=== PATIENT | male | born 1945 | race Caucasian/White ===

== ENCOUNTER 2016-11-05 20:55 | Inpatient (IN) | payer OTHER, MEDICAID ==
[~2016-11-05] VITALS: Ht 175.3 cm; Wt 58.6 kg
[~2016-11-05 20:55] MED LIST: NALT50TA10 PO; QUET200T PO
[2016-11-05] MEDS ORDERED: ZOLPIDEM TARTRATE 10 MG TABLET PO PRN (23:15)
[2016-11-05] MEDS ORDERED: OLANZapine 5 MG RAPDIS TABLET PO PRN (23:15)
[2016-11-05 23:31] LABS: BASOPHILS % (AUTO) 0.1 % (0.0-2.0); EOSINOPHILS % (AUTO) 2.2 % (1.0-6.0); HEMATOCRIT 27.2 % (41-53); HEMOGLOBIN 8.7 g/dL (13.5-17.5); LYMPHOCYTES # (AUTO) 2.1 K/uL (1.0-4.8); LYMPHOCYTES % (AUTO) 35.3 % (22.0-44.0); MEAN CORPUSCULAR VOLUME 78 fL (80-100); MONOCYTES # (AUTO) 0.8 K/uL (0.1-1.0); MONOCYTES % (AUTO) 13.6 % (2.0-9.0); NEUTROPHILS # (AUTO) 2.9 K/uL (1.8-7.7); NEUTROPHILS % (AUTO) 48.8 % (40.0-70.0); PLATELET COUNT (AUTO) 383 K/uL (150-450); RED BLOOD CELL COUNT(AUTO) 3.48 MIL/uL (4.50-5.90); WHITE BLOOD COUNT (AUTO) 5.9 K/uL (4.5-11.0)
[2016-11-05 23:35] LABS: ANION GAP 7 mmol/L (8-16); CALCIUM, TOTAL 8.5 mg/dL (8.8-10.5); CARBON DIOXIDE 26 mmol/L (22-29); CHLORIDE 101 mmol/L (98-107); CREATININE 1.16 mg/dL (0.60-1.30); GLOMERULAR FILTR. RATE CALC > 60 mL/min (>60); SODIUM SERUM 134 mmol/L (136-145); UREA NITROGEN, BLOOD 19 mg/dL (7-18)
[2016-11-05 23:42] LABS: ALANINE AMINOTRANSFERASE 26 U/L (12-78); ALBUMIN 3.3 g/dL (3.4-5.0); ASPARTATE AMINOTRANSFERASE 19 U/L (15-37); BILIRUBIN,TOTAL 0.1 mg/dL (0.1-1.0); TOTAL PROTEIN, SERUM 7.2 g/dL (6.4-8.2)
[2016-11-06 01:28] VITALS: BP 135/72
[2016-11-06] MEDS ORDERED: INFLUENZA VIRUS VACCINE QVS 2016-17 (3YR+)/PF 60 MCG/0.5 ML SYRINGE IM ONE (01:30)
[2016-11-06] MEDS ORDERED: -PHARMACY VACCINE NOTE- MISC ONE ×2 (01:45)
[2016-11-06 08:05] VITALS: BP 100/61
[2016-11-06] MEDS ORDERED: PROMETHAZINE HCL 25 MG TABLET PO PRN (11:15)
[2016-11-06] MEDS ORDERED: LOPERAMIDE HCL 2 MG CAPSULE PO PRN (11:15)
[2016-11-06] MEDS ORDERED: MAG HYDROX/AL HYDROX/SIMETH ES 30 ML SUSPENSION UDCUP PO PRN (11:15)
[2016-11-06] MEDS ORDERED: GuaiFENesin/D-METHORPHAN [SUGAR-FREE] 200-20MG/10 ML SYRUP UDCUP PO PRN (11:15)
[2016-11-06] MEDS ORDERED: ACETAMINOPHEN 325 MG TABLET PO PRN (11:15)
[2016-11-06] MEDS ORDERED: MAGNESIUM HYDROXIDE SUSPENSION 30 ML UDCUP PO PRN (11:15)
[2016-11-06] MEDS ORDERED: HydrOXYzine PAMOATE 50 MG CAPSULE PO PRN (11:15)
[2016-11-06] MEDS: THIAMINE HCL 100 MG TABLET PO SCH (17:00)
[2016-11-06 20:28] VITALS: BP 98/60
[2016-11-06] MEDS: QUEtiapine FUMARATE 200 MG TABLET PO SCH (21:00)
[2016-11-06] MEDS ORDERED: QUEtiapine FUMARATE 100 MG TABLET PO SCH (21:00)
[2016-11-07] MEDS: MULTIVITAMINS WITH MINERALS, THERAPEUTIC TABLET PO SCH (09:37)
[2016-11-07] MEDS: THIAMINE HCL 100 MG TABLET PO SCH ×2 (09:37→16:18)
[2016-11-07] MEDS: FOLIC ACID 1 MG TABLET PO SCH (09:37)
[2016-11-07 10:04] VITALS: BP 128/82
[2016-11-07] MEDS: QUEtiapine FUMARATE 200 MG TABLET PO SCH (20:55)
[2016-11-08 06:52] VITALS: BP 120/73
[2016-11-08 08:00] VITALS: BP 112/79
[2016-11-08] MEDS: MULTIVITAMINS WITH MINERALS, THERAPEUTIC TABLET PO SCH (09:00)
[2016-11-08] MEDS: FOLIC ACID 1 MG TABLET PO SCH (09:00)
[2016-11-08] MEDS: THIAMINE HCL 100 MG TABLET PO SCH ×2 (09:00→16:25)
[2016-11-08] MEDS: LORazepam 2 MG TABLET PO PRN ×2 (12:51→19:59)
[2016-11-08] MEDS: NICOTINE 21 MG/24 HOUR PATCH TD SCH (16:20)
[2016-11-08 16:42] VITALS: BP 106/58
[2016-11-08] MEDS: QUEtiapine FUMARATE 200 MG TABLET PO SCH (20:27)
[2016-11-09] MEDS: LORazepam 2 MG TABLET PO PRN ×4 (05:42→21:24)
[2016-11-09 05:46] VITALS: BP 128/87
[2016-11-09 07:36] LABS: APPEARANCE,URINE CLEAR (CLEAR); GLUCOSE, URINE (UA) NEGATIVE (NEGATIVE); KETONES,URINE NEGATIVE (NEGATIVE); LEUKOCYTE ESTERASE ,URINE NEGATIVE (NEGATIVE); OCCULT BLOOD,URINE NEGATIVE (NEGATIVE); PROTEIN,URINE NEGATIVE (NEGATIVE)
[2016-11-09 07:40] LABS: ADD UA MICROSCOPIC NO
[2016-11-09 08:00] VITALS: BP 113/75
[2016-11-09] MEDS: FOLIC ACID 1 MG TABLET PO SCH (08:34)
[2016-11-09] MEDS: MULTIVITAMINS WITH MINERALS, THERAPEUTIC TABLET PO SCH (08:34)
[2016-11-09] MEDS: THIAMINE HCL 100 MG TABLET PO SCH ×2 (08:34→16:06)
[2016-11-09] MEDS: NICOTINE 21 MG/24 HOUR PATCH TD SCH (08:35)
[2016-11-09 19:16] VITALS: BP 117/82
[2016-11-09] MEDS: QUEtiapine FUMARATE 200 MG TABLET PO SCH (21:00)
[2016-11-10 01:30] VITALS: BP 115/72
[2016-11-10] MEDS: LORazepam 2 MG TABLET PO PRN ×3 (06:49→18:29)
[2016-11-10] MEDS: THIAMINE HCL 100 MG TABLET PO SCH ×2 (08:17→16:59)
[2016-11-10] MEDS: FOLIC ACID 1 MG TABLET PO SCH (08:17)
[2016-11-10] MEDS: MULTIVITAMINS WITH MINERALS, THERAPEUTIC TABLET PO SCH (08:17)
[2016-11-10] MEDS: NICOTINE 21 MG/24 HOUR PATCH TD SCH (08:20)
[2016-11-10 16:17] VITALS: BP 113/76
[2016-11-10 16:18] VITALS: BP 113/76
[2016-11-10] MEDS: QUEtiapine FUMARATE 200 MG TABLET PO SCH (20:18)
[2016-11-11 08:54] VITALS: BP 126/64
[2016-11-11] MEDS: NICOTINE 21 MG/24 HOUR PATCH TD SCH (09:19)
[2016-11-11] MEDS: LORazepam 0.5 MG TABLET PO PRN ×3 (09:20→20:42)
[2016-11-11] MEDS: THIAMINE HCL 100 MG TABLET PO SCH ×2 (09:21→16:04)
[2016-11-11] MEDS: MULTIVITAMINS WITH MINERALS, THERAPEUTIC TABLET PO SCH (09:21)
[2016-11-11] MEDS: FOLIC ACID 1 MG TABLET PO SCH (09:21)
[2016-11-11] MEDS: ESCITALOPRAM OXALATE 10 MG TABLET PO SCH (09:22)
[2016-11-11 17:00] VITALS: BP 101/62
[2016-11-11] MEDS: QUEtiapine FUMARATE 200 MG TABLET PO SCH (21:26)
[2016-11-12 06:05] VITALS: BP 105/75
[2016-11-12] MEDS: LORazepam 0.5 MG TABLET PO PRN ×4 (06:50→21:59)
[2016-11-12 08:00] VITALS: BP 123/80
[2016-11-12] MEDS: ESCITALOPRAM OXALATE 10 MG TABLET PO SCH (08:12)
[2016-11-12] MEDS: FOLIC ACID 1 MG TABLET PO SCH (08:12)
[2016-11-12] MEDS: THIAMINE HCL 100 MG TABLET PO SCH ×2 (08:12→16:24)
[2016-11-12] MEDS: MULTIVITAMINS WITH MINERALS, THERAPEUTIC TABLET PO SCH (08:12)
[2016-11-12] MEDS: NICOTINE 21 MG/24 HOUR PATCH TD SCH (08:16)
[2016-11-12] MEDS ORDERED: QUET200T29 PO (17:19)
[2016-11-12 18:52] VITALS: BP 113/65
[2016-11-12] MEDS: QUEtiapine FUMARATE 200 MG TABLET PO SCH (21:59)
[2016-11-13] MEDS ORDERED: ESCI10TA PO (02:06)
[2016-11-13 05:58] VITALS: BP 105/68
[2016-11-13] MEDS: FOLIC ACID 1 MG TABLET PO SCH (08:02)
[2016-11-13] MEDS: MULTIVITAMINS WITH MINERALS, THERAPEUTIC TABLET PO SCH (08:02)
[2016-11-13] MEDS: THIAMINE HCL 100 MG TABLET PO SCH (08:02)
[2016-11-13] MEDS: ESCITALOPRAM OXALATE 10 MG TABLET PO SCH (08:03)
[2016-11-13] MEDS: LORazepam 0.5 MG TABLET PO PRN (08:03)
[2016-11-13] MEDS: NICOTINE 21 MG/24 HOUR PATCH TD SCH (08:03)
[2016-11-13 08:07] VITALS: BP 106/69
[2017-01-27] MEDS ORDERED: FERR-89 PO (11:02)
== END 2016-11-13 11:35 | disposition home or self-care (01) | DRG 885 ==
LOC: EMS 20:59 → 3EI 23:58 → 3EX 11-07 17:53
PROVIDERS: ADMIT Psychiatry & Neurology Psychiatry; ATTEND Psychiatry & Neurology Psychiatry
DX: F25.9 Schizoaffective disorder, unspecified (principal); R45.851 Suicidal ideations; B19.20 Unspecified viral hepatitis C without hepatic coma; D64.9 Anemia, unspecified; F17.210 Nicotine dependence, cigarettes, uncomplicated; F32.9 Major depressive disorder, single episode, unspecified; I10 Essential (primary) hypertension; J44.9 Chronic obstructive pulmonary disease, unspecified; J45.909 Unspecified asthma, uncomplicated; F12.90 Cannabis use, unspecified, uncomplicated; K21.9 Gastro-esophageal reflux disease without esophagitis; N40.0 Benign prostatic hyperplasia without lower urinary tract symptoms; Z59.0 Homelessness; Z79.899 Other long term (current) drug therapy; Z87.81 Personal history of (healed) traumatic fracture; Z91.19 Patient's noncompliance with other medical treatment and regimen; Z88.6 Allergy status to analgesic agent; Z88.8 Allergy status to other drugs, medicaments and biological substances; Z87.01 Personal history of pneumonia (recurrent); Z98.890 Other specified postprocedural states; Z28.20 Immunization not carried out because of patient decision for unspecified reason
CPT/HCPCS: 80307; 87081; 99285; G0480

== ENCOUNTER 2016-11-15 21:47 | Emergency (ER) | payer OTHER ==
[~2016-11-15] VITALS: Ht 167.6 cm; Wt 65.9 kg
[~2016-11-15 21:47] MED LIST changes: -NALT50TA10 PO; +QUET200T29 PO
[2016-11-16] MEDS ORDERED: SODIUM CHLORIDE 0.9% 1,000 ML IV ONE (00:45)
[2016-11-16] MEDS ORDERED: MAGNESIUM SULFATE 2 GM, MVI, ADULT NO.1 WITH VIT K 10 ML, THIAMINE HCL 100 MG, FOLIC AC... IV ONE ×5 (00:45)
[2016-11-16 02:56] VITALS: BP 127/67
[2017-01-27] MEDS ORDERED: FERR-89 PO (11:02)
== END 2016-11-16 03:35 | disposition home or self-care (01) ==
LOC: EMS 21:49
DX: F25.9 Schizoaffective disorder, unspecified (principal); J45.909 Unspecified asthma, uncomplicated; F10.129 Alcohol abuse with intoxication, unspecified; J44.9 Chronic obstructive pulmonary disease, unspecified; F32.9 Major depressive disorder, single episode, unspecified; F17.210 Nicotine dependence, cigarettes, uncomplicated; F12.90 Cannabis use, unspecified, uncomplicated; F19.90 Other psychoactive substance use, unspecified, uncomplicated; Z88.8 Allergy status to other drugs, medicaments and biological substances; Y90.0 Blood alcohol level of less than 20 mg/100 ml
CPT/HCPCS: 36415; 80307; 99284; G0480; J3411; J3475; J3490 ×2; J7030

== ENCOUNTER 2016-11-23 23:47 | Emergency (ER) | payer OTHER ==
[~2016-11-23] VITALS: Ht 172.7 cm; Wt 63.6 kg
[2016-11-24 00:40] VITALS: BP 135/76
[2016-11-24] MEDS ORDERED: LORazepam 2 MG TABLET PO ONE (01:00)
[2017-01-27] MEDS ORDERED: FERR-89 PO (11:02)
== END 2016-11-24 01:03 | disposition home or self-care (01) ==
LOC: EMS 23:49
DX: F41.9 Anxiety disorder, unspecified (principal); F25.9 Schizoaffective disorder, unspecified; J45.909 Unspecified asthma, uncomplicated; F31.9 Bipolar disorder, unspecified; J44.9 Chronic obstructive pulmonary disease, unspecified; F17.210 Nicotine dependence, cigarettes, uncomplicated
CPT/HCPCS: 99284

== ENCOUNTER 2016-11-24 13:39 | Emergency (ER) | payer OTHER ==
[~2016-11-24] VITALS: Ht 175.3 cm; Wt 63.6 kg
[2016-11-24 14:20] VITALS: BP 126/79
[2017-01-27] MEDS ORDERED: FERR-89 PO (11:02)
== END 2016-11-24 17:35 | disposition left against medical advice (07) ==
LOC: EMS 13:43
DX: Z00.8 Encounter for other general examination (principal); Z53.21 Procedure and treatment not carried out due to patient leaving prior to being seen by health care provider

== ENCOUNTER 2016-11-26 21:52 | Emergency (ER) | payer OTHER ==
[~2016-11-26] VITALS: Ht 172.7 cm; Wt 72.7 kg
[2016-11-27] MEDS ORDERED: LORazepam 2 MG TABLET PO ONE (00:45)
[2016-11-27 01:02] VITALS: BP 132/81
[2017-01-27] MEDS ORDERED: FERR-89 PO (11:02)
== END 2016-11-27 01:04 | disposition home or self-care (01) ==
LOC: EMS 21:54
DX: F41.9 Anxiety disorder, unspecified (principal); F31.9 Bipolar disorder, unspecified; J44.9 Chronic obstructive pulmonary disease, unspecified; J45.909 Unspecified asthma, uncomplicated; F20.9 Schizophrenia, unspecified; F12.90 Cannabis use, unspecified, uncomplicated; F15.90 Other stimulant use, unspecified, uncomplicated; F17.210 Nicotine dependence, cigarettes, uncomplicated; Z88.5 Allergy status to narcotic agent
CPT/HCPCS: 99284

== ENCOUNTER 2016-11-27 05:29 | Emergency (ER) | payer OTHER ==
[~2016-11-27] VITALS: Ht 170.2 cm; Wt 72.7 kg
[2016-11-27 06:16] VITALS: BP 126/80
[2016-11-27 06:55] LABS: BASOPHILS % (AUTO) 0.1 % (0.0-2.0); EOSINOPHILS % (AUTO) 2.2 % (1.0-6.0); HEMATOCRIT 27.5 % (41-53); HEMOGLOBIN 8.6 g/dL (13.5-17.5); LYMPHOCYTES # (AUTO) 1.4 K/uL (1.0-4.8); LYMPHOCYTES % (AUTO) 21.8 % (22.0-44.0); MEAN CORPUSCULAR HEMOGLOBIN 24.5 pg (26.0-34.0); MEAN CORPUSCULAR HGB CONC 31.4 G/dL (31.0-37.0); MEAN CORPUSCULAR VOLUME 78 fL (80-100); MONOCYTES # (AUTO) 0.7 K/uL (0.1-1.0); NEUTROPHILS # (AUTO) 4.3 K/uL (1.8-7.7); NEUTROPHILS % (AUTO) 64.9 % (40.0-70.0); PLATELET COUNT (AUTO) 337 K/uL (150-450); RED BLOOD CELL COUNT(AUTO) 3.54 MIL/uL (4.50-5.90); RED CELL DISTRIBUTION WIDTH 17.3 % (11.5-14.5); WHITE BLOOD COUNT (AUTO) 6.6 K/uL (4.5-11.0)
[2016-11-27 06:56] LABS: ANION GAP 4 mmol/L (8-16); CALCIUM, TOTAL 7.9 mg/dL (8.8-10.5); CARBON DIOXIDE 32 mmol/L (22-29); CHLORIDE 96 mmol/L (98-107); CREATININE 1.08 mg/dL (0.60-1.30); GLOMERULAR FILTR. RATE CALC > 60 mL/min (>60); POTASSIUM 4.2 mmol/L (3.5-5.1); SODIUM SERUM 132 mmol/L (136-145); UREA NITROGEN, BLOOD 19 mg/dL (7-18)
[2016-11-27 07:02] LABS: ALANINE AMINOTRANSFERASE 26 U/L (12-78); ALBUMIN 3.6 g/dL (3.4-5.0); ASPARTATE AMINOTRANSFERASE 23 U/L (15-37); BILIRUBIN,TOTAL 0.1 mg/dL (0.1-1.0); TOTAL PROTEIN, SERUM 7.6 g/dL (6.4-8.2)
[2016-11-27 09:32] LABS: RBC MORPHOLOGY COMMENT ABNORMAL RBC MORPH
[2017-01-27] MEDS ORDERED: FERR-89 PO (11:02)
== END 2016-11-27 07:50 | disposition left against medical advice (07) ==
LOC: EMS 05:31
DX: F31.9 Bipolar disorder, unspecified (principal); D64.9 Anemia, unspecified; E11.649 Type 2 diabetes mellitus with hypoglycemia without coma; J45.909 Unspecified asthma, uncomplicated; F20.9 Schizophrenia, unspecified; J44.9 Chronic obstructive pulmonary disease, unspecified; F12.90 Cannabis use, unspecified, uncomplicated; F19.90 Other psychoactive substance use, unspecified, uncomplicated; F17.210 Nicotine dependence, cigarettes, uncomplicated; Z88.8 Allergy status to other drugs, medicaments and biological substances
CPT/HCPCS: 36415; 80053; 80307; 85025; 99284; G0480

== ENCOUNTER 2016-12-04 17:54 | Emergency (ER) | payer OTHER ==
[~2016-12-04] VITALS: Ht 175.3 cm; Wt 63.6 kg
[2016-12-04 23:30] VITALS: BP 141/88
[2016-12-04] MEDS ORDERED: LORazepam 1 MG TABLET PO ONE (23:45)
[2017-01-27] MEDS ORDERED: FERR-89 PO (11:02)
== END 2016-12-04 23:40 | disposition home or self-care (01) ==
LOC: EMS 18:02
DX: F41.9 Anxiety disorder, unspecified (principal); F31.9 Bipolar disorder, unspecified; F20.9 Schizophrenia, unspecified; J45.909 Unspecified asthma, uncomplicated; J44.9 Chronic obstructive pulmonary disease, unspecified; F17.210 Nicotine dependence, cigarettes, uncomplicated; F12.90 Cannabis use, unspecified, uncomplicated; F19.90 Other psychoactive substance use, unspecified, uncomplicated; Z88.8 Allergy status to other drugs, medicaments and biological substances
CPT/HCPCS: 99284

== ENCOUNTER 2016-12-06 22:04 | Emergency (ER) | payer OTHER ==
[~2016-12-06] VITALS: Ht 182.9 cm; Wt 68.2 kg
[2016-12-06] MEDS ORDERED: BACITRACIN 0.9 GM PACKET OINTMENT TP ONE (23:00)
[2016-12-06 23:13] LABS: HEMATOCRIT 24.5 % (41-53); HEMOGLOBIN 7.8 g/dL (13.5-17.5); MEAN CORPUSCULAR HEMOGLOBIN 24.2 pg (26.0-34.0); MEAN CORPUSCULAR VOLUME 76 fL (80-100); PLATELET COUNT (AUTO) 428 K/uL (150-450); RED BLOOD CELL COUNT(AUTO) 3.23 MIL/uL (4.50-5.90); RED CELL DISTRIBUTION WIDTH 17.8 % (11.5-14.5); WHITE BLOOD COUNT (AUTO) 5.2 K/uL (4.5-11.0)
[2016-12-06 23:21] LABS: ANION GAP 8 mmol/L (8-16); CALCIUM, TOTAL 8.2 mg/dL (8.8-10.5); CARBON DIOXIDE 28 mmol/L (22-29); CHLORIDE 101 mmol/L (98-107); CREATININE 1.12 mg/dL (0.60-1.30); GLOMERULAR FILTR. RATE CALC > 60 mL/min (>60); POTASSIUM 4.4 mmol/L (3.5-5.1); SODIUM SERUM 137 mmol/L (136-145); UREA NITROGEN, BLOOD 20 mg/dL (7-18)
[2016-12-06 23:27] LABS: ALANINE AMINOTRANSFERASE 31 U/L (12-78); ALBUMIN 3.4 g/dL (3.4-5.0); ASPARTATE AMINOTRANSFERASE 31 U/L (15-37); BILIRUBIN,TOTAL 0.2 mg/dL (0.1-1.0); TOTAL PROTEIN, SERUM 7.1 g/dL (6.4-8.2)
[2016-12-06 23:28] LABS: EOSINOPHILS % (MANUAL) 1 % (1-6); LYMPHOCYTES % (MANUAL) 33 % (22-44); TOTAL CELLS COUNTED 100
[2016-12-06 23:29] LABS: RBC MORPHOLOGY COMMENT ABNORMAL R
[2016-12-07] MEDS ORDERED: LORazepam 2 MG TABLET PO ONE
[2016-12-07 00:26] VITALS: BP 133/80
[2017-01-27] MEDS ORDERED: FERR-89 PO (11:02)
== END 2016-12-07 01:12 | disposition home or self-care (01) ==
LOC: EMS 22:06
DX: F30.9 Manic episode, unspecified (principal); D64.9 Anemia, unspecified; F10.10 Alcohol abuse, uncomplicated; F17.210 Nicotine dependence, cigarettes, uncomplicated; F12.90 Cannabis use, unspecified, uncomplicated; F19.90 Other psychoactive substance use, unspecified, uncomplicated; J45.909 Unspecified asthma, uncomplicated; J44.9 Chronic obstructive pulmonary disease, unspecified; Z88.8 Allergy status to other drugs, medicaments and biological substances; Y90.0 Blood alcohol level of less than 20 mg/100 ml
CPT/HCPCS: 36415; 80053; 85025; 99284; G0480

== ENCOUNTER 2016-12-10 22:04 | Emergency (ER) | payer OTHER ==
[~2016-12-10] VITALS: Ht 172.7 cm; Wt 72.7 kg
[2016-12-11] MEDS ORDERED: LORazepam 2 MG TABLET PO ONE (00:45)
[2016-12-11 01:20] VITALS: BP 132/72
[2017-01-27] MEDS ORDERED: FERR-89 PO (11:02)
== END 2016-12-11 01:22 | disposition home or self-care (01) ==
LOC: EMS 22:07
DX: F41.9 Anxiety disorder, unspecified (principal); J45.909 Unspecified asthma, uncomplicated; J44.9 Chronic obstructive pulmonary disease, unspecified; F12.90 Cannabis use, unspecified, uncomplicated; F15.90 Other stimulant use, unspecified, uncomplicated; F17.210 Nicotine dependence, cigarettes, uncomplicated; Z88.5 Allergy status to narcotic agent
CPT/HCPCS: 99283

== ENCOUNTER 2016-12-24 04:08 | Emergency (ER) | payer OTHER ==
[~2016-12-24] VITALS: Ht 172.7 cm; Wt 72.7 kg
[2016-12-24 05:44] LABS: BASOPHILS # (AUTO) 0.01 K/uL (0.00-0.20); BASOPHILS % (AUTO) 0.1 % (0.0-2.0); EOSINOPHILS # (AUTO) 0.06 K/uL (0.00-0.70); EOSINOPHILS % (AUTO) 1.37 % (1.0-6.0); HEMOGLOBIN 7.4 g/dL (13.5-17.5); LYMPHOCYTES # (AUTO) 1.8 K/uL (1.0-4.8); LYMPHOCYTES % (AUTO) 39.5 % (22.0-44.0); MEAN CORPUSCULAR HEMOGLOBIN 23.4 pg (26.0-34.0); MEAN CORPUSCULAR HGB CONC 32.4 G/dL (31.0-37.0); MEAN CORPUSCULAR VOLUME 72 fL (80-100); MONOCYTES # (AUTO) 0.6 K/uL (0.1-1.0); MONOCYTES % (AUTO) 13.1 % (2.0-9.0); NEUTROPHILS # (AUTO) 2.1 K/uL (1.8-7.7); NEUTROPHILS % (AUTO) 45.8 % (40.0-70.0); PLATELET COUNT (AUTO) 338 K/uL (150-450); RED BLOOD CELL COUNT(AUTO) 3.18 MIL/uL (4.50-5.90); RED CELL DISTRIBUTION WIDTH 16.9 % (11.5-14.5); WHITE BLOOD COUNT (AUTO) 4.6 K/uL (4.5-11.0)
[2016-12-24 05:52] LABS: ANION GAP 7 mmol/L (8-16); CALCIUM, TOTAL 8.1 mg/dL (8.8-10.5); CARBON DIOXIDE 29 mmol/L (22-29); CHLORIDE 100 mmol/L (98-107); CREATININE 1.31 mg/dL (0.60-1.30); GLOMERULAR FILTR. RATE CALC 54 mL/min (>60); POTASSIUM 4.5 mmol/L (3.5-5.1); SODIUM SERUM 136 mmol/L (136-145); UREA NITROGEN, BLOOD 18 mg/dL (7-18)
[2016-12-24 05:58] LABS: ALANINE AMINOTRANSFERASE 33 U/L (12-78); ALBUMIN 3.3 g/dL (3.4-5.0); ASPARTATE AMINOTRANSFERASE 39 U/L (15-37); BILIRUBIN,TOTAL 0.3 mg/dL (0.1-1.0); TOTAL PROTEIN, SERUM 7.2 g/dL (6.4-8.2)
[2016-12-24 06:45] LABS: RBC MORPHOLOGY COMMENT ABNORMAL RBC MORPH
[2016-12-24 09:04] VITALS: BP 109/71
[2017-01-27] MEDS ORDERED: FERR-89 PO (11:02)
== END 2016-12-24 09:09 | disposition home or self-care (01) ==
LOC: EMS 04:11
DX: F41.9 Anxiety disorder, unspecified (principal); F25.9 Schizoaffective disorder, unspecified; F31.9 Bipolar disorder, unspecified; J44.9 Chronic obstructive pulmonary disease, unspecified; J45.909 Unspecified asthma, uncomplicated; F12.90 Cannabis use, unspecified, uncomplicated; F15.90 Other stimulant use, unspecified, uncomplicated; F17.210 Nicotine dependence, cigarettes, uncomplicated; Z88.5 Allergy status to narcotic agent
CPT/HCPCS: 36415; 80053; 80307; 85025; 99284; 99406; G0480

== ENCOUNTER 2016-12-26 20:51 | Inpatient (IN) | payer OTHER, MEDICAID ==
[~2016-12-26] VITALS: Ht 175.3 cm; Wt 62.8 kg
[2016-12-26] MEDS ORDERED: HALOPERIDOL 5 MG TABLET PO PRN (23:00)
[2016-12-26] MEDS ORDERED: ZOLPIDEM TARTRATE 10 MG TABLET PO PRN (23:00)
[2016-12-26 23:13] VITALS: BP 101/72
[2016-12-27 00:11] VITALS: BP 119/78
[2016-12-27] MEDS ORDERED: INFLUENZA VIRUS VACCINE QVS 2016-17 (3YR+)/PF 60 MCG/0.5 ML SYRINGE IM ONE (00:15)
[2016-12-27] MEDS ORDERED: PNEUMOCOCCAL VACCINE POLYVALENT 0.5 ML VIAL [PPSV23] IM ONE (00:30)
[2016-12-27 09:33] LABS: BASOPHILS % (AUTO) 0.6 % (0.0-2.0); EOSINOPHILS % (AUTO) 6.2 % (1.0-6.0); HEMATOCRIT 25.8 % (41-53); LYMPHOCYTES # (AUTO) 1.2 K/uL (1.0-4.8); LYMPHOCYTES % (AUTO) 30.8 % (22.0-44.0); MEAN CORPUSCULAR HEMOGLOBIN 22.7 pg (26.0-34.0); MEAN CORPUSCULAR HGB CONC 30.9 G/dL (31.0-37.0); MEAN CORPUSCULAR VOLUME 74 fL (80-100); MONOCYTES # (AUTO) 0.5 K/uL (0.1-1.0); NEUTROPHILS # (AUTO) 1.9 K/uL (1.8-7.7); NEUTROPHILS % (AUTO) 49.4 % (40.0-70.0); PLATELET COUNT (AUTO) 350 K/uL (150-450); RED CELL DISTRIBUTION WIDTH 16.6 % (11.5-14.5); WHITE BLOOD COUNT (AUTO) 3.9 K/uL (4.5-11.0)
[2016-12-27 09:51] LABS: ALANINE AMINOTRANSFERASE 32 U/L (12-78); ALBUMIN 3.4 g/dL (3.4-5.0); ANION GAP 8 mmol/L (8-16); ASPARTATE AMINOTRANSFERASE 32 U/L (15-37); BILIRUBIN,TOTAL 0.3 mg/dL (0.1-1.0); CALCIUM, TOTAL 7.5 mg/dL (8.8-10.5); CARBON DIOXIDE 27 mmol/L (22-29); CHLORIDE 101 mmol/L (98-107); CREATININE 1.14 mg/dL (0.60-1.30); GLOMERULAR FILTR. RATE CALC > 60 mL/min (>60); POTASSIUM 4.7 mmol/L (3.5-5.1); SODIUM SERUM 136 mmol/L (136-145); TOTAL PROTEIN, SERUM 7.3 g/dL (6.4-8.2); UREA NITROGEN, BLOOD 15 mg/dL (7-18)
[2016-12-27 10:33] LABS: APPEARANCE,URINE CLEAR (CLEAR); GLUCOSE, URINE (UA) NEGATIVE (NEGATIVE); KETONES,URINE NEGATIVE (NEGATIVE); LEUKOCYTE ESTERASE ,URINE NEGATIVE (NEGATIVE); OCCULT BLOOD,URINE NEGATIVE (NEGATIVE); PROTEIN,URINE NEGATIVE (NEGATIVE)
[2016-12-27] MEDS: NICOTINE 21 MG/24 HOUR PATCH TD SCH (10:43)
[2016-12-27 10:52] LABS: ADD UA MICROSCOPIC NO
[2016-12-27] MEDS: LORazepam 1 MG TABLET PO PRN ×2 (13:36→20:31)
[2016-12-27] MEDS: MULTIVITAMINS WITH IRON TABLET PO SCH (15:10)
[2016-12-27 16:17] VITALS: BP 126/65
[2016-12-27] MEDS: QUEtiapine FUMARATE 200 MG TABLET PO SCH (20:31)
[2016-12-28 00:10] VITALS: BP 124/84
[2016-12-28] MEDS: LORazepam 1 MG TABLET PO PRN ×3 (06:53→20:07)
[2016-12-28 08:39] LABS: EOSINOPHILS % (AUTO) 3.8 % (1.0-6.0); HEMATOCRIT 26.9 % (41-53); HEMOGLOBIN 8.4 g/dL (13.5-17.5); LYMPHOCYTES # (AUTO) 1.7 K/uL (1.0-4.8); LYMPHOCYTES % (AUTO) 37.3 % (22.0-44.0); MEAN CORPUSCULAR HEMOGLOBIN 22.7 pg (26.0-34.0); MEAN CORPUSCULAR HGB CONC 31.1 G/dL (31.0-37.0); MEAN CORPUSCULAR VOLUME 73 fL (80-100); MONOCYTES # (AUTO) 0.6 K/uL (0.1-1.0); MONOCYTES % (AUTO) 13.1 % (2.0-9.0); NEUTROPHILS # (AUTO) 2.1 K/uL (1.8-7.7); NEUTROPHILS % (AUTO) 45.8 % (40.0-70.0); PLATELET COUNT (AUTO) 387 K/uL (150-450); RED BLOOD CELL COUNT(AUTO) 3.68 MIL/uL (4.50-5.90); RED CELL DISTRIBUTION WIDTH 16.8 % (11.5-14.5); WHITE BLOOD COUNT (AUTO) 4.6 K/uL (4.5-11.0)
[2016-12-28] MEDS: NICOTINE 21 MG/24 HOUR PATCH TD SCH (09:38)
[2016-12-28] MEDS: MULTIVITAMINS WITH IRON TABLET PO SCH (09:38)
[2016-12-28 09:50] LABS: RBC MORPHOLOGY COMMENT ABNORMAL RBC MORPH
[2016-12-28 16:18] VITALS: BP 114/70
[2016-12-28] MEDS: QUEtiapine FUMARATE 200 MG TABLET PO SCH (20:11)
[2016-12-29 04:06] VITALS: BP 128/76
[2016-12-29 09:03] VITALS: BP 106/72
[2016-12-29] MEDS: NICOTINE 21 MG/24 HOUR PATCH TD SCH (09:35)
[2016-12-29] MEDS: MULTIVITAMINS WITH IRON TABLET PO SCH (09:35)
[2016-12-29] MEDS: LORazepam 1 MG TABLET PO PRN ×3 (09:35→20:03)
[2016-12-29 16:19] VITALS: BP 115/75
[2016-12-29] MEDS: QUEtiapine FUMARATE 200 MG TABLET PO SCH (20:03)
[2016-12-30 01:43] VITALS: BP 108/68
[2016-12-30 08:20] LABS: APPEARANCE,URINE CLEAR (CLEAR); GLUCOSE, URINE (UA) NEGATIVE (NEGATIVE); KETONES,URINE NEGATIVE (NEGATIVE); LEUKOCYTE ESTERASE ,URINE NEGATIVE (NEGATIVE); OCCULT BLOOD,URINE NEGATIVE (NEGATIVE); PROTEIN,URINE NEGATIVE (NEGATIVE)
[2016-12-30 08:21] LABS: ADD UA MICROSCOPIC NO
[2016-12-30 08:25] VITALS: BP 108/67
[2016-12-30] MEDS: MULTIVITAMINS WITH IRON TABLET PO SCH (09:16)
[2016-12-30] MEDS: NICOTINE 21 MG/24 HOUR PATCH TD SCH (09:16)
[2016-12-30] MEDS: LORazepam 1 MG TABLET PO PRN ×3 (09:20→19:01)
[2016-12-30 16:15] VITALS: BP 107/65
[2016-12-30] MEDS: QUEtiapine FUMARATE 200 MG TABLET PO SCH (20:09)
[2016-12-31 06:05] VITALS: BP 118/77
[2016-12-31] MEDS: LORazepam 1 MG TABLET PO PRN ×3 (06:09→22:06)
[2016-12-31] MEDS: NICOTINE 21 MG/24 HOUR PATCH TD SCH (09:52)
[2016-12-31] MEDS: MULTIVITAMINS WITH IRON TABLET PO SCH (09:52)
[2016-12-31 09:58] VITALS: BP 102/58
[2016-12-31 16:16] VITALS: BP 118/73
[2016-12-31] MEDS: QUEtiapine FUMARATE 200 MG TABLET PO SCH (20:44)
[2017-01-01 04:54] VITALS: BP 101/70
[2017-01-01 06:58] VITALS: BP 110/10
[2017-01-01] MEDS: LORazepam 1 MG TABLET PO PRN (07:00)
[2017-01-01 08:44] VITALS: BP 100/66
[2017-01-01] MEDS: NICOTINE 21 MG/24 HOUR PATCH TD SCH (09:17)
[2017-01-01] MEDS: MULTIVITAMINS WITH IRON TABLET PO SCH (09:17)
[2017-01-27] MEDS ORDERED: FERR-89 PO (11:02)
== END 2017-01-01 13:19 | disposition home or self-care (01) | DRG 885 ==
LOC: B2S 22:58 → EDSTATUS 23:05
PROVIDERS: ADMIT Psychiatry & Neurology Psychiatry; ATTEND Psychiatry & Neurology Psychiatry
DX: F25.9 Schizoaffective disorder, unspecified (principal); R45.851 Suicidal ideations; D64.9 Anemia, unspecified; N40.0 Benign prostatic hyperplasia without lower urinary tract symptoms; I10 Essential (primary) hypertension; B19.20 Unspecified viral hepatitis C without hepatic coma; J44.9 Chronic obstructive pulmonary disease, unspecified; K21.9 Gastro-esophageal reflux disease without esophagitis; Z88.8 Allergy status to other drugs, medicaments and biological substances; Z28.21 Immunization not carried out because of patient refusal; Z79.899 Other long term (current) drug therapy
CPT/HCPCS: 80307; 87081; 90471

== ENCOUNTER 2017-01-06 00:21 | Emergency (ER) | payer OTHER ==
[~2017-01-06] VITALS: Ht 167.6 cm; Wt 53.0 kg
[~2017-01-06 00:21] MED LIST changes: -QUET200T29 PO
[2017-01-06 01:36] LABS: BASOPHILS % (AUTO) 0.6 % (0.0-2.0); EOSINOPHILS % (AUTO) 4.1 % (1.0-6.0); HEMOGLOBIN 7.9 g/dL (13.5-17.5); LYMPHOCYTES # (AUTO) 1.6 K/uL (1.0-4.8); MEAN CORPUSCULAR HGB CONC 30.2 G/dL (31.0-37.0); MEAN CORPUSCULAR VOLUME 73 fL (80-100); MONOCYTES # (AUTO) 0.6 K/uL (0.1-1.0); MONOCYTES % (AUTO) 10.7 % (2.0-9.0); NEUTROPHILS # (AUTO) 3.4 K/uL (1.8-7.7); NEUTROPHILS % (AUTO) 57.6 % (40.0-70.0); PLATELET COUNT (AUTO) 408 K/uL (150-450); RED BLOOD CELL COUNT(AUTO) 3.58 MIL/uL (4.50-5.90); WHITE BLOOD COUNT (AUTO) 5.9 K/uL (4.5-11.0)
[2017-01-06 01:45] LABS: ANION GAP 5 mmol/L (8-16); CALCIUM, TOTAL 8.5 mg/dL (8.8-10.5); CARBON DIOXIDE 30 mmol/L (22-29); CHLORIDE 104 mmol/L (98-107); CREATININE 1.03 mg/dL (0.60-1.30); GLOMERULAR FILTR. RATE CALC > 60 mL/min (>60); POTASSIUM 4.3 mmol/L (3.5-5.1); SODIUM SERUM 139 mmol/L (136-145); UREA NITROGEN, BLOOD 10 mg/dL (7-18)
[2017-01-06 01:52] LABS: ALANINE AMINOTRANSFERASE 30 U/L (12-78); ALBUMIN 3.5 g/dL (3.4-5.0); ASPARTATE AMINOTRANSFERASE 27 U/L (15-37); BILIRUBIN,TOTAL 0.3 mg/dL (0.1-1.0); TOTAL PROTEIN, SERUM 7.4 g/dL (6.4-8.2)
[2017-01-06 02:24] LABS: RBC MORPHOLOGY COMMENT ABNORMAL RBC MORPH
[2017-01-06 04:21] VITALS: BP 126/82
[2017-01-27] MEDS ORDERED: FERR-89 PO (11:02)
== END 2017-01-06 05:56 | disposition home or self-care (01) ==
LOC: EMS 00:23
DX: F25.9 Schizoaffective disorder, unspecified (principal); F31.9 Bipolar disorder, unspecified; J44.9 Chronic obstructive pulmonary disease, unspecified; J45.909 Unspecified asthma, uncomplicated; F12.90 Cannabis use, unspecified, uncomplicated; F15.90 Other stimulant use, unspecified, uncomplicated; F17.210 Nicotine dependence, cigarettes, uncomplicated; Z88.5 Allergy status to narcotic agent
CPT/HCPCS: 36415; 80053; 80307; 85025; 99284; 99406; G0480

== ENCOUNTER 2017-01-15 01:25 | Emergency (ER) | payer OTHER ==
[~2017-01-15] VITALS: Ht 182.9 cm; Wt 68.0 kg
[2017-01-15 01:52] VITALS: BP 143/80
[2017-01-27] MEDS ORDERED: FERR-89 PO (11:02)
== END 2017-01-15 04:00 | disposition left against medical advice (07) ==
LOC: EMS 01:26
DX: F31.9 Bipolar disorder, unspecified (principal); F20.9 Schizophrenia, unspecified; J45.909 Unspecified asthma, uncomplicated; J44.9 Chronic obstructive pulmonary disease, unspecified; F17.210 Nicotine dependence, cigarettes, uncomplicated; F12.90 Cannabis use, unspecified, uncomplicated; F19.90 Other psychoactive substance use, unspecified, uncomplicated; Z53.21 Procedure and treatment not carried out due to patient leaving prior to being seen by health care provider

== ENCOUNTER 2017-01-15 07:31 | Emergency (ER) | payer OTHER ==
[~2017-01-15] VITALS: Ht 175.3 cm; Wt 59.1 kg
[2017-01-15 07:33] VITALS: BP 126/87
[2017-01-15 08:32] LABS: BASOPHILS % (AUTO) 0.2 % (0.0-2.0); EOSINOPHILS % (AUTO) 4.9 % (1.0-6.0); HEMATOCRIT 29.3 % (41-53); HEMOGLOBIN 9.2 g/dL (13.5-17.5); LYMPHOCYTES # (AUTO) 1.9 K/uL (1.0-4.8); LYMPHOCYTES % (AUTO) 32.4 % (22.0-44.0); MEAN CORPUSCULAR HEMOGLOBIN 23.4 pg (26.0-34.0); MEAN CORPUSCULAR HGB CONC 31.3 G/dL (31.0-37.0); MEAN CORPUSCULAR VOLUME 75 fL (80-100); MONOCYTES # (AUTO) 0.7 K/uL (0.1-1.0); MONOCYTES % (AUTO) 11.9 % (2.0-9.0); NEUTROPHILS # (AUTO) 2.9 K/uL (1.8-7.7); NEUTROPHILS % (AUTO) 50.6 % (40.0-70.0); PLATELET COUNT (AUTO) 357 K/uL (150-450); RED BLOOD CELL COUNT(AUTO) 3.92 MIL/uL (4.50-5.90); RED CELL DISTRIBUTION WIDTH 19.7 % (11.5-14.5); WHITE BLOOD COUNT (AUTO) 5.8 K/uL (4.5-11.0)
[2017-01-15 08:48] LABS: ANION GAP 6 mmol/L (8-16); CALCIUM, TOTAL 8.3 mg/dL (8.8-10.5); CARBON DIOXIDE 30 mmol/L (22-29); CHLORIDE 100 mmol/L (98-107); CREATININE 1.03 mg/dL (0.60-1.30); GLOMERULAR FILTR. RATE CALC > 60 mL/min (>60); POTASSIUM 3.8 mmol/L (3.5-5.1); SODIUM SERUM 136 mmol/L (136-145); UREA NITROGEN, BLOOD 14 mg/dL (7-18)
[2017-01-15 08:55] LABS: ALANINE AMINOTRANSFERASE 26 U/L (12-78); ALBUMIN 3.6 g/dL (3.4-5.0); ASPARTATE AMINOTRANSFERASE 21 U/L (15-37); BILIRUBIN,TOTAL 0.2 mg/dL (0.1-1.0); TOTAL PROTEIN, SERUM 7.8 g/dL (6.4-8.2)
[2017-01-15 09:08] LABS: RBC MORPHOLOGY COMMENT ABNORMAL RBC MORPH
== END 2017-01-15 10:35 | disposition home or self-care (01) ==
LOC: EMS 07:33
DX: F25.9 Schizoaffective disorder, unspecified (principal); F17.210 Nicotine dependence, cigarettes, uncomplicated; F31.9 Bipolar disorder, unspecified; J45.909 Unspecified asthma, uncomplicated; J44.9 Chronic obstructive pulmonary disease, unspecified; F12.90 Cannabis use, unspecified, uncomplicated; F19.90 Other psychoactive substance use, unspecified, uncomplicated; Z88.8 Allergy status to other drugs, medicaments and biological substances
CPT/HCPCS: 36415; 80053; 80307; 85025; 99284; 99406; G0480

== ENCOUNTER 2017-01-15 20:22 | Inpatient (IN) | payer OTHER, MEDICAID ==
[~2017-01-15] VITALS: Ht 167.6 cm; Wt 59.8 kg
[2017-01-16] MEDS ORDERED: ZOLPIDEM TARTRATE 10 MG TABLET PO PRN (02:00)
[2017-01-16] MEDS ORDERED: HALOPERIDOL 5 MG TABLET PO PRN (02:00)
[2017-01-16 02:20] VITALS: BP 124/74
[2017-01-16 03:06] VITALS: BP 139/90
[2017-01-16 16:03] VITALS: BP 105/56
[2017-01-16] MEDS: QUEtiapine FUMARATE 200 MG TABLET PO SCH (20:12)
[2017-01-16] MEDS: LORazepam 2 MG TABLET PO PRN (20:54)
[2017-01-17 08:03] VITALS: BP 120/71
[2017-01-17] MEDS: NICOTINE 14 MG/24 HOUR PATCH TD SCH (11:07)
[2017-01-17] MEDS: LORazepam 2 MG TABLET PO PRN ×3 (11:07→21:47)
[2017-01-17 16:04] VITALS: BP 120/76
[2017-01-17] MEDS: QUEtiapine FUMARATE 200 MG TABLET PO SCH (20:50)
[2017-01-18 00:03] VITALS: BP 121/60
[2017-01-18] MEDS: LORazepam 2 MG TABLET PO PRN ×4 (03:19→20:12)
[2017-01-18 07:59] LABS: BASOPHILS % (AUTO) 0.1 % (0.0-2.0); EOSINOPHILS % (AUTO) 4.5 % (1.0-6.0); HEMATOCRIT 29.5 % (41-53); HEMOGLOBIN 9.1 g/dL (13.5-17.5); LYMPHOCYTES # (AUTO) 1.3 K/uL (1.0-4.8); LYMPHOCYTES % (AUTO) 29.6 % (22.0-44.0); MEAN CORPUSCULAR HEMOGLOBIN 23.2 pg (26.0-34.0); MEAN CORPUSCULAR HGB CONC 30.8 G/dL (31.0-37.0); MEAN CORPUSCULAR VOLUME 75 fL (80-100); MONOCYTES # (AUTO) 0.3 K/uL (0.1-1.0); MONOCYTES % (AUTO) 7.7 % (2.0-9.0); NEUTROPHILS # (AUTO) 2.6 K/uL (1.8-7.7); NEUTROPHILS % (AUTO) 58.1 % (40.0-70.0); PLATELET COUNT (AUTO) 371 K/uL (150-450); RED BLOOD CELL COUNT(AUTO) 3.93 MIL/uL (4.50-5.90); RED CELL DISTRIBUTION WIDTH 20.3 % (11.5-14.5); WHITE BLOOD COUNT (AUTO) 4.5 K/uL (4.5-11.0)
[2017-01-18 08:27] LABS: ALANINE AMINOTRANSFERASE 22 U/L (12-78); ALBUMIN 3.2 g/dL (3.4-5.0); ANION GAP 6 mmol/L (8-16); ASPARTATE AMINOTRANSFERASE 19 U/L (15-37); BILIRUBIN,TOTAL 0.2 mg/dL (0.1-1.0); CALCIUM, TOTAL 8.1 mg/dL (8.8-10.5); CARBON DIOXIDE 30 mmol/L (22-29); CHLORIDE 104 mmol/L (98-107); CHOL/HDL RATIO 2.2 (4.2-7.3); CREATININE 0.89 mg/dL (0.60-1.30); GLOMERULAR FILTR. RATE CALC > 60 mL/min (>60); POTASSIUM 4.1 mmol/L (3.5-5.1); SODIUM SERUM 140 mmol/L (136-145); THYROID STIMULATING HORMONE 0.88 uIU/mL (0.36-3.74); TOTAL PROTEIN, SERUM 6.6 g/dL (6.4-8.2); UREA NITROGEN, BLOOD 15 mg/dL (7-18)
[2017-01-18 08:36] LABS: HEMOGLOBIN A1C 6.2 % (4.5-6.2)
[2017-01-18] MEDS: NICOTINE 14 MG/24 HOUR PATCH TD SCH (08:42)
[2017-01-18 16:02] VITALS: BP 113/81
[2017-01-18] MEDS: MUPIROCIN CALCIUM 2% 22 GM OINTMENT NASAL SCH (16:21)
[2017-01-18] MEDS: QUEtiapine FUMARATE 200 MG TABLET PO SCH (20:12)
[2017-01-19 04:16] VITALS: BP 126/92
[2017-01-19] MEDS: LORazepam 2 MG TABLET PO PRN (04:21)
[2017-01-19] MEDS: NICOTINE 14 MG/24 HOUR PATCH TD SCH (09:00)
[2017-01-19] MEDS ORDERED: MULTIVITAMINS WITH IRON TABLET PO SCH (09:00)
[2017-01-19 09:11] VITALS: BP 129/90
[2017-01-19] MEDS: MUPIROCIN CALCIUM 2% 22 GM OINTMENT NASAL SCH (09:30)
[2017-01-19] MEDS ORDERED: QUET200T PO (09:35)
[2017-01-19] MEDS ORDERED: MVITFE PO (09:35)
== END 2017-01-19 10:30 | disposition home or self-care (01) | DRG 885 ==
LOC: B2X 01-16 02:24
PROVIDERS: ADMIT Psychiatry & Neurology Psychiatry; ATTEND Psychiatry & Neurology Psychiatry
DX: F25.9 Schizoaffective disorder, unspecified (principal); R45.851 Suicidal ideations; R64 Cachexia; F31.9 Bipolar disorder, unspecified; B19.20 Unspecified viral hepatitis C without hepatic coma; J44.9 Chronic obstructive pulmonary disease, unspecified; I10 Essential (primary) hypertension; N40.0 Benign prostatic hyperplasia without lower urinary tract symptoms; Z98.890 Other specified postprocedural states; Z91.14 Patient's other noncompliance with medication regimen; Z88.8 Allergy status to other drugs, medicaments and biological substances; Z79.899 Other long term (current) drug therapy; Z68.21 Body mass index [BMI] 21.0-21.9, adult
CPT/HCPCS: 83036; 84439; 84443; 86592; 87081

== ENCOUNTER 2017-01-19 22:29 | Inpatient (IN) | payer OTHER, MEDICAID ==
[~2017-01-19] VITALS: Ht 167.6 cm; Wt 59.0 kg
[~2017-01-19 22:29] MED LIST changes: +MVITFE PO
[2017-01-20 03:35] VITALS: BP 122/86
[2017-01-20] MEDS ORDERED: ZOLPIDEM TARTRATE 10 MG TABLET PO PRN (04:15)
[2017-01-20] MEDS ORDERED: HALOPERIDOL 5 MG TABLET PO PRN (04:15)
[2017-01-20 05:53] VITALS: BP 129/97
[2017-01-20 08:05] VITALS: BP 132/76
[2017-01-20 08:29] LABS: BASOPHILS % (AUTO) 0.5 % (0.0-2.0); EOSINOPHILS % (AUTO) 4.2 % (1.0-6.0); HEMATOCRIT 27.7 % (41-53); HEMOGLOBIN 8.6 g/dL (13.5-17.5); LYMPHOCYTES # (AUTO) 1.4 K/uL (1.0-4.8); LYMPHOCYTES % (AUTO) 24.2 % (22.0-44.0); MEAN CORPUSCULAR HEMOGLOBIN 23.4 pg (26.0-34.0); MEAN CORPUSCULAR HGB CONC 31.1 G/dL (31.0-37.0); MEAN CORPUSCULAR VOLUME 75 fL (80-100); MONOCYTES # (AUTO) 0.3 K/uL (0.1-1.0); MONOCYTES % (AUTO) 5.8 % (2.0-9.0); NEUTROPHILS # (AUTO) 3.7 K/uL (1.8-7.7); NEUTROPHILS % (AUTO) 65.3 % (40.0-70.0); PLATELET COUNT (AUTO) 374 K/uL (150-450); RED BLOOD CELL COUNT(AUTO) 3.67 MIL/uL (4.50-5.90); RED CELL DISTRIBUTION WIDTH 21.1 % (11.5-14.5); WHITE BLOOD COUNT (AUTO) 5.6 K/uL (4.5-11.0)
[2017-01-20 08:48] LABS: CHLORIDE 101 mmol/L (98-107); SODIUM SERUM 136 mmol/L (136-145)
[2017-01-20 09:18] LABS: ALANINE AMINOTRANSFERASE 23 U/L (12-78); ALBUMIN 3.3 g/dL (3.4-5.0); ANION GAP 7 mmol/L (8-16); ASPARTATE AMINOTRANSFERASE 21 U/L (15-37); BILIRUBIN,TOTAL 0.2 mg/dL (0.1-1.0); CARBON DIOXIDE 28 mmol/L (22-29); CHOL/HDL RATIO 2.1 (4.2-7.3); CREATININE 1.09 mg/dL (0.60-1.30); GLOMERULAR FILTR. RATE CALC > 60 mL/min (>60); POTASSIUM 4.1 mmol/L (3.5-5.1); THYROID STIMULATING HORMONE 1.45 uIU/mL (0.36-3.74); TOTAL PROTEIN, SERUM 6.6 g/dL (6.4-8.2); UREA NITROGEN, BLOOD 19 mg/dL (7-18)
[2017-01-20 09:44] LABS: ADD UA MICROSCOPIC NO; APPEARANCE,URINE CLEAR (CLEAR); GLUCOSE, URINE (UA) NEGATIVE (NEGATIVE); KETONES,URINE NEGATIVE (NEGATIVE); LEUKOCYTE ESTERASE ,URINE NEGATIVE (NEGATIVE); OCCULT BLOOD,URINE NEGATIVE (NEGATIVE); PROTEIN,URINE NEGATIVE (NEGATIVE)
[2017-01-20 09:57] LABS: RBC MORPHOLOGY COMMENT ABNORMAL RBC MORPH
[2017-01-20 10:00] LABS: HEMOGLOBIN A1C 6.1 % (4.5-6.2)
[2017-01-20 17:00] VITALS: BP 107/61
[2017-01-20] MEDS: QUEtiapine FUMARATE 200 MG TABLET PO SCH (21:00)
[2017-01-20] MEDS ORDERED: IBUPROFEN 400 MG TABLET PO PRN (22:30)
[2017-01-20] MEDS ORDERED: ACETAMINOPHEN 325 MG TABLET PO PRN (22:30)
[2017-01-21 08:30] VITALS: BP 151/80
[2017-01-21] MEDS: LORazepam 2 MG TABLET PO PRN ×3 (09:19→21:19)
[2017-01-21] MEDS: NICOTINE 14 MG/24 HOUR PATCH TD SCH (14:05)
[2017-01-21] MEDS: FERROUS SULFATE 325 MG EC TABLET PO SCH (16:46)
[2017-01-21 17:09] VITALS: BP 112/77
[2017-01-21] MEDS: QUEtiapine FUMARATE 200 MG TABLET PO SCH (21:00)
[2017-01-22] MEDS: LORazepam 2 MG TABLET PO PRN ×3 (04:12→20:36)
[2017-01-22 04:15] VITALS: BP 123/83
[2017-01-22] MEDS: FERROUS SULFATE 325 MG EC TABLET PO SCH ×2 (06:56→16:32)
[2017-01-22] MEDS: MULTIVITAMINS, THERAPEUTIC TABLET PO SCH (09:31)
[2017-01-22] MEDS: NICOTINE 14 MG/24 HOUR PATCH TD SCH (09:31)
[2017-01-22 12:34] VITALS: BP 118/69
[2017-01-22 17:00] VITALS: BP 119/76
[2017-01-22] MEDS: QUEtiapine FUMARATE 200 MG TABLET PO SCH (20:27)
[2017-01-22] MEDS ORDERED: ONDANSETRON HCL 4 MG TABLET PO PRN (22:30)
[2017-01-22] MEDS ORDERED: LOPERAMIDE HCL 2 MG CAPSULE PO PRN (22:30)
[2017-01-23] MEDS: FERROUS SULFATE 325 MG EC TABLET PO SCH ×3 (06:35→16:14)
[2017-01-23] MEDS: NICOTINE 14 MG/24 HOUR PATCH TD SCH ×2 (09:00→11:40)
[2017-01-23] MEDS: MULTIVITAMINS, THERAPEUTIC TABLET PO SCH (09:00)
[2017-01-23] MEDS: LORazepam 2 MG TABLET PO PRN ×2 (11:40→16:14)
[2017-01-23 16:18] VITALS: BP 108/62
[2017-01-23] MEDS: QUEtiapine FUMARATE 200 MG TABLET PO SCH (20:54)
[2017-01-24] MEDS: FERROUS SULFATE 325 MG EC TABLET PO SCH ×3 (06:14→16:45)
[2017-01-24] MEDS: LORazepam 2 MG TABLET PO PRN ×3 (06:20→21:38)
[2017-01-24] MEDS: MULTIVITAMINS, THERAPEUTIC TABLET PO SCH (09:00)
[2017-01-24] MEDS: NICOTINE 14 MG/24 HOUR PATCH TD SCH (13:06)
[2017-01-24] MEDS: QUEtiapine FUMARATE 200 MG TABLET PO SCH (20:55)
[2017-01-25 04:56] VITALS: BP 97/65
[2017-01-25] MEDS: FERROUS SULFATE 325 MG EC TABLET PO SCH ×3 (07:14→22:17)
[2017-01-25 08:05] VITALS: BP 106/65
[2017-01-25] MEDS: MULTIVITAMINS, THERAPEUTIC TABLET PO SCH (09:00)
[2017-01-25] MEDS: LORazepam 2 MG TABLET PO PRN ×2 (09:41→22:09)
[2017-01-25] MEDS: NICOTINE 14 MG/24 HOUR PATCH TD SCH (09:41)
[2017-01-25] MEDS: QUEtiapine FUMARATE 200 MG TABLET PO SCH (22:09)
[2017-01-26] MEDS: FERROUS SULFATE 325 MG EC TABLET PO SCH ×3 (07:21→17:30)
[2017-01-26 08:52] VITALS: BP 85/59
[2017-01-26] MEDS: MULTIVITAMINS, THERAPEUTIC TABLET PO SCH (09:00)
[2017-01-26] MEDS: LORazepam 2 MG TABLET PO PRN ×3 (10:36→21:46)
[2017-01-26] MEDS: NICOTINE 14 MG/24 HOUR PATCH TD SCH (10:38)
[2017-01-26 16:21] VITALS: BP 99/65
[2017-01-26] MEDS: QUEtiapine FUMARATE 200 MG TABLET PO SCH (20:21)
[2017-01-27 00:30] VITALS: BP 109/75
[2017-01-27] MEDS: LORazepam 2 MG TABLET PO PRN ×2 (02:40→11:15)
[2017-01-27] MEDS: MULTIVITAMINS, THERAPEUTIC TABLET PO SCH (09:00)
[2017-01-27] MEDS: NICOTINE 14 MG/24 HOUR PATCH TD SCH (09:07)
[2017-01-27] MEDS ORDERED: FERS325 PO (11:02)
== END 2017-01-27 13:07 | disposition home or self-care (01) | DRG 885 ==
LOC: 3EX 01-20 04:16
PROVIDERS: ADMIT Psychiatry & Neurology Psychiatry; ATTEND Psychiatry & Neurology Psychiatry
DX: F25.9 Schizoaffective disorder, unspecified (principal); R45.851 Suicidal ideations; R64 Cachexia; N40.0 Benign prostatic hyperplasia without lower urinary tract symptoms; J44.9 Chronic obstructive pulmonary disease, unspecified; I10 Essential (primary) hypertension; B19.20 Unspecified viral hepatitis C without hepatic coma; F17.210 Nicotine dependence, cigarettes, uncomplicated; H18.419 Arcus senilis, unspecified eye; D64.9 Anemia, unspecified; R19.7 Diarrhea, unspecified; F14.90 Cocaine use, unspecified, uncomplicated; F12.90 Cannabis use, unspecified, uncomplicated; F15.90 Other stimulant use, unspecified, uncomplicated; Z91.19 Patient's noncompliance with other medical treatment and regimen; Z98.890 Other specified postprocedural states; Z79.899 Other long term (current) drug therapy; Z72.89 Other problems related to lifestyle; Z68.21 Body mass index [BMI] 21.0-21.9, adult; Z88.8 Allergy status to other drugs, medicaments and biological substances; Z59.0 Homelessness
CPT/HCPCS: 82728; 83036; 83540; 83550; 84439; 84443; 87081; Q0162

== ENCOUNTER 2017-01-29 11:29 | Emergency (ER) | payer OTHER ==
[~2017-01-29] VITALS: Ht 175.3 cm; Wt 59.1 kg
[~2017-01-29 11:29] MED LIST changes: +FERS325 PO
[2017-01-29 12:16] LABS: BASOPHILS % (AUTO) 0.4 % (0.0-2.0); EOSINOPHILS % (AUTO) 2.3 % (1.0-6.0); HEMATOCRIT 27.2 % (41-53); HEMOGLOBIN 8.4 g/dL (13.5-17.5); LYMPHOCYTES # (AUTO) 1.4 K/uL (1.0-4.8); LYMPHOCYTES % (AUTO) 31.6 % (22.0-44.0); MEAN CORPUSCULAR HEMOGLOBIN 23.1 pg (26.0-34.0); MEAN CORPUSCULAR VOLUME 75 fL (80-100); MONOCYTES # (AUTO) 0.5 K/uL (0.1-1.0); MONOCYTES % (AUTO) 10.9 % (2.0-9.0); NEUTROPHILS # (AUTO) 2.4 K/uL (1.8-7.7); NEUTROPHILS % (AUTO) 54.8 % (40.0-70.0); PLATELET COUNT (AUTO) 364 K/uL (150-450); RED BLOOD CELL COUNT(AUTO) 3.65 MIL/uL (4.50-5.90); RED CELL DISTRIBUTION WIDTH 22.6 % (11.5-14.5); WHITE BLOOD COUNT (AUTO) 4.4 K/uL (4.5-11.0)
[2017-01-29 12:26] LABS: ANION GAP 9 mmol/L (8-16); CARBON DIOXIDE 25 mmol/L (22-29); CHLORIDE 102 mmol/L (98-107); CREATININE 1.16 mg/dL (0.60-1.30); GLOMERULAR FILTR. RATE CALC > 60 mL/min (>60); POTASSIUM 3.6 mmol/L (3.5-5.1); SODIUM SERUM 136 mmol/L (136-145); UREA NITROGEN, BLOOD 15 mg/dL (7-18)
[2017-01-29 12:32] LABS: ALANINE AMINOTRANSFERASE 25 U/L (12-78); ALBUMIN 3.4 g/dL (3.4-5.0); ASPARTATE AMINOTRANSFERASE 20 U/L (15-37); BILIRUBIN,TOTAL 0.3 mg/dL (0.1-1.0); TOTAL PROTEIN, SERUM 7.1 g/dL (6.4-8.2)
[2017-01-29 12:58] LABS: RBC MORPHOLOGY COMMENT ABNORMAL RBC MORPH
[2017-01-29 14:35] VITALS: BP 121/75
[2017-01-29] MEDS ORDERED: HALOPERIDOL 5 MG TABLET PO PRN (14:45)
[2017-01-29] MEDS ORDERED: ZOLPIDEM TARTRATE 10 MG TABLET PO PRN (14:45)
[2017-01-29] MEDS ORDERED: LORazepam 2 MG TABLET PO PRN (14:45)
== END 2017-01-29 15:20 | disposition home or self-care (01) ==
LOC: EMS 11:31
DX: F20.9 Schizophrenia, unspecified (principal); D64.9 Anemia, unspecified; F31.9 Bipolar disorder, unspecified; J45.909 Unspecified asthma, uncomplicated; J44.9 Chronic obstructive pulmonary disease, unspecified; F12.90 Cannabis use, unspecified, uncomplicated; F15.90 Other stimulant use, unspecified, uncomplicated; F17.210 Nicotine dependence, cigarettes, uncomplicated; Z88.8 Allergy status to other drugs, medicaments and biological substances
CPT/HCPCS: 36415; 80053; 80307; 85025; 99284; G0480; 99285

== ENCOUNTER 2017-02-03 19:29 | Emergency (ER) | payer OTHER ==
[~2017-02-03] VITALS: Ht 175.3 cm; Wt 59.0 kg
[~2017-02-03 19:29] MED LIST changes: +FERR-89 PO; -FERS325 PO
[2017-02-03 20:48] LABS: BASOPHILS # (AUTO) 0.04 K/uL (0.00-0.20); BASOPHILS % (AUTO) 0.8 % (0.0-2.0); EOSINOPHILS # (AUTO) 0.35 K/uL (0.00-0.70); EOSINOPHILS % (AUTO) 6.82 % (1.0-6.0); HEMATOCRIT 27.8 % (41-53); HEMOGLOBIN 8.8 g/dL (13.5-17.5); LYMPHOCYTES # (AUTO) 1.5 K/uL (1.0-4.8); LYMPHOCYTES % (AUTO) 28.7 % (22.0-44.0); MEAN CORPUSCULAR HEMOGLOBIN 23.6 pg (26.0-34.0); MEAN CORPUSCULAR HGB CONC 31.7 G/dL (31.0-37.0); MEAN CORPUSCULAR VOLUME 74 fL (80-100); MONOCYTES # (AUTO) 0.5 K/uL (0.1-1.0); MONOCYTES % (AUTO) 8.9 % (2.0-9.0); NEUTROPHILS # (AUTO) 2.8 K/uL (1.8-7.7); NEUTROPHILS % (AUTO) 54.8 % (40.0-70.0); PLATELET COUNT (AUTO) 309 K/uL (150-450); RED BLOOD CELL COUNT(AUTO) 3.74 MIL/uL (4.50-5.90); RED CELL DISTRIBUTION WIDTH 23.1 % (11.5-14.5); WHITE BLOOD COUNT (AUTO) 5.1 K/uL (4.5-11.0)
[2017-02-03 20:58] LABS: ANION GAP 9 mmol/L (8-16); CALCIUM, TOTAL 8.2 mg/dL (8.8-10.5); CARBON DIOXIDE 24 mmol/L (22-29); CHLORIDE 107 mmol/L (98-107); GLOMERULAR FILTR. RATE CALC > 60 mL/min (>60); POTASSIUM 4.6 mmol/L (3.5-5.1); SODIUM SERUM 140 mmol/L (136-145); UREA NITROGEN, BLOOD 15 mg/dL (7-18)
[2017-02-03 21:05] LABS: ALANINE AMINOTRANSFERASE 30 U/L (12-78); ALBUMIN 3.3 g/dL (3.4-5.0); ASPARTATE AMINOTRANSFERASE 33 U/L (15-37); BILIRUBIN,TOTAL 0.3 mg/dL (0.1-1.0); TOTAL PROTEIN, SERUM 6.9 g/dL (6.4-8.2)
[2017-02-03 21:17] LABS: RBC MORPHOLOGY COMMENT ABNORMAL RBC MORPH
[2017-02-03 21:50] VITALS: BP 129/79
[2017-02-03] MEDS ORDERED: LORazepam 2 MG TABLET PO ONE (22:00)
== END 2017-02-03 22:00 | disposition home or self-care (01) ==
LOC: EMS 19:33
DX: F41.9 Anxiety disorder, unspecified (principal); J44.9 Chronic obstructive pulmonary disease, unspecified; J45.909 Unspecified asthma, uncomplicated; F20.9 Schizophrenia, unspecified; F12.90 Cannabis use, unspecified, uncomplicated; F15.90 Other stimulant use, unspecified, uncomplicated; F17.210 Nicotine dependence, cigarettes, uncomplicated; Z88.5 Allergy status to narcotic agent
CPT/HCPCS: 36415; 80053; 80307; 85025; 99284; G0480

== ENCOUNTER 2017-02-07 21:09 | Emergency (ER) | payer OTHER ==
[~2017-02-07] VITALS: Ht 177.8 cm; Wt 72.7 kg
[2017-02-07 22:59] LABS: BASOPHILS % (AUTO) 0.5 % (0.0-2.0); EOSINOPHILS % (AUTO) 5.4 % (1.0-6.0); HEMATOCRIT 28.3 % (41-53); HEMOGLOBIN 8.8 g/dL (13.5-17.5); LYMPHOCYTES # (AUTO) 1.6 K/uL (1.0-4.8); LYMPHOCYTES % (AUTO) 33.8 % (22.0-44.0); MEAN CORPUSCULAR HEMOGLOBIN 23.3 pg (26.0-34.0); MEAN CORPUSCULAR VOLUME 75 fL (80-100); MONOCYTES # (AUTO) 0.4 K/uL (0.1-1.0); NEUTROPHILS # (AUTO) 2.5 K/uL (1.8-7.7); NEUTROPHILS % (AUTO) 51.3 % (40.0-70.0); PLATELET COUNT (AUTO) 313 K/uL (150-450); RED BLOOD CELL COUNT(AUTO) 3.76 MIL/uL (4.50-5.90); WHITE BLOOD COUNT (AUTO) 4.8 K/uL (4.5-11.0)
[2017-02-07 23:04] LABS: ANION GAP 6 mmol/L (8-16); CALCIUM, TOTAL 8.2 mg/dL (8.8-10.5); CARBON DIOXIDE 29 mmol/L (22-29); CHLORIDE 103 mmol/L (98-107); CREATININE 1.06 mg/dL (0.60-1.30); GLOMERULAR FILTR. RATE CALC > 60 mL/min (>60); POTASSIUM 4.6 mmol/L (3.5-5.1); SODIUM SERUM 138 mmol/L (136-145); UREA NITROGEN, BLOOD 16 mg/dL (7-18)
[2017-02-07 23:09] LABS: ALANINE AMINOTRANSFERASE 27 U/L (12-78); ALBUMIN 3.4 g/dL (3.4-5.0); ASPARTATE AMINOTRANSFERASE 28 U/L (15-37); BILIRUBIN,TOTAL 0.2 mg/dL (0.1-1.0); TOTAL PROTEIN, SERUM 7.1 g/dL (6.4-8.2)
[2017-02-07 23:14] LABS: RBC MORPHOLOGY COMMENT ABNORMAL RBC MORPH
[2017-02-08 01:40] LABS: APPEARANCE,URINE CLEAR (CLEAR); GLUCOSE, URINE (UA) NEGATIVE (NEGATIVE); KETONES,URINE NEGATIVE (NEGATIVE); LEUKOCYTE ESTERASE ,URINE NEGATIVE (NEGATIVE); OCCULT BLOOD,URINE NEGATIVE (NEGATIVE); PROTEIN,URINE NEGATIVE (NEGATIVE)
[2017-02-08 02:00] LABS: ADD UA MICROSCOPIC NO
[2017-02-08 03:29] VITALS: BP 127/62
== END 2017-02-08 03:47 | disposition home or self-care (01) ==
LOC: EMS 21:10
DX: R10.9 Unspecified abdominal pain (principal); J44.9 Chronic obstructive pulmonary disease, unspecified; J45.909 Unspecified asthma, uncomplicated; F12.90 Cannabis use, unspecified, uncomplicated; F15.90 Other stimulant use, unspecified, uncomplicated; F17.210 Nicotine dependence, cigarettes, uncomplicated; Z88.5 Allergy status to narcotic agent
CPT/HCPCS: 74022; 99285

== ENCOUNTER 2017-02-22 00:44 | Emergency (ER) | payer OTHER ==
[~2017-02-22] VITALS: Ht 170.2 cm; Wt 72.7 kg
[2017-02-22 01:27] LABS: APPEARANCE,URINE CLEAR (CLEAR); GLUCOSE, URINE (UA) NEGATIVE (NEGATIVE); KETONES,URINE NEGATIVE (NEGATIVE); LEUKOCYTE ESTERASE ,URINE NEGATIVE (NEGATIVE); OCCULT BLOOD,URINE NEGATIVE (NEGATIVE); PROTEIN,URINE NEGATIVE (NEGATIVE)
[2017-02-22 01:28] LABS: ADD UA MICROSCOPIC NO
[2017-02-22] MEDS ORDERED: HYDROCODONE/ACETAMINOPHEN 5-325 MG TABLET PO ONE (04:00)
[2017-02-22 04:17] VITALS: BP 128/79
== END 2017-02-22 04:18 | disposition home or self-care (01) ==
LOC: EMS 00:46
DX: R07.89 Other chest pain (principal); F25.9 Schizoaffective disorder, unspecified; J45.909 Unspecified asthma, uncomplicated; J44.9 Chronic obstructive pulmonary disease, unspecified; F12.90 Cannabis use, unspecified, uncomplicated; F15.90 Other stimulant use, unspecified, uncomplicated; F17.210 Nicotine dependence, cigarettes, uncomplicated; Z76.0 Encounter for issue of repeat prescription; Z88.5 Allergy status to narcotic agent
CPT/HCPCS: 99284; 99406

== ENCOUNTER 2017-03-09 22:45 | Inpatient (IN) | payer OTHER, MEDICAID ==
[~2017-03-09] VITALS: Ht 182.9 cm; Wt 62.4 kg
[2017-03-10] MEDS ORDERED: HALOPERIDOL 5 MG TABLET PO PRN
[2017-03-10] MEDS ORDERED: ZOLPIDEM TARTRATE 10 MG TABLET PO PRN
[2017-03-10] MEDS ORDERED: HALOPERIDOL 5 MG TABLET PO ONE (00:45)
[2017-03-10] MEDS ORDERED: LORazepam 2 MG TABLET PO ONE (00:45)
[2017-03-10] MEDS ORDERED: DiphenhydrAMINE HCL 25 MG CAPSULE PO ONE (00:45)
[2017-03-10 01:09] LABS: BASOPHILS # (AUTO) 0.02 K/uL (0.00-0.20); BASOPHILS % (AUTO) 0.2 % (0.0-2.0); EOSINOPHILS # (AUTO) 0.16 K/uL (0.00-0.70); EOSINOPHILS % (AUTO) 1.95 % (1.0-6.0); HEMATOCRIT 24.8 % (41-53); HEMOGLOBIN 7.7 g/dL (13.5-17.5); LYMPHOCYTES # (AUTO) 1.7 K/uL (1.0-4.8); LYMPHOCYTES % (AUTO) 19.7 % (22.0-44.0); MEAN CORPUSCULAR HEMOGLOBIN 23.5 pg (26.0-34.0); MEAN CORPUSCULAR HGB CONC 30.9 G/dL (31.0-37.0); MEAN CORPUSCULAR VOLUME 76 fL (80-100); MONOCYTES # (AUTO) 0.7 K/uL (0.1-1.0); MONOCYTES % (AUTO) 8.2 % (2.0-9.0); NEUTROPHILS # (AUTO) 5.9 K/uL (1.8-7.7); NEUTROPHILS % (AUTO) 69.9 % (40.0-70.0); PLATELET COUNT (AUTO) 403 K/uL (150-450); RED BLOOD CELL COUNT(AUTO) 3.25 MIL/uL (4.50-5.90); RED CELL DISTRIBUTION WIDTH 23.7 % (11.5-14.5); WHITE BLOOD COUNT (AUTO) 8.4 K/uL (4.5-11.0)
[2017-03-10 01:15] LABS: ANION GAP 6 mmol/L (8-16); CARBON DIOXIDE 27 mmol/L (22-29); CHLORIDE 103 mmol/L (98-107); CREATININE 1.21 mg/dL (0.60-1.30); GLOMERULAR FILTR. RATE CALC 59 mL/min (>60); POTASSIUM 4.2 mmol/L (3.5-5.1); SODIUM SERUM 136 mmol/L (136-145); UREA NITROGEN, BLOOD 15 mg/dL (7-18)
[2017-03-10 01:24] LABS: ALANINE AMINOTRANSFERASE 27 U/L (12-78); ALBUMIN 3.3 g/dL (3.4-5.0); ASPARTATE AMINOTRANSFERASE 23 U/L (15-37); BILIRUBIN,TOTAL 0.2 mg/dL (0.1-1.0); TOTAL PROTEIN, SERUM 6.8 g/dL (6.4-8.2)
[2017-03-10 01:39] LABS: RBC MORPHOLOGY COMMENT ABNORMAL RBC MORPH
[2017-03-10 03:09] LABS: APPEARANCE,URINE CLEAR (CLEAR); GLUCOSE, URINE (UA) NEGATIVE (NEGATIVE); KETONES,URINE NEGATIVE (NEGATIVE); LEUKOCYTE ESTERASE ,URINE NEGATIVE (NEGATIVE); OCCULT BLOOD,URINE NEGATIVE (NEGATIVE); PROTEIN,URINE NEGATIVE (NEGATIVE)
[2017-03-10 03:13] LABS: ADD UA MICROSCOPIC NO
[2017-03-10 03:21] VITALS: BP 125/69
[2017-03-10 03:42] VITALS: BP 125/69
[2017-03-10] MEDS ORDERED: PNEUMOCOCCAL VACCINE POLYVALENT 0.5 ML VIAL [PPSV23] IM ONE (05:30)
[2017-03-10 07:25] LABS: CHOL/HDL RATIO 1.9 (4.2-7.3)
[2017-03-10] MEDS ORDERED: IBUPROFEN 400 MG TABLET PO PRN (15:15)
[2017-03-10] MEDS ORDERED: ACETAMINOPHEN 325 MG TABLET PO PRN (15:15)
[2017-03-10] MEDS: FERROUS SULFATE 325 MG EC TABLET PO SCH (17:30)
[2017-03-10] MEDS: QUEtiapine FUMARATE 200 MG TABLET PO SCH (21:17)
[2017-03-11] MEDS: LORazepam 2 MG TABLET PO PRN ×2 (05:11→11:03)
[2017-03-11 05:24] VITALS: BP 116/73
[2017-03-11 08:00] VITALS: BP 109/73
[2017-03-11] MEDS: FOLIC ACID 1 MG TABLET PO SCH (08:18)
[2017-03-11] MEDS: MULTIVITAMINS WITH IRON TABLET PO SCH (08:18)
[2017-03-11] MEDS: FERROUS SULFATE 325 MG EC TABLET PO SCH ×3 (08:18→16:18)
[2017-03-11] MEDS: THIAMINE HCL 100 MG TABLET PO SCH (08:19)
[2017-03-11] MEDS: MUPIROCIN CALCIUM 2% 22 GM OINTMENT NASAL SCH ×2 (11:38→16:18)
[2017-03-11 19:05] VITALS: BP 116/77
[2017-03-11] MEDS: QUEtiapine FUMARATE 200 MG TABLET PO SCH (20:52)
[2017-03-12] MEDS: FERROUS SULFATE 325 MG EC TABLET PO SCH ×3 (06:51→16:14)
[2017-03-12 08:44] VITALS: BP 97/53
[2017-03-12] MEDS: FOLIC ACID 1 MG TABLET PO SCH (09:53)
[2017-03-12] MEDS: MULTIVITAMINS WITH IRON TABLET PO SCH (09:53)
[2017-03-12] MEDS: MUPIROCIN CALCIUM 2% 22 GM OINTMENT NASAL SCH ×2 (09:54→16:14)
[2017-03-12] MEDS: THIAMINE HCL 100 MG TABLET PO SCH (09:54)
[2017-03-12] MEDS: LORazepam 1 MG TABLET PO PRN (15:48)
[2017-03-12 16:26] VITALS: BP 128/82
[2017-03-12] MEDS: QUEtiapine FUMARATE 200 MG TABLET PO SCH (20:15)
[2017-03-13] MEDS: LORazepam 1 MG TABLET PO PRN ×3 (00:52→16:20)
[2017-03-13 00:58] VITALS: BP 115/75
[2017-03-13 07:38] LABS: CHOL/HDL RATIO 2.1 (4.2-7.3); THYROID STIMULATING HORMONE 0.98 uIU/mL (0.36-3.74)
[2017-03-13 07:45] LABS: HEMOGLOBIN A1C 6.1 % (4.5-6.2)
[2017-03-13 08:18] VITALS: BP 124/80
[2017-03-13] MEDS: FERROUS SULFATE 325 MG EC TABLET PO SCH ×3 (08:23→16:17)
[2017-03-13] MEDS: FOLIC ACID 1 MG TABLET PO SCH (08:24)
[2017-03-13] MEDS: THIAMINE HCL 100 MG TABLET PO SCH (08:24)
[2017-03-13] MEDS: MULTIVITAMINS WITH IRON TABLET PO SCH (08:24)
[2017-03-13] MEDS: MUPIROCIN CALCIUM 2% 22 GM OINTMENT NASAL SCH ×2 (08:24→16:17)
[2017-03-13] MEDS: NICOTINE 14 MG/24 HOUR PATCH TD SCH (10:54)
[2017-03-13 17:23] VITALS: BP 111/78
[2017-03-13] MEDS: QUEtiapine FUMARATE 200 MG TABLET PO SCH (20:22)
[2017-03-14 02:17] VITALS: BP 104/78
[2017-03-14] MEDS: LORazepam 1 MG TABLET PO PRN ×4 (05:29→20:45)
[2017-03-14] MEDS: FERROUS SULFATE 325 MG EC TABLET PO SCH ×3 (07:24→15:58)
[2017-03-14 08:20] VITALS: BP 103/70
[2017-03-14] MEDS: NICOTINE 14 MG/24 HOUR PATCH TD SCH (08:30)
[2017-03-14] MEDS: MULTIVITAMINS WITH IRON TABLET PO SCH (08:31)
[2017-03-14] MEDS: FOLIC ACID 1 MG TABLET PO SCH (08:31)
[2017-03-14] MEDS: MUPIROCIN CALCIUM 2% 22 GM OINTMENT NASAL SCH ×2 (08:31→15:58)
[2017-03-14] MEDS: THIAMINE HCL 100 MG TABLET PO SCH (08:31)
[2017-03-14 16:02] VITALS: BP 118/78
[2017-03-14] MEDS: QUEtiapine FUMARATE 200 MG TABLET PO SCH (20:08)
[2017-03-15 04:52] VITALS: BP 107/68
[2017-03-15] MEDS: LORazepam 1 MG TABLET PO PRN (04:52)
[2017-03-15 08:27] VITALS: BP 104/73
[2017-03-15] MEDS: MULTIVITAMINS WITH IRON TABLET PO SCH (08:54)
[2017-03-15] MEDS: FOLIC ACID 1 MG TABLET PO SCH (08:54)
[2017-03-15] MEDS: THIAMINE HCL 100 MG TABLET PO SCH (08:54)
[2017-03-15] MEDS: NICOTINE 14 MG/24 HOUR PATCH TD SCH (08:54)
[2017-03-15] MEDS: FERROUS SULFATE 325 MG EC TABLET PO SCH (08:54)
[2017-03-15] MEDS: MUPIROCIN CALCIUM 2% 22 GM OINTMENT NASAL SCH (08:55)
[2017-03-15] MEDS ORDERED: FOLI1 PO (10:33)
[2017-03-15] MEDS ORDERED: THIA100 PO (10:33)
[2017-03-15] MEDS ORDERED: MVITFE PO (10:33)
== END 2017-03-15 11:10 | disposition home or self-care (01) | DRG 885 ==
LOC: EMS 22:48 → 3EX 03-10 01:58
PROVIDERS: ADMIT Psychiatry & Neurology Child & Adolescent Psychiatry; ATTEND Psychiatry & Neurology Child & Adolescent Psychiatry
DX: F25.1 Schizoaffective disorder, depressive type (principal); F41.9 Anxiety disorder, unspecified; F31.9 Bipolar disorder, unspecified; J44.9 Chronic obstructive pulmonary disease, unspecified; J45.909 Unspecified asthma, uncomplicated; F17.210 Nicotine dependence, cigarettes, uncomplicated; N40.0 Benign prostatic hyperplasia without lower urinary tract symptoms; I10 Essential (primary) hypertension; D64.9 Anemia, unspecified; B18.2 Chronic viral hepatitis C; Z79.899 Other long term (current) drug therapy; Z88.8 Allergy status to other drugs, medicaments and biological substances; Z59.0 Homelessness; Z87.01 Personal history of pneumonia (recurrent); Z28.21 Immunization not carried out because of patient refusal
CPT/HCPCS: 83036; 84443; 87081; 99285; G0480

== ENCOUNTER 2017-03-21 20:06 | Emergency (ER) | payer OTHER ==
[~2017-03-21] VITALS: Ht 182.9 cm; Wt 62.0 kg
[~2017-03-21 20:06] MED LIST changes: +FOLI1 PO; +THIA100 PO
[2017-03-21 22:14] LABS: BASOPHILS % (AUTO) 0.1 % (0.0-2.0); EOSINOPHILS % (AUTO) 0.6 % (1.0-6.0); HEMATOCRIT 28.6 % (41-53); HEMOGLOBIN 9.1 g/dL (13.5-17.5); LYMPHOCYTES # (AUTO) 1.2 K/uL (1.0-4.8); LYMPHOCYTES % (AUTO) 8.7 % (22.0-44.0); MEAN CORPUSCULAR HEMOGLOBIN 24.6 pg (26.0-34.0); MEAN CORPUSCULAR HGB CONC 31.9 G/dL (31.0-37.0); MEAN CORPUSCULAR VOLUME 77 fL (80-100); MONOCYTES # (AUTO) 0.6 K/uL (0.1-1.0); NEUTROPHILS # (AUTO) 12.2 K/uL (1.8-7.7); PLATELET COUNT (AUTO) 374 K/uL (150-450); RED BLOOD CELL COUNT(AUTO) 3.71 MIL/uL (4.50-5.90); RED CELL DISTRIBUTION WIDTH 24.7 % (11.5-14.5)
[2017-03-21 22:21] LABS: NEUTROPHILS % (AUTO) 86.6 % (40.0-70.0)
[2017-03-21 22:24] LABS: ANION GAP 9 mmol/L (8-16); CALCIUM, TOTAL 8.2 mg/dL (8.8-10.5); CARBON DIOXIDE 25 mmol/L (22-29); CHLORIDE 101 mmol/L (98-107); CREATININE 1.11 mg/dL (0.60-1.30); GLOMERULAR FILTR. RATE CALC > 60 mL/min (>60); POTASSIUM 3.7 mmol/L (3.5-5.1); SODIUM SERUM 135 mmol/L (136-145); UREA NITROGEN, BLOOD 19 mg/dL (7-18)
[2017-03-21 22:29] LABS: ALANINE AMINOTRANSFERASE 32 U/L (12-78); ALBUMIN 3.6 g/dL (3.4-5.0); ASPARTATE AMINOTRANSFERASE 31 U/L (15-37); BILIRUBIN,TOTAL 0.2 mg/dL (0.1-1.0); TOTAL PROTEIN, SERUM 7.6 g/dL (6.4-8.2)
[2017-03-21] MEDS ORDERED: LORazepam 1 MG TABLET PO ONE (22:30)
[2017-03-21 22:41] VITALS: BP 129/81
[2017-03-21 22:42] LABS: RBC MORPHOLOGY COMMENT ABNORMAL RBC MORPH
== END 2017-03-21 22:45 | disposition home or self-care (01) ==
LOC: EMS 20:10
DX: F20.9 Schizophrenia, unspecified (principal); F41.9 Anxiety disorder, unspecified; F31.9 Bipolar disorder, unspecified; J45.909 Unspecified asthma, uncomplicated; J44.9 Chronic obstructive pulmonary disease, unspecified; F17.210 Nicotine dependence, cigarettes, uncomplicated; F12.90 Cannabis use, unspecified, uncomplicated; F19.90 Other psychoactive substance use, unspecified, uncomplicated; Z88.8 Allergy status to other drugs, medicaments and biological substances
CPT/HCPCS: 36415; 80053; 85025; 99284; G0480

== ENCOUNTER 2017-04-02 21:10 | Inpatient (IN) | payer OTHER, MEDICAID ==
[~2017-04-02] VITALS: Ht 172.7 cm; Wt 59.0 kg
[2017-04-02] MEDS ORDERED: ZOLPIDEM TARTRATE 10 MG TABLET PO PRN (23:00)
[2017-04-02 23:52] LABS: BASOPHILS % (AUTO) 1.2 % (0.0-2.0); EOSINOPHILS % (AUTO) 2.2 % (1.0-6.0); HEMATOCRIT 31.1 % (41-53); HEMOGLOBIN 10.1 g/dL (13.5-17.5); LYMPHOCYTES # (AUTO) 1.7 K/uL (1.0-4.8); LYMPHOCYTES % (AUTO) 24.2 % (22.0-44.0); MEAN CORPUSCULAR HEMOGLOBIN 24.7 pg (26.0-34.0); MEAN CORPUSCULAR HGB CONC 32.6 G/dL (31.0-37.0); MEAN CORPUSCULAR VOLUME 76 fL (80-100); MONOCYTES # (AUTO) 0.5 K/uL (0.1-1.0); MONOCYTES % (AUTO) 7.9 % (2.0-9.0); NEUTROPHILS # (AUTO) 4.4 K/uL (1.8-7.7); NEUTROPHILS % (AUTO) 64.5 % (40.0-70.0); PLATELET COUNT (AUTO) 454 K/uL (150-450); WHITE BLOOD COUNT (AUTO) 6.9 K/uL (4.5-11.0)
[2017-04-02 23:56] LABS: ANION GAP 7 mmol/L (8-16); CALCIUM, TOTAL 9.1 mg/dL (8.8-10.5); CARBON DIOXIDE 27 mmol/L (22-29); CHLORIDE 99 mmol/L (98-107); CREATININE 1.31 mg/dL (0.60-1.30); GLOMERULAR FILTR. RATE CALC 54 mL/min (>60); POTASSIUM 4.2 mmol/L (3.5-5.1); SODIUM SERUM 133 mmol/L (136-145); UREA NITROGEN, BLOOD 24 mg/dL (7-18)
[2017-04-03] MEDS ORDERED: LORazepam 2 MG TABLET PO ONE
[2017-04-03] MEDS ORDERED: HALOPERIDOL 5 MG TABLET PO ONE
[2017-04-03 00:02] LABS: ALANINE AMINOTRANSFERASE 29 U/L (12-78); ASPARTATE AMINOTRANSFERASE 26 U/L (15-37); BILIRUBIN,TOTAL 0.3 mg/dL (0.1-1.0); TOTAL PROTEIN, SERUM 8.9 g/dL (6.4-8.2)
[2017-04-03 01:19] VITALS: BP 115/77
[2017-04-03 02:01] LABS: RBC MORPHOLOGY COMMENT ABNORMAL RBC MORPH
[2017-04-03] MEDS ORDERED: ALBUTEROL SULFATE HFA 90 MCG/PUFF 8 GM INHALER IH PRN (07:15)
[2017-04-03 08:03] VITALS: BP 105/55
[2017-04-03] MEDS: LORazepam 1 MG TABLET PO PRN ×2 (14:11→19:13)
[2017-04-03] MEDS: HALOPERIDOL 5 MG TABLET PO PRN (15:53)
[2017-04-03 16:07] VITALS: BP 105/70
[2017-04-03] MEDS: PALIPERIDONE 3 MG ER TABLET PO SCH (20:33)
[2017-04-03 22:45] VITALS: BP 113/70
[2017-04-03 23:00] VITALS: BP 110/61
[2017-04-03 23:30] VITALS: BP 106/64
[2017-04-04] VITALS (11 sets, daily range): BP systolic 106–140; BP diastolic 65–97
[2017-04-04] MEDS: LORazepam 1 MG TABLET PO PRN ×2 (04:52→12:36)
[2017-04-04] MEDS: PALIPERIDONE 3 MG ER TABLET PO SCH ×2 (08:42→22:03)
[2017-04-04 08:51] LABS: THYROID STIMULATING HORMONE 1.26 uIU/mL (0.36-3.74)
[2017-04-04] MEDS: HALOPERIDOL 5 MG TABLET PO PRN (09:26)
[2017-04-04] MEDS ORDERED: PALI3 PO (18:36)
[2017-04-04] MEDS ORDERED: ALBU8HFA IH (18:36)
[2017-04-05 00:21] VITALS: BP 113/64
[2017-04-05 00:41] VITALS: BP 113/64
[2017-04-05] MEDS: LORazepam 1 MG TABLET PO PRN ×4 (01:50→22:02)
[2017-04-05 08:01] VITALS: BP 109/79
[2017-04-05] MEDS: PALIPERIDONE 3 MG ER TABLET PO SCH ×2 (08:15→20:14)
[2017-04-05 08:44] LABS: ANION GAP 7 mmol/L (8-16); CALCIUM, TOTAL 8.5 mg/dL (8.8-10.5); CARBON DIOXIDE 27 mmol/L (22-29); CHLORIDE 99 mmol/L (98-107); CREATININE 0.97 mg/dL (0.60-1.30); GLOMERULAR FILTR. RATE CALC > 60 mL/min (>60); POTASSIUM 4.3 mmol/L (3.5-5.1); SODIUM SERUM 133 mmol/L (136-145); UREA NITROGEN, BLOOD 18 mg/dL (7-18)
[2017-04-05 11:22] VITALS: BP 109/79
[2017-04-05] MEDS: NICOTINE 7 MG/24 HOUR PATCH TD SCH (14:25)
[2017-04-05 16:01] VITALS: BP 115/77
[2017-04-05] MEDS: SODIUM CHLORIDE 1 GM TABLET PO SCH (16:06)
[2017-04-05 18:44] VITALS: BP 115/77
[2017-04-06 02:30] VITALS: BP 109/72
[2017-04-06] MEDS: LORazepam 1 MG TABLET PO PRN ×3 (02:41→13:02)
[2017-04-06 04:23] VITALS: BP 109/72
[2017-04-06 08:10] VITALS: BP 105/60
[2017-04-06] MEDS: SODIUM CHLORIDE 1 GM TABLET PO SCH ×2 (08:17→17:00)
[2017-04-06] MEDS: PALIPERIDONE 3 MG ER TABLET PO SCH (08:18)
[2017-04-06] MEDS: NICOTINE 7 MG/24 HOUR PATCH TD SCH (08:20)
[2017-04-06] MEDS ORDERED: NACL1 PO (12:15)
[2017-04-06] MEDS ORDERED: PALI3 PO (12:15)
[2017-04-06 13:00] VITALS: BP 112/72
== END 2017-04-06 17:40 | disposition home or self-care (01) | DRG 885 ==
LOC: EMS 21:15 → B2X 23:34
PROVIDERS: ADMIT Psychiatry & Neurology Psychiatry; ATTEND Psychiatry & Neurology Child & Adolescent Psychiatry
DX: F25.0 Schizoaffective disorder, bipolar type (principal); R45.851 Suicidal ideations; E87.1 Hypo-osmolality and hyponatremia; R45.87 Impulsiveness; F17.210 Nicotine dependence, cigarettes, uncomplicated; J44.9 Chronic obstructive pulmonary disease, unspecified; D64.9 Anemia, unspecified; J45.909 Unspecified asthma, uncomplicated; F12.90 Cannabis use, unspecified, uncomplicated; E78.5 Hyperlipidemia, unspecified; I10 Essential (primary) hypertension; I25.10 Atherosclerotic heart disease of native coronary artery without angina pectoris; Z53.29 Procedure and treatment not carried out because of patient's decision for other reasons; F15.90 Other stimulant use, unspecified, uncomplicated; K21.9 Gastro-esophageal reflux disease without esophagitis; B18.2 Chronic viral hepatitis C; N40.0 Benign prostatic hyperplasia without lower urinary tract symptoms; E11.9 Type 2 diabetes mellitus without complications; Z91.19 Patient's noncompliance with other medical treatment and regimen; Z87.01 Personal history of pneumonia (recurrent); Z72.89 Other problems related to lifestyle; Z88.8 Allergy status to other drugs, medicaments and biological substances; Z59.0 Homelessness; Z79.899 Other long term (current) drug therapy
CPT/HCPCS: 84439; 84443; 87081; 99285; G0480

== ENCOUNTER 2017-04-04 18:25 | Emergency (ER) | payer OTHER ==
[~2017-04-04] VITALS: Ht 172.7 cm; Wt 63.6 kg
[2017-04-04] MEDS ORDERED: ALBU8HFA IH (18:36)
[2017-04-04] MEDS ORDERED: PALI3 PO (18:36)
[2017-04-04] MEDS ORDERED: TraMADol HCL 50 MG TABLET PO ONE (18:45)
[2017-04-04 19:06] VITALS: BP 109/65
== END 2017-04-04 22:11 | disposition home or self-care (01) ==
LOC: EMS 18:28
DX: S00.83XA Contusion of other part of head, initial encounter (principal); F25.9 Schizoaffective disorder, unspecified; F31.9 Bipolar disorder, unspecified; J44.9 Chronic obstructive pulmonary disease, unspecified; J45.909 Unspecified asthma, uncomplicated; F12.90 Cannabis use, unspecified, uncomplicated; F15.90 Other stimulant use, unspecified, uncomplicated; F17.210 Nicotine dependence, cigarettes, uncomplicated; W05.0XXA Fall from non-moving wheelchair, initial encounter; Y93.89 Activity, other specified; X58.XXXA Exposure to other specified factors, initial encounter; Y99.8 Other external cause status; Z88.5 Allergy status to narcotic agent
CPT/HCPCS: 70450; 99284; 99406

== ENCOUNTER 2017-04-11 20:30 | Emergency (ER) | payer OTHER ==
[~2017-04-11] VITALS: Ht 172.7 cm; Wt 61.4 kg
[~2017-04-11 20:30] MED LIST changes: -FERR-89 PO; -FOLI1 PO; -MVITFE PO; +NACL1 PO; +PALI3 PO; -QUET200T PO; -THIA100 PO
[2017-04-11] MEDS ORDERED: ALBU8HFA IH (20:43)
[2017-04-11] MEDS ORDERED: DULO20CA30 PO (20:43)
[2017-04-11] MEDS ORDERED: LORA0.5T2 PO (20:43)
[2017-04-11] MEDS ORDERED: ZIPR20CA2 PO (20:43)
[2017-04-11] MEDS ORDERED: GABA-529 PO (20:43)
[2017-04-11 21:15] LABS: BASOPHILS % (AUTO) 1.1 % (0.0-2.0); HEMATOCRIT 27.3 % (41-53); HEMOGLOBIN 8.8 g/dL (13.5-17.5); LYMPHOCYTES # (AUTO) 1.2 K/uL (1.0-4.8); LYMPHOCYTES % (AUTO) 24.5 % (22.0-44.0); MEAN CORPUSCULAR HEMOGLOBIN 24.8 pg (26.0-34.0); MEAN CORPUSCULAR HGB CONC 32.4 G/dL (31.0-37.0); MEAN CORPUSCULAR VOLUME 76 fL (80-100); MONOCYTES # (AUTO) 0.5 K/uL (0.1-1.0); MONOCYTES % (AUTO) 9.5 % (2.0-9.0); NEUTROPHILS % (AUTO) 60.9 % (40.0-70.0); PLATELET COUNT (AUTO) 422 K/uL (150-450); RED BLOOD CELL COUNT(AUTO) 3.57 MIL/uL (4.50-5.90); RED CELL DISTRIBUTION WIDTH 22.6 % (11.5-14.5); WHITE BLOOD COUNT (AUTO) 4.9 K/uL (4.5-11.0)
[2017-04-11 21:26] LABS: ANION GAP 6 mmol/L (8-16); CALCIUM, TOTAL 8.3 mg/dL (8.8-10.5); CARBON DIOXIDE 28 mmol/L (22-29); CHLORIDE 102 mmol/L (98-107); CREATININE 0.99 mg/dL (0.60-1.30); GLOMERULAR FILTR. RATE CALC > 60 mL/min (>60); POTASSIUM 4.4 mmol/L (3.5-5.1); SODIUM SERUM 136 mmol/L (136-145); UREA NITROGEN, BLOOD 16 mg/dL (7-18)
[2017-04-11 21:32] LABS: ALANINE AMINOTRANSFERASE 29 U/L (12-78); ALBUMIN 3.5 g/dL (3.4-5.0); ASPARTATE AMINOTRANSFERASE 27 U/L (15-37); BILIRUBIN,TOTAL 0.3 mg/dL (0.1-1.0); TOTAL PROTEIN, SERUM 7.4 g/dL (6.4-8.2)
[2017-04-11] MEDS ORDERED: LORazepam 1 MG TABLET PO ONE (21:45)
[2017-04-11 22:05] VITALS: BP 129/70
[2017-04-11 22:17] LABS: RBC MORPHOLOGY COMMENT ABNORMAL RBC MORPH
== END 2017-04-11 22:07 | disposition home or self-care (01) ==
LOC: EMS 20:32
DX: F25.9 Schizoaffective disorder, unspecified (principal); R45.851 Suicidal ideations; J44.9 Chronic obstructive pulmonary disease, unspecified; J45.909 Unspecified asthma, uncomplicated; F12.90 Cannabis use, unspecified, uncomplicated; F15.90 Other stimulant use, unspecified, uncomplicated; F17.210 Nicotine dependence, cigarettes, uncomplicated; Z88.5 Allergy status to narcotic agent
CPT/HCPCS: 36415; 80053; 80307; 85025; 99284; G0480

== ENCOUNTER 2017-04-12 07:17 | Emergency (ER) | payer OTHER ==
[~2017-04-12] VITALS: Ht 172.7 cm; Wt 61.4 kg
[~2017-04-12 07:17] MED LIST changes: +ALBU8HFA IH; +DULO20CA30 PO; +GABA-529 PO; +LORA0.5T2 PO; +ZIPR20CA2 PO
[2017-04-12 10:18] VITALS: BP 107/64
== END 2017-04-12 10:47 | disposition home or self-care (01) ==
LOC: EMS 07:21 → EEVIPCON 07:21 → EMS 10:47
DX: F25.9 Schizoaffective disorder, unspecified (principal); D64.9 Anemia, unspecified; F17.210 Nicotine dependence, cigarettes, uncomplicated; F12.90 Cannabis use, unspecified, uncomplicated; F19.90 Other psychoactive substance use, unspecified, uncomplicated; F31.9 Bipolar disorder, unspecified; J44.9 Chronic obstructive pulmonary disease, unspecified; J45.909 Unspecified asthma, uncomplicated; Z59.0 Homelessness; Z88.8 Allergy status to other drugs, medicaments and biological substances
CPT/HCPCS: 99284

== ENCOUNTER 2017-04-12 19:28 | Emergency (ER) | payer OTHER ==
[~2017-04-12] VITALS: Ht 175.3 cm; Wt 65.9 kg
[2017-04-12 21:15] VITALS: BP 128/81
== END 2017-04-12 21:18 | disposition home or self-care (01) ==
LOC: EMS 19:34
DX: R53.83 Other fatigue (principal); J45.909 Unspecified asthma, uncomplicated; J44.9 Chronic obstructive pulmonary disease, unspecified; F12.90 Cannabis use, unspecified, uncomplicated; F15.90 Other stimulant use, unspecified, uncomplicated; F17.210 Nicotine dependence, cigarettes, uncomplicated; Z59.0 Homelessness; Z88.8 Allergy status to other drugs, medicaments and biological substances
CPT/HCPCS: 99283

== ENCOUNTER 2017-04-13 03:33 | Emergency (ER) | payer OTHER, MEDICAID ==
[~2017-04-13] VITALS: Ht 175.3 cm; Wt 65.9 kg
[2017-04-13 04:41] LABS: BASOPHILS # (AUTO) 0.02 K/uL (0.00-0.20); BASOPHILS % (AUTO) 0.6 % (0.0-2.0); EOSINOPHILS # (AUTO) 0.22 K/uL (0.00-0.70); EOSINOPHILS % (AUTO) 5.34 % (1.0-6.0); HEMATOCRIT 26.3 % (41-53); HEMOGLOBIN 8.6 g/dL (13.5-17.5); LYMPHOCYTES # (AUTO) 1.1 K/uL (1.0-4.8); LYMPHOCYTES % (AUTO) 26.3 % (22.0-44.0); MEAN CORPUSCULAR HEMOGLOBIN 24.7 pg (26.0-34.0); MEAN CORPUSCULAR HGB CONC 32.5 G/dL (31.0-37.0); MEAN CORPUSCULAR VOLUME 76 fL (80-100); MONOCYTES # (AUTO) 0.4 K/uL (0.1-1.0); MONOCYTES % (AUTO) 10.9 % (2.0-9.0); NEUTROPHILS # (AUTO) 2.3 K/uL (1.8-7.7); NEUTROPHILS % (AUTO) 56.9 % (40.0-70.0); PLATELET COUNT (AUTO) 373 K/uL (150-450); RED BLOOD CELL COUNT(AUTO) 3.46 MIL/uL (4.50-5.90); RED CELL DISTRIBUTION WIDTH 21.8 % (11.5-14.5)
[2017-04-13 04:45] LABS: ANION GAP 5 mmol/L (8-16); CALCIUM, TOTAL 8.1 mg/dL (8.8-10.5); CARBON DIOXIDE 29 mmol/L (22-29); CHLORIDE 105 mmol/L (98-107); CREATININE 1.02 mg/dL (0.60-1.30); GLOMERULAR FILTR. RATE CALC > 60 mL/min (>60); POTASSIUM 4.1 mmol/L (3.5-5.1); SODIUM SERUM 139 mmol/L (136-145); UREA NITROGEN, BLOOD 14 mg/dL (7-18)
[2017-04-13 04:54] LABS: ALANINE AMINOTRANSFERASE 26 U/L (12-78); ALBUMIN 3.3 g/dL (3.4-5.0); ASPARTATE AMINOTRANSFERASE 25 U/L (15-37); BILIRUBIN,TOTAL 0.2 mg/dL (0.1-1.0); TOTAL PROTEIN, SERUM 7.2 g/dL (6.4-8.2)
[2017-04-13 05:02] LABS: RBC MORPHOLOGY COMMENT ABNORMAL RBC MORPH
[2017-04-13 05:11] VITALS: BP 125/74
== END 2017-04-13 05:22 | disposition home or self-care (01) ==
LOC: EMS 03:36
DX: R51 Headache (principal); F25.9 Schizoaffective disorder, unspecified; J44.9 Chronic obstructive pulmonary disease, unspecified; F31.9 Bipolar disorder, unspecified; J45.909 Unspecified asthma, uncomplicated; F17.210 Nicotine dependence, cigarettes, uncomplicated; F12.90 Cannabis use, unspecified, uncomplicated; F19.90 Other psychoactive substance use, unspecified, uncomplicated; I10 Essential (primary) hypertension; Z88.8 Allergy status to other drugs, medicaments and biological substances; Z59.0 Homelessness
CPT/HCPCS: 36415; 80053; 85025; 99284; G0480

== ENCOUNTER 2017-04-14 19:31 | Inpatient (IN) | payer OTHER, MEDICAID ==
[~2017-04-14] VITALS: Ht 175.3 cm; Wt 61.8 kg
[2017-04-14 20:18] VITALS: BP 104/66
[2017-04-14 21:30] VITALS: BP 113/72
[2017-04-15 06:25] VITALS: BP 110/70
[2017-04-15 06:35] LABS: BASOPHILS # (AUTO) 0.05 K/uL (0.00-0.20); BASOPHILS % (AUTO) 0.9 % (0.0-2.0); EOSINOPHILS # (AUTO) 0.15 K/uL (0.00-0.70); EOSINOPHILS % (AUTO) 2.84 % (1.0-6.0); HEMATOCRIT 28.4 % (41-53); HEMOGLOBIN 8.8 g/dL (13.5-17.5); LYMPHOCYTES # (AUTO) 1.2 K/uL (1.0-4.8); LYMPHOCYTES % (AUTO) 23.6 % (22.0-44.0); MEAN CORPUSCULAR HEMOGLOBIN 24.3 pg (26.0-34.0); MEAN CORPUSCULAR HGB CONC 31.2 G/dL (31.0-37.0); MEAN CORPUSCULAR VOLUME 78 fL (80-100); MONOCYTES # (AUTO) 0.5 K/uL (0.1-1.0); MONOCYTES % (AUTO) 8.7 % (2.0-9.0); NEUTROPHILS # (AUTO) 3.3 K/uL (1.8-7.7); PLATELET COUNT (AUTO) 340 K/uL (150-450); RED BLOOD CELL COUNT(AUTO) 3.64 MIL/uL (4.50-5.90); RED CELL DISTRIBUTION WIDTH 22.5 % (11.5-14.5); WHITE BLOOD COUNT (AUTO) 5.2 K/uL (4.5-11.0)
[2017-04-15 06:55] LABS: HEMOGLOBIN A1C 5.7 % (4.5-6.2)
[2017-04-15 06:57] LABS: ALANINE AMINOTRANSFERASE 36 U/L (12-78); ALBUMIN 3.6 g/dL (3.4-5.0); ANION GAP 8 mmol/L (8-16); ASPARTATE AMINOTRANSFERASE 42 U/L (15-37); BILIRUBIN,TOTAL 0.4 mg/dL (0.1-1.0); CALCIUM, TOTAL 8.2 mg/dL (8.8-10.5); CARBON DIOXIDE 27 mmol/L (22-29); CHLORIDE 102 mmol/L (98-107); CHOL/HDL RATIO 1.8 (4.2-7.3); CREATININE 1.13 mg/dL (0.60-1.30); GLOMERULAR FILTR. RATE CALC > 60 mL/min (>60); POTASSIUM 4.5 mmol/L (3.5-5.1); SODIUM SERUM 137 mmol/L (136-145); THYROID STIMULATING HORMONE 0.84 uIU/mL (0.36-3.74); TOTAL PROTEIN, SERUM 7.4 g/dL (6.4-8.2); UREA NITROGEN, BLOOD 21 mg/dL (7-18)
[2017-04-15 07:44] LABS: APPEARANCE,URINE CLEAR (CLEAR); GLUCOSE, URINE (UA) NEGATIVE (NEGATIVE); KETONES,URINE NEGATIVE (NEGATIVE); LEUKOCYTE ESTERASE ,URINE NEGATIVE (NEGATIVE); OCCULT BLOOD,URINE NEGATIVE (NEGATIVE); PROTEIN,URINE NEGATIVE (NEGATIVE)
[2017-04-15 07:45] LABS: ADD UA MICROSCOPIC NO
[2017-04-15] MEDS: NICOTINE 14 MG/24 HOUR PATCH TD SCH (08:04)
[2017-04-15 08:05] VITALS: BP 108/60
[2017-04-15 08:24] LABS: RBC MORPHOLOGY COMMENT ABNORMAL RBC MORPH
[2017-04-15] MEDS: LORazepam 2 MG TABLET PO PRN ×3 (09:11→21:28)
[2017-04-15 17:24] VITALS: BP 120/70
[2017-04-15] MEDS: PALIPERIDONE 3 MG ER TABLET PO SCH (20:14)
[2017-04-16] MEDS: ZOLPIDEM TARTRATE 10 MG TABLET PO PRN (00:57)
[2017-04-16] MEDS: NICOTINE 14 MG/24 HOUR PATCH TD SCH (08:22)
[2017-04-16] MEDS: LORazepam 2 MG TABLET PO PRN ×2 (08:22→15:01)
[2017-04-16] MEDS: PALIPERIDONE 3 MG ER TABLET PO SCH ×2 (08:22→21:00)
[2017-04-16 08:48] VITALS: BP 105/59
[2017-04-16 20:28] VITALS: BP 113/74
[2017-04-16 21:45] VITALS: BP 113/74
[2017-04-17 00:15] VITALS: BP 115/72
[2017-04-17 01:15] VITALS: BP 107/73
[2017-04-17] MEDS: LORazepam 2 MG TABLET PO PRN ×2 (03:22→11:35)
[2017-04-17 08:59] VITALS: BP 108/72
[2017-04-17] MEDS: NICOTINE 14 MG/24 HOUR PATCH TD SCH (09:10)
[2017-04-17] MEDS: PALIPERIDONE 3 MG ER TABLET PO SCH ×2 (09:11→20:24)
[2017-04-17] MEDS: LORazepam 1 MG TABLET PO PRN ×2 (17:09→21:36)
[2017-04-17 19:11] VITALS: BP 97/63
[2017-04-17 21:34] VITALS: BP 124/70
[2017-04-18] MEDS: LORazepam 1 MG TABLET PO PRN ×3 (04:37→20:06)
[2017-04-18] MEDS: NICOTINE 14 MG/24 HOUR PATCH TD SCH (08:03)
[2017-04-18] MEDS: PALIPERIDONE 3 MG ER TABLET PO SCH ×2 (08:03→20:06)
[2017-04-18 09:48] VITALS: BP 85/56
[2017-04-18 17:00] VITALS: BP 113/74
[2017-04-18] MEDS: ZOLPIDEM TARTRATE 10 MG TABLET PO PRN (23:01)
[2017-04-19] MEDS: LORazepam 1 MG TABLET PO PRN ×4 (01:15→18:09)
[2017-04-19 01:16] VITALS: BP 124/65
[2017-04-19] MEDS: PALIPERIDONE 3 MG ER TABLET PO SCH ×2 (08:09→20:27)
[2017-04-19] MEDS: NICOTINE 14 MG/24 HOUR PATCH TD SCH (08:10)
[2017-04-19 21:07] VITALS: BP 100/60
[2017-04-20] MEDS: LORazepam 1 MG TABLET PO PRN ×4 (00:03→16:18)
[2017-04-20 00:04] VITALS: BP 123/78
[2017-04-20 08:30] VITALS: BP 150/85
[2017-04-20] MEDS: PALIPERIDONE 3 MG ER TABLET PO SCH ×2 (08:38→20:15)
[2017-04-20] MEDS: NICOTINE 14 MG/24 HOUR PATCH TD SCH (08:39)
[2017-04-20 19:22] VITALS: BP 114/86
[2017-04-20] MEDS: ZOLPIDEM TARTRATE 10 MG TABLET PO PRN (20:14)
[2017-04-21 04:10] VITALS: BP 100/63
[2017-04-21] MEDS: HALOPERIDOL 5 MG TABLET PO PRN ×2 (04:10→18:47)
[2017-04-21] MEDS: NICOTINE 14 MG/24 HOUR PATCH TD SCH (08:03)
[2017-04-21] MEDS: PALIPERIDONE 3 MG ER TABLET PO SCH ×2 (08:03→20:31)
[2017-04-21] MEDS: LORazepam 1 MG TABLET PO PRN ×3 (08:06→18:47)
[2017-04-21 10:08] VITALS: BP 112/75
[2017-04-21] MEDS: TraMADol HCL 50 MG TABLET PO PRN (23:46)
[2017-04-21 23:50] VITALS: BP 124/81
[2017-04-22] MEDS: TraMADol HCL 50 MG TABLET PO PRN ×2 (00:01→09:43)
[2017-04-22] MEDS: LORazepam 1 MG TABLET PO PRN ×4 (04:09→20:48)
[2017-04-22 04:21] VITALS: BP 112/68
[2017-04-22] MEDS: PALIPERIDONE 3 MG ER TABLET PO SCH ×2 (08:05→20:48)
[2017-04-22] MEDS: NICOTINE 14 MG/24 HOUR PATCH TD SCH (08:08)
[2017-04-22 08:21] VITALS: BP 116/74
[2017-04-22 16:32] VITALS: BP 130/62
[2017-04-23] MEDS: ZOLPIDEM TARTRATE 10 MG TABLET PO PRN ×2 (00:38→20:28)
[2017-04-23 01:23] VITALS: BP 120/83
[2017-04-23 04:45] VITALS: BP 111/69
[2017-04-23] MEDS: TraMADol HCL 50 MG TABLET PO PRN (04:49)
[2017-04-23] MEDS: LORazepam 1 MG TABLET PO PRN ×3 (06:33→17:01)
[2017-04-23 08:04] VITALS: BP 114/71
[2017-04-23] MEDS: NICOTINE 14 MG/24 HOUR PATCH TD SCH (08:36)
[2017-04-23] MEDS: PALIPERIDONE 3 MG ER TABLET PO SCH ×2 (08:36→20:27)
[2017-04-23 16:51] VITALS: BP 111/76
[2017-04-24] MEDS: ZOLPIDEM TARTRATE 10 MG TABLET PO PRN (00:15)
[2017-04-24] MEDS: LORazepam 1 MG TABLET PO PRN ×3 (02:45→14:57)
[2017-04-24 02:58] VITALS: BP 105/72
[2017-04-24 08:15] VITALS: BP 91/58
[2017-04-24] MEDS: PALIPERIDONE 3 MG ER TABLET PO SCH (09:19)
[2017-04-24] MEDS: NICOTINE 14 MG/24 HOUR PATCH TD SCH (09:20)
[2017-04-24] MEDS: TraMADol HCL 50 MG TABLET PO PRN (11:16)
[2017-04-24] MEDS ORDERED: PALI3 PO (16:47)
[2017-04-24] MEDS ORDERED: ALBU8HFA IH ×2 (16:49→16:56)
[2017-04-24] MEDS ORDERED: ALBUTEROL SULFATE HFA 90 MCG/PUFF 8 GM INHALER IH PRN (17:00)
== END 2017-04-24 17:30 | disposition home or self-care (01) | DRG 885 ==
LOC: 3EX 19:49
PROVIDERS: ADMIT Psychiatry & Neurology Psychiatry
DX: F25.1 Schizoaffective disorder, depressive type (principal); G93.41 Metabolic encephalopathy; I10 Essential (primary) hypertension; K21.9 Gastro-esophageal reflux disease without esophagitis; J44.9 Chronic obstructive pulmonary disease, unspecified; B18.2 Chronic viral hepatitis C; D64.9 Anemia, unspecified; I25.10 Atherosclerotic heart disease of native coronary artery without angina pectoris; N40.0 Benign prostatic hyperplasia without lower urinary tract symptoms; Z88.8 Allergy status to other drugs, medicaments and biological substances; K58.9 Irritable bowel syndrome, unspecified; E11.9 Type 2 diabetes mellitus without complications; F17.200 Nicotine dependence, unspecified, uncomplicated; Z91.14 Patient's other noncompliance with medication regimen
CPT/HCPCS: 80307; 83036; 84439; 84443; 87081; J3535

== ENCOUNTER 2017-04-25 08:57 | Emergency (ER) | payer OTHER ==
[~2017-04-25] VITALS: Ht 167.6 cm; Wt 63.6 kg
[~2017-04-25 08:57] MED LIST changes: -DULO20CA30 PO; -GABA-529 PO; -LORA0.5T2 PO; -NACL1 PO; -ZIPR20CA2 PO
[2017-04-25 10:59] VITALS: BP 142/77
== END 2017-04-25 13:06 | disposition left against medical advice (07) ==
LOC: EMS 09:01
DX: R10.9 Unspecified abdominal pain (principal); J45.909 Unspecified asthma, uncomplicated; J44.9 Chronic obstructive pulmonary disease, unspecified; F17.210 Nicotine dependence, cigarettes, uncomplicated; F12.90 Cannabis use, unspecified, uncomplicated; F19.90 Other psychoactive substance use, unspecified, uncomplicated; Z53.21 Procedure and treatment not carried out due to patient leaving prior to being seen by health care provider
CPT/HCPCS: 99281

== ENCOUNTER 2017-04-27 20:43 | Emergency (ER) | payer OTHER ==
[~2017-04-27] VITALS: Ht 172.7 cm; Wt 59.1 kg
[2017-04-27 21:19] LABS: EOSINOPHILS % (AUTO) 3.6 % (1.0-6.0); HEMATOCRIT 28.5 % (41-53); HEMOGLOBIN 9.2 g/dL (13.5-17.5); LYMPHOCYTES # (AUTO) 1.9 K/uL (1.0-4.8); LYMPHOCYTES % (AUTO) 29.3 % (22.0-44.0); MEAN CORPUSCULAR HEMOGLOBIN 24.6 pg (26.0-34.0); MEAN CORPUSCULAR HGB CONC 32.3 G/dL (31.0-37.0); MEAN CORPUSCULAR VOLUME 76 fL (80-100); MONOCYTES # (AUTO) 0.6 K/uL (0.1-1.0); MONOCYTES % (AUTO) 8.8 % (2.0-9.0); NEUTROPHILS # (AUTO) 3.7 K/uL (1.8-7.7); NEUTROPHILS % (AUTO) 58.3 % (40.0-70.0); PLATELET COUNT (AUTO) 447 K/uL (150-450); RED BLOOD CELL COUNT(AUTO) 3.74 MIL/uL (4.50-5.90); RED CELL DISTRIBUTION WIDTH 20.2 % (11.5-14.5); WHITE BLOOD COUNT (AUTO) 6.4 K/uL (4.5-11.0)
[2017-04-27 21:24] LABS: ANION GAP 5 mmol/L (8-16); CALCIUM, TOTAL 8.6 mg/dL (8.8-10.5); CARBON DIOXIDE 30 mmol/L (22-29); CHLORIDE 98 mmol/L (98-107); GLOMERULAR FILTR. RATE CALC 59 mL/min (>60); POTASSIUM 4.6 mmol/L (3.5-5.1); SODIUM SERUM 133 mmol/L (136-145); UREA NITROGEN, BLOOD 18 mg/dL (7-18)
[2017-04-27 21:30] LABS: ALANINE AMINOTRANSFERASE 36 U/L (12-78); ALBUMIN 3.9 g/dL (3.4-5.0); ASPARTATE AMINOTRANSFERASE 30 U/L (15-37); BILIRUBIN,TOTAL 0.3 mg/dL (0.1-1.0); TOTAL PROTEIN, SERUM 8.2 g/dL (6.4-8.2)
[2017-04-27 22:42] VITALS: BP 128/78
[2017-04-27 23:17] LABS: RBC MORPHOLOGY COMMENT ABNORMAL RBC MORPH
== END 2017-04-27 23:16 | disposition home or self-care (01) ==
LOC: EMS 20:45
DX: R45.851 Suicidal ideations (principal); Z59.0 Homelessness; F17.210 Nicotine dependence, cigarettes, uncomplicated; F15.10 Other stimulant abuse, uncomplicated; F12.10 Cannabis abuse, uncomplicated; J45.909 Unspecified asthma, uncomplicated; J44.9 Chronic obstructive pulmonary disease, unspecified; F20.9 Schizophrenia, unspecified; F32.9 Major depressive disorder, single episode, unspecified; B19.20 Unspecified viral hepatitis C without hepatic coma
CPT/HCPCS: 36415; 80053; 80307; 85025; 99285; G0480

== ENCOUNTER 2017-04-28 14:20 | Emergency (ER) | payer OTHER ==
[~2017-04-28] VITALS: Ht 172.7 cm; Wt 61.4 kg
[2017-04-28 14:30] VITALS: BP 98/60
[2017-04-28] MEDS ORDERED: LORazepam 2 MG TABLET PO ONE (16:00)
== END 2017-04-28 16:21 | disposition home or self-care (01) ==
LOC: EMS 14:22
DX: F41.9 Anxiety disorder, unspecified (principal); J45.909 Unspecified asthma, uncomplicated; J44.9 Chronic obstructive pulmonary disease, unspecified; F32.9 Major depressive disorder, single episode, unspecified; F20.9 Schizophrenia, unspecified; B19.20 Unspecified viral hepatitis C without hepatic coma; F17.210 Nicotine dependence, cigarettes, uncomplicated
CPT/HCPCS: 99284

== ENCOUNTER 2017-05-10 18:42 | Emergency (ER) | payer OTHER ==
[~2017-05-10] VITALS: Ht 172.7 cm; Wt 55.0 kg
[2017-05-10] MEDS ORDERED: LORazepam 1 MG TABLET PO ONE (20:00)
[2017-05-10 20:36] VITALS: BP 103/62
== END 2017-05-10 20:38 | disposition home or self-care (01) ==
LOC: EMS 18:45
DX: F41.9 Anxiety disorder, unspecified (principal); F25.9 Schizoaffective disorder, unspecified; F17.210 Nicotine dependence, cigarettes, uncomplicated; B19.20 Unspecified viral hepatitis C without hepatic coma; J44.9 Chronic obstructive pulmonary disease, unspecified; J45.909 Unspecified asthma, uncomplicated; F31.9 Bipolar disorder, unspecified; Z88.8 Allergy status to other drugs, medicaments and biological substances; Z59.0 Homelessness; Z98.890 Other specified postprocedural states
CPT/HCPCS: 99284; 99406

== ENCOUNTER 2017-05-13 21:13 | Inpatient (IN) | payer OTHER, MEDICAID ==
[~2017-05-13] VITALS: Ht 172.7 cm; Wt 62.6 kg
[2017-05-13] MEDS ORDERED: HALOPERIDOL 5 MG TABLET PO PRN (21:45)
[2017-05-13 22:39] VITALS: BP 142/87
[2017-05-13] MEDS ORDERED: ALBUTEROL SULFATE HFA 90 MCG/PUFF 8 GM INHALER IH PRN (22:45)
[2017-05-14 06:28] VITALS: BP 113/72
[2017-05-14 08:03] VITALS: BP 138/78
[2017-05-14 08:21] LABS: BASOPHILS % (AUTO) 0.4 % (0.0-2.0); HEMATOCRIT 23.6 % (41-53); HEMOGLOBIN 7.5 g/dL (13.5-17.5); LYMPHOCYTES # (AUTO) 1.8 K/uL (1.0-4.8); MEAN CORPUSCULAR HEMOGLOBIN 24.4 pg (26.0-34.0); MEAN CORPUSCULAR HGB CONC 31.8 G/dL (31.0-37.0); MEAN CORPUSCULAR VOLUME 77 fL (80-100); MONOCYTES # (AUTO) 0.5 K/uL (0.1-1.0); MONOCYTES % (AUTO) 9.4 % (2.0-9.0); NEUTROPHILS # (AUTO) 3.1 K/uL (1.8-7.7); NEUTROPHILS % (AUTO) 56.2 % (40.0-70.0); PLATELET COUNT (AUTO) 303 K/uL (150-450); RED BLOOD CELL COUNT(AUTO) 3.08 MIL/uL (4.50-5.90); RED CELL DISTRIBUTION WIDTH 19.9 % (11.5-14.5); WHITE BLOOD COUNT (AUTO) 5.5 K/uL (4.5-11.0)
[2017-05-14 08:34] LABS: HEMOGLOBIN A1C 6.6 % (4.5-6.2)
[2017-05-14 08:46] LABS: ALANINE AMINOTRANSFERASE 29 U/L (12-78); ALBUMIN 2.9 g/dL (3.4-5.0); ANION GAP 6 mmol/L (8-16); ASPARTATE AMINOTRANSFERASE 26 U/L (15-37); BILIRUBIN,TOTAL 0.2 mg/dL (0.1-1.0); CALCIUM, TOTAL 8.4 mg/dL (8.8-10.5); CARBON DIOXIDE 28 mmol/L (22-29); CHLORIDE 106 mmol/L (98-107); CHOL/HDL RATIO 2.3 (4.2-7.3); GLOMERULAR FILTR. RATE CALC > 60 mL/min (>60); POTASSIUM 5.3 mmol/L (3.5-5.1); SODIUM SERUM 140 mmol/L (136-145); THYROID STIMULATING HORMONE 1.18 uIU/mL (0.36-3.74); UREA NITROGEN, BLOOD 15 mg/dL (7-18)
[2017-05-14] MEDS: NICOTINE 14 MG/24 HOUR PATCH TD SCH (09:00)
[2017-05-14] MEDS ORDERED: CYANOCOBALAMIN 1,000 MCG/ML VIAL IM ONE (12:45)
[2017-05-14] MEDS: LORazepam 2 MG TABLET PO PRN (13:02)
[2017-05-14 14:32] LABS: RBC MORPHOLOGY COMMENT ABNORMAL RBC MORPH
[2017-05-14 16:10] VITALS: BP 98/58
[2017-05-14] MEDS: EPOETIN ALFA 10,000 UNITS/ML VIAL SQ SCH (17:52)
[2017-05-14] MEDS: PALIPERIDONE 3 MG ER TABLET PO SCH (20:54)
[2017-05-15] MEDS: NICOTINE 14 MG/24 HOUR PATCH TD SCH (09:00)
[2017-05-15] MEDS: MULTIVITAMINS WITH IRON TABLET PO SCH (09:01)
[2017-05-15] MEDS: PALIPERIDONE 3 MG ER TABLET PO SCH ×2 (09:01→20:40)
[2017-05-15] MEDS: THIAMINE HCL 100 MG TABLET PO SCH (09:01)
[2017-05-15] MEDS: FOLIC ACID 1 MG TABLET PO SCH (09:01)
[2017-05-15] MEDS: LORazepam 2 MG TABLET PO PRN (16:00)
[2017-05-15 16:01] VITALS: BP 118/75
[2017-05-16 01:01] VITALS: BP 140/84
[2017-05-16 05:40] VITALS: BP 126/83
[2017-05-16] MEDS: LORazepam 2 MG TABLET PO PRN ×3 (05:43→15:54)
[2017-05-16 08:02] VITALS: BP 108/68
[2017-05-16] MEDS: EPOETIN ALFA 10,000 UNITS/ML VIAL SQ SCH (09:00)
[2017-05-16] MEDS: MULTIVITAMINS WITH IRON TABLET PO SCH (09:00)
[2017-05-16] MEDS: PALIPERIDONE 3 MG ER TABLET PO SCH ×2 (09:00→20:33)
[2017-05-16] MEDS: THIAMINE HCL 100 MG TABLET PO SCH (09:00)
[2017-05-16] MEDS: FOLIC ACID 1 MG TABLET PO SCH (09:00)
[2017-05-16] MEDS: NICOTINE 14 MG/24 HOUR PATCH TD SCH (09:19)
[2017-05-16 16:01] VITALS: BP 122/86
[2017-05-16] MEDS: ZOLPIDEM TARTRATE 10 MG TABLET PO PRN (22:26)
[2017-05-17 04:31] VITALS: BP 120/81
[2017-05-17] MEDS: LORazepam 2 MG TABLET PO PRN ×3 (04:37→19:35)
[2017-05-17 08:22] VITALS: BP_SYST 104; BP_SYST 114; BP_SYST 94; BP_DIAS 64; BP_DIAS 71
[2017-05-17] MEDS: NICOTINE 14 MG/24 HOUR PATCH TD SCH (08:54)
[2017-05-17] MEDS: THIAMINE HCL 100 MG TABLET PO SCH (08:54)
[2017-05-17] MEDS: PALIPERIDONE 3 MG ER TABLET PO SCH ×2 (08:54→20:37)
[2017-05-17] MEDS: FOLIC ACID 1 MG TABLET PO SCH (08:54)
[2017-05-17] MEDS: MULTIVITAMINS WITH IRON TABLET PO SCH (08:55)
[2017-05-17 16:19] VITALS: BP 104/64
[2017-05-17] MEDS: ZOLPIDEM TARTRATE 10 MG TABLET PO PRN (21:54)
[2017-05-18 01:35] VITALS: BP 115/78
[2017-05-18 06:37] VITALS: BP 125/85
[2017-05-18] MEDS: LORazepam 2 MG TABLET PO PRN ×3 (06:41→17:54)
[2017-05-18 08:05] VITALS: BP 110/61
[2017-05-18] MEDS: FOLIC ACID 1 MG TABLET PO SCH (09:18)
[2017-05-18] MEDS: THIAMINE HCL 100 MG TABLET PO SCH (09:18)
[2017-05-18] MEDS: MULTIVITAMINS WITH IRON TABLET PO SCH (09:19)
[2017-05-18] MEDS: EPOETIN ALFA 10,000 UNITS/ML VIAL SQ SCH (09:19)
[2017-05-18] MEDS: PALIPERIDONE 3 MG ER TABLET PO SCH ×2 (09:19→20:32)
[2017-05-18] MEDS: NICOTINE 14 MG/24 HOUR PATCH TD SCH (09:21)
[2017-05-18 16:11] VITALS: BP 116/70
[2017-05-18] MEDS: ZOLPIDEM TARTRATE 10 MG TABLET PO PRN (22:03)
[2017-05-19 00:14] VITALS: BP 125/72
[2017-05-19] MEDS: LORazepam 2 MG TABLET PO PRN ×2 (00:14→07:47)
[2017-05-19] MEDS ORDERED: PALI3 PO (08:06)
[2017-05-19] MEDS ORDERED: THIA100 PO (08:08)
[2017-05-19] MEDS ORDERED: FOLI0.4T2 PO (08:09)
[2017-05-19] MEDS ORDERED: MULT-411 PO (08:10)
[2017-05-19 08:12] VITALS: BP 114/69
[2017-05-19] MEDS: PALIPERIDONE 3 MG ER TABLET PO SCH (08:26)
[2017-05-19] MEDS: NICOTINE 14 MG/24 HOUR PATCH TD SCH (08:26)
[2017-05-19] MEDS: MULTIVITAMINS WITH IRON TABLET PO SCH (08:27)
[2017-05-19] MEDS: FOLIC ACID 1 MG TABLET PO SCH (08:27)
[2017-05-19] MEDS: THIAMINE HCL 100 MG TABLET PO SCH (08:41)
== END 2017-05-19 11:50 | disposition home or self-care (01) | DRG 885 ==
LOC: B2X 21:35 → EDSTATUS 21:39
PROVIDERS: ADMIT Psychiatry & Neurology Psychiatry; ATTEND Psychiatry & Neurology Psychiatry
DX: F25.9 Schizoaffective disorder, unspecified (principal); J44.9 Chronic obstructive pulmonary disease, unspecified; E46 Unspecified protein-calorie malnutrition; R64 Cachexia; D64.9 Anemia, unspecified; F22 Delusional disorders; B19.20 Unspecified viral hepatitis C without hepatic coma; I10 Essential (primary) hypertension; N40.0 Benign prostatic hyperplasia without lower urinary tract symptoms; F11.90 Opioid use, unspecified, uncomplicated; F14.90 Cocaine use, unspecified, uncomplicated; Z72.89 Other problems related to lifestyle; Z72.0 Tobacco use
CPT/HCPCS: 83036; 84132; 84439; 84443; 87081; J0885; J3420

== ENCOUNTER 2017-06-01 19:12 | Emergency (ER) | payer OTHER ==
[~2017-06-01] VITALS: Ht 172.7 cm; Wt 55.0 kg
[~2017-06-01 19:12] MED LIST changes: -ALBU8HFA IH; +FOLI0.4T2 PO; +MULT-411 PO; +THIA100 PO
[2017-06-01 20:48] VITALS: BP 121/81
[2017-06-01 21:49] LABS: BASOPHILS % (AUTO) 0.9 % (0.0-2.0); EOSINOPHILS % (AUTO) 4.5 % (1.0-6.0); HEMOGLOBIN 8.1 g/dL (13.5-17.5); LYMPHOCYTES # (AUTO) 1.4 K/uL (1.0-4.8); LYMPHOCYTES % (AUTO) 33.2 % (22.0-44.0); MEAN CORPUSCULAR HEMOGLOBIN 23.3 pg (26.0-34.0); MEAN CORPUSCULAR HGB CONC 31.2 G/dL (31.0-37.0); MEAN CORPUSCULAR VOLUME 75 fL (80-100); MONOCYTES # (AUTO) 0.4 K/uL (0.1-1.0); MONOCYTES % (AUTO) 10.2 % (2.0-9.0); NEUTROPHILS # (AUTO) 2.1 K/uL (1.8-7.7); NEUTROPHILS % (AUTO) 51.2 % (40.0-70.0); PLATELET COUNT (AUTO) 427 K/uL (150-450); RED BLOOD CELL COUNT(AUTO) 3.48 MIL/uL (4.50-5.90); WHITE BLOOD COUNT (AUTO) 4.1 K/uL (4.5-11.0)
[2017-06-01 22:00] LABS: ANION GAP 6 mmol/L (8-16); CALCIUM, TOTAL 8.5 mg/dL (8.8-10.5); CARBON DIOXIDE 27 mmol/L (22-29); CHLORIDE 103 mmol/L (98-107); CREATININE 1.04 mg/dL (0.60-1.30); GLOMERULAR FILTR. RATE CALC > 60 mL/min (>60); POTASSIUM 4.4 mmol/L (3.5-5.1); SODIUM SERUM 136 mmol/L (136-145); UREA NITROGEN, BLOOD 13 mg/dL (7-18)
[2017-06-01 22:04] LABS: RBC MORPHOLOGY COMMENT ABNORMAL RBC MORPH
[2017-06-01 22:06] LABS: ALANINE AMINOTRANSFERASE 22 U/L (12-78); ALBUMIN 3.5 g/dL (3.4-5.0); ASPARTATE AMINOTRANSFERASE 28 U/L (15-37); BILIRUBIN,TOTAL 0.3 mg/dL (0.1-1.0); TOTAL PROTEIN, SERUM 7.2 g/dL (6.4-8.2)
== END 2017-06-01 21:53 | disposition left against medical advice (07) ==
LOC: EMS 19:15
DX: F41.9 Anxiety disorder, unspecified (principal); F12.90 Cannabis use, unspecified, uncomplicated; F15.90 Other stimulant use, unspecified, uncomplicated; F17.210 Nicotine dependence, cigarettes, uncomplicated; Z88.5 Allergy status to narcotic agent
CPT/HCPCS: 36415; 80053; 85025; 99284; G0480

== ENCOUNTER 2017-07-26 19:25 | Emergency (ER) | payer OTHER ==
[~2017-07-26] VITALS: Ht 165.1 cm; Wt 81.8 kg
[2017-07-26 19:36] VITALS: BP 130/78
[2017-07-26] MEDS ORDERED: HydrOXYzine HCL 25 MG TABLET PO ONE (21:00)
[2017-07-26 21:02] LABS: BASOPHILS % (AUTO) 0.3 % (0.0-2.0); EOSINOPHILS % (AUTO) 3.9 % (1.0-6.0); HEMATOCRIT 25.9 % (41-53); HEMOGLOBIN 8.3 g/dL (13.5-17.5); LYMPHOCYTES # (AUTO) 1.4 K/uL (1.0-4.8); LYMPHOCYTES % (AUTO) 22.7 % (22.0-44.0); MEAN CORPUSCULAR HEMOGLOBIN 24.5 pg (26.0-34.0); MEAN CORPUSCULAR HGB CONC 31.9 G/dL (31.0-37.0); MEAN CORPUSCULAR VOLUME 77 fL (80-100); MONOCYTES # (AUTO) 0.4 K/uL (0.1-1.0); MONOCYTES % (AUTO) 7.3 % (2.0-9.0); NEUTROPHILS % (AUTO) 65.8 % (40.0-70.0); PLATELET COUNT (AUTO) 345 K/uL (150-450); RED BLOOD CELL COUNT(AUTO) 3.37 MIL/uL (4.50-5.90); RED CELL DISTRIBUTION WIDTH 23.6 % (11.5-14.5)
[2017-07-26 21:10] LABS: ANION GAP 7 mmol/L (8-16); CALCIUM, TOTAL 8.1 mg/dL (8.8-10.5); CARBON DIOXIDE 28 mmol/L (22-29); CHLORIDE 106 mmol/L (98-107); CREATININE 1.23 mg/dL (0.60-1.30); GLOMERULAR FILTR. RATE CALC 58 mL/min (>60); POTASSIUM 4.1 mmol/L (3.5-5.1); SODIUM SERUM 141 mmol/L (136-145); UREA NITROGEN, BLOOD 12 mg/dL (7-18)
[2017-07-26 21:18] LABS: ALANINE AMINOTRANSFERASE 33 U/L (12-78); ALBUMIN 3.5 g/dL (3.4-5.0); ASPARTATE AMINOTRANSFERASE 31 U/L (15-37); BILIRUBIN,TOTAL 0.3 mg/dL (0.1-1.0); TOTAL PROTEIN, SERUM 7.1 g/dL (6.4-8.2)
[2017-07-26 21:24] LABS: RBC MORPHOLOGY COMMENT DIMORPHIC RBC
== END 2017-07-26 21:06 | disposition home or self-care (01) ==
LOC: EMS 19:27
DX: F25.9 Schizoaffective disorder, unspecified (principal); G47.00 Insomnia, unspecified; F41.9 Anxiety disorder, unspecified; F31.9 Bipolar disorder, unspecified; J44.9 Chronic obstructive pulmonary disease, unspecified; J45.909 Unspecified asthma, uncomplicated; F17.210 Nicotine dependence, cigarettes, uncomplicated; F12.90 Cannabis use, unspecified, uncomplicated; F19.90 Other psychoactive substance use, unspecified, uncomplicated; Z76.5 Malingerer [conscious simulation]; Z88.8 Allergy status to other drugs, medicaments and biological substances
CPT/HCPCS: 36415; 80053; 80307; 85025; 99284; G0480

== ENCOUNTER 2017-07-27 18:32 | Emergency (ER) | payer OTHER ==
[~2017-07-27] VITALS: Ht 160 cm; Wt 70.0 kg
[2017-07-27 18:36] VITALS: BP 143/75
== END 2017-07-27 20:05 | disposition left against medical advice (07) ==
LOC: EMS 18:36
DX: Z53.21 Procedure and treatment not carried out due to patient leaving prior to being seen by health care provider (principal)

== ENCOUNTER 2017-07-27 22:36 | Inpatient (IN) | payer OTHER ==
[~2017-07-27] VITALS: Ht 172.7 cm; Wt 60.7 kg
[2017-07-27] MEDS ORDERED: HALOPERIDOL LACTATE 5 MG/ML VIAL IM ONE (23:00)
[2017-07-27] MEDS ORDERED: DiphenhydrAMINE HCL 50 MG/ML VIAL IM ONE (23:00)
[2017-07-27] MEDS ORDERED: LORazepam 2 MG/ML VIAL IM ONE (23:00)
[2017-07-28 03:19] LABS: APPEARANCE,URINE CLEAR (CLEAR); GLUCOSE, URINE (UA) NEGATIVE (NEGATIVE); KETONES,URINE NEGATIVE (NEGATIVE); LEUKOCYTE ESTERASE ,URINE NEGATIVE (NEGATIVE); OCCULT BLOOD,URINE NEGATIVE (NEGATIVE); PH,URINE 6.5 (5.0-8.0); PROTEIN,URINE NEGATIVE (NEGATIVE)
[2017-07-28 03:22] LABS: ADD UA MICROSCOPIC NO
[2017-07-28] MEDS: HALOPERIDOL 5 MG TABLET PO PRN (14:19)
[2017-07-28] MEDS: LORazepam 2 MG TABLET PO PRN (14:20)
[2017-07-28] MEDS ORDERED: INFLUENZA VIRUS VACCINE QVS 2017-18 (3YR+)/PF 60 MCG/0.5 ML SYRINGE IM ONE (18:00)
[2017-07-29 00:01] VITALS: BP 126/82
[2017-07-29] MEDS: LORazepam 2 MG TABLET PO PRN ×3 (00:08→20:35)
[2017-07-29 08:26] VITALS: BP 121/78
[2017-07-29] MEDS ORDERED: DiphenhydrAMINE HCL 50 MG/ML VIAL IM ONE (10:00)
[2017-07-29] MEDS ORDERED: LORazepam 2 MG/ML VIAL IM ONE (10:00)
[2017-07-29] MEDS ORDERED: HALOPERIDOL LACTATE 5 MG/ML VIAL IM ONE (10:00)
[2017-07-29 16:00] VITALS: BP 136/88
[2017-07-29] MEDS ORDERED: BENZOCAINE/MENTHOL LOZENGE MM PRN (19:45)
[2017-07-29] MEDS ORDERED: ACETAMINOPHEN 325 MG TABLET PO PRN (19:45)
[2017-07-29] MEDS ORDERED: IBUPROFEN 600 MG TABLET PO PRN (19:45)
[2017-07-29] MEDS ORDERED: ONDANSETRON HCL 4 MG TABLET PO PRN (19:45)
[2017-07-29] MEDS ORDERED: BACITRACIN 28.4 GM OINTMENT TP PRN (19:45)
[2017-07-29] MEDS ORDERED: PETROLATUM,WHITE 71 GM JELLY TP PRN (19:45)
[2017-07-29] MEDS ORDERED: LOPERAMIDE HCL 2 MG CAPSULE PO PRN (19:45)
[2017-07-29] MEDS ORDERED: MAG HYDROX/AL HYDROX/SIMETH ES 30 ML SUSPENSION UDCUP PO PRN (19:45)
[2017-07-29] MEDS ORDERED: ALBUTEROL SULFATE HFA 90 MCG/PUFF 8 GM INHALER IH PRN (19:45)
[2017-07-29] MEDS ORDERED: CloNIDine HCL 0.1 MG TABLET PO PRN (19:45)
[2017-07-29] MEDS: PALIPERIDONE 6 MG ER TABLET PO SCH (20:35)
[2017-07-30] MEDS: LORazepam 2 MG TABLET PO PRN ×3 (00:58→15:41)
[2017-07-30 01:11] VITALS: BP 110/79
[2017-07-30 08:11] VITALS: BP 117/71
[2017-07-30 08:20] LABS: EOSINOPHILS % (AUTO) 2.4 % (1.0-6.0); HEMATOCRIT 29.2 % (41-53); HEMOGLOBIN 9.4 g/dL (13.5-17.5); LYMPHOCYTES # (AUTO) 1.2 K/uL (1.0-4.8); LYMPHOCYTES % (AUTO) 23.4 % (22.0-44.0); MEAN CORPUSCULAR HEMOGLOBIN 24.7 pg (26.0-34.0); MEAN CORPUSCULAR HGB CONC 32.1 G/dL (31.0-37.0); MEAN CORPUSCULAR VOLUME 77 fL (80-100); MONOCYTES # (AUTO) 0.5 K/uL (0.1-1.0); MONOCYTES % (AUTO) 9.2 % (2.0-9.0); NEUTROPHILS # (AUTO) 3.2 K/uL (1.8-7.7); PLATELET COUNT (AUTO) 415 K/uL (150-450); RED BLOOD CELL COUNT(AUTO) 3.79 MIL/uL (4.50-5.90); RED CELL DISTRIBUTION WIDTH 24.4 % (11.5-14.5)
[2017-07-30 08:39] LABS: ALANINE AMINOTRANSFERASE 42 U/L (12-78); ALBUMIN 3.5 g/dL (3.4-5.0); ASPARTATE AMINOTRANSFERASE 46 U/L (15-37); BILIRUBIN,TOTAL 0.2 mg/dL (0.1-1.0); CALCIUM, TOTAL 8.4 mg/dL (8.8-10.5); CARBON DIOXIDE 33 mmol/L (22-29); CHOL/HDL RATIO 2.5 (4.2-7.3); CREATININE 0.83 mg/dL (0.60-1.30); GLOMERULAR FILTR. RATE CALC > 60 mL/min (>60); THYROID STIMULATING HORMONE 1.35 uIU/mL (0.36-3.74); UREA NITROGEN, BLOOD 16 mg/dL (7-18)
[2017-07-30] MEDS: MULTIVITAMINS WITH MINERALS, THERAPEUTIC TABLET PO SCH (08:54)
[2017-07-30] MEDS: OMEPRAZOLE 20 MG CAPSULE PO SCH (08:55)
[2017-07-30] MEDS: CHOLECALCIFEROL (VIT D3) 1,000 UNITS TABLET PO SCH (08:55)
[2017-07-30] MEDS: TAMSULOSIN HCL 0.4 MG CAPSULE PO SCH (08:56)
[2017-07-30 10:39] LABS: RBC MORPHOLOGY COMMENT ABNORMAL RBC MORPH
[2017-07-30 11:10] LABS: ANION GAP 3 mmol/L (8-16); CHLORIDE 101 mmol/L (98-107); POTASSIUM 4.5 mmol/L (3.5-5.1); SODIUM SERUM 137 mmol/L (136-145)
[2017-07-30 16:00] VITALS: BP 121/74
[2017-07-30] MEDS: PALIPERIDONE 6 MG ER TABLET PO SCH (20:18)
[2017-07-31 04:41] VITALS: BP 109/71
[2017-07-31] MEDS: LORazepam 2 MG TABLET PO PRN ×3 (05:24→20:22)
[2017-07-31 07:05] LABS: HEPATITIS Bs ANTIGEN SCREEN P Negative (Negative); HEPATITIS C AB SCREEN >11.0 s/co ratio (0.0-0.9)
[2017-07-31] MEDS: TAMSULOSIN HCL 0.4 MG CAPSULE PO SCH (08:30)
[2017-07-31] MEDS: OMEPRAZOLE 20 MG CAPSULE PO SCH (08:30)
[2017-07-31] MEDS: CHOLECALCIFEROL (VIT D3) 1,000 UNITS TABLET PO SCH (08:30)
[2017-07-31] MEDS: MULTIVITAMINS WITH MINERALS, THERAPEUTIC TABLET PO SCH (08:30)
[2017-07-31] MEDS: NICOTINE 14 MG/24 HOUR PATCH TD SCH (08:30)
[2017-07-31 16:06] VITALS: BP 103/74
[2017-07-31] MEDS: FERROUS SULFATE 325 MG EC TABLET PO SCH (16:14)
[2017-07-31] MEDS: PALIPERIDONE 6 MG ER TABLET PO SCH (20:21)
[2017-07-31] MEDS: ZOLPIDEM TARTRATE 10 MG TABLET PO PRN (21:00)
[2017-08-01 03:47] VITALS: BP 121/80
[2017-08-01] MEDS: LORazepam 2 MG TABLET PO PRN ×4 (04:30→20:59)
[2017-08-01] MEDS: FERROUS SULFATE 325 MG EC TABLET PO SCH ×2 (06:46→16:58)
[2017-08-01] MEDS: TAMSULOSIN HCL 0.4 MG CAPSULE PO SCH (08:26)
[2017-08-01] MEDS: MULTIVITAMINS WITH MINERALS, THERAPEUTIC TABLET PO SCH (08:27)
[2017-08-01] MEDS: NICOTINE 14 MG/24 HOUR PATCH TD SCH (08:27)
[2017-08-01] MEDS: CHOLECALCIFEROL (VIT D3) 1,000 UNITS TABLET PO SCH (08:27)
[2017-08-01] MEDS: OMEPRAZOLE 20 MG CAPSULE PO SCH (08:27)
[2017-08-01 08:29] VITALS: BP 109/69
[2017-08-01 16:00] VITALS: BP 109/71
[2017-08-01] MEDS: MAGNESIUM HYDROXIDE SUSPENSION 30 ML UDCUP PO PRN (19:07)
[2017-08-01] MEDS: PALIPERIDONE 6 MG ER TABLET PO SCH (20:18)
[2017-08-02 02:59] VITALS: BP 112/70
[2017-08-02] MEDS: FERROUS SULFATE 325 MG EC TABLET PO SCH ×2 (06:11→16:27)
[2017-08-02] MEDS: LORazepam 2 MG TABLET PO PRN ×4 (06:11→20:28)
[2017-08-02 08:00] VITALS: BP 110/66
[2017-08-02] MEDS: NICOTINE 14 MG/24 HOUR PATCH TD SCH (08:26)
[2017-08-02] MEDS: CHOLECALCIFEROL (VIT D3) 1,000 UNITS TABLET PO SCH (08:26)
[2017-08-02] MEDS: MULTIVITAMINS WITH MINERALS, THERAPEUTIC TABLET PO SCH (08:26)
[2017-08-02] MEDS: OMEPRAZOLE 20 MG CAPSULE PO SCH (08:26)
[2017-08-02] MEDS: TAMSULOSIN HCL 0.4 MG CAPSULE PO SCH (08:26)
[2017-08-02 16:00] VITALS: BP 116/65
[2017-08-02] MEDS: PALIPERIDONE 6 MG ER TABLET PO SCH (20:28)
[2017-08-03 01:05] VITALS: BP 123/64
[2017-08-03] MEDS: HALOPERIDOL 5 MG TABLET PO PRN (01:22)
[2017-08-03] MEDS: LORazepam 2 MG TABLET PO PRN ×3 (06:41→20:09)
[2017-08-03] MEDS: FERROUS SULFATE 325 MG EC TABLET PO SCH ×2 (06:41→16:37)
[2017-08-03 08:28] VITALS: BP 138/84
[2017-08-03] MEDS: TAMSULOSIN HCL 0.4 MG CAPSULE PO SCH (08:57)
[2017-08-03] MEDS: CHOLECALCIFEROL (VIT D3) 1,000 UNITS TABLET PO SCH (08:57)
[2017-08-03] MEDS: MULTIVITAMINS WITH MINERALS, THERAPEUTIC TABLET PO SCH (08:58)
[2017-08-03] MEDS: NICOTINE 14 MG/24 HOUR PATCH TD SCH (08:58)
[2017-08-03] MEDS: OMEPRAZOLE 20 MG CAPSULE PO SCH (08:58)
[2017-08-03 16:00] VITALS: BP 116/72
[2017-08-03] MEDS: PALIPERIDONE 6 MG ER TABLET PO SCH (20:08)
[2017-08-04] MEDS: ZOLPIDEM TARTRATE 10 MG TABLET PO PRN (00:08)
[2017-08-04] MEDS: LORazepam 2 MG TABLET PO PRN ×4 (00:08→16:53)
[2017-08-04] MEDS: FERROUS SULFATE 325 MG EC TABLET PO SCH ×2 (06:44→16:26)
[2017-08-04 08:03] VITALS: BP 119/73
[2017-08-04] MEDS: MULTIVITAMINS WITH MINERALS, THERAPEUTIC TABLET PO SCH (08:26)
[2017-08-04] MEDS: OMEPRAZOLE 20 MG CAPSULE PO SCH (08:26)
[2017-08-04] MEDS: CHOLECALCIFEROL (VIT D3) 1,000 UNITS TABLET PO SCH (08:26)
[2017-08-04] MEDS: TAMSULOSIN HCL 0.4 MG CAPSULE PO SCH (08:26)
[2017-08-04] MEDS: NICOTINE 14 MG/24 HOUR PATCH TD SCH (08:27)
[2017-08-04] MEDS: PALIPERIDONE 6 MG ER TABLET PO SCH (20:09)
[2017-08-05 00:08] VITALS: BP 116/71
[2017-08-05] MEDS: LORazepam 2 MG TABLET PO PRN ×4 (01:52→21:18)
[2017-08-05 03:55] VITALS: BP 118/70
[2017-08-05] MEDS: FERROUS SULFATE 325 MG EC TABLET PO SCH ×2 (06:07→16:37)
[2017-08-05 08:08] VITALS: BP 110/60
[2017-08-05] MEDS: CHOLECALCIFEROL (VIT D3) 1,000 UNITS TABLET PO SCH (08:11)
[2017-08-05] MEDS: TAMSULOSIN HCL 0.4 MG CAPSULE PO SCH (08:11)
[2017-08-05] MEDS: NICOTINE 14 MG/24 HOUR PATCH TD SCH (08:11)
[2017-08-05] MEDS: MULTIVITAMINS WITH MINERALS, THERAPEUTIC TABLET PO SCH (08:11)
[2017-08-05] MEDS: OMEPRAZOLE 20 MG CAPSULE PO SCH (08:11)
[2017-08-05] MEDS ORDERED: MAGNESIUM CITRATE 300 ML ORAL SOLUTION PO PRN (08:15)
[2017-08-05 16:01] VITALS: BP 120/78
[2017-08-05] MEDS: PALIPERIDONE 6 MG ER TABLET PO SCH (20:34)
[2017-08-05 21:22] VITALS: BP 123/69
[2017-08-06 00:52] VITALS: BP 111/78
[2017-08-06] MEDS: LORazepam 2 MG TABLET PO PRN (02:39)
[2017-08-06] MEDS: FERROUS SULFATE 325 MG EC TABLET PO SCH (06:10)
[2017-08-06] MEDS: MAGNESIUM HYDROXIDE SUSPENSION 30 ML UDCUP PO PRN (06:11)
[2017-08-06 08:01] VITALS: BP 95/63
[2017-08-06 08:20] LABS: ALANINE AMINOTRANSFERASE 37 U/L (12-78); ALBUMIN 3.5 g/dL (3.4-5.0); ANION GAP 5 mmol/L (8-16); ASPARTATE AMINOTRANSFERASE 25 U/L (15-37); BILIRUBIN,TOTAL 0.3 mg/dL (0.1-1.0); CALCIUM, TOTAL 8.3 mg/dL (8.8-10.5); CARBON DIOXIDE 31 mmol/L (22-29); CHLORIDE 102 mmol/L (98-107); CREATININE 1.12 mg/dL (0.60-1.30); GLOMERULAR FILTR. RATE CALC > 60 mL/min (>60); POTASSIUM 4.9 mmol/L (3.5-5.1); SODIUM SERUM 138 mmol/L (136-145); TOTAL PROTEIN, SERUM 6.9 g/dL (6.4-8.2); UREA NITROGEN, BLOOD 26 mg/dL (7-18)
[2017-08-06 08:35] LABS: BASOPHILS % (AUTO) 0.2 % (0.0-2.0); EOSINOPHILS % (AUTO) 1.4 % (1.0-6.0); HEMATOCRIT 28.2 % (41-53); HEMOGLOBIN 8.9 g/dL (13.5-17.5); LYMPHOCYTES # (AUTO) 1.5 K/uL (1.0-4.8); LYMPHOCYTES % (AUTO) 30.3 % (22.0-44.0); MEAN CORPUSCULAR HEMOGLOBIN 24.8 pg (26.0-34.0); MEAN CORPUSCULAR HGB CONC 31.7 G/dL (31.0-37.0); MEAN CORPUSCULAR VOLUME 78 fL (80-100); MONOCYTES # (AUTO) 0.8 K/uL (0.1-1.0); MONOCYTES % (AUTO) 16.5 % (2.0-9.0); NEUTROPHILS # (AUTO) 2.6 K/uL (1.8-7.7); NEUTROPHILS % (AUTO) 51.6 % (40.0-70.0); PLATELET COUNT (AUTO) 430 K/uL (150-450); RED BLOOD CELL COUNT(AUTO) 3.61 MIL/uL (4.50-5.90); RED CELL DISTRIBUTION WIDTH 26.1 % (11.5-14.5); WHITE BLOOD COUNT (AUTO) 5.1 K/uL (4.5-11.0)
[2017-08-06] MEDS: NICOTINE 14 MG/24 HOUR PATCH TD SCH (09:10)
[2017-08-06] MEDS: TAMSULOSIN HCL 0.4 MG CAPSULE PO SCH (09:10)
[2017-08-06] MEDS: CHOLECALCIFEROL (VIT D3) 1,000 UNITS TABLET PO SCH (09:10)
[2017-08-06] MEDS: MULTIVITAMINS WITH MINERALS, THERAPEUTIC TABLET PO SCH (09:10)
[2017-08-06] MEDS: OMEPRAZOLE 20 MG CAPSULE PO SCH (09:10)
[2017-08-06] MEDS ORDERED: OMEP20 PO (10:32)
[2017-08-06] MEDS ORDERED: TAMS0.4C32 PO (10:32)
[2017-08-06] MEDS ORDERED: PALI6 PO (10:32)
[2017-08-06] MEDS ORDERED: VITAD1000 PO (10:32)
[2017-08-06] MEDS ORDERED: FERR-89 PO (10:32)
[2017-08-06] MEDS ORDERED: MULT1CAP32 PO (10:32)
== END 2017-08-06 12:15 | disposition home or self-care (01) | DRG 885 ==
LOC: EMS 22:38 → B2X 07-28 16:20 → B3A 07-28 20:04 → B2X 08-04 17:35
PROVIDERS: ADMIT Psychiatry & Neurology Psychiatry; ATTEND Psychiatry & Neurology Psychiatry
DX: F25.9 Schizoaffective disorder, unspecified (principal); B18.2 Chronic viral hepatitis C; E44.0 Moderate protein-calorie malnutrition; J44.9 Chronic obstructive pulmonary disease, unspecified; D50.9 Iron deficiency anemia, unspecified; F12.90 Cannabis use, unspecified, uncomplicated; E55.9 Vitamin D deficiency, unspecified; F15.10 Other stimulant abuse, uncomplicated; F17.200 Nicotine dependence, unspecified, uncomplicated; F31.9 Bipolar disorder, unspecified; I10 Essential (primary) hypertension; K21.9 Gastro-esophageal reflux disease without esophagitis; M19.90 Unspecified osteoarthritis, unspecified site; N40.0 Benign prostatic hyperplasia without lower urinary tract symptoms; Z71.51 Drug abuse counseling and surveillance of drug abuser; Z68.20 Body mass index [BMI] 20.0-20.9, adult
CPT/HCPCS: 80074; 84436; 84443; 87081; 96372; 99291; J1200; J1630; J2060

== ENCOUNTER 2017-08-12 12:57 | Inpatient (IN) | payer OTHER, MEDICAID ==
[~2017-08-12] VITALS: Ht 172.7 cm; Wt 64.4 kg
[~2017-08-12 12:57] MED LIST changes: +FERR-89 PO; -FOLI0.4T2 PO; -MULT-411 PO; +MULT1CAP32 PO; +OMEP20 PO; -PALI3 PO; +PALI6 PO; +TAMS0.4C32 PO; -THIA100 PO; +VITAD1000 PO
[2017-08-12 14:03] LABS: BASOPHILS # (AUTO) 0.01 K/uL (0.00-0.20); BASOPHILS % (AUTO) 0.2 % (0.0-2.0); EOSINOPHILS # (AUTO) 0.16 K/uL (0.00-0.70); HEMATOCRIT 31.3 % (41-53); HEMOGLOBIN 9.6 g/dL (13.5-17.5); LYMPHOCYTES # (AUTO) 1.9 K/uL (1.0-4.8); LYMPHOCYTES % (AUTO) 28.3 % (22.0-44.0); MEAN CORPUSCULAR HEMOGLOBIN 24.4 pg (26.0-34.0); MEAN CORPUSCULAR HGB CONC 30.6 G/dL (31.0-37.0); MEAN CORPUSCULAR VOLUME 80 fL (80-100); MONOCYTES # (AUTO) 0.8 K/uL (0.1-1.0); MONOCYTES % (AUTO) 11.6 % (2.0-9.0); NEUTROPHILS # (AUTO) 3.8 K/uL (1.8-7.7); NEUTROPHILS % (AUTO) 57.4 % (40.0-70.0); PLATELET COUNT (AUTO) 344 K/uL (150-450); RED BLOOD CELL COUNT(AUTO) 3.93 MIL/uL (4.50-5.90); RED CELL DISTRIBUTION WIDTH 27.3 % (11.5-14.5)
[2017-08-12 14:15] LABS: ANION GAP 8 mmol/L (8-16); CALCIUM, TOTAL 8.2 mg/dL (8.8-10.5); CARBON DIOXIDE 28 mmol/L (22-29); CHLORIDE 103 mmol/L (98-107); CREATININE 1.16 mg/dL (0.60-1.30); GLOMERULAR FILTR. RATE CALC > 60 mL/min (>60); GLUCOSE,RANDOM 95 mg/dL (70-110); SODIUM SERUM 139 mmol/L (136-145); UREA NITROGEN, BLOOD 14 mg/dL (7-18)
[2017-08-12 14:19] LABS: AMPHET/METH SCREEN,URINE NEGATIVE (NEGATIVE); BARBITURATE SCREEN, URINE NEGATIVE (NEGATIVE); BENZODIAZEPINES SCREEN,URINE NEGATIVE (NEGATIVE); CANNABINOID SCREEN,URINE NEGATIVE (NEGATIVE); COCAINE SCREEN,URINE NEGATIVE (NEGATIVE); METHADONE SCREEN, URINE NEGATIVE (NEGATIVE); OPIATE SCREEN,URINE NEGATIVE (NEGATIVE); PHENCYCLIDINE SCREEN,URINE NEGATIVE (NEGATIVE)
[2017-08-12] MEDS ORDERED: DiphenhydrAMINE HCL 50 MG/ML VIAL ONE (14:19)
[2017-08-12] MEDS ORDERED: HALOPERIDOL LACTATE 5 MG/ML VIAL ONE (14:19)
[2017-08-12] MEDS ORDERED: LORazepam 2 MG/ML VIAL ONE (14:19)
[2017-08-12 14:20] LABS: ALANINE AMINOTRANSFERASE 36 U/L (12-78); ALBUMIN 3.9 g/dL (3.4-5.0); ALKALINE PHOSPHATASE 97 U/L (46-116); ASPARTATE AMINOTRANSFERASE 36 U/L (15-37); BILIRUBIN,TOTAL 0.3 mg/dL (0.1-1.0); TOTAL PROTEIN, SERUM 7.9 g/dL (6.4-8.2)
[2017-08-12] MEDS ORDERED: HALOPERIDOL LACTATE 5 MG/ML VIAL IM ONE (14:30)
[2017-08-12] MEDS ORDERED: LORazepam 2 MG/ML VIAL IM ONE (14:30)
[2017-08-12] MEDS ORDERED: DiphenhydrAMINE HCL 50 MG/ML VIAL IM ONE (14:30)
[2017-08-12] MEDS ORDERED: HALOPERIDOL 5 MG TABLET PO PRN (15:15)
[2017-08-12 18:29] VITALS: BP 123/73
[2017-08-12] MEDS: PALIPERIDONE 6 MG ER TABLET PO SCH (20:58)
[2017-08-13] MEDS: FERROUS SULFATE 325 MG EC TABLET PO SCH ×2 (07:09→16:50)
[2017-08-13] MEDS ORDERED: MAGNESIUM HYDROXIDE SUSPENSION 30 ML UDCUP PO PRN (08:30)
[2017-08-13] MEDS ORDERED: ONDANSETRON HCL 4 MG TABLET PO PRN (08:30)
[2017-08-13] MEDS ORDERED: ALBUTEROL SULFATE HFA 90 MCG/PUFF 8 GM INHALER IH PRN (08:30)
[2017-08-13] MEDS: NICOTINE 21 MG/24 HOUR PATCH TD SCH (09:00)
[2017-08-13] MEDS: BACITRACIN 28.4 GM OINTMENT TP SCH ×2 (09:00→16:48)
[2017-08-13] MEDS: MULTIVITAMINS WITH MINERALS, THERAPEUTIC TABLET PO SCH (09:27)
[2017-08-13] MEDS: TAMSULOSIN HCL 0.4 MG CAPSULE PO SCH (09:27)
[2017-08-13] MEDS: CHOLECALCIFEROL (VIT D3) 1,000 UNITS TABLET PO SCH (09:27)
[2017-08-13] MEDS: DOCUSATE SODIUM 100 MG CAPSULE PO SCH (09:27)
[2017-08-13] MEDS: OMEPRAZOLE 20 MG CAPSULE PO SCH (09:27)
[2017-08-13] MEDS: LISINOPRIL 10 MG TABLET PO SCH (09:28)
[2017-08-13 09:39] VITALS: BP 120/65
[2017-08-13] MEDS: LORazepam 2 MG TABLET PO PRN ×2 (12:39→16:55)
[2017-08-13] MEDS: PALIPERIDONE 6 MG ER TABLET PO SCH (21:41)
[2017-08-13] MEDS: ZOLPIDEM TARTRATE 10 MG TABLET PO PRN (22:10)
[2017-08-14] MEDS: LORazepam 2 MG TABLET PO PRN ×4 (01:13→23:44)
[2017-08-14 01:30] VITALS: BP 111/70
[2017-08-14] MEDS: FERROUS SULFATE 325 MG EC TABLET PO SCH ×2 (08:16→16:44)
[2017-08-14] MEDS: DOCUSATE SODIUM 100 MG CAPSULE PO SCH (08:16)
[2017-08-14] MEDS: TAMSULOSIN HCL 0.4 MG CAPSULE PO SCH (08:16)
[2017-08-14] MEDS: OMEPRAZOLE 20 MG CAPSULE PO SCH (08:16)
[2017-08-14] MEDS: LISINOPRIL 10 MG TABLET PO SCH (08:17)
[2017-08-14] MEDS: CHOLECALCIFEROL (VIT D3) 1,000 UNITS TABLET PO SCH (08:17)
[2017-08-14] MEDS: MULTIVITAMINS WITH MINERALS, THERAPEUTIC TABLET PO SCH (08:17)
[2017-08-14] MEDS: NICOTINE 21 MG/24 HOUR PATCH TD SCH (08:28)
[2017-08-14] MEDS: BACITRACIN 28.4 GM OINTMENT TP SCH ×2 (08:28→16:43)
[2017-08-14 08:33] VITALS: BP 113/75
[2017-08-14 17:11] VITALS: BP 137/91
[2017-08-14] MEDS: PALIPERIDONE 6 MG ER TABLET PO SCH (20:25)
[2017-08-14] MEDS: ZOLPIDEM TARTRATE 10 MG TABLET PO PRN (20:25)
[2017-08-15] VITALS: BP 120/82
[2017-08-15] MEDS: FERROUS SULFATE 325 MG EC TABLET PO SCH ×2 (06:47→16:41)
[2017-08-15 08:15] VITALS: BP 115/62
[2017-08-15] MEDS: DOCUSATE SODIUM 100 MG CAPSULE PO SCH (08:17)
[2017-08-15] MEDS: LISINOPRIL 10 MG TABLET PO SCH (08:17)
[2017-08-15] MEDS: TAMSULOSIN HCL 0.4 MG CAPSULE PO SCH (08:17)
[2017-08-15] MEDS: OMEPRAZOLE 20 MG CAPSULE PO SCH (08:17)
[2017-08-15] MEDS: MULTIVITAMINS WITH MINERALS, THERAPEUTIC TABLET PO SCH (08:17)
[2017-08-15] MEDS: CHOLECALCIFEROL (VIT D3) 1,000 UNITS TABLET PO SCH (08:17)
[2017-08-15] MEDS: BACITRACIN 28.4 GM OINTMENT TP SCH ×2 (08:21→17:00)
[2017-08-15] MEDS: NICOTINE 21 MG/24 HOUR PATCH TD SCH (08:21)
[2017-08-15] MEDS: LORazepam 2 MG TABLET PO PRN ×2 (08:40→16:41)
[2017-08-15 19:20] VITALS: BP 119/87
[2017-08-15] MEDS: PALIPERIDONE 6 MG ER TABLET PO SCH (20:53)
[2017-08-15] MEDS: ZOLPIDEM TARTRATE 10 MG TABLET PO PRN (21:55)
[2017-08-16 03:24] VITALS: BP 112/77
[2017-08-16] MEDS: LORazepam 2 MG TABLET PO PRN ×3 (06:26→16:32)
[2017-08-16] MEDS: FERROUS SULFATE 325 MG EC TABLET PO SCH ×2 (06:30→17:12)
[2017-08-16 08:15] VITALS: BP 102/68
[2017-08-16] MEDS: OMEPRAZOLE 20 MG CAPSULE PO SCH (08:38)
[2017-08-16] MEDS: LISINOPRIL 10 MG TABLET PO SCH (08:38)
[2017-08-16] MEDS: DOCUSATE SODIUM 100 MG CAPSULE PO SCH (08:38)
[2017-08-16] MEDS: TAMSULOSIN HCL 0.4 MG CAPSULE PO SCH (08:38)
[2017-08-16] MEDS: CHOLECALCIFEROL (VIT D3) 1,000 UNITS TABLET PO SCH (08:38)
[2017-08-16] MEDS: MULTIVITAMINS WITH MINERALS, THERAPEUTIC TABLET PO SCH (08:38)
[2017-08-16] MEDS: BACITRACIN 28.4 GM OINTMENT TP SCH ×2 (08:45→16:31)
[2017-08-16] MEDS: NICOTINE 21 MG/24 HOUR PATCH TD SCH (08:46)
[2017-08-16 18:02] VITALS: BP 106/62
[2017-08-16] MEDS: PALIPERIDONE 6 MG ER TABLET PO SCH (20:10)
[2017-08-16 22:39] VITALS: BP 110/63
[2017-08-16] MEDS: ZOLPIDEM TARTRATE 10 MG TABLET PO PRN (22:40)
[2017-08-17 03:21] VITALS: BP 106/66
[2017-08-17] MEDS: LORazepam 2 MG TABLET PO PRN ×2 (03:29→16:09)
[2017-08-17 03:39] VITALS: BP 116/81
[2017-08-17] MEDS: FERROUS SULFATE 325 MG EC TABLET PO SCH ×2 (07:00→16:49)
[2017-08-17 08:15] VITALS: BP 135/68
[2017-08-17] MEDS: DOCUSATE SODIUM 100 MG CAPSULE PO SCH (08:31)
[2017-08-17] MEDS: MULTIVITAMINS WITH MINERALS, THERAPEUTIC TABLET PO SCH (08:32)
[2017-08-17] MEDS: OMEPRAZOLE 20 MG CAPSULE PO SCH (08:32)
[2017-08-17] MEDS: TAMSULOSIN HCL 0.4 MG CAPSULE PO SCH (08:32)
[2017-08-17] MEDS: CHOLECALCIFEROL (VIT D3) 1,000 UNITS TABLET PO SCH (08:32)
[2017-08-17] MEDS: LISINOPRIL 10 MG TABLET PO SCH (08:33)
[2017-08-17] MEDS: BACITRACIN 28.4 GM OINTMENT TP SCH ×2 (08:40→16:48)
[2017-08-17] MEDS: NICOTINE 21 MG/24 HOUR PATCH TD SCH (08:40)
[2017-08-17 16:05] VITALS: BP 119/55
[2017-08-17] MEDS ORDERED: DICLOFENAC SODIUM 1% 100 GM GEL [2GM] TP PRN (18:30)
[2017-08-17] MEDS: PALIPERIDONE 6 MG ER TABLET PO SCH (20:27)
[2017-08-18 04:34] VITALS: BP 122/74
[2017-08-18] MEDS: LORazepam 2 MG TABLET PO PRN (05:32)
[2017-08-18 05:37] VITALS: BP 107/77
[2017-08-18] MEDS: FERROUS SULFATE 325 MG EC TABLET PO SCH (06:51)
[2017-08-18] MEDS: TAMSULOSIN HCL 0.4 MG CAPSULE PO SCH (08:53)
[2017-08-18] MEDS: LISINOPRIL 10 MG TABLET PO SCH (08:53)
[2017-08-18] MEDS: BACITRACIN 28.4 GM OINTMENT TP SCH (08:54)
[2017-08-18] MEDS: NICOTINE 21 MG/24 HOUR PATCH TD SCH (08:54)
[2017-08-18] MEDS: DOCUSATE SODIUM 100 MG CAPSULE PO SCH (08:55)
[2017-08-18] MEDS: MULTIVITAMINS WITH MINERALS, THERAPEUTIC TABLET PO SCH (08:56)
[2017-08-18] MEDS: OMEPRAZOLE 20 MG CAPSULE PO SCH (08:56)
[2017-08-18] MEDS: CHOLECALCIFEROL (VIT D3) 1,000 UNITS TABLET PO SCH (08:58)
[2017-08-18 09:38] VITALS: BP 109/62
[2017-08-18] MEDS ORDERED: DSS100 PO (12:22)
[2017-08-18] MEDS ORDERED: LISI-661 PO (12:22)
[2017-08-18] MEDS ORDERED: BACI120O TP (12:23)
== END 2017-08-18 12:35 | disposition home or self-care (01) | DRG 885 ==
LOC: EMS 13:00 → 3EX 16:01
PROVIDERS: ADMIT Psychiatry & Neurology Psychiatry; ATTEND Psychiatry & Neurology Psychiatry
DX: F20.0 Paranoid schizophrenia (principal); B18.2 Chronic viral hepatitis C; J44.9 Chronic obstructive pulmonary disease, unspecified; F15.10 Other stimulant abuse, uncomplicated; F12.10 Cannabis abuse, uncomplicated; D50.9 Iron deficiency anemia, unspecified; K59.00 Constipation, unspecified; F31.9 Bipolar disorder, unspecified; F17.210 Nicotine dependence, cigarettes, uncomplicated; M54.5 Low back pain; M19.90 Unspecified osteoarthritis, unspecified site; N40.0 Benign prostatic hyperplasia without lower urinary tract symptoms; Z59.0 Homelessness; Z71.6 Tobacco abuse counseling; Z88.8 Allergy status to other drugs, medicaments and biological substances; Z79.899 Other long term (current) drug therapy; Z87.01 Personal history of pneumonia (recurrent)
CPT/HCPCS: 87081; 96372; 99285; G0480; J1200; J1630; J2060

== ENCOUNTER 2017-08-18 20:49 | Emergency (ER) | payer OTHER ==
[~2017-08-18] VITALS: Ht 172.7 cm; Wt 64.0 kg
[~2017-08-18 20:49] MED LIST changes: +BACI120O TP; +DSS100 PO; +LISI-661 PO
[2017-08-19 01:14] LABS: BASOPHILS # (AUTO) 0.01 K/uL (0.00-0.20); BASOPHILS % (AUTO) 0.2 % (0.0-2.0); EOSINOPHILS # (AUTO) 0.14 K/uL (0.00-0.70); EOSINOPHILS % (AUTO) 1.91 % (1.0-6.0); HEMATOCRIT 28.5 % (41-53); HEMOGLOBIN 9.2 g/dL (13.5-17.5); LYMPHOCYTES # (AUTO) 1.6 K/uL (1.0-4.8); LYMPHOCYTES % (AUTO) 21.8 % (22.0-44.0); MEAN CORPUSCULAR HEMOGLOBIN 25.1 pg (26.0-34.0); MEAN CORPUSCULAR HGB CONC 32.1 G/dL (31.0-37.0); MEAN CORPUSCULAR VOLUME 78 fL (80-100); MONOCYTES # (AUTO) 0.8 K/uL (0.1-1.0); MONOCYTES % (AUTO) 11.4 % (2.0-9.0); NEUTROPHILS # (AUTO) 4.6 K/uL (1.8-7.7); NEUTROPHILS % (AUTO) 64.8 % (40.0-70.0); PLATELET COUNT (AUTO) 309 K/uL (150-450); RED BLOOD CELL COUNT(AUTO) 3.64 MIL/uL (4.50-5.90); RED CELL DISTRIBUTION WIDTH 27.6 % (11.5-14.5); WHITE BLOOD COUNT (AUTO) 7.2 K/uL (4.5-11.0)
[2017-08-19 01:44] LABS: ANION GAP 6 mmol/L (8-16); CALCIUM, TOTAL 8.4 mg/dL (8.8-10.5); CARBON DIOXIDE 29 mmol/L (22-29); CHLORIDE 102 mmol/L (98-107); GLOMERULAR FILTR. RATE CALC 54 mL/min (>60); POTASSIUM 4.5 mmol/L (3.5-5.1); SODIUM SERUM 137 mmol/L (136-145); UREA NITROGEN, BLOOD 23 mg/dL (7-18)
[2017-08-19 01:50] LABS: ALANINE AMINOTRANSFERASE 35 U/L (12-78); ALBUMIN 3.7 g/dL (3.4-5.0); ASPARTATE AMINOTRANSFERASE 21 U/L (15-37); BILIRUBIN,TOTAL 0.2 mg/dL (0.1-1.0); TOTAL PROTEIN, SERUM 7.2 g/dL (6.4-8.2)
[2017-08-19 02:56] VITALS: BP 138/71
[2017-08-19] MEDS ORDERED: OLANZapine 5 MG TABLET PO ONE (03:00)
== END 2017-08-19 03:40 | disposition home or self-care (01) ==
LOC: EMS 20:54
DX: F25.9 Schizoaffective disorder, unspecified (principal); F31.9 Bipolar disorder, unspecified; G47.9 Sleep disorder, unspecified; J44.9 Chronic obstructive pulmonary disease, unspecified; J45.909 Unspecified asthma, uncomplicated; F17.210 Nicotine dependence, cigarettes, uncomplicated; F12.90 Cannabis use, unspecified, uncomplicated; F19.90 Other psychoactive substance use, unspecified, uncomplicated; Z59.0 Homelessness; Z88.8 Allergy status to other drugs, medicaments and biological substances
CPT/HCPCS: 36415; 80053; 85025; 99284; G0480

== ENCOUNTER 2017-08-31 22:56 | Emergency (ER) | payer OTHER ==
[~2017-08-31] VITALS: Ht 172.7 cm; Wt 61.4 kg
[2017-08-31] MEDS ORDERED: ALBU8HFA IH (23:04)
[2017-09-01 00:01] VITALS: BP 124/71
== END 2017-09-01 00:04 | disposition home or self-care (01) ==
LOC: EMS 22:58
DX: F25.9 Schizoaffective disorder, unspecified (principal); F15.10 Other stimulant abuse, uncomplicated; F10.10 Alcohol abuse, uncomplicated; J44.9 Chronic obstructive pulmonary disease, unspecified; J45.909 Unspecified asthma, uncomplicated; F15.90 Other stimulant use, unspecified, uncomplicated; F17.210 Nicotine dependence, cigarettes, uncomplicated; Y90.9 Presence of alcohol in blood, level not specified; Z88.5 Allergy status to narcotic agent
CPT/HCPCS: 99284

== ENCOUNTER 2017-09-22 22:19 | Inpatient (IN) | payer MEDICARE ==
[~2017-09-22] VITALS: Ht 172.7 cm; Wt 62.6 kg
[~2017-09-22 22:19] MED LIST changes: +ALBU8HFA IH; -BACI120O TP; -DSS100 PO; -FERR-89 PO; -LISI-661 PO; -MULT1CAP32 PO; -OMEP20 PO; -PALI6 PO; -TAMS0.4C32 PO; -VITAD1000 PO
[2017-09-22 23:04] VITALS: BP 106/65
[2017-09-22] MEDS ORDERED: PNEUMOCOCCAL VACCINE POLYVALENT 0.5 ML VIAL [PPSV23] IM ONE (23:45)
[2017-09-23 00:50] VITALS: BP 113/77
[2017-09-23 08:32] VITALS: BP 104/62
[2017-09-23 16:00] VITALS: BP 122/66
[2017-09-23] MEDS: LORazepam 1 MG TABLET PO PRN (16:55)
[2017-09-23] MEDS: SERTRALINE HCL 50 MG TABLET PO SCH (16:55)
[2017-09-23] MEDS: HALOPERIDOL 5 MG TABLET PO PRN (16:57)
[2017-09-23] MEDS: PALIPERIDONE 6 MG ER TABLET PO SCH (20:28)
[2017-09-23] MEDS: ZOLPIDEM TARTRATE 10 MG TABLET PO PRN (20:28)
[2017-09-24 08:04] LABS: BASOPHILS # (AUTO) 0.05 K/uL (0.00-0.20); BASOPHILS % (AUTO) 0.7 % (0.0-2.0); EOSINOPHILS # (AUTO) 0.13 K/uL (0.00-0.70); EOSINOPHILS % (AUTO) 1.87 % (1.0-6.0); HEMATOCRIT 32.4 % (41-53); HEMOGLOBIN 10.2 g/dL (13.5-17.5); LYMPHOCYTES # (AUTO) 1.6 K/uL (1.0-4.8); LYMPHOCYTES % (AUTO) 22.5 % (22.0-44.0); MEAN CORPUSCULAR HEMOGLOBIN 25.7 pg (26.0-34.0); MEAN CORPUSCULAR HGB CONC 31.5 G/dL (31.0-37.0); MEAN CORPUSCULAR VOLUME 82 fL (80-100); MONOCYTES # (AUTO) 0.4 K/uL (0.1-1.0); MONOCYTES % (AUTO) 5.3 % (2.0-9.0); NEUTROPHILS # (AUTO) 4.9 K/uL (1.8-7.7); NEUTROPHILS % (AUTO) 69.6 % (40.0-70.0); PLATELET COUNT (AUTO) 372 K/uL (150-450); RED BLOOD CELL COUNT(AUTO) 3.97 MIL/uL (4.50-5.90); RED CELL DISTRIBUTION WIDTH 23.2 % (11.5-14.5)
[2017-09-24 08:27] VITALS: BP 104/61
[2017-09-24 08:35] LABS: ALANINE AMINOTRANSFERASE 31 U/L (12-78); ALBUMIN 3.3 g/dL (3.4-5.0); ANION GAP 7 mmol/L (8-16); ASPARTATE AMINOTRANSFERASE 27 U/L (15-37); BILIRUBIN,TOTAL 0.3 mg/dL (0.1-1.0); CALCIUM, TOTAL 8.3 mg/dL (8.8-10.5); CARBON DIOXIDE 28 mmol/L (22-29); CHLORIDE 102 mmol/L (98-107); CHOL/HDL RATIO 2.3 (4.2-7.3); CREATININE 1.05 mg/dL (0.60-1.30); GLOMERULAR FILTR. RATE CALC > 60 mL/min (>60); POTASSIUM 4.4 mmol/L (3.5-5.1); SODIUM SERUM 137 mmol/L (136-145); THYROID STIMULATING HORMONE 1.02 uIU/mL (0.36-3.74); TOTAL PROTEIN, SERUM 7.1 g/dL (6.4-8.2); UREA NITROGEN, BLOOD 17 mg/dL (7-18)
[2017-09-24 08:36] LABS: HEMOGLOBIN A1C 6.3 % (4.5-6.2)
[2017-09-24] MEDS: SERTRALINE HCL 50 MG TABLET PO SCH (08:49)
[2017-09-24] MEDS: HALOPERIDOL 5 MG TABLET PO PRN (08:49)
[2017-09-24 09:22] VITALS: BP 108/68
[2017-09-24] MEDS: LORazepam 1 MG TABLET PO PRN ×2 (09:24→18:57)
[2017-09-24 10:34] LABS: RBC MORPHOLOGY COMMENT ABNORMAL RBC MORPH
[2017-09-24 16:12] VITALS: BP 111/71
[2017-09-24] MEDS: PALIPERIDONE 6 MG ER TABLET PO SCH (20:32)
[2017-09-25 08:00] VITALS: BP 108/65
[2017-09-25] MEDS: SERTRALINE HCL 50 MG TABLET PO SCH (08:38)
[2017-09-25] MEDS: LORazepam 1 MG TABLET PO PRN ×3 (09:02→20:34)
[2017-09-25 16:00] VITALS: BP 110/66
[2017-09-25] MEDS: HALOPERIDOL 5 MG TABLET PO PRN (16:33)
[2017-09-25] MEDS: PALIPERIDONE 6 MG ER TABLET PO SCH (20:34)
[2017-09-26 05:29] VITALS: BP 101/62
[2017-09-26 08:08] VITALS: BP 106/65
[2017-09-26] MEDS: SERTRALINE HCL 50 MG TABLET PO SCH (08:38)
[2017-09-26] MEDS: LORazepam 1 MG TABLET PO PRN ×3 (08:38→18:11)
[2017-09-26] MEDS: NICOTINE 14 MG/24 HOUR PATCH TD SCH (10:59)
[2017-09-26 16:00] VITALS: BP 109/65
[2017-09-26] MEDS: PALIPERIDONE 6 MG ER TABLET PO SCH (20:40)
[2017-09-27 06:29] VITALS: BP 101/70
[2017-09-27] MEDS: LORazepam 1 MG TABLET PO PRN ×2 (08:31→15:10)
[2017-09-27] MEDS: SERTRALINE HCL 50 MG TABLET PO SCH (08:31)
[2017-09-27] MEDS: NICOTINE 14 MG/24 HOUR PATCH TD SCH (08:33)
[2017-09-27 08:45] VITALS: BP 106/67
[2017-09-27 16:00] VITALS: BP 108/66
[2017-09-27] MEDS: PALIPERIDONE 6 MG ER TABLET PO SCH (20:53)
[2017-09-27] MEDS: ZOLPIDEM TARTRATE 10 MG TABLET PO PRN (22:17)
[2017-09-28] MEDS: LORazepam 1 MG TABLET PO PRN ×4 (01:38→20:09)
[2017-09-28 01:54] VITALS: BP 105/75
[2017-09-28 08:05] VITALS: BP 105/62
[2017-09-28] MEDS: NICOTINE 14 MG/24 HOUR PATCH TD SCH (08:51)
[2017-09-28] MEDS: SERTRALINE HCL 50 MG TABLET PO SCH (08:51)
[2017-09-28 16:00] VITALS: BP 109/72
[2017-09-28] MEDS: PALIPERIDONE 6 MG ER TABLET PO SCH (20:10)
[2017-09-28] MEDS: ZOLPIDEM TARTRATE 10 MG TABLET PO PRN (22:47)
[2017-09-29] MEDS: LORazepam 1 MG TABLET PO PRN ×3 (02:20→20:08)
[2017-09-29 02:21] VITALS: BP 112/73
[2017-09-29] MEDS: NICOTINE 14 MG/24 HOUR PATCH TD SCH (08:41)
[2017-09-29] MEDS: SERTRALINE HCL 50 MG TABLET PO SCH (08:41)
[2017-09-29 08:56] VITALS: BP 100/61
[2017-09-29 16:30] VITALS: BP 120/66
[2017-09-29] MEDS: PALIPERIDONE 6 MG ER TABLET PO SCH (20:06)
[2017-09-29] MEDS: ZOLPIDEM TARTRATE 10 MG TABLET PO PRN (21:05)
[2017-09-30 00:29] VITALS: BP 110/71
[2017-09-30] MEDS: LORazepam 1 MG TABLET PO PRN ×3 (00:34→17:21)
[2017-09-30 08:54] VITALS: BP 109/67
[2017-09-30] MEDS: SERTRALINE HCL 50 MG TABLET PO SCH (10:01)
[2017-09-30] MEDS: NICOTINE 14 MG/24 HOUR PATCH TD SCH (10:02)
[2017-09-30 16:17] VITALS: BP 114/75
[2017-09-30] MEDS: PALIPERIDONE 6 MG ER TABLET PO SCH (20:37)
[2017-09-30] MEDS: ZOLPIDEM TARTRATE 10 MG TABLET PO PRN (21:27)
[2017-10-01 00:52] VITALS: BP 122/70
[2017-10-01] MEDS: LORazepam 1 MG TABLET PO PRN ×4 (00:56→17:29)
[2017-10-01 06:25] VITALS: BP 117/63
[2017-10-01] MEDS: SERTRALINE HCL 50 MG TABLET PO SCH (08:42)
[2017-10-01] MEDS: NICOTINE 14 MG/24 HOUR PATCH TD SCH (08:43)
[2017-10-01 08:44] VITALS: BP 108/64
[2017-10-01 16:38] VITALS: BP 118/72
[2017-10-01] MEDS: ZOLPIDEM TARTRATE 10 MG TABLET PO PRN (20:30)
[2017-10-01] MEDS: PALIPERIDONE 6 MG ER TABLET PO SCH (20:30)
[2017-10-02 02:30] VITALS: BP 113/74
[2017-10-02] MEDS: LORazepam 1 MG TABLET PO PRN ×4 (02:32→23:56)
[2017-10-02] MEDS: NICOTINE 14 MG/24 HOUR PATCH TD SCH (08:43)
[2017-10-02] MEDS: SERTRALINE HCL 50 MG TABLET PO SCH (09:00)
[2017-10-02 10:58] VITALS: BP 117/75
[2017-10-02 16:26] VITALS: BP 117/79
[2017-10-02 20:00] VITALS: BP 116/80
[2017-10-02] MEDS: PALIPERIDONE 6 MG ER TABLET PO SCH (20:10)
[2017-10-02] MEDS: ZOLPIDEM TARTRATE 10 MG TABLET PO PRN (20:10)
[2017-10-03 07:18] VITALS: BP 100/67
[2017-10-03] MEDS: SERTRALINE HCL 50 MG TABLET PO SCH (09:35)
[2017-10-03] MEDS: NICOTINE 14 MG/24 HOUR PATCH TD SCH (09:36)
[2017-10-03 12:33] VITALS: BP 110/72
[2017-10-03] MEDS: LORazepam 1 MG TABLET PO PRN (15:41)
[2017-10-03 16:16] VITALS: BP 121/83
[2017-10-03 20:00] VITALS: BP 118/79
[2017-10-03] MEDS: ZOLPIDEM TARTRATE 10 MG TABLET PO PRN (20:00)
[2017-10-03] MEDS: PALIPERIDONE 6 MG ER TABLET PO SCH (20:00)
[2017-10-04 00:01] VITALS: BP 113/74
[2017-10-04] MEDS: LORazepam 1 MG TABLET PO PRN ×4 (00:20→17:45)
[2017-10-04 03:27] VITALS: BP 119/59
[2017-10-04 06:18] VITALS: BP 121/59
[2017-10-04] MEDS: SERTRALINE HCL 50 MG TABLET PO SCH (09:10)
[2017-10-04] MEDS: NICOTINE 14 MG/24 HOUR PATCH TD SCH (09:10)
[2017-10-04 13:44] VITALS: BP 115/72
[2017-10-04 17:46] VITALS: BP 112/68
[2017-10-04] MEDS: PALIPERIDONE 6 MG ER TABLET PO SCH (21:13)
[2017-10-05 03:42] VITALS: BP 120/80
[2017-10-05] MEDS: ZOLPIDEM TARTRATE 10 MG TABLET PO PRN (03:43)
[2017-10-05 08:36] VITALS: BP 120/74
[2017-10-05] MEDS: NICOTINE 14 MG/24 HOUR PATCH TD SCH (09:00)
[2017-10-05] MEDS: SERTRALINE HCL 50 MG TABLET PO SCH (09:00)
[2017-10-05] MEDS: LORazepam 1 MG TABLET PO PRN (09:08)
[2017-10-05] MEDS ORDERED: PALI6 PO (11:23)
[2017-10-05] MEDS ORDERED: SERT50TA12 PO (11:23)
== END 2017-10-05 13:40 | disposition home or self-care (01) | DRG 885 ==
LOC: B3A 23:29 → B2S 09-28 16:50
PROVIDERS: ADMIT Psychiatry & Neurology Child & Adolescent Psychiatry; ATTEND Psychiatry & Neurology Child & Adolescent Psychiatry
DX: F25.1 Schizoaffective disorder, depressive type (principal); J44.9 Chronic obstructive pulmonary disease, unspecified; R45.851 Suicidal ideations; F12.90 Cannabis use, unspecified, uncomplicated; D50.9 Iron deficiency anemia, unspecified; B19.20 Unspecified viral hepatitis C without hepatic coma; F17.210 Nicotine dependence, cigarettes, uncomplicated; F41.9 Anxiety disorder, unspecified; I10 Essential (primary) hypertension; N40.0 Benign prostatic hyperplasia without lower urinary tract symptoms; I25.10 Atherosclerotic heart disease of native coronary artery without angina pectoris; F15.90 Other stimulant use, unspecified, uncomplicated; Z91.19 Patient's noncompliance with other medical treatment and regimen; Z59.0 Homelessness; Z28.21 Immunization not carried out because of patient refusal; Z81.8 Family history of other mental and behavioral disorders
CPT/HCPCS: 83036; 84439; 84443; 87081

== ENCOUNTER 2017-10-07 20:00 | Emergency (ER) | payer MEDICARE ==
[~2017-10-07] VITALS: Ht 172.7 cm; Wt 63.6 kg
[~2017-10-07 20:00] MED LIST changes: -ALBU8HFA IH; +PALI6 PO; +SERT50TA12 PO
[2017-10-07 21:42] LABS: BASOPHILS # (AUTO) 0.02 K/uL (0.00-0.20); BASOPHILS % (AUTO) 0.3 % (0.0-2.0); EOSINOPHILS # (AUTO) 0.22 K/uL (0.00-0.70); EOSINOPHILS % (AUTO) 2.72 % (1.0-6.0); HEMATOCRIT 29.5 % (41-53); HEMOGLOBIN 9.4 g/dL (13.5-17.5); LYMPHOCYTES # (AUTO) 1.3 K/uL (1.0-4.8); MEAN CORPUSCULAR HGB CONC 31.8 G/dL (31.0-37.0); MEAN CORPUSCULAR VOLUME 82 fL (80-100); MONOCYTES # (AUTO) 0.7 K/uL (0.1-1.0); MONOCYTES % (AUTO) 9.2 % (2.0-9.0); NEUTROPHILS # (AUTO) 5.7 K/uL (1.8-7.7); NEUTROPHILS % (AUTO) 71.8 % (40.0-70.0); PLATELET COUNT (AUTO) 321 K/uL (150-450); RED CELL DISTRIBUTION WIDTH 21.4 % (11.5-14.5)
[2017-10-07 21:50] LABS: ANION GAP 7 mmol/L (8-16); CALCIUM, TOTAL 8.8 mg/dL (8.8-10.5); CARBON DIOXIDE 31 mmol/L (22-29); CHLORIDE 100 mmol/L (98-107); CREATININE 1.17 mg/dL (0.60-1.30); GLOMERULAR FILTR. RATE CALC > 60 mL/min (>60); GLUCOSE,RANDOM 100 mg/dL (70-110); POTASSIUM 4.6 mmol/L (3.5-5.1); SODIUM SERUM 138 mmol/L (136-145); UREA NITROGEN, BLOOD 22 mg/dL (7-18)
[2017-10-07 21:56] LABS: ALANINE AMINOTRANSFERASE 33 U/L (12-78); ALBUMIN 3.7 g/dL (3.4-5.0); ALKALINE PHOSPHATASE 93 U/L (46-116); ASPARTATE AMINOTRANSFERASE 28 U/L (15-37); BILIRUBIN,TOTAL 0.2 mg/dL (0.1-1.0); TOTAL PROTEIN, SERUM 7.6 g/dL (6.4-8.2)
[2017-10-07 22:00] LABS: PLATELET MORPHOLOGY COMMENT LARGE PLTS PRESENT
[2017-10-07 23:26] VITALS: BP 127/76
== END 2017-10-07 23:32 | disposition home or self-care (01) ==
LOC: EMS 20:02
DX: F31.9 Bipolar disorder, unspecified (principal); F20.9 Schizophrenia, unspecified; J44.9 Chronic obstructive pulmonary disease, unspecified; J45.909 Unspecified asthma, uncomplicated; F17.210 Nicotine dependence, cigarettes, uncomplicated; F19.90 Other psychoactive substance use, unspecified, uncomplicated; Z76.0 Encounter for issue of repeat prescription; Z59.0 Homelessness; Z88.8 Allergy status to other drugs, medicaments and biological substances
CPT/HCPCS: 36415; 80053; 85025; 99284; G0480

== ENCOUNTER 2017-11-19 22:46 | Emergency (ER) | payer MEDICARE ==
[~2017-11-19] VITALS: Ht 175.3 cm; Wt 68.2 kg
[2017-11-19] MEDS ORDERED: LORA0.5T2 PO (22:52)
[2017-11-19 23:10] VITALS: BP 140/85
== END 2017-11-19 23:41 | disposition left against medical advice (07) ==
LOC: EMS 22:48
DX: Z76.0 Encounter for issue of repeat prescription (principal); Z53.21 Procedure and treatment not carried out due to patient leaving prior to being seen by health care provider

== ENCOUNTER 2017-11-20 03:37 | Inpatient (IN) | payer MEDICARE ==
[~2017-11-20] VITALS: Ht 172.7 cm; Wt 60.3 kg
[~2017-11-20 03:37] MED LIST changes: +LORA0.5T2 PO
[2017-11-20 05:37] LABS: BASOPHILS % (AUTO) 1.3 % (0.0-2.0); EOSINOPHILS % (AUTO) 4.8 % (1.0-6.0); LYMPHOCYTES # (AUTO) 1.4 K/uL (1.0-4.8); LYMPHOCYTES % (AUTO) 31.7 % (22.0-44.0); MEAN CORPUSCULAR HEMOGLOBIN 23.6 pg (26.0-34.0); MEAN CORPUSCULAR VOLUME 76 fL (80-100); MONOCYTES # (AUTO) 0.4 K/uL (0.1-1.0); MONOCYTES % (AUTO) 8.4 % (2.0-9.0); NEUTROPHILS # (AUTO) 2.4 K/uL (1.8-7.7); NEUTROPHILS % (AUTO) 53.8 % (40.0-70.0); PLATELET COUNT (AUTO) 343 K/uL (150-450); RED BLOOD CELL COUNT(AUTO) 3.81 MIL/uL (4.50-5.90); RED CELL DISTRIBUTION WIDTH 18.4 % (11.5-14.5)
[2017-11-20 05:40] LABS: ANION GAP 6 mmol/L (8-16); CALCIUM, TOTAL 8.4 mg/dL (8.8-10.5); CARBON DIOXIDE 28 mmol/L (22-29); CHLORIDE 103 mmol/L (98-107); GLOMERULAR FILTR. RATE CALC > 60 mL/min (>60); GLUCOSE,RANDOM 101 mg/dL (70-110); POTASSIUM 4.5 mmol/L (3.5-5.1); SODIUM SERUM 137 mmol/L (136-145); UREA NITROGEN, BLOOD 14 mg/dL (7-18)
[2017-11-20 05:46] LABS: ALANINE AMINOTRANSFERASE 29 U/L (12-78); ALBUMIN 3.7 g/dL (3.4-5.0); ALKALINE PHOSPHATASE 110 U/L (46-116); ASPARTATE AMINOTRANSFERASE 28 U/L (15-37); BILIRUBIN,TOTAL 0.3 mg/dL (0.1-1.0); TOTAL PROTEIN, SERUM 7.7 g/dL (6.4-8.2)
[2017-11-20 06:15] LABS: AMPHET/METH SCREEN,URINE NEGATIVE (NEGATIVE); BARBITURATE SCREEN, URINE NEGATIVE (NEGATIVE); BENZODIAZEPINES SCREEN,URINE NEGATIVE (NEGATIVE); CANNABINOID SCREEN,URINE NEGATIVE (NEGATIVE); COCAINE SCREEN,URINE NEGATIVE (NEGATIVE); METHADONE SCREEN, URINE NEGATIVE (NEGATIVE); OPIATE SCREEN,URINE NEGATIVE (NEGATIVE)
[2017-11-20 06:18] LABS: PHENCYCLIDINE SCREEN,URINE NEGATIVE (NEGATIVE)
[2017-11-20] MEDS ORDERED: HALOPERIDOL 5 MG TABLET PO PRN (08:30)
[2017-11-20] MEDS ORDERED: ZOLPIDEM TARTRATE 10 MG TABLET PO PRN (08:30)
[2017-11-20 09:17] LABS: FREE T4 (FREE THYROXINE) 0.85 ng/dL (0.76-1.46); THYROID STIMULATING HORMONE 1.63 uIU/mL (0.36-3.74)
[2017-11-20] MEDS: SERTRALINE HCL 50 MG TABLET PO SCH (09:22)
[2017-11-20 10:19] VITALS: BP 128/85
[2017-11-20] MEDS ORDERED: ALBUTEROL SULFATE HFA 90 MCG/PUFF 8 GM INHALER IH PRN (15:30)
[2017-11-20] MEDS: LORazepam 1 MG TABLET PO PRN (16:41)
[2017-11-20 17:10] VITALS: BP 149/86
[2017-11-20] MEDS ORDERED: PALIPERIDONE 3 MG ER TABLET PO SCH (21:00)
[2017-11-21] MEDS: SERTRALINE HCL 50 MG TABLET PO SCH (09:13)
[2017-11-21] MEDS: PALIPERIDONE 6 MG ER TABLET PO SCH (09:13)
[2017-11-21] MEDS: LORazepam 1 MG TABLET PO PRN (09:46)
[2017-11-22] MEDS: LORazepam 1 MG TABLET PO PRN ×3 (02:05→16:05)
[2017-11-22] MEDS: SERTRALINE HCL 50 MG TABLET PO SCH (08:36)
[2017-11-22] MEDS: PALIPERIDONE 6 MG ER TABLET PO SCH (08:36)
[2017-11-22 10:24] VITALS: BP 92/54
[2017-11-22 18:15] VITALS: BP 138/71
[2017-11-23] MEDS: PALIPERIDONE 6 MG ER TABLET PO SCH (07:59)
[2017-11-23] MEDS: SERTRALINE HCL 50 MG TABLET PO SCH (07:59)
[2017-11-23] MEDS: LORazepam 1 MG TABLET PO PRN ×2 (07:59→16:47)
[2017-11-23 10:37] VITALS: BP 117/71
[2017-11-23] MEDS ORDERED: MAG HYDROX/AL HYDROX/SIMETH ES 30 ML SUSPENSION UDCUP PO PRN (11:45)
[2017-11-23] MEDS ORDERED: ACETAMINOPHEN 325 MG TABLET PO PRN (11:45)
[2017-11-23] MEDS ORDERED: HydrOXYzine PAMOATE 50 MG CAPSULE PO PRN (11:45)
[2017-11-23] MEDS ORDERED: LOPERAMIDE HCL 2 MG CAPSULE PO PRN (11:45)
[2017-11-23] MEDS ORDERED: MAGNESIUM HYDROXIDE SUSPENSION 30 ML UDCUP PO PRN (11:45)
[2017-11-23] MEDS ORDERED: GuaiFENesin/D-METHORPHAN [SUGAR-FREE] 200-20MG/10 ML SYRUP UDCUP PO PRN (11:45)
[2017-11-23] MEDS ORDERED: PROMETHAZINE HCL 25 MG TABLET PO PRN (11:45)
[2017-11-23] MEDS: THIAMINE HCL 100 MG TABLET PO SCH (16:46)
[2017-11-24 00:05] VITALS: BP 134/75
[2017-11-24] MEDS: LORazepam 1 MG TABLET PO PRN ×4 (00:09→18:35)
[2017-11-24 06:50] VITALS: BP 104/68
[2017-11-24 08:00] VITALS: BP 99/64
[2017-11-24] MEDS: FOLIC ACID 1 MG TABLET PO SCH (08:01)
[2017-11-24] MEDS: THIAMINE HCL 100 MG TABLET PO SCH ×2 (08:01→16:23)
[2017-11-24] MEDS: PALIPERIDONE 6 MG ER TABLET PO SCH (08:01)
[2017-11-24] MEDS: LamoTRIgine 25 MG TABLET PO SCH (08:01)
[2017-11-24] MEDS: MULTIVITAMINS WITH MINERALS, THERAPEUTIC TABLET PO SCH (08:01)
[2017-11-24 18:35] VITALS: BP 115/78
[2017-11-25] MEDS: LORazepam 1 MG TABLET PO PRN ×2 (01:32→09:58)
[2017-11-25 01:33] VITALS: BP 104/67
[2017-11-25] MEDS: FOLIC ACID 1 MG TABLET PO SCH (08:50)
[2017-11-25] MEDS: MULTIVITAMINS WITH MINERALS, THERAPEUTIC TABLET PO SCH (08:51)
[2017-11-25] MEDS: THIAMINE HCL 100 MG TABLET PO SCH ×2 (08:51→15:48)
[2017-11-25] MEDS: LamoTRIgine 25 MG TABLET PO SCH (08:51)
[2017-11-25] MEDS: PALIPERIDONE 6 MG ER TABLET PO SCH (08:51)
[2017-11-25] MEDS ORDERED: NICOTINE 21 MG/24 HOUR PATCH TD SCH (09:00)
[2017-11-25 11:27] VITALS: BP 124/97
[2017-11-25] MEDS ORDERED: PALI6 PO (12:32)
[2017-11-25] MEDS ORDERED: LAMO25 PO (12:32)
[2017-11-25] MEDS ORDERED: NALT50TA PO (12:32)
[2017-11-26] MEDS ORDERED: NALTREXONE HCL 50 MG TABLET PO SCH (09:00)
== END 2017-11-25 18:45 | disposition home or self-care (01) | DRG 885 ==
LOC: EMS 03:39 → 3EX 09:20
PROVIDERS: ATTEND Psychiatry & Neurology Psychiatry
DX: F31.5 Bipolar disorder, current episode depressed, severe, with psychotic features (principal); R64 Cachexia; D64.9 Anemia, unspecified; R45.851 Suicidal ideations; F19.20 Other psychoactive substance dependence, uncomplicated; J44.9 Chronic obstructive pulmonary disease, unspecified; B19.20 Unspecified viral hepatitis C without hepatic coma; D72.819 Decreased white blood cell count, unspecified; F12.90 Cannabis use, unspecified, uncomplicated; F15.90 Other stimulant use, unspecified, uncomplicated; N40.0 Benign prostatic hyperplasia without lower urinary tract symptoms; F17.210 Nicotine dependence, cigarettes, uncomplicated; K30 Functional dyspepsia; F10.20 Alcohol dependence, uncomplicated; F14.10 Cocaine abuse, uncomplicated; Z68.20 Body mass index [BMI] 20.0-20.9, adult; Z59.0 Homelessness; Z79.899 Other long term (current) drug therapy; Z91.14 Patient's other noncompliance with medication regimen; Z91.19 Patient's noncompliance with other medical treatment and regimen; Z88.8 Allergy status to other drugs, medicaments and biological substances
CPT/HCPCS: 84439; 84443; 99285; G0480

== ENCOUNTER 2017-12-31 18:26 | Emergency (ER) | payer MEDICARE ==
[~2017-12-31] VITALS: Ht 175.3 cm; Wt 68.2 kg
[~2017-12-31 18:26] MED LIST changes: +LAMO25 PO; -LORA0.5T2 PO; +NALT50TA PO; -SERT50TA12 PO
[2017-12-31 18:28] VITALS: BP 118/77
== END 2017-12-31 21:23 | disposition left against medical advice (07) ==
LOC: EMS 18:28
DX: Z53.21 Procedure and treatment not carried out due to patient leaving prior to being seen by health care provider (principal)

== ENCOUNTER 2018-01-01 19:14 | Inpatient (IN) | payer MEDICARE ==
[~2018-01-01] VITALS: Ht 172.7 cm; Wt 59.6 kg
[2018-01-01 19:28] VITALS: BP 121/78
[2018-01-01] MEDS ORDERED: ZOLPIDEM TARTRATE 10 MG TABLET PO PRN (19:30)
[2018-01-01 20:00] VITALS: BP 129/77
[2018-01-01] MEDS ORDERED: PNEUMOCOCCAL VACCINE POLYVALENT 0.5 ML VIAL [PPSV23] IM ONE (20:30)
[2018-01-02 05:01] VITALS: BP 125/73
[2018-01-02 08:24] LABS: BASOPHILS % (AUTO) 1.3 % (0.0-2.0); HEMATOCRIT 28.2 % (41-53); HEMOGLOBIN 8.8 g/dL (13.5-17.5); LYMPHOCYTES # (AUTO) 1.4 K/uL (1.0-4.8); LYMPHOCYTES % (AUTO) 25.8 % (22.0-44.0); MEAN CORPUSCULAR HEMOGLOBIN 23.1 pg (26.0-34.0); MEAN CORPUSCULAR HGB CONC 31.2 G/dL (31.0-37.0); MEAN CORPUSCULAR VOLUME 74 fL (80-100); MONOCYTES # (AUTO) 0.5 K/uL (0.1-1.0); MONOCYTES % (AUTO) 8.7 % (2.0-9.0); NEUTROPHILS # (AUTO) 3.3 K/uL (1.8-7.7); NEUTROPHILS % (AUTO) 59.2 % (40.0-70.0); PLATELET COUNT (AUTO) 418 K/uL (150-450); RED BLOOD CELL COUNT(AUTO) 3.81 MIL/uL (4.50-5.90); RED CELL DISTRIBUTION WIDTH 20.3 % (11.5-14.5)
[2018-01-02 08:47] LABS: HEMOGLOBIN A1C 5.1 % (4.5-6.2)
[2018-01-02 08:53] LABS: ALANINE AMINOTRANSFERASE 25 U/L (12-78); ALBUMIN 3.6 g/dL (3.4-5.0); ALKALINE PHOSPHATASE 107 U/L (46-116); ANION GAP 9 mmol/L (8-16); ASPARTATE AMINOTRANSFERASE 22 U/L (15-37); BILIRUBIN,TOTAL 0.4 mg/dL (0.1-1.0); CALCIUM, TOTAL 8.5 mg/dL (8.8-10.5); CARBON DIOXIDE 26 mmol/L (22-29); CHLORIDE 103 mmol/L (98-107); CHOL/HDL RATIO 2.3 (4.2-7.3); CHOLESTEROL 136 mg/dL (131-200); FREE T4 (FREE THYROXINE) 0.82 ng/dL (0.76-1.46); GLOMERULAR FILTR. RATE CALC > 60 mL/min (>60); GLUCOSE,RANDOM 89 mg/dL (70-110); HDL CHOLESTEROL 60 mg/dL (40-60); LDL CHOL (CALC.) 69 mg/dL (0-130); POTASSIUM 5.1 mmol/L (3.5-5.1); SODIUM SERUM 138 mmol/L (136-145); THYROID STIMULATING HORMONE 1.48 uIU/mL (0.36-3.74); TOTAL PROTEIN, SERUM 7.1 g/dL (6.4-8.2); TRIGLYCERIDES 36 mg/dL (15-150); UREA NITROGEN, BLOOD 18 mg/dL (7-18)
[2018-01-02] MEDS: NICOTINE 21 MG/24 HOUR PATCH TD SCH (09:10)
[2018-01-02 10:03] VITALS: BP 112/60
[2018-01-02] MEDS: LamoTRIgine 25 MG TABLET PO SCH (12:48)
[2018-01-02] MEDS: SERTRALINE HCL 50 MG TABLET PO SCH (12:48)
[2018-01-02 16:06] VITALS: BP 130/68
[2018-01-02] MEDS: PALIPERIDONE 6 MG ER TABLET PO SCH (17:15)
[2018-01-02] MEDS: LORazepam 2 MG TABLET PO PRN (17:16)
[2018-01-03 01:30] VITALS: BP 118/85
[2018-01-03] MEDS: LORazepam 2 MG TABLET PO PRN ×2 (03:15→16:36)
[2018-01-03] MEDS: SERTRALINE HCL 50 MG TABLET PO SCH (10:02)
[2018-01-03] MEDS: CHOLECALCIFEROL (VIT D3) 1,000 UNITS TABLET PO SCH (10:02)
[2018-01-03] MEDS: LamoTRIgine 25 MG TABLET PO SCH (10:02)
[2018-01-03] MEDS: NICOTINE 21 MG/24 HOUR PATCH TD SCH (10:03)
[2018-01-03] MEDS: PALIPERIDONE 6 MG ER TABLET PO SCH ×2 (10:03→16:36)
[2018-01-03 16:00] VITALS: BP 110/71
[2018-01-03] MEDS: MUPIROCIN CALCIUM 2% 22 GM OINTMENT TP SCH (16:36)
[2018-01-03] MEDS: FERROUS SULFATE 325 MG EC TABLET PO SCH (16:36)
[2018-01-04 06:37] VITALS: BP 118/79
[2018-01-04] MEDS: LORazepam 2 MG TABLET PO PRN (06:43)
[2018-01-04] MEDS: FERROUS SULFATE 325 MG EC TABLET PO SCH ×2 (06:52→17:19)
[2018-01-04 08:22] VITALS: BP 109/65
[2018-01-04] MEDS: CHOLECALCIFEROL (VIT D3) 1,000 UNITS TABLET PO SCH (08:59)
[2018-01-04] MEDS: SERTRALINE HCL 50 MG TABLET PO SCH (08:59)
[2018-01-04] MEDS: PALIPERIDONE 6 MG ER TABLET PO SCH (09:00)
[2018-01-04] MEDS: LamoTRIgine 25 MG TABLET PO SCH (09:00)
[2018-01-04] MEDS: NICOTINE 21 MG/24 HOUR PATCH TD SCH (09:00)
[2018-01-04] MEDS: MUPIROCIN CALCIUM 2% 22 GM OINTMENT TP SCH ×2 (09:01→17:19)
[2018-01-04] MEDS ORDERED: GuaiFENesin/D-METHORPHAN [SUGAR-FREE] 200-20MG/10 ML SYRUP UDCUP PO PRN (11:45)
[2018-01-04] MEDS ORDERED: PROMETHAZINE HCL 25 MG TABLET PO PRN (11:45)
[2018-01-04] MEDS ORDERED: MAG HYDROX/AL HYDROX/SIMETH ES 30 ML SUSPENSION UDCUP PO PRN (11:45)
[2018-01-04] MEDS ORDERED: HydrOXYzine PAMOATE 50 MG CAPSULE PO PRN (11:45)
[2018-01-04] MEDS ORDERED: ACETAMINOPHEN 325 MG TABLET PO PRN (11:45)
[2018-01-04] MEDS ORDERED: LOPERAMIDE HCL 2 MG CAPSULE PO PRN (11:45)
[2018-01-04] MEDS ORDERED: MAGNESIUM HYDROXIDE SUSPENSION 30 ML UDCUP PO PRN (11:45)
[2018-01-04] MEDS ORDERED: PALIPERIDONE PALMITATE 234 MG/1.5 ML SYRINGE IM ONE (13:15)
[2018-01-04 16:11] VITALS: BP 114/79
[2018-01-04] MEDS: THIAMINE HCL 100 MG TABLET PO SCH (17:19)
[2018-01-04] MEDS: LORazepam 0.5 MG TABLET PO PRN (18:39)
[2018-01-04] MEDS: ZOLPIDEM TARTRATE 5 MG TABLET PO PRN (22:44)
[2018-01-05 00:25] VITALS: BP 118/72
[2018-01-05 03:20] VITALS: BP 110/79
[2018-01-05] MEDS: LORazepam 0.5 MG TABLET PO PRN ×3 (03:20→18:01)
[2018-01-05] MEDS: FERROUS SULFATE 325 MG EC TABLET PO SCH ×2 (06:42→17:12)
[2018-01-05] MEDS: FOLIC ACID 1 MG TABLET PO SCH (08:22)
[2018-01-05] MEDS: MULTIVITAMINS WITH MINERALS, THERAPEUTIC TABLET PO SCH (08:22)
[2018-01-05] MEDS: THIAMINE HCL 100 MG TABLET PO SCH ×2 (08:22→17:12)
[2018-01-05] MEDS: LamoTRIgine 25 MG TABLET PO SCH (08:22)
[2018-01-05] MEDS: NICOTINE 21 MG/24 HOUR PATCH TD SCH (08:23)
[2018-01-05] MEDS: CHOLECALCIFEROL (VIT D3) 1,000 UNITS TABLET PO SCH (08:23)
[2018-01-05] MEDS: MUPIROCIN CALCIUM 2% 22 GM OINTMENT TP SCH ×2 (08:25→17:12)
[2018-01-05 08:26] VITALS: BP 124/76
[2018-01-05 16:08] VITALS: BP 116/69
[2018-01-05] MEDS: ZOLPIDEM TARTRATE 5 MG TABLET PO PRN (21:06)
[2018-01-06 04:22] VITALS: BP 117/75
[2018-01-06] MEDS: LORazepam 0.5 MG TABLET PO PRN ×2 (04:22→17:50)
[2018-01-06] MEDS: FERROUS SULFATE 325 MG EC TABLET PO SCH ×2 (06:48→16:43)
[2018-01-06 08:45] VITALS: BP 113/74
[2018-01-06] MEDS: MUPIROCIN CALCIUM 2% 22 GM OINTMENT TP SCH ×2 (09:00→16:44)
[2018-01-06] MEDS: THIAMINE HCL 100 MG TABLET PO SCH ×2 (09:00→16:43)
[2018-01-06] MEDS: NICOTINE 21 MG/24 HOUR PATCH TD SCH ×2 (09:00→12:36)
[2018-01-06] MEDS: MULTIVITAMINS WITH MINERALS, THERAPEUTIC TABLET PO SCH (09:00)
[2018-01-06] MEDS: CHOLECALCIFEROL (VIT D3) 1,000 UNITS TABLET PO SCH (09:00)
[2018-01-06] MEDS: LamoTRIgine 25 MG TABLET PO SCH (09:00)
[2018-01-06] MEDS: FOLIC ACID 1 MG TABLET PO SCH (09:00)
[2018-01-06 16:20] VITALS: BP 111/71
[2018-01-06 17:49] VITALS: BP 137/72
[2018-01-06] MEDS: ZOLPIDEM TARTRATE 5 MG TABLET PO PRN (21:09)
[2018-01-07 01:28] VITALS: BP 138/76
[2018-01-07] MEDS: LORazepam 0.5 MG TABLET PO PRN ×3 (04:04→20:03)
[2018-01-07] MEDS: FERROUS SULFATE 325 MG EC TABLET PO SCH ×2 (07:09→17:01)
[2018-01-07 08:00] VITALS: BP 118/74
[2018-01-07] MEDS: FOLIC ACID 1 MG TABLET PO SCH (08:19)
[2018-01-07] MEDS: CHOLECALCIFEROL (VIT D3) 1,000 UNITS TABLET PO SCH (08:19)
[2018-01-07] MEDS: LamoTRIgine 25 MG TABLET PO SCH (08:20)
[2018-01-07] MEDS: THIAMINE HCL 100 MG TABLET PO SCH ×2 (08:20→17:01)
[2018-01-07] MEDS: MUPIROCIN CALCIUM 2% 22 GM OINTMENT TP SCH ×2 (08:20→17:01)
[2018-01-07] MEDS: MULTIVITAMINS WITH MINERALS, THERAPEUTIC TABLET PO SCH (08:20)
[2018-01-07] MEDS: NICOTINE 21 MG/24 HOUR PATCH TD SCH (08:20)
[2018-01-07] MEDS ORDERED: LAMO25 PO (11:39)
[2018-01-07] MEDS ORDERED: PALI156D IM (11:39)
[2018-01-07] MEDS ORDERED: NALT50TA6 PO (11:39)
[2018-01-07 16:30] VITALS: BP 113/78
[2018-01-08 00:30] VITALS: BP 119/75
[2018-01-08] MEDS: LORazepam 0.5 MG TABLET PO PRN (01:16)
[2018-01-08] MEDS: FERROUS SULFATE 325 MG EC TABLET PO SCH (06:48)
[2018-01-08 08:30] VITALS: BP 124/76
[2018-01-08] MEDS: MULTIVITAMINS WITH MINERALS, THERAPEUTIC TABLET PO SCH (08:39)
[2018-01-08] MEDS: LamoTRIgine 25 MG TABLET PO SCH (08:39)
[2018-01-08] MEDS: FOLIC ACID 1 MG TABLET PO SCH (08:39)
[2018-01-08] MEDS: THIAMINE HCL 100 MG TABLET PO SCH (08:39)
[2018-01-08] MEDS: CHOLECALCIFEROL (VIT D3) 1,000 UNITS TABLET PO SCH (08:40)
[2018-01-08] MEDS: NICOTINE 21 MG/24 HOUR PATCH TD SCH (08:40)
[2018-01-08] MEDS: MUPIROCIN CALCIUM 2% 22 GM OINTMENT TP SCH (08:46)
[2018-01-08] MEDS ORDERED: NALTREXONE HCL 50 MG TABLET PO SCH (09:00)
[2018-01-08] MEDS ORDERED: PALIPERIDONE PALMITATE 156 MG/ML SYRINGE IM ONE (09:00)
== END 2018-01-08 11:23 | DRG 885 ==
LOC: B2X 19:52 → EDSTATUS 20:10 → B2X 01-03 10:16
PROVIDERS: ADMIT Psychiatry & Neurology Child & Adolescent Psychiatry; ATTEND Psychiatry & Neurology Psychiatry
DX: F25.0 Schizoaffective disorder, bipolar type (principal); E43 Unspecified severe protein-calorie malnutrition; D64.9 Anemia, unspecified; J44.9 Chronic obstructive pulmonary disease, unspecified; B19.20 Unspecified viral hepatitis C without hepatic coma; F19.10 Other psychoactive substance abuse, uncomplicated; S01.81XA Laceration without foreign body of other part of head, initial encounter; R64 Cachexia; W19.XXXA Unspecified fall, initial encounter; F41.9 Anxiety disorder, unspecified; N40.0 Benign prostatic hyperplasia without lower urinary tract symptoms; R03.0 Elevated blood-pressure reading, without diagnosis of hypertension; Z59.0 Homelessness; Z88.8 Allergy status to other drugs, medicaments and biological substances; Z91.19 Patient's noncompliance with other medical treatment and regimen; Y92.89 Other specified places as the place of occurrence of the external cause; Y93.89 Activity, other specified; Y99.8 Other external cause status; Z68.20 Body mass index [BMI] 20.0-20.9, adult
CPT/HCPCS: 82306; 83036; 84439; 84443; 87081; 90471; 93005; 99285

== ENCOUNTER 2018-01-22 22:26 | Inpatient (IN) | payer MEDICARE ==
[~2018-01-22] VITALS: Ht 172.7 cm; Wt 63.7 kg
[~2018-01-22 22:26] MED LIST changes: +NALT50TA6 PO; +PALI156D IM; -PALI6 PO
[2018-01-23 04:36] LABS: BASOPHILS % (AUTO) 1.2 % (0.0-2.0); EOSINOPHILS % (AUTO) 4.7 % (1.0-6.0); HEMATOCRIT 27.8 % (41-53); LYMPHOCYTES # (AUTO) 1.2 K/uL (1.0-4.8); MEAN CORPUSCULAR HEMOGLOBIN 25.4 pg (26.0-34.0); MEAN CORPUSCULAR HGB CONC 32.3 G/dL (31.0-37.0); MEAN CORPUSCULAR VOLUME 79 fL (80-100); MONOCYTES # (AUTO) 0.5 K/uL (0.1-1.0); NEUTROPHILS # (AUTO) 3.1 K/uL (1.8-7.7); NEUTROPHILS % (AUTO) 60.1 % (40.0-70.0); PLATELET COUNT (AUTO) 302 K/uL (150-450); RED BLOOD CELL COUNT(AUTO) 3.53 MIL/uL (4.50-5.90); RED CELL DISTRIBUTION WIDTH 28.1 % (11.5-14.5)
[2018-01-23 04:45] LABS: ANION GAP 8 mmol/L (8-16); CALCIUM, TOTAL 8.1 mg/dL (8.8-10.5); CARBON DIOXIDE 27 mmol/L (22-29); CHLORIDE 101 mmol/L (98-107); CREATININE 1.04 mg/dL (0.60-1.30); GLOMERULAR FILTR. RATE CALC > 60 mL/min (>60); GLUCOSE,RANDOM 90 mg/dL (70-110); POTASSIUM 3.9 mmol/L (3.5-5.1); SODIUM SERUM 136 mmol/L (136-145); UREA NITROGEN, BLOOD 17 mg/dL (7-18)
[2018-01-23 04:53] LABS: ALANINE AMINOTRANSFERASE 37 U/L (12-78); ALBUMIN 3.2 g/dL (3.4-5.0); ALKALINE PHOSPHATASE 87 U/L (46-116); ASPARTATE AMINOTRANSFERASE 30 U/L (15-37); BILIRUBIN,TOTAL 0.2 mg/dL (0.1-1.0); TOTAL PROTEIN, SERUM 6.8 g/dL (6.4-8.2)
[2018-01-23] MEDS ORDERED: ZOLPIDEM TARTRATE 10 MG TABLET PO PRN (05:15)
[2018-01-23] MEDS ORDERED: QUEtiapine FUMARATE 100 MG TABLET PO PRN (05:15)
[2018-01-23] MEDS ORDERED: LORazepam 2 MG TABLET PO PRN (05:15)
[2018-01-23 05:52] LABS: CHOLESTEROL 119 mg/dL (131-200); HDL CHOLESTEROL 60 mg/dL (40-60); LDL CHOL (CALC.) 51 mg/dL (0-130); TRIGLYCERIDES 39 mg/dL (15-150)
[2018-01-23] MEDS ORDERED: ALBUTEROL SULFATE HFA 90 MCG/PUFF 8 GM INHALER IH PRN (08:45)
[2018-01-23] MEDS ORDERED: CloNIDine HCL 0.1 MG TABLET PO PRN (08:45)
[2018-01-23] MEDS ORDERED: IBUPROFEN 600 MG TABLET PO PRN (08:45)
[2018-01-23] MEDS ORDERED: MAG HYDROX/AL HYDROX/SIMETH ES 30 ML SUSPENSION UDCUP PO PRN (08:45)
[2018-01-23] MEDS ORDERED: ACETAMINOPHEN 325 MG TABLET PO PRN (08:45)
[2018-01-23] MEDS ORDERED: PETROLATUM,WHITE 71 GM JELLY TP PRN (08:45)
[2018-01-23] MEDS ORDERED: LOPERAMIDE HCL 2 MG CAPSULE PO PRN (08:45)
[2018-01-23] MEDS ORDERED: BACITRACIN 28.4 GM OINTMENT TP PRN (08:45)
[2018-01-23] MEDS ORDERED: BENZOCAINE/MENTHOL LOZENGE MM PRN (08:45)
[2018-01-23] MEDS ORDERED: ONDANSETRON HCL 4 MG TABLET PO PRN (08:45)
[2018-01-23] MEDS ORDERED: MAGNESIUM HYDROXIDE SUSPENSION 30 ML UDCUP PO PRN (08:45)
[2018-01-23 08:46] VITALS: BP 120/84
[2018-01-23 08:50] VITALS: BP 120/84
[2018-01-23] MEDS: MULTIVITAMINS WITH MINERALS, THERAPEUTIC TABLET PO SCH (09:00)
[2018-01-23] MEDS: DOCUSATE SODIUM 100 MG CAPSULE PO SCH (09:00)
[2018-01-23] MEDS: OMEPRAZOLE 20 MG CAPSULE PO SCH (09:00)
[2018-01-23] MEDS: CHOLECALCIFEROL (VIT D3) 1,000 UNITS TABLET PO SCH (09:00)
[2018-01-23] MEDS: FERROUS SULFATE 325 MG EC TABLET PO SCH (17:00)
[2018-01-23 17:45] VITALS: BP 110/70
[2018-01-23] MEDS: LORazepam 0.5 MG TABLET PO PRN (18:35)
[2018-01-24 00:04] VITALS: BP 119/82
[2018-01-24] MEDS ORDERED: PNEUMOCOCCAL VACCINE POLYVALENT 0.5 ML VIAL [PPSV23] IM ONE (02:45)
[2018-01-24] MEDS: LORazepam 0.5 MG TABLET PO PRN ×3 (03:48→16:13)
[2018-01-24] MEDS: FERROUS SULFATE 325 MG EC TABLET PO SCH ×2 (06:00→16:13)
[2018-01-24] MEDS: OMEPRAZOLE 20 MG CAPSULE PO SCH (09:00)
[2018-01-24] MEDS: MULTIVITAMINS WITH MINERALS, THERAPEUTIC TABLET PO SCH (09:00)
[2018-01-24] MEDS: DOCUSATE SODIUM 100 MG CAPSULE PO SCH (09:00)
[2018-01-24] MEDS: CHOLECALCIFEROL (VIT D3) 1,000 UNITS TABLET PO SCH (09:00)
[2018-01-24 09:06] VITALS: BP 103/68
[2018-01-24 10:56] VITALS: BP 111/82
[2018-01-24 16:10] VITALS: BP 120/79
[2018-01-24] MEDS: LamoTRIgine 25 MG TABLET PO SCH (20:49)
[2018-01-24] MEDS: ARIPiprazole 5 MG TABLET PO SCH (20:49)
[2018-01-24] MEDS: NICOTINE 14 MG/24 HOUR PATCH TD SCH (20:58)
[2018-01-25 02:56] VITALS: BP 118/73
[2018-01-25] MEDS: LORazepam 0.5 MG TABLET PO PRN ×4 (02:57→16:09)
[2018-01-25] MEDS: FERROUS SULFATE 325 MG EC TABLET PO SCH ×2 (06:08→16:09)
[2018-01-25 08:30] VITALS: BP 106/80
[2018-01-25] MEDS: OMEPRAZOLE 20 MG CAPSULE PO SCH (09:00)
[2018-01-25] MEDS: MULTIVITAMINS WITH MINERALS, THERAPEUTIC TABLET PO SCH (09:00)
[2018-01-25] MEDS: DOCUSATE SODIUM 100 MG CAPSULE PO SCH (09:00)
[2018-01-25] MEDS: NICOTINE 14 MG/24 HOUR PATCH TD SCH (09:00)
[2018-01-25] MEDS: CHOLECALCIFEROL (VIT D3) 1,000 UNITS TABLET PO SCH (09:00)
[2018-01-25] MEDS ORDERED: NICOTINE 14 MG/24 HOUR PATCH TD SCH (12:45)
[2018-01-25 16:18] VITALS: BP 106/65
[2018-01-25] MEDS ORDERED: GuaiFENesin/D-METHORPHAN [SUGAR-FREE] 200-20MG/10 ML SYRUP UDCUP PO PRN (16:30)
[2018-01-25] MEDS ORDERED: HydrOXYzine PAMOATE 50 MG CAPSULE PO PRN (16:30)
[2018-01-25] MEDS: THIAMINE HCL 100 MG TABLET PO SCH (17:20)
[2018-01-25] MEDS: LamoTRIgine 25 MG TABLET PO SCH (21:11)
[2018-01-25] MEDS: ARIPiprazole 5 MG TABLET PO SCH (21:11)
[2018-01-26 00:51] VITALS: BP 133/79
[2018-01-26] MEDS: LORazepam 0.5 MG TABLET PO PRN ×3 (04:34→16:04)
[2018-01-26] MEDS: FERROUS SULFATE 325 MG EC TABLET PO SCH ×3 (06:23→16:04)
[2018-01-26 08:45] VITALS: BP 124/79
[2018-01-26] MEDS: FOLIC ACID 1 MG TABLET PO SCH (09:00)
[2018-01-26] MEDS: MULTIVITAMINS WITH MINERALS, THERAPEUTIC TABLET PO SCH (09:00)
[2018-01-26] MEDS: THIAMINE HCL 100 MG TABLET PO SCH ×2 (09:00→16:04)
[2018-01-26] MEDS: NALTREXONE HCL 50 MG TABLET PO SCH (09:00)
[2018-01-26] MEDS: OMEPRAZOLE 20 MG CAPSULE PO SCH (09:00)
[2018-01-26] MEDS: NICOTINE 14 MG/24 HOUR PATCH TD SCH ×2 (09:00→12:53)
[2018-01-26] MEDS: DOCUSATE SODIUM 100 MG CAPSULE PO SCH (09:00)
[2018-01-26] MEDS: CHOLECALCIFEROL (VIT D3) 1,000 UNITS TABLET PO SCH (09:00)
[2018-01-26 16:07] VITALS: BP 118/83
[2018-01-26] MEDS: ARIPiprazole 5 MG TABLET PO SCH (21:01)
[2018-01-26] MEDS: LamoTRIgine 25 MG TABLET PO SCH (21:01)
[2018-01-27 00:10] VITALS: BP 103/60
[2018-01-27] MEDS: LORazepam 0.5 MG TABLET PO PRN ×2 (00:37→07:05)
[2018-01-27] MEDS: FERROUS SULFATE 325 MG EC TABLET PO SCH (07:06)
[2018-01-27 08:00] VITALS: BP 103/61
[2018-01-27] MEDS ORDERED: FOLI1 PO (08:11)
[2018-01-27] MEDS ORDERED: MULT-1239 PO (08:11)
[2018-01-27] MEDS ORDERED: THIA100 PO (08:11)
[2018-01-27] MEDS ORDERED: OMEP20 PO (08:11)
[2018-01-27] MEDS ORDERED: ARIP5TAB8 PO (08:13)
[2018-01-27] MEDS ORDERED: LAMO25 PO (08:13)
[2018-01-27] MEDS ORDERED: VITAD1000 PO (08:13)
[2018-01-27] MEDS ORDERED: FERR-89 PO (08:13)
[2018-01-27] MEDS ORDERED: ALBU8HFA IH (08:21)
[2018-01-27] MEDS: NALTREXONE HCL 50 MG TABLET PO SCH (08:41)
[2018-01-27] MEDS: OMEPRAZOLE 20 MG CAPSULE PO SCH (08:41)
[2018-01-27] MEDS: THIAMINE HCL 100 MG TABLET PO SCH (08:42)
[2018-01-27] MEDS: NICOTINE 14 MG/24 HOUR PATCH TD SCH (08:43)
[2018-01-27] MEDS: CHOLECALCIFEROL (VIT D3) 1,000 UNITS TABLET PO SCH (08:43)
[2018-01-27] MEDS: FOLIC ACID 1 MG TABLET PO SCH (08:43)
[2018-01-27] MEDS: MULTIVITAMINS WITH MINERALS, THERAPEUTIC TABLET PO SCH (08:43)
== END 2018-01-27 10:15 | disposition home or self-care (01) | DRG 885 ==
LOC: EMS 22:32 → B2X 01-23 05:30
PROVIDERS: ADMIT Psychiatry & Neurology Psychiatry; ATTEND Psychiatry & Neurology Psychiatry
DX: F25.9 Schizoaffective disorder, unspecified (principal); E46 Unspecified protein-calorie malnutrition; R45.851 Suicidal ideations; J44.9 Chronic obstructive pulmonary disease, unspecified; Z59.0 Homelessness; D64.9 Anemia, unspecified; B18.2 Chronic viral hepatitis C; E55.9 Vitamin D deficiency, unspecified; F12.90 Cannabis use, unspecified, uncomplicated; F17.210 Nicotine dependence, cigarettes, uncomplicated; F41.9 Anxiety disorder, unspecified; I10 Essential (primary) hypertension; K21.9 Gastro-esophageal reflux disease without esophagitis; K59.09 Other constipation; N40.1 Benign prostatic hyperplasia with lower urinary tract symptoms; Z79.899 Other long term (current) drug therapy; Z91.14 Patient's other noncompliance with medication regimen; Z91.19 Patient's noncompliance with other medical treatment and regimen; Z88.8 Allergy status to other drugs, medicaments and biological substances; Z68.21 Body mass index [BMI] 21.0-21.9, adult
CPT/HCPCS: 87081; G0480; J3535

== ENCOUNTER 2018-02-12 23:30 | Inpatient (IN) | payer MEDICARE ==
[~2018-02-12] VITALS: Ht 172.7 cm; Wt 65.5 kg
[~2018-02-12 23:30] MED LIST changes: +ARIP5TAB8 PO; +FERR-89 PO; +OMEP20 PO; -PALI156D IM
[2018-02-12] MEDS ORDERED: QUEtiapine FUMARATE 25 MG TABLET PO PRN (23:45)
[2018-02-12 23:58] VITALS: BP 123/80
[2018-02-13] MEDS ORDERED: PNEUMOCOCCAL VACCINE POLYVALENT 0.5 ML VIAL [PPSV23] IM ONE (00:15)
[2018-02-13] MEDS ORDERED: NALT50TA6 PO (00:35)
[2018-02-13 00:46] VITALS: BP 122/79
[2018-02-13 07:34] LABS: BASOPHILS % (AUTO) 0.6 % (0.0-2.0); EOSINOPHILS % (AUTO) 4.7 % (1.0-6.0); HEMATOCRIT 32.9 % (41-53); HEMOGLOBIN 10.6 g/dL (13.5-17.5); LYMPHOCYTES # (AUTO) 1.6 K/uL (1.0-4.8); MEAN CORPUSCULAR HEMOGLOBIN 25.8 pg (26.0-34.0); MEAN CORPUSCULAR HGB CONC 32.3 G/dL (31.0-37.0); MEAN CORPUSCULAR VOLUME 80 fL (80-100); MONOCYTES # (AUTO) 0.8 K/uL (0.1-1.0); MONOCYTES % (AUTO) 12.3 % (2.0-9.0); NEUTROPHILS # (AUTO) 3.8 K/uL (1.8-7.7); NEUTROPHILS % (AUTO) 58.4 % (40.0-70.0); PLATELET COUNT (AUTO) 349 K/uL (150-450); RED BLOOD CELL COUNT(AUTO) 4.12 MIL/uL (4.50-5.90); RED CELL DISTRIBUTION WIDTH 28.8 % (11.5-14.5)
[2018-02-13 07:54] LABS: HEMOGLOBIN A1C 5.8 % (4.5-6.2)
[2018-02-13 07:56] LABS: AMPHET/METH SCREEN,URINE NEGATIVE (NEGATIVE); BARBITURATE SCREEN, URINE NEGATIVE (NEGATIVE); BENZODIAZEPINES SCREEN,URINE NEGATIVE (NEGATIVE); CANNABINOID SCREEN,URINE NEGATIVE (NEGATIVE); COCAINE SCREEN,URINE NEGATIVE (NEGATIVE); METHADONE SCREEN, URINE NEGATIVE (NEGATIVE); OPIATE SCREEN,URINE NEGATIVE (NEGATIVE)
[2018-02-13 07:59] LABS: ALANINE AMINOTRANSFERASE 42 U/L (12-78); ALBUMIN 3.9 g/dL (3.4-5.0); ALKALINE PHOSPHATASE 97 U/L (46-116); ANION GAP 5 mmol/L (8-16); ASPARTATE AMINOTRANSFERASE 25 U/L (15-37); BILIRUBIN,TOTAL 0.2 mg/dL (0.1-1.0); CALCIUM, TOTAL 8.7 mg/dL (8.8-10.5); CARBON DIOXIDE 33 mmol/L (22-29); CHLORIDE 100 mmol/L (98-107); CHOL/HDL RATIO 1.8 (4.2-7.3); CHOLESTEROL 136 mg/dL (131-200); FREE T4 (FREE THYROXINE) 0.73 ng/dL (0.76-1.46); GLOMERULAR FILTR. RATE CALC > 60 mL/min (>60); GLUCOSE,RANDOM 113 mg/dL (70-110); HDL CHOLESTEROL 74 mg/dL (40-60); LDL CHOL (CALC.) 55 mg/dL (0-130); POTASSIUM 5.3 mmol/L (3.5-5.1); SODIUM SERUM 138 mmol/L (136-145); THYROID STIMULATING HORMONE 3.04 uIU/mL (0.36-3.74); TOTAL PROTEIN, SERUM 7.5 g/dL (6.4-8.2); TRIGLYCERIDES 36 mg/dL (15-150); UREA NITROGEN, BLOOD 17 mg/dL (7-18)
[2018-02-13 08:00] LABS: PHENCYCLIDINE SCREEN,URINE NEGATIVE (NEGATIVE)
[2018-02-13 08:01] VITALS: BP 101/68
[2018-02-13 08:23] LABS: APPEARANCE,URINE CLEAR (CLEAR); BILIRUBIN,URINE NEGATIVE (NEGATIVE); GLUCOSE, URINE (UA) NEGATIVE (NEGATIVE); KETONES,URINE NEGATIVE (NEGATIVE); LEUKOCYTE ESTERASE ,URINE NEGATIVE (NEGATIVE); NITRATE,URINE NEGATIVE (NEGATIVE); OCCULT BLOOD,URINE NEGATIVE (NEGATIVE); PH,URINE 6.5 (5.0-8.0); PROTEIN,URINE NEGATIVE (NEGATIVE); UROBILINOGEN,URINE 0.2 mg/dL (<=1.0)
[2018-02-13 08:50] VITALS: BP 111/64
[2018-02-13] MEDS: LORazepam 0.5 MG TABLET PO PRN ×3 (08:53→22:28)
[2018-02-13] MEDS: LamoTRIgine 25 MG TABLET PO SCH (11:30)
[2018-02-13 16:14] VITALS: BP 110/66
[2018-02-14 02:50] VITALS: BP 104/60
[2018-02-14] MEDS: ZOLPIDEM TARTRATE 5 MG TABLET PO PRN ×2 (02:53→22:08)
[2018-02-14 08:24] VITALS: BP 107/66
[2018-02-14] MEDS: ARIPiprazole 5 MG TABLET PO SCH (09:00)
[2018-02-14] MEDS: LamoTRIgine 25 MG TABLET PO SCH (09:00)
[2018-02-14 11:50] VITALS: BP 119/77
[2018-02-14] MEDS: LORazepam 0.5 MG TABLET PO PRN ×2 (11:52→16:08)
[2018-02-14 16:26] VITALS: BP 124/61
[2018-02-15 04:43] VITALS: BP 119/79
[2018-02-15] MEDS: LORazepam 0.5 MG TABLET PO PRN ×3 (06:58→16:45)
[2018-02-15] MEDS ORDERED: ACETAMINOPHEN 325 MG TABLET PO PRN ×2 (07:15→10:15)
[2018-02-15] MEDS ORDERED: IBUPROFEN 600 MG TABLET PO PRN (07:15)
[2018-02-15] MEDS: ARIPiprazole 5 MG TABLET PO SCH (08:08)
[2018-02-15] MEDS: LamoTRIgine 25 MG TABLET PO SCH (08:08)
[2018-02-15] MEDS: NICOTINE 21 MG/24 HOUR PATCH TD SCH (08:09)
[2018-02-15 08:23] VITALS: BP 134/84
[2018-02-15] MEDS ORDERED: MAGNESIUM HYDROXIDE SUSPENSION 30 ML UDCUP PO PRN (10:15)
[2018-02-15] MEDS ORDERED: PROMETHAZINE HCL 25 MG TABLET PO PRN (10:15)
[2018-02-15] MEDS ORDERED: MAG HYDROX/AL HYDROX/SIMETH ES 30 ML SUSPENSION UDCUP PO PRN (10:15)
[2018-02-15] MEDS ORDERED: HydrOXYzine PAMOATE 50 MG CAPSULE PO PRN (10:15)
[2018-02-15] MEDS ORDERED: LOPERAMIDE HCL 2 MG CAPSULE PO PRN (10:15)
[2018-02-15] MEDS ORDERED: GuaiFENesin/D-METHORPHAN [SUGAR-FREE] 200-20MG/10 ML SYRUP UDCUP PO PRN (10:15)
[2018-02-15 16:27] VITALS: BP 134/89
[2018-02-15] MEDS: THIAMINE HCL 100 MG TABLET PO SCH (16:45)
[2018-02-15] MEDS: BACITRACIN 28.4 GM OINTMENT TP SCH (16:45)
[2018-02-15] MEDS: ZOLPIDEM TARTRATE 5 MG TABLET PO PRN (22:21)
[2018-02-16 03:29] VITALS: BP 130/81
[2018-02-16] MEDS: LORazepam 0.5 MG TABLET PO PRN ×4 (03:36→19:33)
[2018-02-16] MEDS: THIAMINE HCL 100 MG TABLET PO SCH ×2 (08:12→16:41)
[2018-02-16] MEDS: LamoTRIgine 25 MG TABLET PO SCH (08:12)
[2018-02-16] MEDS: ARIPiprazole 5 MG TABLET PO SCH (08:13)
[2018-02-16] MEDS: NALTREXONE HCL 50 MG TABLET PO SCH (08:13)
[2018-02-16] MEDS: FOLIC ACID 1 MG TABLET PO SCH (08:15)
[2018-02-16] MEDS: NICOTINE 21 MG/24 HOUR PATCH TD SCH (08:17)
[2018-02-16] MEDS: BACITRACIN 28.4 GM OINTMENT TP SCH ×2 (08:18→16:41)
[2018-02-16 08:30] VITALS: BP 134/84
[2018-02-16] MEDS ORDERED: MULTIVITAMINS WITH MINERALS, THERAPEUTIC TABLET PO SCH (09:00)
[2018-02-16 10:23] LABS: ANION GAP 3 mmol/L (8-16); CALCIUM, TOTAL 8.5 mg/dL (8.8-10.5); CARBON DIOXIDE 31 mmol/L (22-29); CHLORIDE 100 mmol/L (98-107); CREATININE 0.95 mg/dL (0.60-1.30); GLOMERULAR FILTR. RATE CALC > 60 mL/min (>60); GLUCOSE,RANDOM 129 mg/dL (70-110); POTASSIUM 4.8 mmol/L (3.5-5.1); SODIUM SERUM 134 mmol/L (136-145)
[2018-02-16 10:24] LABS: ALANINE AMINOTRANSFERASE 37 U/L (12-78); ALBUMIN 3.4 g/dL (3.4-5.0); ALKALINE PHOSPHATASE 83 U/L (46-116); ASPARTATE AMINOTRANSFERASE 25 U/L (15-37); BILIRUBIN,TOTAL 0.2 mg/dL (0.1-1.0); CREATINE KINASE MB 1.3 ng/mL (0-5); CREATINE KINASE, TOTAL 78 U/L (39-308); TOTAL PROTEIN, SERUM 7.1 g/dL (6.4-8.2)
[2018-02-16 10:32] LABS: FOLATE SERUM 20.2 ng/mL (5.4-)
[2018-02-16 11:02] LABS: UREA NITROGEN, BLOOD 18 mg/dL (7-18)
[2018-02-16] MEDS ORDERED: ARIP5TAB8 PO (13:42)
[2018-02-16] MEDS ORDERED: NALT50TA PO (13:42)
[2018-02-16] MEDS ORDERED: LAMO25 PO (13:42)
[2018-02-16 16:30] VITALS: BP 111/83
[2018-02-16] MEDS ORDERED: THIA100T67 PO (20:33)
[2018-02-16] MEDS ORDERED: FOLI1 PO (20:33)
[2018-02-16] MEDS ORDERED: BACI30OI6 TP (20:34)
[2018-02-16] MEDS ORDERED: MVITFE PO (20:59)
[2018-02-16] MEDS: ZOLPIDEM TARTRATE 5 MG TABLET PO PRN (22:40)
[2018-02-17 02:15] VITALS: BP 106/71
[2018-02-17] MEDS: LORazepam 0.5 MG TABLET PO PRN ×3 (02:20→06:56)
[2018-02-17 06:50] VITALS: BP 115/79
[2018-02-17 08:00] VITALS: BP 108/72
[2018-02-17] MEDS ORDERED: FOLI1TAB15 PO (08:18)
[2018-02-17] MEDS: ARIPiprazole 5 MG TABLET PO SCH (08:46)
[2018-02-17] MEDS: FOLIC ACID 1 MG TABLET PO SCH (08:46)
[2018-02-17] MEDS: LamoTRIgine 25 MG TABLET PO SCH (08:46)
[2018-02-17] MEDS: THIAMINE HCL 100 MG TABLET PO SCH (08:47)
[2018-02-17] MEDS: NALTREXONE HCL 50 MG TABLET PO SCH (08:47)
[2018-02-17] MEDS: NICOTINE 21 MG/24 HOUR PATCH TD SCH (08:48)
[2018-02-17] MEDS: BACITRACIN 28.4 GM OINTMENT TP SCH (08:48)
[2018-02-17] MEDS ORDERED: MULTIVITAMINS WITH IRON TABLET PO SCH (09:00)
== END 2018-02-17 12:30 | disposition home or self-care (01) | DRG 885 ==
LOC: B2X 23:42
PROVIDERS: ATTEND Psychiatry & Neurology Psychiatry
DX: F25.0 Schizoaffective disorder, bipolar type (principal); E87.5 Hyperkalemia; R45.851 Suicidal ideations; B19.10 Unspecified viral hepatitis B without hepatic coma; J44.9 Chronic obstructive pulmonary disease, unspecified; E87.1 Hypo-osmolality and hyponatremia; D64.9 Anemia, unspecified; K21.9 Gastro-esophageal reflux disease without esophagitis; E55.9 Vitamin D deficiency, unspecified; B19.20 Unspecified viral hepatitis C without hepatic coma; M19.90 Unspecified osteoarthritis, unspecified site; S50.02XA Contusion of left elbow, initial encounter; N40.0 Benign prostatic hyperplasia without lower urinary tract symptoms; F14.90 Cocaine use, unspecified, uncomplicated; F17.200 Nicotine dependence, unspecified, uncomplicated; Z91.19 Patient's noncompliance with other medical treatment and regimen; Z79.899 Other long term (current) drug therapy
CPT/HCPCS: 80307; 82306; 82607; 82746; 83036; 83735; 84439; 84443; 87081; 90471; 99285

== ENCOUNTER 2018-02-20 23:28 | Emergency (ER) | payer MEDICARE ==
[~2018-02-20] VITALS: Ht 177.8 cm; Wt 81.8 kg
[~2018-02-20 23:28] MED LIST changes: +BACI30OI6 TP; +FOLI1 PO; +FOLI1TAB15 PO; +MVITFE PO; +THIA100T67 PO
[2018-02-21 00:40] LABS: BASOPHILS % (AUTO) 0.6 % (0.0-2.0); EOSINOPHILS % (AUTO) 5.1 % (1.0-6.0); HEMATOCRIT 32.3 % (41-53); HEMOGLOBIN 10.5 g/dL (13.5-17.5); LYMPHOCYTES # (AUTO) 1.5 K/uL (1.0-4.8); MEAN CORPUSCULAR HEMOGLOBIN 26.2 pg (26.0-34.0); MEAN CORPUSCULAR HGB CONC 32.7 G/dL (31.0-37.0); MEAN CORPUSCULAR VOLUME 80 fL (80-100); MONOCYTES # (AUTO) 0.8 K/uL (0.1-1.0); MONOCYTES % (AUTO) 11.8 % (2.0-9.0); NEUTROPHILS # (AUTO) 3.9 K/uL (1.8-7.7); NEUTROPHILS % (AUTO) 59.5 % (40.0-70.0); PLATELET COUNT (AUTO) 283 K/uL (150-450); RED BLOOD CELL COUNT(AUTO) 4.02 MIL/uL (4.50-5.90); RED CELL DISTRIBUTION WIDTH 27.1 % (11.5-14.5)
[2018-02-21 00:57] LABS: CALCIUM, TOTAL 8.8 mg/dL (8.8-10.5); CREATININE 1.2 mg/dL (0.60-1.30); POTASSIUM 4.5 mmol/L (3.5-5.1)
[2018-02-21 01:03] LABS: ALBUMIN 3.8 g/dL (3.4-5.0); BILIRUBIN,TOTAL 0.3 mg/dL (0.1-1.0)
[2018-02-21 01:03] LABS: APPEARANCE,URINE CLEAR (CLEAR); BILIRUBIN,URINE NEGATIVE (NEGATIVE); GLUCOSE, URINE (UA) NEGATIVE (NEGATIVE); KETONES,URINE NEGATIVE (NEGATIVE); LEUKOCYTE ESTERASE ,URINE NEGATIVE (NEGATIVE); NITRATE,URINE NEGATIVE (NEGATIVE); OCCULT BLOOD,URINE NEGATIVE (NEGATIVE); PROTEIN,URINE NEGATIVE (NEGATIVE); UROBILINOGEN,URINE 0.2 mg/dL (<=1.0)
[2018-02-21] MEDS ORDERED: BISMUTH SUBSALICYLATE 524 MG/30 ML SUSPENSION UDCUP PO ONE (02:30)
[2018-02-21 02:35] VITALS: BP 124/77
== END 2018-02-21 02:49 | disposition home or self-care (01) ==
LOC: EMS 23:29
DX: R10.9 Unspecified abdominal pain (principal); R11.0 Nausea; F25.9 Schizoaffective disorder, unspecified; F17.210 Nicotine dependence, cigarettes, uncomplicated; Z59.0 Homelessness; J44.9 Chronic obstructive pulmonary disease, unspecified
CPT/HCPCS: 93005; 99285; 99406

== ENCOUNTER 2018-02-22 23:04 | Emergency (ER) | payer MEDICARE ==
[~2018-02-22] VITALS: Ht 170.2 cm; Wt 86.4 kg
[~2018-02-22 23:04] MED LIST changes: -FERR-89 PO; -FOLI1 PO; -FOLI1TAB15 PO; -NALT50TA6 PO; -OMEP20 PO; -THIA100T67 PO
[2018-02-22 23:43] VITALS: BP 148/62
== END 2018-02-23 02:00 | disposition left against medical advice (07) ==
LOC: EMS 23:05
DX: Z53.21 Procedure and treatment not carried out due to patient leaving prior to being seen by health care provider (principal)

== ENCOUNTER 2018-02-24 12:13 | Inpatient (IN) | payer MEDICARE ==
[~2018-02-24] VITALS: Ht 172.7 cm; Wt 64.9 kg
[~2018-02-24 12:13] MED LIST changes: -BACI30OI6 TP
[2018-02-24 12:14] VITALS: BP 107/64
[2018-02-24] MEDS ORDERED: LOPERAMIDE HCL 2 MG CAPSULE PO PRN (12:15)
[2018-02-24] MEDS ORDERED: PROMETHAZINE HCL 25 MG TABLET PO PRN (12:15)
[2018-02-24] MEDS ORDERED: LORazepam 2 MG TABLET PO PRN (12:15)
[2018-02-24] MEDS ORDERED: MAG HYDROX/AL HYDROX/SIMETH ES 30 ML SUSPENSION UDCUP PO PRN (12:15)
[2018-02-24] MEDS ORDERED: GuaiFENesin/D-METHORPHAN [SUGAR-FREE] 200-20MG/10 ML SYRUP UDCUP PO PRN (12:15)
[2018-02-24] MEDS ORDERED: QUEtiapine FUMARATE 100 MG TABLET PO PRN (12:15)
[2018-02-24] MEDS ORDERED: HydrOXYzine PAMOATE 50 MG CAPSULE PO PRN (12:15)
[2018-02-24] MEDS ORDERED: MAGNESIUM HYDROXIDE SUSPENSION 30 ML UDCUP PO PRN (12:15)
[2018-02-24] MEDS ORDERED: ZOLPIDEM TARTRATE 10 MG TABLET PO PRN (12:15)
[2018-02-24] MEDS ORDERED: ACETAMINOPHEN 325 MG TABLET PO PRN (12:15)
[2018-02-24] MEDS ORDERED: PNEUMOCOCCAL VACCINE POLYVALENT 0.5 ML VIAL [PPSV23] IM ONE (13:30)
[2018-02-24 16:11] VITALS: BP 122/66
[2018-02-24] MEDS: THIAMINE HCL 100 MG TABLET PO SCH (16:25)
[2018-02-24] MEDS: LORazepam 0.5 MG TABLET PO PRN (16:25)
[2018-02-24] MEDS ORDERED: BACITRACIN 0.9 GM PACKET OINTMENT TP SCH (17:00)
[2018-02-24] MEDS: CEPHALEXIN MONOHYDRATE 500 MG CAPSULE PO SCH ×2 (17:10→20:27)
[2018-02-24] MEDS: BACITRACIN 28.4 GM OINTMENT TP SCH (17:10)
[2018-02-24 22:04] VITALS: BP 111/65
[2018-02-25] MEDS: FOLIC ACID 1 MG TABLET PO SCH (08:52)
[2018-02-25] MEDS: LamoTRIgine 25 MG TABLET PO SCH (08:52)
[2018-02-25] MEDS: ARIPiprazole 5 MG TABLET PO SCH (08:52)
[2018-02-25] MEDS: MULTIVITAMINS WITH MINERALS, THERAPEUTIC TABLET PO SCH (08:52)
[2018-02-25] MEDS: THIAMINE HCL 100 MG TABLET PO SCH ×2 (08:53→16:05)
[2018-02-25] MEDS: NALTREXONE HCL 50 MG TABLET PO SCH (08:53)
[2018-02-25] MEDS: CEPHALEXIN MONOHYDRATE 500 MG CAPSULE PO SCH ×4 (08:53→21:01)
[2018-02-25] MEDS: BACITRACIN 28.4 GM OINTMENT TP SCH ×2 (10:37→16:05)
[2018-02-25] MEDS ORDERED: ALBUTEROL SULFATE HFA 90 MCG/PUFF 8 GM INHALER IH PRN (11:45)
[2018-02-25] MEDS: LORazepam 0.5 MG TABLET PO PRN ×2 (11:57→16:45)
[2018-02-25 13:01] LABS: AMPHET/METH SCREEN,URINE NEGATIVE (NEGATIVE); BARBITURATE SCREEN, URINE NEGATIVE (NEGATIVE); BENZODIAZEPINES SCREEN,URINE NEGATIVE (NEGATIVE); CANNABINOID SCREEN,URINE NEGATIVE (NEGATIVE); COCAINE SCREEN,URINE NEGATIVE (NEGATIVE); METHADONE SCREEN, URINE NEGATIVE (NEGATIVE); OPIATE SCREEN,URINE NEGATIVE (NEGATIVE)
[2018-02-25 13:02] LABS: PHENCYCLIDINE SCREEN,URINE NEGATIVE (NEGATIVE)
[2018-02-25 13:10] LABS: APPEARANCE,URINE CLEAR (CLEAR); BILIRUBIN,URINE NEGATIVE (NEGATIVE); GLUCOSE, URINE (UA) NEGATIVE (NEGATIVE); KETONES,URINE NEGATIVE (NEGATIVE); LEUKOCYTE ESTERASE ,URINE NEGATIVE (NEGATIVE); NITRATE,URINE NEGATIVE (NEGATIVE); OCCULT BLOOD,URINE NEGATIVE (NEGATIVE); PH,URINE 5.5 (5.0-8.0); UROBILINOGEN,URINE 0.2 mg/dL (<=1.0)
[2018-02-25 13:14] LABS: PROTEIN,URINE NEGATIVE (NEGATIVE)
[2018-02-25 16:30] VITALS: BP 119/82
[2018-02-25] MEDS ORDERED: LAMO25 PO (16:42)
[2018-02-25] MEDS ORDERED: ARIP5TAB8 PO (16:42)
[2018-02-25] MEDS ORDERED: NALT50TA PO (16:42)
[2018-02-26 05:00] VITALS: BP 110/86
[2018-02-26] MEDS: LORazepam 0.5 MG TABLET PO PRN ×2 (05:10→11:51)
[2018-02-26 07:05] LABS: BASOPHILS % (AUTO) 0.5 % (0.0-2.0); EOSINOPHILS % (AUTO) 5.7 % (1.0-6.0); HEMATOCRIT 30.6 % (41-53); HEMOGLOBIN 10.1 g/dL (13.5-17.5); LYMPHOCYTES # (AUTO) 1.2 K/uL (1.0-4.8); LYMPHOCYTES % (AUTO) 23.2 % (22.0-44.0); MEAN CORPUSCULAR HEMOGLOBIN 26.2 pg (26.0-34.0); MEAN CORPUSCULAR VOLUME 80 fL (80-100); MONOCYTES # (AUTO) 0.4 K/uL (0.1-1.0); MONOCYTES % (AUTO) 7.7 % (2.0-9.0); NEUTROPHILS # (AUTO) 3.3 K/uL (1.8-7.7); NEUTROPHILS % (AUTO) 62.9 % (40.0-70.0); PLATELET COUNT (AUTO) 252 K/uL (150-450); RED BLOOD CELL COUNT(AUTO) 3.85 MIL/uL (4.50-5.90); RED CELL DISTRIBUTION WIDTH 26.4 % (11.5-14.5)
[2018-02-26 07:36] LABS: ALANINE AMINOTRANSFERASE 37 U/L (12-78); ALBUMIN 3.6 g/dL (3.4-5.0); ALKALINE PHOSPHATASE 84 U/L (46-116); ANION GAP 7 mmol/L (8-16); ASPARTATE AMINOTRANSFERASE 25 U/L (15-37); BILIRUBIN,TOTAL 0.3 mg/dL (0.1-1.0); CALCIUM, TOTAL 8.2 mg/dL (8.8-10.5); CARBON DIOXIDE 26 mmol/L (22-29); CHLORIDE 101 mmol/L (98-107); CREATININE 1.02 mg/dL (0.60-1.30); FREE T4 (FREE THYROXINE) 0.81 ng/dL (0.76-1.46); GLOMERULAR FILTR. RATE CALC > 60 mL/min (>60); GLUCOSE,RANDOM 184 mg/dL (70-110); POTASSIUM 4.3 mmol/L (3.5-5.1); SODIUM SERUM 134 mmol/L (136-145); TOTAL PROTEIN, SERUM 7.5 g/dL (6.4-8.2); UREA NITROGEN, BLOOD 18 mg/dL (7-18)
[2018-02-26 08:12] VITALS: BP 141/68
[2018-02-26] MEDS: THIAMINE HCL 100 MG TABLET PO SCH (08:38)
[2018-02-26] MEDS: MULTIVITAMINS WITH MINERALS, THERAPEUTIC TABLET PO SCH (08:38)
[2018-02-26] MEDS: ARIPiprazole 5 MG TABLET PO SCH (08:38)
[2018-02-26] MEDS: LamoTRIgine 25 MG TABLET PO SCH (08:39)
[2018-02-26] MEDS: CEPHALEXIN MONOHYDRATE 500 MG CAPSULE PO SCH ×2 (08:39→13:38)
[2018-02-26] MEDS: FOLIC ACID 1 MG TABLET PO SCH (08:39)
[2018-02-26] MEDS: NALTREXONE HCL 50 MG TABLET PO SCH (08:39)
[2018-02-26] MEDS: BACITRACIN 28.4 GM OINTMENT TP SCH (08:40)
[2018-02-26] MEDS ORDERED: BACI30OI6 TP (09:44)
[2018-02-26] MEDS ORDERED: CEPH500 PO (09:45)
[2018-03-01] MEDS ORDERED: CEPHALEXIN MONOHYDRATE 500 MG CAPSULE PO SCH (13:00)
== END 2018-02-26 16:45 | disposition home or self-care (01) | DRG 885 ==
LOC: EDSTATUS 12:13 → B2X 12:42 → 3EX 21:15
PROVIDERS: ADMIT Psychiatry & Neurology Psychiatry; ATTEND Psychiatry & Neurology Psychiatry
DX: F25.9 Schizoaffective disorder, unspecified (principal); J44.9 Chronic obstructive pulmonary disease, unspecified; R45.851 Suicidal ideations; D64.9 Anemia, unspecified; L03.114 Cellulitis of left upper limb; K21.9 Gastro-esophageal reflux disease without esophagitis; N40.0 Benign prostatic hyperplasia without lower urinary tract symptoms; I10 Essential (primary) hypertension; F32.9 Major depressive disorder, single episode, unspecified; F17.210 Nicotine dependence, cigarettes, uncomplicated; F12.90 Cannabis use, unspecified, uncomplicated; B19.20 Unspecified viral hepatitis C without hepatic coma; Z91.14 Patient's other noncompliance with medication regimen; Z91.19 Patient's noncompliance with other medical treatment and regimen; Z79.899 Other long term (current) drug therapy; Z65.3 Problems related to other legal circumstances; Z88.8 Allergy status to other drugs, medicaments and biological substances
CPT/HCPCS: 80307; 84439; 87081; J3535

== ENCOUNTER 2018-03-11 19:24 | Emergency (ER) | payer MEDICARE ==
[~2018-03-11] VITALS: Ht 172.7 cm; Wt 65.9 kg
[~2018-03-11 19:24] MED LIST changes: +BACI30OI6 TP; +CEPH500 PO
[2018-03-11 19:56] LABS: BASOPHILS % (AUTO) 0.6 % (0.0-2.0); EOSINOPHILS % (AUTO) 4.5 % (1.0-6.0); HEMATOCRIT 28.5 % (41-53); HEMOGLOBIN 9.5 g/dL (13.5-17.5); LYMPHOCYTES # (AUTO) 1.2 K/uL (1.0-4.8); LYMPHOCYTES % (AUTO) 24.4 % (22.0-44.0); MEAN CORPUSCULAR HEMOGLOBIN 26.6 pg (26.0-34.0); MEAN CORPUSCULAR HGB CONC 33.4 G/dL (31.0-37.0); MEAN CORPUSCULAR VOLUME 80 fL (80-100); MONOCYTES # (AUTO) 0.5 K/uL (0.1-1.0); MONOCYTES % (AUTO) 9.6 % (2.0-9.0); NEUTROPHILS % (AUTO) 60.9 % (40.0-70.0); PLATELET COUNT (AUTO) 304 K/uL (150-450); RED BLOOD CELL COUNT(AUTO) 3.58 MIL/uL (4.50-5.90); RED CELL DISTRIBUTION WIDTH 24.6 % (11.5-14.5)
[2018-03-11] MEDS ORDERED: LORazepam 1 MG TABLET PO ONE (20:00)
[2018-03-11 20:05] LABS: CALCIUM, TOTAL 8.3 mg/dL (8.8-10.5); CREATININE 1.42 mg/dL (0.60-1.30); POTASSIUM 3.6 mmol/L (3.5-5.1)
[2018-03-11 20:11] LABS: ALBUMIN 3.3 g/dL (3.4-5.0); BILIRUBIN,TOTAL 0.1 mg/dL (0.1-1.0)
[2018-03-11 21:09] VITALS: BP 109/71
== END 2018-03-11 21:12 | disposition home or self-care (01) ==
LOC: EMS 19:24
DX: F41.9 Anxiety disorder, unspecified (principal); R79.89 Other specified abnormal findings of blood chemistry; F17.210 Nicotine dependence, cigarettes, uncomplicated; F20.9 Schizophrenia, unspecified; F32.9 Major depressive disorder, single episode, unspecified; J44.9 Chronic obstructive pulmonary disease, unspecified; Z59.0 Homelessness; Z91.14 Patient's other noncompliance with medication regimen
CPT/HCPCS: 36415; 80053; 85025; 99285; G0480

== ENCOUNTER 2018-03-11 22:02 | Emergency (ER) | payer MEDICARE ==
[~2018-03-11] VITALS: Ht 177.8 cm; Wt 63.6 kg
[2018-03-11 22:09] VITALS: BP 111/77
== END 2018-03-11 23:39 | disposition home or self-care (01) ==
LOC: EMS 22:04
DX: F20.9 Schizophrenia, unspecified (principal); F41.9 Anxiety disorder, unspecified; F32.9 Major depressive disorder, single episode, unspecified; I10 Essential (primary) hypertension; J44.9 Chronic obstructive pulmonary disease, unspecified; F17.210 Nicotine dependence, cigarettes, uncomplicated; Z59.0 Homelessness; Z79.899 Other long term (current) drug therapy; Z88.8 Allergy status to other drugs, medicaments and biological substances
CPT/HCPCS: 99285

== ENCOUNTER 2018-04-07 17:47 | Inpatient (IN) | payer MEDICARE ==
[~2018-04-07] VITALS: Ht 165.1 cm; Wt 63.3 kg
[2018-04-07 19:24] LABS: BASOPHILS % (AUTO) 1.5 % (0.0-2.0); EOSINOPHILS % (AUTO) 5.4 % (1.0-6.0); HEMOGLOBIN 9.6 g/dL (13.5-17.5); LYMPHOCYTES # (AUTO) 1.4 K/uL (1.0-4.8); LYMPHOCYTES % (AUTO) 26.7 % (22.0-44.0); MEAN CORPUSCULAR HEMOGLOBIN 26.6 pg (26.0-34.0); MEAN CORPUSCULAR HGB CONC 33.1 G/dL (31.0-37.0); MEAN CORPUSCULAR VOLUME 81 fL (80-100); MONOCYTES # (AUTO) 0.5 K/uL (0.1-1.0); MONOCYTES % (AUTO) 9.3 % (2.0-9.0); NEUTROPHILS % (AUTO) 57.1 % (40.0-70.0); PLATELET COUNT (AUTO) 308 K/uL (150-450); RED CELL DISTRIBUTION WIDTH 19.8 % (11.5-14.5)
[2018-04-07 19:33] LABS: ANION GAP 3 mmol/L (8-16); CALCIUM, TOTAL 8.5 mg/dL (8.8-10.5); CARBON DIOXIDE 27 mmol/L (22-29); CHLORIDE 101 mmol/L (98-107); CREATININE 1.12 mg/dL (0.60-1.30); GLUCOSE,RANDOM 100 mg/dL (70-110); POTASSIUM 4.5 mmol/L (3.5-5.1); SODIUM SERUM 131 mmol/L (136-145); UREA NITROGEN, BLOOD 15 mg/dL (7-18)
[2018-04-07 19:34] LABS: GLOMERULAR FILTR. RATE CALC > 60 mL/min (>60)
[2018-04-07 19:39] LABS: ALANINE AMINOTRANSFERASE 33 U/L (12-78); ALBUMIN 3.7 g/dL (3.4-5.0); ALKALINE PHOSPHATASE 116 U/L (46-116); ASPARTATE AMINOTRANSFERASE 28 U/L (15-37); BILIRUBIN,TOTAL 0.2 mg/dL (0.1-1.0); TOTAL PROTEIN, SERUM 7.6 g/dL (6.4-8.2)
[2018-04-07 21:28] LABS: APPEARANCE,URINE CLEAR (CLEAR); BILIRUBIN,URINE NEGATIVE (NEGATIVE); GLUCOSE, URINE (UA) NEGATIVE (NEGATIVE); KETONES,URINE NEGATIVE (NEGATIVE); LEUKOCYTE ESTERASE ,URINE NEGATIVE (NEGATIVE); NITRATE,URINE NEGATIVE (NEGATIVE); OCCULT BLOOD,URINE NEGATIVE (NEGATIVE); PROTEIN,URINE TRACE (NEGATIVE); UROBILINOGEN,URINE 0.2 mg/dL (<=1.0)
[2018-04-07 21:35] LABS: AMPHET/METH SCREEN,URINE POSITIVE (NEGATIVE); BARBITURATE SCREEN, URINE NEGATIVE (NEGATIVE); BENZODIAZEPINES SCREEN,URINE NEGATIVE (NEGATIVE); CANNABINOID SCREEN,URINE NEGATIVE (NEGATIVE); COCAINE SCREEN,URINE NEGATIVE (NEGATIVE); METHADONE SCREEN, URINE NEGATIVE (NEGATIVE); OPIATE SCREEN,URINE NEGATIVE (NEGATIVE); PHENCYCLIDINE SCREEN,URINE NEGATIVE (NEGATIVE)
[2018-04-08] MEDS ORDERED: LORazepam 2 MG TABLET PO PRN ×2 (01:00→13:00)
[2018-04-08] MEDS ORDERED: QUEtiapine FUMARATE 100 MG TABLET PO PRN (01:00)
[2018-04-08] MEDS ORDERED: ZOLPIDEM TARTRATE 10 MG TABLET PO PRN ×2 (01:00→12:00)
[2018-04-08 02:34] VITALS: BP 124/97
[2018-04-08] MEDS ORDERED: PNEUMOCOCCAL VACCINE POLYVALENT 0.5 ML VIAL [PPSV23] IM ONE (03:15)
[2018-04-08 10:33] VITALS: BP 115/69
[2018-04-08] MEDS ORDERED: GuaiFENesin/D-METHORPHAN [SUGAR-FREE] 200-20MG/10 ML SYRUP UDCUP PO PRN (12:00)
[2018-04-08] MEDS ORDERED: MAGNESIUM HYDROXIDE SUSPENSION 30 ML UDCUP PO PRN (12:00)
[2018-04-08] MEDS ORDERED: MAG HYDROX/AL HYDROX/SIMETH ES 30 ML SUSPENSION UDCUP PO PRN (12:00)
[2018-04-08] MEDS ORDERED: PROMETHAZINE HCL 25 MG TABLET PO PRN (12:00)
[2018-04-08] MEDS ORDERED: ACETAMINOPHEN 325 MG TABLET PO PRN (12:00)
[2018-04-08] MEDS ORDERED: HydrOXYzine PAMOATE 50 MG CAPSULE PO PRN (12:00)
[2018-04-08] MEDS ORDERED: LOPERAMIDE HCL 2 MG CAPSULE PO PRN (12:00)
[2018-04-08] MEDS: THIAMINE HCL 100 MG TABLET PO SCH (17:00)
[2018-04-08] MEDS: LamoTRIgine 25 MG TABLET PO SCH (21:00)
[2018-04-08] MEDS: QUEtiapine FUMARATE 25 MG TABLET PO SCH (21:00)
[2018-04-09] MEDS: FOLIC ACID 1 MG TABLET PO SCH (09:00)
[2018-04-09] MEDS: NALTREXONE HCL 50 MG TABLET PO SCH (09:00)
[2018-04-09] MEDS: MULTIVITAMINS WITH MINERALS, THERAPEUTIC TABLET PO SCH (09:00)
[2018-04-09] MEDS: THIAMINE HCL 100 MG TABLET PO SCH ×2 (09:00→16:44)
[2018-04-09 16:44] VITALS: BP 113/72
[2018-04-09] MEDS: LORazepam 0.5 MG TABLET PO PRN (16:44)
[2018-04-09] MEDS: QUEtiapine FUMARATE 25 MG TABLET PO SCH (22:07)
[2018-04-09] MEDS: LamoTRIgine 25 MG TABLET PO SCH (22:10)
[2018-04-10] MEDS: MULTIVITAMINS WITH MINERALS, THERAPEUTIC TABLET PO SCH (09:00)
[2018-04-10] MEDS: THIAMINE HCL 100 MG TABLET PO SCH ×2 (09:00→17:59)
[2018-04-10] MEDS: FOLIC ACID 1 MG TABLET PO SCH (09:00)
[2018-04-10] MEDS: NALTREXONE HCL 50 MG TABLET PO SCH (09:00)
[2018-04-10] MEDS: QUEtiapine FUMARATE 100 MG TABLET PO PRN ×2 (12:32→12:37)
[2018-04-10] MEDS: LORazepam 0.5 MG TABLET PO PRN ×2 (12:36→18:31)
[2018-04-10 18:04] VITALS: BP 125/79
[2018-04-10] MEDS: LamoTRIgine 25 MG TABLET PO SCH (20:27)
[2018-04-10] MEDS: QUEtiapine FUMARATE 25 MG TABLET PO SCH (20:27)
[2018-04-11] MEDS: THIAMINE HCL 100 MG TABLET PO SCH ×2 (09:00→16:26)
[2018-04-11] MEDS: MULTIVITAMINS WITH MINERALS, THERAPEUTIC TABLET PO SCH (09:00)
[2018-04-11] MEDS: NALTREXONE HCL 50 MG TABLET PO SCH (09:00)
[2018-04-11] MEDS: FOLIC ACID 1 MG TABLET PO SCH (09:00)
[2018-04-11] MEDS: LORazepam 0.5 MG TABLET PO PRN ×2 (09:15→16:54)
[2018-04-11 16:55] VITALS: BP 113/76
[2018-04-11] MEDS: LamoTRIgine 25 MG TABLET PO SCH (20:22)
[2018-04-11] MEDS: QUEtiapine FUMARATE 25 MG TABLET PO SCH (20:23)
[2018-04-12] MEDS: THIAMINE HCL 100 MG TABLET PO SCH ×2 (09:00→16:22)
[2018-04-12] MEDS: FOLIC ACID 1 MG TABLET PO SCH (09:00)
[2018-04-12] MEDS: MULTIVITAMINS WITH MINERALS, THERAPEUTIC TABLET PO SCH (09:00)
[2018-04-12] MEDS: NALTREXONE HCL 50 MG TABLET PO SCH (09:00)
[2018-04-12] MEDS: LORazepam 0.5 MG TABLET PO PRN ×2 (13:02→17:57)
[2018-04-12 17:40] VITALS: BP 111/77
[2018-04-12] MEDS ORDERED: QUEtiapine FUMARATE 25 MG TABLET PO SCH (21:00)
[2018-04-12] MEDS: LamoTRIgine 25 MG TABLET PO SCH (22:02)
[2018-04-13] MEDS: LORazepam 0.5 MG TABLET PO PRN ×2 (08:15→15:33)
[2018-04-13] MEDS: THIAMINE HCL 100 MG TABLET PO SCH ×2 (09:27→15:34)
[2018-04-13] MEDS: FOLIC ACID 1 MG TABLET PO SCH (09:27)
[2018-04-13] MEDS: NALTREXONE HCL 50 MG TABLET PO SCH (09:28)
[2018-04-13] MEDS: MULTIVITAMINS WITH MINERALS, THERAPEUTIC TABLET PO SCH (09:28)
[2018-04-13] MEDS ORDERED: QUET25TA34 PO (17:03)
[2018-04-13] MEDS ORDERED: LAMO25 PO (17:03)
[2018-04-13] MEDS ORDERED: NALT50TA PO (17:03)
== END 2018-04-13 19:20 | disposition home or self-care (01) | DRG 885 ==
LOC: EMS 17:50 → 3EX 04-08 01:04
PROVIDERS: ADMIT Psychiatry & Neurology Psychiatry; ATTEND Psychiatry & Neurology Psychiatry
DX: F25.9 Schizoaffective disorder, unspecified (principal); R45.851 Suicidal ideations; E46 Unspecified protein-calorie malnutrition; E87.1 Hypo-osmolality and hyponatremia; F17.210 Nicotine dependence, cigarettes, uncomplicated; F32.9 Major depressive disorder, single episode, unspecified; I10 Essential (primary) hypertension; J44.9 Chronic obstructive pulmonary disease, unspecified; N40.0 Benign prostatic hyperplasia without lower urinary tract symptoms; Z59.0 Homelessness; Z65.3 Problems related to other legal circumstances; B19.20 Unspecified viral hepatitis C without hepatic coma; D64.9 Anemia, unspecified; Z68.23 Body mass index [BMI] 23.0-23.9, adult; F12.90 Cannabis use, unspecified, uncomplicated; F15.90 Other stimulant use, unspecified, uncomplicated; Z79.899 Other long term (current) drug therapy; Z91.14 Patient's other noncompliance with medication regimen
CPT/HCPCS: 87081; 93005; 99285; G0480

== ENCOUNTER 2018-04-17 19:51 | Inpatient (IN) | payer MEDICARE ==
[~2018-04-17] VITALS: Ht 172.7 cm; Wt 63.5 kg
[~2018-04-17 19:51] MED LIST changes: -ARIP5TAB8 PO; -BACI30OI6 TP; -CEPH500 PO; -MVITFE PO; +QUET25TA34 PO
[2018-04-17] MEDS ORDERED: LORazepam 2 MG TABLET PO PRN (20:15)
[2018-04-17] MEDS ORDERED: ZOLPIDEM TARTRATE 10 MG TABLET PO PRN (20:15)
[2018-04-17 20:38] VITALS: BP 111/70
[2018-04-17] MEDS ORDERED: PNEUMOCOCCAL VACCINE POLYVALENT 0.5 ML VIAL [PPSV23] IM ONE (21:00)
[2018-04-18 06:50] VITALS: BP 108/70
[2018-04-18 08:12] VITALS: BP 114/72
[2018-04-18] MEDS ORDERED: LORazepam 2 MG TABLET PO PRN (08:15)
[2018-04-18 16:03] VITALS: BP 101/69
[2018-04-18] MEDS: LamoTRIgine 25 MG TABLET PO SCH (20:35)
[2018-04-18] MEDS: QUEtiapine FUMARATE 25 MG TABLET PO SCH (20:35)
[2018-04-19 06:45] VITALS: BP 116/70
[2018-04-19 08:21] LABS: BASOPHILS % (AUTO) 1.4 % (0.0-2.0); EOSINOPHILS % (AUTO) 5.2 % (1.0-6.0); HEMATOCRIT 29.4 % (41-53); HEMOGLOBIN 9.8 g/dL (13.5-17.5); LYMPHOCYTES # (AUTO) 1.3 K/uL (1.0-4.8); MEAN CORPUSCULAR HEMOGLOBIN 26.5 pg (26.0-34.0); MEAN CORPUSCULAR HGB CONC 33.3 G/dL (31.0-37.0); MEAN CORPUSCULAR VOLUME 80 fL (80-100); MONOCYTES # (AUTO) 0.4 K/uL (0.1-1.0); MONOCYTES % (AUTO) 8.7 % (2.0-9.0); NEUTROPHILS % (AUTO) 58.7 % (40.0-70.0); PLATELET COUNT (AUTO) 341 K/uL (150-450); RED BLOOD CELL COUNT(AUTO) 3.69 MIL/uL (4.50-5.90); RED CELL DISTRIBUTION WIDTH 17.2 % (11.5-14.5)
[2018-04-19 08:27] VITALS: BP 108/72
[2018-04-19 08:30] LABS: HEMOGLOBIN A1C 6.8 % (4.5-6.2)
[2018-04-19] MEDS: MULTIVITAMINS WITH IRON TABLET PO SCH (09:00)
[2018-04-19] MEDS: NALTREXONE HCL 50 MG TABLET PO SCH (09:00)
[2018-04-19 09:04] LABS: ALANINE AMINOTRANSFERASE 29 U/L (12-78); ALBUMIN 3.2 g/dL (3.4-5.0); ALKALINE PHOSPHATASE 84 U/L (46-116); ANION GAP 5 mmol/L (8-16); ASPARTATE AMINOTRANSFERASE 24 U/L (15-37); BILIRUBIN,TOTAL 0.3 mg/dL (0.1-1.0); CALCIUM, TOTAL 7.9 mg/dL (8.8-10.5); CARBON DIOXIDE 28 mmol/L (22-29); CHLORIDE 103 mmol/L (98-107); CHOL/HDL RATIO 2.5 (4.2-7.3); CHOLESTEROL 126 mg/dL (131-200); CREATININE 0.91 mg/dL (0.60-1.30); GLUCOSE,RANDOM 86 mg/dL (70-110); HDL CHOLESTEROL 51 mg/dL (40-60); LDL CHOL (CALC.) 65 mg/dL (0-130); POTASSIUM 4.5 mmol/L (3.5-5.1); SODIUM SERUM 136 mmol/L (136-145); THYROID STIMULATING HORMONE 0.86 uIU/mL (0.36-3.74); TOTAL PROTEIN, SERUM 6.4 g/dL (6.4-8.2); TRIGLYCERIDES 51 mg/dL (15-150)
[2018-04-19 09:05] LABS: GLOMERULAR FILTR. RATE CALC > 60 mL/min (>60)
[2018-04-19 09:11] LABS: UREA NITROGEN, BLOOD 18 mg/dL (7-18)
[2018-04-19] MEDS ORDERED: MAGNESIUM HYDROXIDE SUSPENSION 30 ML UDCUP PO PRN (14:30)
[2018-04-19] MEDS ORDERED: ZOLPIDEM TARTRATE 5 MG TABLET PO PRN (14:30)
[2018-04-19] MEDS ORDERED: GuaiFENesin/D-METHORPHAN [SUGAR-FREE] 200-20MG/10 ML SYRUP UDCUP PO PRN (14:30)
[2018-04-19] MEDS ORDERED: MAG HYDROX/AL HYDROX/SIMETH ES 30 ML SUSPENSION UDCUP PO PRN (14:30)
[2018-04-19] MEDS ORDERED: LOPERAMIDE HCL 2 MG CAPSULE PO PRN (14:30)
[2018-04-19] MEDS ORDERED: ACETAMINOPHEN 325 MG TABLET PO PRN (14:30)
[2018-04-19] MEDS ORDERED: QUEtiapine FUMARATE 25 MG TABLET PO PRN (14:30)
[2018-04-19] MEDS ORDERED: PROMETHAZINE HCL 25 MG TABLET PO PRN (14:30)
[2018-04-19] MEDS ORDERED: HydrOXYzine PAMOATE 50 MG CAPSULE PO PRN (14:30)
[2018-04-19 16:06] VITALS: BP 118/79
[2018-04-19] MEDS: THIAMINE HCL 100 MG TABLET PO SCH (16:42)
[2018-04-19] MEDS: LamoTRIgine 25 MG TABLET PO SCH (20:38)
[2018-04-19] MEDS: QUEtiapine FUMARATE 25 MG TABLET PO SCH (20:38)
[2018-04-19] MEDS ORDERED: GLUCAGON,HUMAN RECOMBINANT 1 MG VIAL IM PRN (21:30)
[2018-04-19] MEDS ORDERED: INSULIN LISPRO 100 UNITS/ML SQ PRN (21:30)
[2018-04-20 06:28] VITALS: BP 105/65
[2018-04-20] MEDS: NALTREXONE HCL 50 MG TABLET PO SCH (09:00)
[2018-04-20] MEDS: FOLIC ACID 1 MG TABLET PO SCH (09:00)
[2018-04-20] MEDS: THIAMINE HCL 100 MG TABLET PO SCH ×2 (09:00→17:26)
[2018-04-20] MEDS ORDERED: MULTIVITAMINS WITH MINERALS, THERAPEUTIC TABLET PO SCH (09:00)
[2018-04-20] MEDS: MULTIVITAMINS WITH IRON TABLET PO SCH (09:00)
[2018-04-20] MEDS ORDERED: DiphenhydrAMINE HCL 50 MG/ML VIAL IM ONE (09:30)
[2018-04-20] MEDS ORDERED: HALOPERIDOL LACTATE 5 MG/ML VIAL IM ONE (09:30)
[2018-04-20] MEDS ORDERED: LORazepam 2 MG/ML VIAL IM ONE (09:30)
[2018-04-20 16:12] VITALS: BP 114/68
[2018-04-20 17:33] LABS: GLUCOMETER DEV NAME(LOC) BV2N3; GLUCOSE,POINT OF CARE 150 MG/DL (70-110)
[2018-04-20] MEDS: QUEtiapine FUMARATE 100 MG TABLET PO SCH (20:59)
[2018-04-20] MEDS: LamoTRIgine 25 MG TABLET PO SCH (20:59)
[2018-04-21 09:03] VITALS: BP 123/75
[2018-04-21] MEDS: LORazepam 0.5 MG TABLET PO PRN ×2 (09:32→22:43)
[2018-04-21] MEDS: MULTIVITAMINS WITH IRON TABLET PO SCH (09:32)
[2018-04-21] MEDS: FOLIC ACID 1 MG TABLET PO SCH (09:33)
[2018-04-21] MEDS: NALTREXONE HCL 50 MG TABLET PO SCH (09:33)
[2018-04-21] MEDS: THIAMINE HCL 100 MG TABLET PO SCH ×2 (09:33→17:02)
[2018-04-21 16:05] VITALS: BP 110/72
[2018-04-21] MEDS: QUEtiapine FUMARATE 100 MG TABLET PO SCH (20:05)
[2018-04-21] MEDS: LamoTRIgine 25 MG TABLET PO SCH (20:05)
[2018-04-22 08:12] VITALS: BP 107/65
[2018-04-22] MEDS: MULTIVITAMINS WITH IRON TABLET PO SCH (09:48)
[2018-04-22] MEDS: LORazepam 0.5 MG TABLET PO PRN ×2 (09:48→16:14)
[2018-04-22] MEDS: NALTREXONE HCL 50 MG TABLET PO SCH (09:48)
[2018-04-22] MEDS: NICOTINE 14 MG/24 HOUR PATCH TD SCH (09:48)
[2018-04-22] MEDS: THIAMINE HCL 100 MG TABLET PO SCH ×2 (09:49→16:39)
[2018-04-22] MEDS: FOLIC ACID 1 MG TABLET PO SCH (09:49)
[2018-04-22 15:58] LABS: GLUCOMETER DEV NAME(LOC) BV2N3; GLUCOSE,POINT OF CARE 138 MG/DL (70-110)
[2018-04-22 16:00] VITALS: BP 116/78
[2018-04-22 20:29] VITALS: BP 136/86
[2018-04-22] MEDS: LamoTRIgine 25 MG TABLET PO SCH (21:25)
[2018-04-22] MEDS: QUEtiapine FUMARATE 100 MG TABLET PO SCH (21:25)
[2018-04-22] MEDS ORDERED: DEXTROSE 50%-WATER 25 GM/50 ML SYG IVP PRN (22:30)
[2018-04-22] MEDS ORDERED: INSULIN LISPRO 100 UNITS/ML SQ PRN (22:30)
[2018-04-23 06:43] LABS: GLUCOMETER DEV NAME(LOC) 3EI B; GLUCOSE,POINT OF CARE 91 MG/DL (70-110)
[2018-04-23] MEDS: MetFORMIN HCL 500 MG TABLET PO SCH (07:16)
[2018-04-23] MEDS: NALTREXONE HCL 50 MG TABLET PO SCH (08:12)
[2018-04-23] MEDS: FOLIC ACID 1 MG TABLET PO SCH (08:12)
[2018-04-23] MEDS: MULTIVITAMINS WITH IRON TABLET PO SCH (08:12)
[2018-04-23] MEDS: THIAMINE HCL 100 MG TABLET PO SCH ×2 (08:12→16:57)
[2018-04-23] MEDS: LORazepam 0.5 MG TABLET PO PRN ×2 (08:16→13:45)
[2018-04-23] MEDS: NICOTINE 14 MG/24 HOUR PATCH TD SCH (09:00)
[2018-04-23 09:02] VITALS: BP 18/140
[2018-04-23 17:00] VITALS: BP 112/80
[2018-04-23] MEDS: QUEtiapine FUMARATE 100 MG TABLET PO SCH (20:30)
[2018-04-23] MEDS: LamoTRIgine 25 MG TABLET PO SCH (20:31)
[2018-04-24] MEDS: LORazepam 0.5 MG TABLET PO PRN (06:30)
[2018-04-24] MEDS: MetFORMIN HCL 500 MG TABLET PO SCH (06:57)
[2018-04-24] MEDS: NALTREXONE HCL 50 MG TABLET PO SCH (09:15)
[2018-04-24] MEDS: FOLIC ACID 1 MG TABLET PO SCH (09:15)
[2018-04-24] MEDS: THIAMINE HCL 100 MG TABLET PO SCH ×2 (09:16→16:56)
[2018-04-24] MEDS: MULTIVITAMINS WITH IRON TABLET PO SCH (09:16)
[2018-04-24] MEDS: NICOTINE 14 MG/24 HOUR PATCH TD SCH (09:19)
[2018-04-24] MEDS: QUEtiapine FUMARATE 100 MG TABLET PO SCH (20:40)
[2018-04-24] MEDS: LamoTRIgine 25 MG TABLET PO SCH (20:40)
[2018-04-24 20:54] VITALS: BP 111/78
[2018-04-25] MEDS: LORazepam 0.5 MG TABLET PO PRN ×2 (06:02→18:07)
[2018-04-25] MEDS: MetFORMIN HCL 500 MG TABLET PO SCH (06:59)
[2018-04-25] MEDS: LamoTRIgine 25 MG TABLET PO SCH (11:00)
[2018-04-25] MEDS: NALTREXONE HCL 50 MG TABLET PO SCH (11:00)
[2018-04-25] MEDS: FOLIC ACID 1 MG TABLET PO SCH (11:00)
[2018-04-25] MEDS: NICOTINE 14 MG/24 HOUR PATCH TD SCH (11:00)
[2018-04-25] MEDS: MULTIVITAMINS WITH IRON TABLET PO SCH (11:00)
[2018-04-25] MEDS: THIAMINE HCL 100 MG TABLET PO SCH ×2 (11:01→18:07)
[2018-04-25 18:39] VITALS: BP 135/68
[2018-04-25] MEDS: QUEtiapine FUMARATE 100 MG TABLET PO SCH (20:34)
[2018-04-26] MEDS: LORazepam 0.5 MG TABLET PO PRN (05:51)
[2018-04-26] MEDS: MetFORMIN HCL 500 MG TABLET PO SCH (07:22)
[2018-04-26] MEDS: FOLIC ACID 1 MG TABLET PO SCH (08:10)
[2018-04-26] MEDS: NALTREXONE HCL 50 MG TABLET PO SCH (08:10)
[2018-04-26] MEDS: NICOTINE 14 MG/24 HOUR PATCH TD SCH (08:11)
[2018-04-26] MEDS: MULTIVITAMINS WITH IRON TABLET PO SCH (08:11)
[2018-04-26] MEDS: THIAMINE HCL 100 MG TABLET PO SCH ×2 (08:11→16:18)
[2018-04-26] MEDS ORDERED: QUET100T PO (11:04)
[2018-04-26] MEDS ORDERED: MVITFE PO (11:06)
[2018-04-26] MEDS ORDERED: METF500T6 PO (11:06)
[2018-04-26] MEDS ORDERED: NALT50TA6 PO (11:14)
[2018-04-26] MEDS ORDERED: LAMO25 PO ×2 (11:14→16:12)
[2018-04-26] MEDS ORDERED: NALT50TA PO (16:12)
[2018-04-26] MEDS ORDERED: QUET100T33 PO (16:12)
== END 2018-04-26 18:00 | disposition home or self-care (01) | DRG 885 ==
LOC: B2X 20:12 → 3EX 04-22 20:00
PROVIDERS: ADMIT Psychiatry & Neurology Child & Adolescent Psychiatry; ATTEND Psychiatry & Neurology Psychiatry
DX: F25.1 Schizoaffective disorder, depressive type (principal); E44.0 Moderate protein-calorie malnutrition; R45.851 Suicidal ideations; B19.20 Unspecified viral hepatitis C without hepatic coma; D64.9 Anemia, unspecified; E11.9 Type 2 diabetes mellitus without complications; G47.00 Insomnia, unspecified; J44.9 Chronic obstructive pulmonary disease, unspecified; N40.0 Benign prostatic hyperplasia without lower urinary tract symptoms; I10 Essential (primary) hypertension; K21.9 Gastro-esophageal reflux disease without esophagitis; F41.9 Anxiety disorder, unspecified; Z68.21 Body mass index [BMI] 21.0-21.9, adult; Z91.19 Patient's noncompliance with other medical treatment and regimen; Z28.21 Immunization not carried out because of patient refusal; Z88.8 Allergy status to other drugs, medicaments and biological substances; Z59.0 Homelessness
CPT/HCPCS: 82270; 83036; 84439; 84443; 87081; J1200; J1630; J2060

== ENCOUNTER 2018-05-03 19:28 | Emergency (ER) | payer MEDICARE ==
[~2018-05-03] VITALS: Ht 172.7 cm; Wt 63.0 kg
[~2018-05-03 19:28] MED LIST changes: +METF500T6 PO; +MVITFE PO; +QUET100T33 PO; -QUET25TA34 PO
[2018-05-03 19:53] LABS: GLUCOSE,POINT OF CARE 168 MG/DL (70-110)
[2018-05-03 20:15] LABS: EOSINOPHILS % (AUTO) 7.4 % (1.0-6.0); HEMATOCRIT 29.8 % (41-53); HEMOGLOBIN 9.9 g/dL (13.5-17.5); LYMPHOCYTES # (AUTO) 1.7 K/uL (1.0-4.8); LYMPHOCYTES % (AUTO) 29.6 % (22.0-44.0); MEAN CORPUSCULAR HEMOGLOBIN 26.6 pg (26.0-34.0); MEAN CORPUSCULAR HGB CONC 33.1 G/dL (31.0-37.0); MEAN CORPUSCULAR VOLUME 81 fL (80-100); MONOCYTES # (AUTO) 0.6 K/uL (0.1-1.0); MONOCYTES % (AUTO) 10.7 % (2.0-9.0); NEUTROPHILS % (AUTO) 51.3 % (40.0-70.0); PLATELET COUNT (AUTO) 242 K/uL (150-450); RED CELL DISTRIBUTION WIDTH 16.9 % (11.5-14.5)
[2018-05-03 20:24] LABS: ANION GAP 10 mmol/L (8-16); CALCIUM, TOTAL 8.4 mg/dL (8.8-10.5); CARBON DIOXIDE 25 mmol/L (22-29); CHLORIDE 103 mmol/L (98-107); CREATININE 1.17 mg/dL (0.60-1.30); GLOMERULAR FILTR. RATE CALC > 60 mL/min (>60); GLUCOSE,RANDOM 112 mg/dL (70-110); POTASSIUM 4.2 mmol/L (3.5-5.1); SODIUM SERUM 138 mmol/L (136-145); UREA NITROGEN, BLOOD 22 mg/dL (7-18)
[2018-05-03 20:30] LABS: ALANINE AMINOTRANSFERASE 29 U/L (12-78); ALBUMIN 3.5 g/dL (3.4-5.0); ALKALINE PHOSPHATASE 92 U/L (46-116); ASPARTATE AMINOTRANSFERASE 28 U/L (15-37); BILIRUBIN,TOTAL 0.3 mg/dL (0.1-1.0); TOTAL PROTEIN, SERUM 7.3 g/dL (6.4-8.2)
[2018-05-03 20:34] LABS: APPEARANCE,URINE CLEAR (CLEAR); BILIRUBIN,URINE NEGATIVE (NEGATIVE); GLUCOSE, URINE (UA) NEGATIVE (NEGATIVE); KETONES,URINE NEGATIVE (NEGATIVE); LEUKOCYTE ESTERASE ,URINE NEGATIVE (NEGATIVE); NITRATE,URINE NEGATIVE (NEGATIVE); OCCULT BLOOD,URINE NEGATIVE (NEGATIVE); PH,URINE 5.5 (5.0-8.0); PROTEIN,URINE POS 1+ (NEGATIVE); UROBILINOGEN,URINE 0.2 mg/dL (<=1.0)
[2018-05-03 20:37] LABS: AMPHET/METH SCREEN,URINE NEGATIVE (NEGATIVE); BARBITURATE SCREEN, URINE NEGATIVE (NEGATIVE); BENZODIAZEPINES SCREEN,URINE NEGATIVE (NEGATIVE); CANNABINOID SCREEN,URINE POSITIVE (NEGATIVE); COCAINE SCREEN,URINE NEGATIVE (NEGATIVE); METHADONE SCREEN, URINE NEGATIVE (NEGATIVE); OPIATE SCREEN,URINE NEGATIVE (NEGATIVE); PHENCYCLIDINE SCREEN,URINE NEGATIVE (NEGATIVE)
[2018-05-03 20:56] LABS: BACTERIA,URINE None Seen /HPF (None Seen); RBC,URINE None Seen /HPF (0-2); SQUAMOUS EPITHELIAL CELL,UR Rare /LPF (None Seen); WBC,URINE 0-2 /HPF (0-5)
[2018-05-03] MEDS: HydrOXYzine HCL 25 MG TABLET PO ONE ×2 (21:17→21:18)
[2018-05-03 21:23] VITALS: BP 121/67
== END 2018-05-03 21:30 | disposition home or self-care (01) ==
LOC: EMS 19:29
DX: F41.9 Anxiety disorder, unspecified (principal); F17.210 Nicotine dependence, cigarettes, uncomplicated; F12.10 Cannabis abuse, uncomplicated; F15.10 Other stimulant abuse, uncomplicated; F20.9 Schizophrenia, unspecified; F32.9 Major depressive disorder, single episode, unspecified; J44.9 Chronic obstructive pulmonary disease, unspecified; Z59.0 Homelessness; Z79.899 Other long term (current) drug therapy; Z88.8 Allergy status to other drugs, medicaments and biological substances
CPT/HCPCS: 36415; 80053; 80307; 81001; 82962; 85025; 99284; 99406; G0480

== ENCOUNTER 2018-05-07 18:30 | Inpatient (IN) | payer MEDICARE ==
[~2018-05-07] VITALS: Ht 172.7 cm; Wt 66.2 kg
[2018-05-07] MEDS ORDERED: ZOLPIDEM TARTRATE 10 MG TABLET PO PRN (23:00)
[2018-05-07] MEDS ORDERED: LORazepam 2 MG TABLET PO PRN (23:00)
[2018-05-07] MEDS ORDERED: PNEUMOCOCCAL VACCINE POLYVALENT 0.5 ML VIAL [PPSV23] IM ONE (23:45)
[2018-05-08 00:26] VITALS: BP 134/78
[2018-05-08] MEDS: NALTREXONE HCL 50 MG TABLET PO SCH (10:00)
[2018-05-08] MEDS: QUEtiapine FUMARATE 100 MG TABLET PO SCH (20:50)
[2018-05-08] MEDS: LamoTRIgine 25 MG TABLET PO SCH (20:50)
[2018-05-09 08:22] VITALS: BP 110/62
[2018-05-09] MEDS: NALTREXONE HCL 50 MG TABLET PO SCH (09:00)
[2018-05-09 20:10] VITALS: BP 125/80
[2018-05-09] MEDS: LORazepam 0.5 MG TABLET PO PRN (20:10)
[2018-05-09] MEDS: LamoTRIgine 25 MG TABLET PO SCH (20:10)
[2018-05-09] MEDS: QUEtiapine FUMARATE 100 MG TABLET PO SCH (20:10)
[2018-05-10 05:39] VITALS: BP 121/68
[2018-05-10 08:30] VITALS: BP 111/72
[2018-05-10] MEDS: NALTREXONE HCL 50 MG TABLET PO SCH (08:43)
[2018-05-10] MEDS ORDERED: GuaiFENesin/D-METHORPHAN [SUGAR-FREE] 200-20MG/10 ML SYRUP UDCUP PO PRN (12:00)
[2018-05-10] MEDS ORDERED: HydrOXYzine PAMOATE 50 MG CAPSULE PO PRN (12:00)
[2018-05-10] MEDS ORDERED: MAG HYDROX/AL HYDROX/SIMETH ES 30 ML SUSPENSION UDCUP PO PRN (12:00)
[2018-05-10] MEDS ORDERED: LOPERAMIDE HCL 2 MG CAPSULE PO PRN (12:00)
[2018-05-10] MEDS ORDERED: ACETAMINOPHEN 325 MG TABLET PO PRN (12:00)
[2018-05-10] MEDS ORDERED: PROMETHAZINE HCL 25 MG TABLET PO PRN (12:00)
[2018-05-10] MEDS ORDERED: MAGNESIUM HYDROXIDE SUSPENSION 30 ML UDCUP PO PRN (12:00)
[2018-05-10] MEDS: LORazepam 0.5 MG TABLET PO PRN (14:06)
[2018-05-10 16:11] VITALS: BP 101/60
[2018-05-10] MEDS: THIAMINE HCL 100 MG TABLET PO SCH (17:14)
[2018-05-10] MEDS: QUEtiapine FUMARATE 100 MG TABLET PO SCH (20:41)
[2018-05-10] MEDS: LamoTRIgine 25 MG TABLET PO SCH (20:41)
[2018-05-11 05:36] VITALS: BP 115/68
[2018-05-11 08:15] VITALS: BP 117/76
[2018-05-11 08:45] LABS: BASOPHILS % (AUTO) 0.8 % (0.0-2.0); EOSINOPHILS % (AUTO) 4.5 % (1.0-6.0); HEMATOCRIT 33.3 % (41-53); LYMPHOCYTES # (AUTO) 1.2 K/uL (1.0-4.8); LYMPHOCYTES % (AUTO) 19.4 % (22.0-44.0); MEAN CORPUSCULAR HEMOGLOBIN 26.5 pg (26.0-34.0); MEAN CORPUSCULAR VOLUME 81 fL (80-100); MONOCYTES # (AUTO) 0.4 K/uL (0.1-1.0); NEUTROPHILS # (AUTO) 4.3 K/uL (1.8-7.7); NEUTROPHILS % (AUTO) 69.3 % (40.0-70.0); PLATELET COUNT (AUTO) 363 K/uL (150-450); RED BLOOD CELL COUNT(AUTO) 4.14 MIL/uL (4.50-5.90); RED CELL DISTRIBUTION WIDTH 17.4 % (11.5-14.5)
[2018-05-11] MEDS: FOLIC ACID 1 MG TABLET PO SCH (08:56)
[2018-05-11] MEDS: MULTIVITAMINS WITH MINERALS, THERAPEUTIC TABLET PO SCH (08:56)
[2018-05-11] MEDS: THIAMINE HCL 100 MG TABLET PO SCH ×2 (08:56→17:13)
[2018-05-11] MEDS: NALTREXONE HCL 50 MG TABLET PO SCH (08:56)
[2018-05-11 09:03] LABS: HEMOGLOBIN A1C 6.4 % (4.5-6.2)
[2018-05-11 09:06] LABS: ALANINE AMINOTRANSFERASE 32 U/L (12-78); ALBUMIN 3.3 g/dL (3.4-5.0); ALKALINE PHOSPHATASE 89 U/L (46-116); ANION GAP 6 mmol/L (8-16); ASPARTATE AMINOTRANSFERASE 23 U/L (15-37); BILIRUBIN,TOTAL 0.4 mg/dL (0.1-1.0); CALCIUM, TOTAL 8.6 mg/dL (8.8-10.5); CARBON DIOXIDE 28 mmol/L (22-29); CHLORIDE 102 mmol/L (98-107); CHOL/HDL RATIO 2.4 (4.2-7.3); CHOLESTEROL 125 mg/dL (131-200); CREATININE 1.03 mg/dL (0.60-1.30); FREE T4 (FREE THYROXINE) 0.84 ng/dL (0.76-1.46); GLUCOSE,RANDOM 147 mg/dL (70-110); HDL CHOLESTEROL 52 mg/dL (40-60); LDL CHOL (CALC.) 59 mg/dL (0-130); POTASSIUM 3.9 mmol/L (3.5-5.1); SODIUM SERUM 136 mmol/L (136-145); THYROID STIMULATING HORMONE 0.84 uIU/mL (0.36-3.74); TOTAL PROTEIN, SERUM 7.2 g/dL (6.4-8.2); TRIGLYCERIDES 71 mg/dL (15-150); UREA NITROGEN, BLOOD 20 mg/dL (7-18)
[2018-05-11 09:07] LABS: GLOMERULAR FILTR. RATE CALC > 60 mL/min (>60)
[2018-05-11] MEDS: LORazepam 0.5 MG TABLET PO PRN (13:46)
[2018-05-11 18:02] VITALS: BP 103/67
[2018-05-11] MEDS: LamoTRIgine 25 MG TABLET PO SCH (20:55)
[2018-05-11] MEDS: QUEtiapine FUMARATE 100 MG TABLET PO SCH (20:55)
[2018-05-12 06:11] VITALS: BP 110/68
[2018-05-12 08:08] VITALS: BP 106/64
[2018-05-12] MEDS: NALTREXONE HCL 50 MG TABLET PO SCH (09:00)
[2018-05-12] MEDS: FOLIC ACID 1 MG TABLET PO SCH (09:00)
[2018-05-12] MEDS: MULTIVITAMINS WITH MINERALS, THERAPEUTIC TABLET PO SCH (09:00)
[2018-05-12] MEDS: THIAMINE HCL 100 MG TABLET PO SCH ×2 (09:00→16:35)
[2018-05-12 10:35] VITALS: BP 111/71
[2018-05-12] MEDS: LORazepam 0.5 MG TABLET PO PRN ×2 (10:38→19:22)
[2018-05-12] MEDS ORDERED: INSULIN LISPRO 100 UNITS/ML SQ PRN (10:45)
[2018-05-12] MEDS ORDERED: GLUCAGON,HUMAN RECOMBINANT 1 MG VIAL IM PRN (10:45)
[2018-05-12 16:16] VITALS: BP 134/83
[2018-05-12 19:20] VITALS: BP 138/76
[2018-05-12] MEDS: QUEtiapine FUMARATE 100 MG TABLET PO SCH (20:31)
[2018-05-12] MEDS: LamoTRIgine 25 MG TABLET PO SCH (20:31)
[2018-05-13 06:08] VITALS: BP 126/80
[2018-05-13 08:07] VITALS: BP 106/66
[2018-05-13] MEDS: NALTREXONE HCL 50 MG TABLET PO SCH (09:00)
[2018-05-13] MEDS: FOLIC ACID 1 MG TABLET PO SCH (09:00)
[2018-05-13] MEDS: THIAMINE HCL 100 MG TABLET PO SCH ×2 (09:00→16:35)
[2018-05-13] MEDS: MULTIVITAMINS WITH MINERALS, THERAPEUTIC TABLET PO SCH (09:00)
[2018-05-13 13:10] VITALS: BP 116/80
[2018-05-13] MEDS: LORazepam 0.5 MG TABLET PO PRN (13:13)
[2018-05-13 16:03] VITALS: BP 122/84
[2018-05-13] MEDS: QUEtiapine FUMARATE 100 MG TABLET PO SCH (20:28)
[2018-05-13] MEDS: LamoTRIgine 25 MG TABLET PO SCH (20:29)
[2018-05-13] MEDS ORDERED: ZOLPIDEM TARTRATE 5 MG TABLET PO PRN (20:45)
[2018-05-14 06:07] VITALS: BP 120/81
[2018-05-14 08:15] VITALS: BP 109/68
[2018-05-14] MEDS: THIAMINE HCL 100 MG TABLET PO SCH (08:41)
[2018-05-14] MEDS: MULTIVITAMINS WITH MINERALS, THERAPEUTIC TABLET PO SCH (08:41)
[2018-05-14] MEDS: NALTREXONE HCL 50 MG TABLET PO SCH (08:41)
[2018-05-14] MEDS: FOLIC ACID 1 MG TABLET PO SCH (08:41)
[2018-05-14] MEDS ORDERED: NALT50TA PO (11:25)
[2018-05-14] MEDS ORDERED: LAMO25 PO (11:25)
[2018-05-14] MEDS ORDERED: QUET100T33 PO (11:25)
== END 2018-05-14 13:58 | DRG 885 ==
LOC: B2X 22:54
PROVIDERS: ADMIT Psychiatry & Neurology Psychiatry; ATTEND Psychiatry & Neurology Psychiatry
DX: F25.9 Schizoaffective disorder, unspecified (principal); E43 Unspecified severe protein-calorie malnutrition; R45.851 Suicidal ideations; B19.20 Unspecified viral hepatitis C without hepatic coma; D64.9 Anemia, unspecified; E11.9 Type 2 diabetes mellitus without complications; J44.9 Chronic obstructive pulmonary disease, unspecified; R03.0 Elevated blood-pressure reading, without diagnosis of hypertension; N40.0 Benign prostatic hyperplasia without lower urinary tract symptoms; Z59.0 Homelessness; Z91.14 Patient's other noncompliance with medication regimen; Z88.8 Allergy status to other drugs, medicaments and biological substances; Z68.22 Body mass index [BMI] 22.0-22.9, adult; Z79.899 Other long term (current) drug therapy
CPT/HCPCS: 83036; 84439; 84443; 87081; 90471

== ENCOUNTER 2019-05-16 19:53 | Inpatient (IN) | payer MEDICARE ==
[~2019-05-16] VITALS: Ht 175.3 cm; Wt 56.2 kg
[~2019-05-16 19:53] MED LIST changes: -METF500T6 PO; -MVITFE PO
[2019-05-16] MEDS ORDERED: ZOLPIDEM TARTRATE 10 MG TABLET PO PRN (20:30)
[2019-05-16] MEDS ORDERED: QUEtiapine FUMARATE 25 MG TABLET PO PRN (20:30)
[2019-05-16 20:34] VITALS: BP 108/70
[2019-05-16] MEDS ORDERED: LamoTRIgine 25 MG TABLET PO SCH (21:00)
[2019-05-16 21:12] VITALS: BP 117/78
[2019-05-16] MEDS: QUEtiapine FUMARATE 100 MG TABLET PO SCH (21:44)
[2019-05-16] MEDS ORDERED: PNEUMOCOCCAL VACCINE POLYVALENT 0.5 ML VIAL [PPSV23] IM ONE (23:00)
[2019-05-17 05:46] VITALS: BP 103/65
[2019-05-17 08:02] VITALS: BP 108/60
[2019-05-17 08:14] LABS: HEMOGLOBIN A1C 6.3 % (4.5-6.2)
[2019-05-17 08:15] LABS: BASOPHILS % (AUTO) 0.5 % (0.0-2.0); EOSINOPHILS % (AUTO) 4.1 % (1.0-6.0); HEMATOCRIT 31.3 % (41-53); HEMOGLOBIN 10.3 g/dL (13.5-17.5); LYMPHOCYTES # (AUTO) 1.5 K/uL (1.0-4.8); MEAN CORPUSCULAR HEMOGLOBIN 30.9 pg (26.0-34.0); MEAN CORPUSCULAR VOLUME 94 fL (80-100); MONOCYTES # (AUTO) 0.6 K/uL (0.1-1.0); MONOCYTES % (AUTO) 6.9 % (2.0-9.0); NEUTROPHILS # (AUTO) 5.6 K/uL (1.8-7.7); NEUTROPHILS % (AUTO) 69.5 % (40.0-70.0); PLATELET COUNT (AUTO) 186 K/uL (150-450); RED BLOOD CELL COUNT(AUTO) 3.35 MIL/uL (4.50-5.90); RED CELL DISTRIBUTION WIDTH 14.3 % (11.5-14.5)
[2019-05-17 08:34] LABS: ALANINE AMINOTRANSFERASE 16 U/L (12-78); ALBUMIN 3.1 g/dL (3.4-5.0); ALKALINE PHOSPHATASE 72 U/L (46-116); ANION GAP 11 mmol/L (8-16); ASPARTATE AMINOTRANSFERASE 17 U/L (15-37); BILIRUBIN,TOTAL 0.3 mg/dL (0.1-1.0); CALCIUM, TOTAL 8.4 mg/dL (8.8-10.5); CARBON DIOXIDE 25 mmol/L (22-29); CHLORIDE 108 mmol/L (98-107); CHOL/HDL RATIO 1.9 (4.2-7.3); CHOLESTEROL 116 mg/dL (131-200); CREATININE 1.05 mg/dL (0.60-1.30); FREE T4 (FREE THYROXINE) 1.07 ng/dL (0.76-1.46); GLUCOSE,RANDOM 85 mg/dL (70-110); HDL CHOLESTEROL 60 mg/dL (40-60); LDL CHOL (CALC.) 52 mg/dL (0-130); POTASSIUM 4.4 mmol/L (3.5-5.1); SODIUM SERUM 144 mmol/L (136-145); THYROID STIMULATING HORMONE 0.77 uIU/mL (0.36-3.74); TRIGLYCERIDES 20 mg/dL (15-150); UREA NITROGEN, BLOOD 20 mg/dL (7-18)
[2019-05-17 08:35] LABS: GLOMERULAR FILTR. RATE CALC > 60 mL/min (>60)
[2019-05-17] MEDS: NALTREXONE HCL 50 MG TABLET PO SCH (09:51)
[2019-05-17] MEDS ORDERED: HydrOXYzine PAMOATE 50 MG CAPSULE PO PRN (10:30)
[2019-05-17] MEDS ORDERED: PROMETHAZINE HCL 25 MG TABLET PO PRN (10:30)
[2019-05-17] MEDS ORDERED: LOPERAMIDE HCL 2 MG CAPSULE PO PRN (10:30)
[2019-05-17] MEDS ORDERED: MAG HYDROX/AL HYDROX/SIMETH ES 30 ML SUSPENSION UDCUP PO PRN (10:30)
[2019-05-17] MEDS ORDERED: GuaiFENesin/D-METHORPHAN [SUGAR-FREE] 200-20MG/10 ML SYRUP UDCUP PO PRN (10:30)
[2019-05-17] MEDS ORDERED: ACETAMINOPHEN 325 MG TABLET PO PRN (10:30)
[2019-05-17] MEDS ORDERED: MAGNESIUM HYDROXIDE SUSPENSION 30 ML UDCUP PO PRN (10:30)
[2019-05-17] MEDS ORDERED: GLUCAGON,HUMAN RECOMBINANT 1 MG VIAL IM PRN (10:45)
[2019-05-17 16:05] VITALS: BP 119/79
[2019-05-17 16:10] LABS: GLUCOMETER DEV NAME(LOC) BV2X.; GLUCOSE,POINT OF CARE 110 MG/DL (70-110)
[2019-05-17] MEDS: LORazepam 1 MG TABLET PO PRN (16:31)
[2019-05-17] MEDS: THIAMINE HCL 100 MG TABLET PO SCH (16:31)
[2019-05-17] MEDS: LamoTRIgine 25 MG TABLET PO SCH (20:34)
[2019-05-17] MEDS: QUEtiapine FUMARATE 100 MG TABLET PO SCH (20:34)
[2019-05-18 06:31] LABS: GLUCOMETER DEV NAME(LOC) BV2X.; GLUCOSE,POINT OF CARE 92 MG/DL (70-110)
[2019-05-18 07:02] VITALS: BP 121/68
[2019-05-18 08:05] VITALS: BP 120/77
[2019-05-18 09:05] LABS: CHOL/HDL RATIO 2.1 (4.2-7.3)
[2019-05-18 09:14] LABS: HEMOGLOBIN A1C 6.1 % (4.5-6.2)
[2019-05-18] MEDS: MULTIVITAMINS WITH MINERALS, THERAPEUTIC TABLET PO SCH (09:15)
[2019-05-18] MEDS: NALTREXONE HCL 50 MG TABLET PO SCH (09:15)
[2019-05-18] MEDS: FOLIC ACID 1 MG TABLET PO SCH (09:15)
[2019-05-18] MEDS: THIAMINE HCL 100 MG TABLET PO SCH ×2 (09:15→16:35)
[2019-05-18] MEDS: LORazepam 1 MG TABLET PO PRN ×2 (09:21→19:02)
[2019-05-18 16:02] VITALS: BP 100/62
[2019-05-18 16:15] LABS: GLUCOMETER DEV NAME(LOC) BV2X.; GLUCOSE,POINT OF CARE 115 MG/DL (70-110)
[2019-05-18 19:02] VITALS: BP 122/84
[2019-05-18] MEDS: LamoTRIgine 25 MG TABLET PO SCH (20:27)
[2019-05-18] MEDS: QUEtiapine FUMARATE 100 MG TABLET PO SCH (20:27)
[2019-05-19 05:58] VITALS: BP 118/70
[2019-05-19 06:35] LABS: GLUCOMETER DEV NAME(LOC) BV2X.; GLUCOSE,POINT OF CARE 83 MG/DL (70-110)
[2019-05-19 08:13] VITALS: BP 108/65
[2019-05-19] MEDS: THIAMINE HCL 100 MG TABLET PO SCH ×2 (08:49→16:32)
[2019-05-19] MEDS: FOLIC ACID 1 MG TABLET PO SCH (08:49)
[2019-05-19] MEDS: NALTREXONE HCL 50 MG TABLET PO SCH (08:49)
[2019-05-19] MEDS: MULTIVITAMINS WITH MINERALS, THERAPEUTIC TABLET PO SCH (08:49)
[2019-05-19 09:00] VITALS: BP 120/84
[2019-05-19] MEDS: LORazepam 1 MG TABLET PO PRN ×2 (09:05→16:09)
[2019-05-19] MEDS: NICOTINE 21 MG/24 HOUR PATCH TD SCH (10:50)
[2019-05-19 16:35] LABS: GLUCOMETER DEV NAME(LOC) BV2X.; GLUCOSE,POINT OF CARE 116 MG/DL (70-110)
[2019-05-19 16:38] VITALS: BP 122/83
[2019-05-19] MEDS: LamoTRIgine 25 MG TABLET PO SCH (20:54)
[2019-05-19] MEDS: QUEtiapine FUMARATE 100 MG TABLET PO SCH (20:54)
[2019-05-20 05:05] VITALS: BP 118/78
[2019-05-20 06:36] LABS: GLUCOMETER DEV NAME(LOC) BV2X.; GLUCOSE,POINT OF CARE 91 MG/DL (70-110)
[2019-05-20 08:12] VITALS: BP 113/73
[2019-05-20] MEDS: FOLIC ACID 1 MG TABLET PO SCH (08:59)
[2019-05-20] MEDS: THIAMINE HCL 100 MG TABLET PO SCH ×2 (08:59→16:31)
[2019-05-20] MEDS: NALTREXONE HCL 50 MG TABLET PO SCH (08:59)
[2019-05-20] MEDS: MULTIVITAMINS WITH MINERALS, THERAPEUTIC TABLET PO SCH (09:00)
[2019-05-20] MEDS: NICOTINE 21 MG/24 HOUR PATCH TD SCH (09:00)
[2019-05-20] MEDS: LORazepam 1 MG TABLET PO PRN ×2 (09:06→15:40)
[2019-05-20 16:04] VITALS: BP 120/81
[2019-05-20 16:26] LABS: GLUCOMETER DEV NAME(LOC) BV2X.; GLUCOSE,POINT OF CARE 267 MG/DL (70-110)
[2019-05-20] MEDS: INSULIN LISPRO 100 UNITS/ML SQ PRN (16:41)
[2019-05-20] MEDS: LamoTRIgine 25 MG TABLET PO SCH (20:32)
[2019-05-20] MEDS: QUEtiapine FUMARATE 100 MG TABLET PO SCH (20:32)
[2019-05-21 04:34] VITALS: BP 121/75
[2019-05-21 06:30] LABS: GLUCOMETER DEV NAME(LOC) BV2X.; GLUCOSE,POINT OF CARE 95 MG/DL (70-110)
[2019-05-21 08:05] VITALS: BP 110/85
[2019-05-21] MEDS: NALTREXONE HCL 50 MG TABLET PO SCH (08:36)
[2019-05-21] MEDS: MULTIVITAMINS WITH MINERALS, THERAPEUTIC TABLET PO SCH (08:37)
[2019-05-21] MEDS: THIAMINE HCL 100 MG TABLET PO SCH ×2 (08:37→16:19)
[2019-05-21] MEDS: FOLIC ACID 1 MG TABLET PO SCH (08:37)
[2019-05-21] MEDS: NICOTINE 21 MG/24 HOUR PATCH TD SCH (08:37)
[2019-05-21] MEDS: LORazepam 1 MG TABLET PO PRN ×2 (08:41→15:39)
[2019-05-21 16:05] VITALS: BP 120/71
[2019-05-21 16:51] LABS: GLUCOMETER DEV NAME(LOC) BV2X.; GLUCOSE,POINT OF CARE 119 MG/DL (70-110)
[2019-05-21] MEDS: LamoTRIgine 25 MG TABLET PO SCH (20:22)
[2019-05-21] MEDS: QUEtiapine FUMARATE 100 MG TABLET PO SCH (20:22)
[2019-05-22 06:10] LABS: GLUCOMETER DEV NAME(LOC) BV2X.; GLUCOSE,POINT OF CARE 81 MG/DL (70-110)
[2019-05-22 08:03] VITALS: BP 117/60
[2019-05-22] MEDS: THIAMINE HCL 100 MG TABLET PO SCH ×2 (08:10→16:09)
[2019-05-22] MEDS: MULTIVITAMINS WITH MINERALS, THERAPEUTIC TABLET PO SCH (08:10)
[2019-05-22] MEDS: NALTREXONE HCL 50 MG TABLET PO SCH (08:10)
[2019-05-22] MEDS: LORazepam 1 MG TABLET PO PRN ×2 (08:11→16:15)
[2019-05-22] MEDS: NICOTINE 21 MG/24 HOUR PATCH TD SCH (08:11)
[2019-05-22] MEDS: FOLIC ACID 1 MG TABLET PO SCH (08:11)
[2019-05-22 16:08] VITALS: BP 117/70
[2019-05-22 16:10] LABS: GLUCOMETER DEV NAME(LOC) BV2X.; GLUCOSE,POINT OF CARE 126 MG/DL (70-110)
[2019-05-22] MEDS: QUEtiapine FUMARATE 100 MG TABLET PO SCH (20:10)
[2019-05-22] MEDS: LamoTRIgine 25 MG TABLET PO SCH (20:10)
[2019-05-23 02:42] VITALS: BP 103/66
[2019-05-23 06:21] LABS: GLUCOMETER DEV NAME(LOC) BV2X.; GLUCOSE,POINT OF CARE 131 MG/DL (70-110)
[2019-05-23 08:13] VITALS: BP 118/76
[2019-05-23] MEDS: THIAMINE HCL 100 MG TABLET PO SCH ×2 (08:21→16:31)
[2019-05-23] MEDS: MULTIVITAMINS WITH MINERALS, THERAPEUTIC TABLET PO SCH (08:21)
[2019-05-23] MEDS: FOLIC ACID 1 MG TABLET PO SCH (08:22)
[2019-05-23] MEDS: NICOTINE 21 MG/24 HOUR PATCH TD SCH (08:22)
[2019-05-23] MEDS: NALTREXONE HCL 50 MG TABLET PO SCH (08:22)
[2019-05-23] MEDS: LORazepam 1 MG TABLET PO PRN ×3 (08:23→18:18)
[2019-05-23] MEDS ORDERED: NALT50TA PO (15:36)
[2019-05-23] MEDS ORDERED: QUET100T33 PO (15:36)
[2019-05-23] MEDS ORDERED: LAMO25 PO (15:36)
[2019-05-23 16:26] LABS: GLUCOMETER DEV NAME(LOC) BV2X.; GLUCOSE,POINT OF CARE 154 MG/DL (70-110)
[2019-05-23] MEDS: INSULIN LISPRO 100 UNITS/ML SQ PRN (16:38)
[2019-05-23 18:02] VITALS: BP 113/71
[2019-05-23] MEDS: QUEtiapine FUMARATE 100 MG TABLET PO SCH (20:29)
[2019-05-23] MEDS: LamoTRIgine 25 MG TABLET PO SCH (20:29)
[2019-05-24 06:00] VITALS: BP 109/69
[2019-05-24 06:21] LABS: GLUCOMETER DEV NAME(LOC) BV2X.; GLUCOSE,POINT OF CARE 99 MG/DL (70-110)
[2019-05-24 08:13] VITALS: BP 111/76
[2019-05-24] MEDS: NALTREXONE HCL 50 MG TABLET PO SCH (08:22)
[2019-05-24] MEDS: NICOTINE 21 MG/24 HOUR PATCH TD SCH (08:22)
[2019-05-24] MEDS: MULTIVITAMINS WITH MINERALS, THERAPEUTIC TABLET PO SCH (08:22)
[2019-05-24] MEDS: THIAMINE HCL 100 MG TABLET PO SCH ×2 (08:22→16:28)
[2019-05-24] MEDS: FOLIC ACID 1 MG TABLET PO SCH (08:22)
[2019-05-24] MEDS: LORazepam 1 MG TABLET PO PRN ×2 (08:23→16:13)
[2019-05-24 16:09] VITALS: BP 116/72
[2019-05-24 16:20] LABS: GLUCOMETER DEV NAME(LOC) BV2X.; GLUCOSE,POINT OF CARE 123 MG/DL (70-110)
== END 2019-05-24 19:00 | disposition home or self-care (01) | DRG 885 ==
LOC: B2X 20:32
PROVIDERS: ADMIT Psychiatry & Neurology Psychiatry; ATTEND Psychiatry & Neurology Psychiatry
DX: F31.5 Bipolar disorder, current episode depressed, severe, with psychotic features (principal); R45.851 Suicidal ideations; R64 Cachexia; Z68.1 Body mass index [BMI] 19.9 or less, adult; F17.210 Nicotine dependence, cigarettes, uncomplicated; B19.20 Unspecified viral hepatitis C without hepatic coma; D64.9 Anemia, unspecified; I10 Essential (primary) hypertension; J44.9 Chronic obstructive pulmonary disease, unspecified; N40.0 Benign prostatic hyperplasia without lower urinary tract symptoms; R73.03 Prediabetes; Z59.0 Homelessness; Z79.899 Other long term (current) drug therapy; Z82.49 Family history of ischemic heart disease and other diseases of the circulatory system; Z91.14 Patient's other noncompliance with medication regimen; Z91.19 Patient's noncompliance with other medical treatment and regimen
CPT/HCPCS: 83036; 84439; 84443; 87081

== ENCOUNTER 2019-06-01 03:20 | Inpatient (IN) | payer MEDICARE, MEDICAID ==
[~2019-06-01] VITALS: Ht 172.7 cm; Wt 55.3 kg
[2019-06-01] MEDS ORDERED: LAMO25 PO (21:35)
[2019-06-01] MEDS ORDERED: NALT50TA6 PO (21:35)
[2019-06-01] MEDS ORDERED: QUET100T PO (21:35)
[2019-06-01] MEDS ORDERED: QUEtiapine FUMARATE 100 MG TABLET PO PRN (21:45)
[2019-06-01] MEDS ORDERED: ZOLPIDEM TARTRATE 10 MG TABLET PO PRN (21:45)
[2019-06-01 21:56] VITALS: BP 127/84
[2019-06-02 00:12] VITALS: BP 132/87
[2019-06-02] MEDS ORDERED: PNEUMOCOCCAL VACCINE POLYVALENT 0.5 ML VIAL [PPSV23] IM ONE (04:00)
[2019-06-02 08:04] VITALS: BP 115/70
[2019-06-02 08:11] LABS: BASOPHILS % (AUTO) 1.3 % (0.0-2.0); EOSINOPHILS % (AUTO) 7.5 % (1.0-6.0); HEMOGLOBIN 10.9 g/dL (13.5-17.5); LYMPHOCYTES # (AUTO) 1.4 K/uL (1.0-4.8); MEAN CORPUSCULAR HEMOGLOBIN 30.5 pg (26.0-34.0); MEAN CORPUSCULAR HGB CONC 33.2 G/dL (31.0-37.0); MEAN CORPUSCULAR VOLUME 92 fL (80-100); MONOCYTES # (AUTO) 0.5 K/uL (0.1-1.0); MONOCYTES % (AUTO) 10.3 % (2.0-9.0); NEUTROPHILS # (AUTO) 2.5 K/uL (1.8-7.7); NEUTROPHILS % (AUTO) 51.9 % (40.0-70.0); PLATELET COUNT (AUTO) 289 K/uL (150-450); RED BLOOD CELL COUNT(AUTO) 3.59 MIL/uL (4.50-5.90)
[2019-06-02 08:22] LABS: HEMOGLOBIN A1C 6.2 % (4.5-6.2)
[2019-06-02 08:35] LABS: ALBUMIN 3.7 g/dL (3.4-5.0); BILIRUBIN,TOTAL 0.4 mg/dL (0.1-1.0); CALCIUM, TOTAL 8.5 mg/dL (8.8-10.5); CHOL/HDL RATIO 2.2 (4.2-7.3); CREATININE 1.24 mg/dL (0.60-1.30); FREE T4 (FREE THYROXINE) 1.06 ng/dL (0.76-1.46); POTASSIUM 4.3 mmol/L (3.5-5.1); THYROID STIMULATING HORMONE 1.49 uIU/mL (0.36-3.74); TOTAL PROTEIN, SERUM 6.9 g/dL (6.4-8.2)
[2019-06-02] MEDS: LORazepam 1 MG TABLET PO PRN ×2 (08:39→17:01)
[2019-06-02] MEDS ORDERED: NALTREXONE HCL 50 MG TABLET PO SCH (09:00)
[2019-06-02] MEDS ORDERED: ACETAMINOPHEN 325 MG TABLET PO PRN (12:15)
[2019-06-02] MEDS ORDERED: LOPERAMIDE HCL 2 MG CAPSULE PO PRN (12:15)
[2019-06-02] MEDS ORDERED: PROMETHAZINE HCL 25 MG TABLET PO PRN (12:15)
[2019-06-02] MEDS ORDERED: MAGNESIUM HYDROXIDE SUSPENSION 30 ML UDCUP PO PRN (12:15)
[2019-06-02] MEDS ORDERED: GuaiFENesin/D-METHORPHAN [SUGAR-FREE] 200-20MG/10 ML SYRUP UDCUP PO PRN (12:15)
[2019-06-02] MEDS ORDERED: MAG HYDROX/AL HYDROX/SIMETH ES 30 ML SUSPENSION UDCUP PO PRN (12:15)
[2019-06-02] MEDS ORDERED: HydrOXYzine PAMOATE 50 MG CAPSULE PO PRN (12:15)
[2019-06-02] MEDS: NICOTINE 14 MG/24 HOUR PATCH TD SCH (12:21)
[2019-06-02 16:00] VITALS: BP 123/69
[2019-06-02] MEDS: THIAMINE HCL 100 MG TABLET PO SCH (16:42)
[2019-06-02] MEDS: LamoTRIgine 25 MG TABLET PO SCH (20:27)
[2019-06-02] MEDS: QUEtiapine FUMARATE 100 MG TABLET PO SCH (20:28)
[2019-06-03 00:35] VITALS: BP 99/67
[2019-06-03 08:11] VITALS: BP 124/60
[2019-06-03] MEDS: THIAMINE HCL 100 MG TABLET PO SCH ×2 (08:19→16:35)
[2019-06-03] MEDS: NALTREXONE HCL 50 MG TABLET PO SCH (08:19)
[2019-06-03] MEDS: MULTIVITAMINS WITH MINERALS, THERAPEUTIC TABLET PO SCH (08:19)
[2019-06-03] MEDS: FOLIC ACID 1 MG TABLET PO SCH (08:19)
[2019-06-03] MEDS: LORazepam 1 MG TABLET PO PRN ×2 (08:20→14:10)
[2019-06-03] MEDS: NICOTINE 14 MG/24 HOUR PATCH TD SCH (08:20)
[2019-06-03 16:08] VITALS: BP 116/72
[2019-06-03] MEDS: LamoTRIgine 25 MG TABLET PO SCH (20:33)
[2019-06-03] MEDS: QUEtiapine FUMARATE 100 MG TABLET PO SCH (20:33)
[2019-06-04 01:11] VITALS: BP 114/69
[2019-06-04 08:14] VITALS: BP 106/72
[2019-06-04] MEDS: MULTIVITAMINS WITH MINERALS, THERAPEUTIC TABLET PO SCH (08:32)
[2019-06-04] MEDS: THIAMINE HCL 100 MG TABLET PO SCH ×2 (08:32→16:14)
[2019-06-04] MEDS: FOLIC ACID 1 MG TABLET PO SCH (08:33)
[2019-06-04] MEDS: NALTREXONE HCL 50 MG TABLET PO SCH (08:34)
[2019-06-04] MEDS: NICOTINE 14 MG/24 HOUR PATCH TD SCH (08:34)
[2019-06-04] MEDS: LORazepam 1 MG TABLET PO PRN ×2 (09:30→16:14)
[2019-06-04 16:02] VITALS: BP 120/77
[2019-06-04] MEDS: QUEtiapine FUMARATE 100 MG TABLET PO SCH (20:06)
[2019-06-04] MEDS: LamoTRIgine 25 MG TABLET PO SCH (20:06)
[2019-06-05 00:47] VITALS: BP 108/69
[2019-06-05 08:26] VITALS: BP 109/81
[2019-06-05] MEDS: MULTIVITAMINS WITH MINERALS, THERAPEUTIC TABLET PO SCH (08:31)
[2019-06-05] MEDS: NALTREXONE HCL 50 MG TABLET PO SCH (08:31)
[2019-06-05] MEDS: FOLIC ACID 1 MG TABLET PO SCH (08:31)
[2019-06-05] MEDS: THIAMINE HCL 100 MG TABLET PO SCH ×2 (08:31→17:01)
[2019-06-05] MEDS: LORazepam 1 MG TABLET PO PRN ×3 (08:32→20:01)
[2019-06-05] MEDS: NICOTINE 14 MG/24 HOUR PATCH TD SCH (08:32)
[2019-06-05 16:04] VITALS: BP 120/88
[2019-06-05] MEDS: LamoTRIgine 25 MG TABLET PO SCH (20:01)
[2019-06-05] MEDS: QUEtiapine FUMARATE 100 MG TABLET PO SCH (20:01)
[2019-06-06] MEDS: FOLIC ACID 1 MG TABLET PO SCH (08:46)
[2019-06-06] MEDS: THIAMINE HCL 100 MG TABLET PO SCH ×2 (08:47→16:29)
[2019-06-06] MEDS: NICOTINE 14 MG/24 HOUR PATCH TD SCH (08:47)
[2019-06-06] MEDS: MULTIVITAMINS WITH MINERALS, THERAPEUTIC TABLET PO SCH (08:47)
[2019-06-06] MEDS: NALTREXONE HCL 50 MG TABLET PO SCH (08:47)
[2019-06-06] MEDS: LORazepam 1 MG TABLET PO PRN ×2 (08:48→16:29)
[2019-06-06 09:31] VITALS: BP 104/79
[2019-06-06] MEDS ORDERED: LAMO25 PO (15:32)
[2019-06-06] MEDS ORDERED: NALT50TA PO (15:32)
[2019-06-06] MEDS ORDERED: QUET100T33 PO (15:32)
[2019-06-06 16:02] VITALS: BP 115/90
[2019-06-06] MEDS: QUEtiapine FUMARATE 100 MG TABLET PO SCH (20:32)
[2019-06-06] MEDS: LamoTRIgine 25 MG TABLET PO SCH (20:32)
[2019-06-07 00:32] VITALS: BP 104/61
[2019-06-07 08:06] VITALS: BP 115/84
[2019-06-07] MEDS: MULTIVITAMINS WITH IRON TABLET PO SCH (08:12)
[2019-06-07] MEDS: FOLIC ACID 1 MG TABLET PO SCH (08:12)
[2019-06-07] MEDS: NALTREXONE HCL 50 MG TABLET PO SCH (08:12)
[2019-06-07] MEDS: THIAMINE HCL 100 MG TABLET PO SCH ×2 (08:13→16:32)
[2019-06-07] MEDS: LORazepam 1 MG TABLET PO PRN ×3 (08:13→18:06)
[2019-06-07] MEDS: NICOTINE 14 MG/24 HOUR PATCH TD SCH (08:13)
[2019-06-07 16:03] VITALS: BP 116/82
[2019-06-07] MEDS: QUEtiapine FUMARATE 100 MG TABLET PO SCH (20:28)
[2019-06-07] MEDS: LamoTRIgine 25 MG TABLET PO SCH (20:28)
[2019-06-08 00:54] VITALS: BP 101/69
[2019-06-08] MEDS: FOLIC ACID 1 MG TABLET PO SCH (08:14)
[2019-06-08] MEDS: NALTREXONE HCL 50 MG TABLET PO SCH (08:14)
[2019-06-08] MEDS: LORazepam 1 MG TABLET PO PRN ×2 (08:14→16:25)
[2019-06-08] MEDS: MULTIVITAMINS WITH IRON TABLET PO SCH (08:14)
[2019-06-08] MEDS: THIAMINE HCL 100 MG TABLET PO SCH ×2 (08:14→16:25)
[2019-06-08] MEDS: NICOTINE 14 MG/24 HOUR PATCH TD SCH (08:14)
[2019-06-08 08:15] VITALS: BP 110/75
[2019-06-08 16:05] VITALS: BP 135/90
[2019-06-08] MEDS: LamoTRIgine 25 MG TABLET PO SCH (20:35)
[2019-06-08] MEDS: QUEtiapine FUMARATE 100 MG TABLET PO SCH (20:35)
[2019-06-09 06:32] VITALS: BP 106/75
[2019-06-09] MEDS: MULTIVITAMINS WITH IRON TABLET PO SCH (08:05)
[2019-06-09] MEDS: THIAMINE HCL 100 MG TABLET PO SCH (08:06)
[2019-06-09] MEDS: NALTREXONE HCL 50 MG TABLET PO SCH (08:06)
[2019-06-09] MEDS: LORazepam 1 MG TABLET PO PRN ×2 (08:06→12:16)
[2019-06-09] MEDS: NICOTINE 14 MG/24 HOUR PATCH TD SCH (08:06)
[2019-06-09] MEDS: FOLIC ACID 1 MG TABLET PO SCH (08:06)
[2019-06-09 08:19] VITALS: BP 106/71
[2019-06-09 14:10] VITALS: BP 107/75
== END 2019-06-09 14:38 | disposition home or self-care (01) | DRG 885 ==
LOC: B2X 21:48
PROVIDERS: ADMIT Psychiatry & Neurology Psychiatry; ATTEND Psychiatry & Neurology Psychiatry
DX: F25.9 Schizoaffective disorder, unspecified (principal); B19.20 Unspecified viral hepatitis C without hepatic coma; E46 Unspecified protein-calorie malnutrition; Z68.1 Body mass index [BMI] 19.9 or less, adult; D64.9 Anemia, unspecified; F15.90 Other stimulant use, unspecified, uncomplicated; F17.210 Nicotine dependence, cigarettes, uncomplicated; I10 Essential (primary) hypertension; F14.90 Cocaine use, unspecified, uncomplicated; J44.9 Chronic obstructive pulmonary disease, unspecified; N40.0 Benign prostatic hyperplasia without lower urinary tract symptoms; R73.03 Prediabetes; Z59.0 Homelessness; Z91.19 Patient's noncompliance with other medical treatment and regimen; Z79.899 Other long term (current) drug therapy; Z28.21 Immunization not carried out because of patient refusal; Z88.8 Allergy status to other drugs, medicaments and biological substances; Z71.6 Tobacco abuse counseling
CPT/HCPCS: 83036; 84439; 84443; 87081

== ENCOUNTER 2019-06-11 16:54 | Inpatient (IN) | payer MEDICARE, MEDICAID ==
[~2019-06-11] VITALS: Ht 172.7 cm; Wt 55.8 kg
[2019-06-11] MEDS ORDERED: QUEtiapine FUMARATE 100 MG TABLET PO PRN (18:15)
[2019-06-11] MEDS ORDERED: ZOLPIDEM TARTRATE 10 MG TABLET PO PRN (18:15)
[2019-06-11] MEDS ORDERED: LORazepam 2 MG TABLET PO PRN (18:15)
[2019-06-11 20:11] VITALS: BP 119/86
[2019-06-11] MEDS ORDERED: ALBUTEROL SULFATE HFA 90 MCG/PUFF 8 GM INHALER IH PRN (20:45)
[2019-06-11] MEDS ORDERED: PNEUMOCOCCAL VACCINE POLYVALENT 0.5 ML VIAL [PPSV23] IM ONE (20:45)
[2019-06-11] MEDS: QUEtiapine FUMARATE 100 MG TABLET PO SCH (21:17)
[2019-06-11] MEDS: LamoTRIgine 25 MG TABLET PO SCH (21:18)
[2019-06-12 05:54] VITALS: BP 98/56
[2019-06-12 08:02] VITALS: BP 108/67
[2019-06-12] MEDS: NICOTINE 21 MG/24 HOUR PATCH TD SCH (08:07)
[2019-06-12 09:02] LABS: BASOPHILS % (AUTO) 1.2 % (0.0-2.0); EOSINOPHILS % (AUTO) 6.1 % (1.0-6.0); HEMATOCRIT 36.7 % (41-53); HEMOGLOBIN 11.8 g/dL (13.5-17.5); LYMPHOCYTES # (AUTO) 1.6 K/uL (1.0-4.8); LYMPHOCYTES % (AUTO) 25.4 % (22.0-44.0); MEAN CORPUSCULAR HGB CONC 32.1 G/dL (31.0-37.0); MEAN CORPUSCULAR VOLUME 94 fL (80-100); MONOCYTES # (AUTO) 0.6 K/uL (0.1-1.0); MONOCYTES % (AUTO) 9.2 % (2.0-9.0); NEUTROPHILS # (AUTO) 3.6 K/uL (1.8-7.7); NEUTROPHILS % (AUTO) 58.1 % (40.0-70.0); PLATELET COUNT (AUTO) 236 K/uL (150-450); RED BLOOD CELL COUNT(AUTO) 3.91 MIL/uL (4.50-5.90)
[2019-06-12 09:15] LABS: HEMOGLOBIN A1C 6.1 % (4.5-6.2)
[2019-06-12 09:27] LABS: ALBUMIN 4.1 g/dL (3.4-5.0); BILIRUBIN,TOTAL 0.5 mg/dL (0.1-1.0); CREATININE 1.3 mg/dL (0.60-1.30); FREE T4 (FREE THYROXINE) 1.11 ng/dL (0.76-1.46); POTASSIUM 4.6 mmol/L (3.5-5.1); THYROID STIMULATING HORMONE 2.54 uIU/mL (0.36-3.74); TOTAL PROTEIN, SERUM 7.4 g/dL (6.4-8.2)
[2019-06-12] MEDS: LORazepam 0.5 MG TABLET PO PRN ×2 (09:31→18:39)
[2019-06-12] MEDS: MULTIVITAMINS WITH IRON TABLET PO SCH (15:00)
[2019-06-12 16:05] VITALS: BP 108/76
[2019-06-12] MEDS: LamoTRIgine 25 MG TABLET PO SCH (20:27)
[2019-06-12] MEDS: QUEtiapine FUMARATE 100 MG TABLET PO SCH (20:27)
[2019-06-13 00:22] VITALS: BP 109/63
[2019-06-13] MEDS ORDERED: PROMETHAZINE HCL 25 MG TABLET PO PRN (08:15)
[2019-06-13] MEDS ORDERED: MAG HYDROX/AL HYDROX/SIMETH ES 30 ML SUSPENSION UDCUP PO PRN (08:15)
[2019-06-13] MEDS ORDERED: LOPERAMIDE HCL 2 MG CAPSULE PO PRN (08:15)
[2019-06-13] MEDS ORDERED: HydrOXYzine PAMOATE 50 MG CAPSULE PO PRN (08:15)
[2019-06-13] MEDS ORDERED: GuaiFENesin/D-METHORPHAN [SUGAR-FREE] 200-20MG/10 ML SYRUP UDCUP PO PRN (08:15)
[2019-06-13] MEDS ORDERED: ACETAMINOPHEN 325 MG TABLET PO PRN (08:15)
[2019-06-13] MEDS ORDERED: MAGNESIUM HYDROXIDE SUSPENSION 30 ML UDCUP PO PRN (08:15)
[2019-06-13 08:16] VITALS: BP 87/62
[2019-06-13] MEDS: FOLIC ACID 1 MG TABLET PO SCH (09:21)
[2019-06-13] MEDS: THIAMINE HCL 100 MG TABLET PO SCH ×2 (09:21→16:31)
[2019-06-13] MEDS: MULTIVITAMINS WITH IRON TABLET PO SCH (09:21)
[2019-06-13] MEDS: NICOTINE 21 MG/24 HOUR PATCH TD SCH (09:22)
[2019-06-13 12:51] VITALS: BP 133/78
[2019-06-13] MEDS: LORazepam 0.5 MG TABLET PO PRN ×3 (12:52→20:48)
[2019-06-13 16:00] VITALS: BP 127/83
[2019-06-13 20:36] VITALS: BP 122/84
[2019-06-13] MEDS: LamoTRIgine 25 MG TABLET PO SCH (20:48)
[2019-06-13] MEDS: QUEtiapine FUMARATE 100 MG TABLET PO SCH (20:48)
[2019-06-14 06:22] VITALS: BP 118/72
[2019-06-14 08:14] VITALS: BP 109/68
[2019-06-14] MEDS: MULTIVITAMINS WITH IRON TABLET PO SCH (08:29)
[2019-06-14] MEDS: THIAMINE HCL 100 MG TABLET PO SCH ×2 (08:30→16:32)
[2019-06-14] MEDS: LORazepam 0.5 MG TABLET PO PRN ×3 (08:30→18:31)
[2019-06-14] MEDS: NICOTINE 21 MG/24 HOUR PATCH TD SCH (08:30)
[2019-06-14] MEDS: FOLIC ACID 1 MG TABLET PO SCH (08:30)
[2019-06-14 09:54] LABS: GLUCOMETER DEV NAME(LOC) BV2X.; GLUCOSE,POINT OF CARE 158 MG/DL (70-110)
[2019-06-14 16:00] VITALS: BP 108/89
[2019-06-14] MEDS: LamoTRIgine 25 MG TABLET PO SCH (20:31)
[2019-06-14] MEDS: QUEtiapine FUMARATE 100 MG TABLET PO SCH (20:32)
[2019-06-15 08:02] VITALS: BP 114/79
[2019-06-15] MEDS: NICOTINE 21 MG/24 HOUR PATCH TD SCH (08:07)
[2019-06-15] MEDS: THIAMINE HCL 100 MG TABLET PO SCH ×2 (08:07→16:35)
[2019-06-15] MEDS: FOLIC ACID 1 MG TABLET PO SCH (08:07)
[2019-06-15] MEDS: MULTIVITAMINS WITH IRON TABLET PO SCH (08:07)
[2019-06-15] MEDS: LORazepam 0.5 MG TABLET PO PRN ×2 (08:08→15:51)
[2019-06-15 16:02] VITALS: BP 110/70
[2019-06-15] MEDS: QUEtiapine FUMARATE 100 MG TABLET PO SCH (20:26)
[2019-06-15] MEDS: LamoTRIgine 25 MG TABLET PO SCH (20:26)
[2019-06-16 00:33] VITALS: BP 110/68
[2019-06-16 08:14] VITALS: BP 117/82
[2019-06-16] MEDS: THIAMINE HCL 100 MG TABLET PO SCH ×2 (08:30→16:32)
[2019-06-16] MEDS: FOLIC ACID 1 MG TABLET PO SCH (08:31)
[2019-06-16] MEDS: MULTIVITAMINS WITH IRON TABLET PO SCH (08:32)
[2019-06-16] MEDS: NICOTINE 21 MG/24 HOUR PATCH TD SCH (08:48)
[2019-06-16] MEDS: LORazepam 0.5 MG TABLET PO PRN ×3 (10:31→20:01)
[2019-06-16 16:03] VITALS: BP 114/85
[2019-06-16] MEDS: LamoTRIgine 25 MG TABLET PO SCH (20:29)
[2019-06-16] MEDS: QUEtiapine FUMARATE 100 MG TABLET PO SCH (20:29)
[2019-06-17 06:08] VITALS: BP 116/73
[2019-06-17] MEDS: MULTIVITAMINS WITH IRON TABLET PO SCH (08:29)
[2019-06-17] MEDS: THIAMINE HCL 100 MG TABLET PO SCH ×2 (08:29→16:53)
[2019-06-17] MEDS: FOLIC ACID 1 MG TABLET PO SCH (08:29)
[2019-06-17 08:38] VITALS: BP 104/70
[2019-06-17 08:50] VITALS: BP 122/86
[2019-06-17] MEDS: LORazepam 0.5 MG TABLET PO PRN ×3 (08:53→18:20)
[2019-06-17] MEDS: NICOTINE 21 MG/24 HOUR PATCH TD SCH (08:54)
[2019-06-17 16:11] VITALS: BP 137/89
[2019-06-17] MEDS: QUEtiapine FUMARATE 25 MG TABLET PO SCH (20:48)
[2019-06-17] MEDS: LamoTRIgine 25 MG TABLET PO SCH (20:49)
[2019-06-18 05:09] VITALS: BP 126/81
[2019-06-18 08:03] VITALS: BP 118/80
[2019-06-18] MEDS: NICOTINE 21 MG/24 HOUR PATCH TD SCH (08:17)
[2019-06-18] MEDS: THIAMINE HCL 100 MG TABLET PO SCH ×2 (08:18→16:18)
[2019-06-18] MEDS: MULTIVITAMINS WITH IRON TABLET PO SCH (08:18)
[2019-06-18] MEDS: LORazepam 0.5 MG TABLET PO PRN ×3 (08:18→20:00)
[2019-06-18] MEDS: FOLIC ACID 1 MG TABLET PO SCH (08:18)
[2019-06-18 16:05] VITALS: BP 122/74
[2019-06-18] MEDS: QUEtiapine FUMARATE 25 MG TABLET PO SCH (20:35)
[2019-06-18] MEDS: LamoTRIgine 25 MG TABLET PO SCH (20:35)
[2019-06-19 01:21] VITALS: BP 118/62
[2019-06-19 08:37] VITALS: BP 102/64
[2019-06-19] MEDS: THIAMINE HCL 100 MG TABLET PO SCH ×2 (09:20→16:05)
[2019-06-19] MEDS: MULTIVITAMINS WITH IRON TABLET PO SCH (09:20)
[2019-06-19] MEDS: FOLIC ACID 1 MG TABLET PO SCH (09:20)
[2019-06-19 09:21] VITALS: BP 120/78
[2019-06-19] MEDS: LORazepam 0.5 MG TABLET PO PRN ×2 (09:21→16:05)
[2019-06-19] MEDS: NICOTINE 21 MG/24 HOUR PATCH TD SCH (09:21)
[2019-06-19 16:27] VITALS: BP 117/81
[2019-06-19] MEDS: QUEtiapine FUMARATE 25 MG TABLET PO SCH (20:04)
[2019-06-19] MEDS: LamoTRIgine 25 MG TABLET PO SCH (20:04)
[2019-06-20 05:21] VITALS: BP 122/78
[2019-06-20 08:43] VITALS: BP 111/77
[2019-06-20] MEDS: LORazepam 0.5 MG TABLET PO PRN ×2 (08:48→14:58)
[2019-06-20] MEDS: NICOTINE 21 MG/24 HOUR PATCH TD SCH (08:48)
[2019-06-20] MEDS: MULTIVITAMINS WITH IRON TABLET PO SCH (08:49)
[2019-06-20] MEDS: THIAMINE HCL 100 MG TABLET PO SCH ×2 (08:49→16:26)
[2019-06-20] MEDS: FOLIC ACID 1 MG TABLET PO SCH (08:49)
[2019-06-20] MEDS ORDERED: ALBUTEROL SULFATE HFA 90 MCG/PUFF 8 GM INHALER IH PRN (11:30)
[2019-06-20 16:10] VITALS: BP 136/90
[2019-06-20] MEDS ORDERED: NALT50TA PO (16:33)
[2019-06-20] MEDS ORDERED: QUET25TA34 PO (16:33)
[2019-06-20] MEDS ORDERED: LAMO25 PO (16:33)
== END 2019-06-20 19:43 | disposition home or self-care (01) | DRG 885 ==
LOC: B2X 20:29
PROVIDERS: ATTEND Psychiatry & Neurology Psychiatry
DX: F31.4 Bipolar disorder, current episode depressed, severe, without psychotic features (principal); B18.2 Chronic viral hepatitis C; R45.851 Suicidal ideations; D50.9 Iron deficiency anemia, unspecified; E11.9 Type 2 diabetes mellitus without complications; F15.90 Other stimulant use, unspecified, uncomplicated; F41.9 Anxiety disorder, unspecified; I10 Essential (primary) hypertension; J44.9 Chronic obstructive pulmonary disease, unspecified; K21.9 Gastro-esophageal reflux disease without esophagitis; N40.0 Benign prostatic hyperplasia without lower urinary tract symptoms; Z59.0 Homelessness; Z79.899 Other long term (current) drug therapy; Z91.14 Patient's other noncompliance with medication regimen; Z91.19 Patient's noncompliance with other medical treatment and regimen; F12.90 Cannabis use, unspecified, uncomplicated; F14.90 Cocaine use, unspecified, uncomplicated
CPT/HCPCS: 83036; 84439; 84443; 87081

== ENCOUNTER 2019-06-24 15:24 | Inpatient (IN) | payer MEDICARE, MEDICAID ==
[~2019-06-24] VITALS: Ht 172.7 cm; Wt 60.1 kg
[~2019-06-24 15:24] MED LIST changes: -QUET100T33 PO; +QUET25TA34 PO
[2019-06-24] MEDS ORDERED: LORazepam 1 MG TABLET PO PRN (17:15)
[2019-06-24] MEDS ORDERED: QUEtiapine FUMARATE 100 MG TABLET PO PRN (17:15)
[2019-06-24] MEDS ORDERED: ZOLPIDEM TARTRATE 10 MG TABLET PO PRN (17:15)
[2019-06-24 17:38] VITALS: BP 148/97
[2019-06-24 18:55] VITALS: BP 111/85
[2019-06-24] MEDS: QUEtiapine FUMARATE 25 MG TABLET PO SCH (20:06)
[2019-06-24] MEDS: LamoTRIgine 25 MG TABLET PO SCH (20:06)
[2019-06-24] MEDS ORDERED: ZOLPIDEM TARTRATE 5 MG TABLET PO PRN (20:15)
[2019-06-25] MEDS ORDERED: PNEUMOCOCCAL VACCINE POLYVALENT 0.5 ML VIAL [PPSV23] IM ONE (03:15)
[2019-06-25 06:15] VITALS: BP 108/67
[2019-06-25 07:57] LABS: EOSINOPHILS % (AUTO) 7.2 % (1.0-6.0); HEMATOCRIT 31.8 % (41-53); HEMOGLOBIN 10.7 g/dL (13.5-17.5); LYMPHOCYTES # (AUTO) 1.7 K/uL (1.0-4.8); LYMPHOCYTES % (AUTO) 32.5 % (22.0-44.0); MEAN CORPUSCULAR HEMOGLOBIN 31.1 pg (26.0-34.0); MEAN CORPUSCULAR HGB CONC 33.5 G/dL (31.0-37.0); MEAN CORPUSCULAR VOLUME 93 fL (80-100); MONOCYTES # (AUTO) 0.5 K/uL (0.1-1.0); MONOCYTES % (AUTO) 10.1 % (2.0-9.0); NEUTROPHILS # (AUTO) 2.6 K/uL (1.8-7.7); NEUTROPHILS % (AUTO) 49.2 % (40.0-70.0); PLATELET COUNT (AUTO) 234 K/uL (150-450); RED BLOOD CELL COUNT(AUTO) 3.43 MIL/uL (4.50-5.90); RED CELL DISTRIBUTION WIDTH 14.9 % (11.5-14.5)
[2019-06-25] MEDS: LORazepam 0.5 MG TABLET PO PRN ×3 (08:13→18:06)
[2019-06-25] MEDS: NICOTINE 14 MG/24 HOUR PATCH TD SCH (08:13)
[2019-06-25 08:15] LABS: APPEARANCE,URINE CLEAR (CLEAR); BILIRUBIN,URINE NEGATIVE (NEGATIVE); GLUCOSE, URINE (UA) NEGATIVE (NEGATIVE); KETONES,URINE NEGATIVE (NEGATIVE); LEUKOCYTE ESTERASE ,URINE NEGATIVE (NEGATIVE); NITRATE,URINE NEGATIVE (NEGATIVE); OCCULT BLOOD,URINE NEGATIVE (NEGATIVE); PH,URINE 5.5 (5.0-8.0); UROBILINOGEN,URINE 0.2 mg/dL (<=1.0)
[2019-06-25 08:16] LABS: HEMOGLOBIN A1C 5.8 % (4.5-6.2)
[2019-06-25 08:16] LABS: PROTEIN,URINE NEGATIVE (NEGATIVE)
[2019-06-25 08:19] LABS: AMPHET/METH SCREEN,URINE NEGATIVE (NEGATIVE); BARBITURATE SCREEN, URINE NEGATIVE (NEGATIVE); BENZODIAZEPINES SCREEN,URINE NEGATIVE (NEGATIVE); CANNABINOID SCREEN,URINE NEGATIVE (NEGATIVE); COCAINE SCREEN,URINE NEGATIVE (NEGATIVE); METHADONE SCREEN, URINE NEGATIVE (NEGATIVE); OPIATE SCREEN,URINE NEGATIVE (NEGATIVE)
[2019-06-25 08:21] LABS: PHENCYCLIDINE SCREEN,URINE NEGATIVE (NEGATIVE)
[2019-06-25 08:24] VITALS: BP 123/77
[2019-06-25 08:31] LABS: ALANINE AMINOTRANSFERASE 28 U/L (12-78); ALBUMIN 3.5 g/dL (3.4-5.0); ALKALINE PHOSPHATASE 77 U/L (46-116); ANION GAP 5 mmol/L (8-16); ASPARTATE AMINOTRANSFERASE 22 U/L (15-37); BILIRUBIN,TOTAL 0.5 mg/dL (0.1-1.0); CALCIUM, TOTAL 8.5 mg/dL (8.8-10.5); CARBON DIOXIDE 26 mmol/L (22-29); CHLORIDE 107 mmol/L (98-107); CHOLESTEROL 119 mg/dL (131-200); FREE T4 (FREE THYROXINE) 0.92 ng/dL (0.76-1.46); GLUCOSE,RANDOM 127 mg/dL (70-110); HDL CHOLESTEROL 61 mg/dL (40-60); LDL CHOL (CALC.) 51 mg/dL (0-130); POTASSIUM 3.8 mmol/L (3.5-5.1); SODIUM SERUM 138 mmol/L (136-145); THYROID STIMULATING HORMONE 1.24 uIU/mL (0.36-3.74); TOTAL PROTEIN, SERUM 6.9 g/dL (6.4-8.2); TRIGLYCERIDES 34 mg/dL (15-150); UREA NITROGEN, BLOOD 24 mg/dL (7-18)
[2019-06-25 08:40] LABS: GLOMERULAR FILTR. RATE CALC > 60 mL/min (>60)
[2019-06-25 16:01] VITALS: BP 116/76
[2019-06-25] MEDS: QUEtiapine FUMARATE 25 MG TABLET PO SCH (20:30)
[2019-06-25] MEDS: LamoTRIgine 25 MG TABLET PO SCH (20:30)
[2019-06-26 06:09] VITALS: BP 113/70
[2019-06-26 08:06] VITALS: BP 101/66
[2019-06-26] MEDS: NICOTINE 14 MG/24 HOUR PATCH TD SCH (08:06)
[2019-06-26] MEDS: LORazepam 0.5 MG TABLET PO PRN ×3 (08:11→17:56)
[2019-06-26 16:09] VITALS: BP 126/78
[2019-06-26] MEDS: LamoTRIgine 25 MG TABLET PO SCH (20:25)
[2019-06-26] MEDS: QUEtiapine FUMARATE 25 MG TABLET PO SCH (20:25)
[2019-06-27 06:03] VITALS: BP 122/76
[2019-06-27] MEDS: NICOTINE 14 MG/24 HOUR PATCH TD SCH (08:07)
[2019-06-27 08:11] VITALS: BP 119/76
[2019-06-27] MEDS: LORazepam 0.5 MG TABLET PO PRN ×3 (08:12→17:15)
[2019-06-27] MEDS ORDERED: PROMETHAZINE HCL 25 MG TABLET PO PRN (15:00)
[2019-06-27] MEDS ORDERED: MAG HYDROX/AL HYDROX/SIMETH ES 30 ML SUSPENSION UDCUP PO PRN (15:00)
[2019-06-27] MEDS ORDERED: ACETAMINOPHEN 325 MG TABLET PO PRN (15:00)
[2019-06-27] MEDS ORDERED: LOPERAMIDE HCL 2 MG CAPSULE PO PRN (15:00)
[2019-06-27] MEDS ORDERED: MAGNESIUM HYDROXIDE SUSPENSION 30 ML UDCUP PO PRN (15:00)
[2019-06-27] MEDS ORDERED: HydrOXYzine PAMOATE 50 MG CAPSULE PO PRN (15:00)
[2019-06-27] MEDS ORDERED: GuaiFENesin/D-METHORPHAN [SUGAR-FREE] 200-20MG/10 ML SYRUP UDCUP PO PRN (15:00)
[2019-06-27] MEDS: THIAMINE HCL 100 MG TABLET PO SCH (16:08)
[2019-06-27 16:10] VITALS: BP 139/90
[2019-06-27] MEDS: QUEtiapine FUMARATE 100 MG TABLET PO SCH (20:23)
[2019-06-27] MEDS: LamoTRIgine 25 MG TABLET PO SCH (20:23)
[2019-06-28 01:36] VITALS: BP 107/74
[2019-06-28] MEDS: NICOTINE 14 MG/24 HOUR PATCH TD SCH (08:04)
[2019-06-28 08:05] VITALS: BP 122/61
[2019-06-28] MEDS: FOLIC ACID 1 MG TABLET PO SCH (08:05)
[2019-06-28] MEDS: MULTIVITAMINS WITH MINERALS, THERAPEUTIC TABLET PO SCH (08:05)
[2019-06-28] MEDS: THIAMINE HCL 100 MG TABLET PO SCH ×2 (08:05→16:38)
[2019-06-28] MEDS: LORazepam 0.5 MG TABLET PO PRN ×3 (08:40→19:50)
[2019-06-28] MEDS ORDERED: MULTIVITAMINS WITH MINERALS, THERAPEUTIC TABLET PO SCH (09:00)
[2019-06-28 16:04] VITALS: BP 127/83
[2019-06-28] MEDS: LamoTRIgine 25 MG TABLET PO SCH (20:36)
[2019-06-28] MEDS: QUEtiapine FUMARATE 100 MG TABLET PO SCH (20:36)
[2019-06-29 04:30] VITALS: BP 121/70
[2019-06-29] MEDS: LORazepam 0.5 MG TABLET PO PRN ×3 (08:36→17:33)
[2019-06-29] MEDS: THIAMINE HCL 100 MG TABLET PO SCH ×2 (08:36→16:06)
[2019-06-29] MEDS: MULTIVITAMINS WITH MINERALS, THERAPEUTIC TABLET PO SCH (08:36)
[2019-06-29] MEDS: FOLIC ACID 1 MG TABLET PO SCH (08:36)
[2019-06-29] MEDS: NICOTINE 14 MG/24 HOUR PATCH TD SCH (08:38)
[2019-06-29 11:43] VITALS: BP 107/71
[2019-06-29 16:02] VITALS: BP 118/74
[2019-06-29] MEDS: LamoTRIgine 25 MG TABLET PO SCH (20:03)
[2019-06-29] MEDS: QUEtiapine FUMARATE 100 MG TABLET PO SCH (20:03)
[2019-06-30 05:18] VITALS: BP 120/81
[2019-06-30] MEDS: MULTIVITAMINS WITH MINERALS, THERAPEUTIC TABLET PO SCH (08:03)
[2019-06-30] MEDS: THIAMINE HCL 100 MG TABLET PO SCH ×2 (08:03→16:19)
[2019-06-30] MEDS: FOLIC ACID 1 MG TABLET PO SCH (08:04)
[2019-06-30] MEDS: NICOTINE 14 MG/24 HOUR PATCH TD SCH (08:04)
[2019-06-30] MEDS: LORazepam 0.5 MG TABLET PO PRN ×3 (08:04→18:35)
[2019-06-30 08:06] VITALS: BP 118/69
[2019-06-30 16:14] VITALS: BP 139/87
[2019-06-30] MEDS: LamoTRIgine 25 MG TABLET PO SCH (20:03)
[2019-06-30] MEDS: QUEtiapine FUMARATE 100 MG TABLET PO SCH (20:03)
[2019-07-01 01:09] VITALS: BP 144/88
[2019-07-01] MEDS: LORazepam 0.5 MG TABLET PO PRN ×3 (08:31→20:00)
[2019-07-01] MEDS: THIAMINE HCL 100 MG TABLET PO SCH ×2 (08:31→16:05)
[2019-07-01] MEDS: MULTIVITAMINS WITH MINERALS, THERAPEUTIC TABLET PO SCH (08:31)
[2019-07-01] MEDS: FOLIC ACID 1 MG TABLET PO SCH (08:31)
[2019-07-01] MEDS: NICOTINE 14 MG/24 HOUR PATCH TD SCH (08:33)
[2019-07-01 08:35] VITALS: BP 113/73
[2019-07-01 16:01] VITALS: BP 124/71
[2019-07-01] MEDS: QUEtiapine FUMARATE 100 MG TABLET PO SCH (20:26)
[2019-07-01] MEDS: LamoTRIgine 25 MG TABLET PO SCH (20:26)
[2019-07-02 03:33] VITALS: BP 131/80
[2019-07-02 08:05] VITALS: BP 118/72
[2019-07-02] MEDS: MULTIVITAMINS WITH MINERALS, THERAPEUTIC TABLET PO SCH (08:07)
[2019-07-02] MEDS: FOLIC ACID 1 MG TABLET PO SCH (08:07)
[2019-07-02] MEDS: THIAMINE HCL 100 MG TABLET PO SCH ×2 (08:07→16:27)
[2019-07-02] MEDS: LORazepam 0.5 MG TABLET PO PRN ×3 (08:08→17:57)
[2019-07-02] MEDS: NICOTINE 14 MG/24 HOUR PATCH TD SCH (08:08)
[2019-07-02 16:41] VITALS: BP 117/74
[2019-07-02] MEDS: LamoTRIgine 25 MG TABLET PO SCH (20:27)
[2019-07-02] MEDS: QUEtiapine FUMARATE 100 MG TABLET PO SCH (20:27)
[2019-07-03 00:21] VITALS: BP 107/62
[2019-07-03 08:06] VITALS: BP 134/79
[2019-07-03] MEDS: THIAMINE HCL 100 MG TABLET PO SCH ×2 (08:15→16:06)
[2019-07-03] MEDS: FOLIC ACID 1 MG TABLET PO SCH (08:16)
[2019-07-03] MEDS: MULTIVITAMINS WITH MINERALS, THERAPEUTIC TABLET PO SCH (08:16)
[2019-07-03] MEDS: LORazepam 0.5 MG TABLET PO PRN ×3 (08:16→20:05)
[2019-07-03] MEDS: NICOTINE 14 MG/24 HOUR PATCH TD SCH (08:16)
[2019-07-03 20:05] VITALS: BP 132/82
[2019-07-03] MEDS: QUEtiapine FUMARATE 100 MG TABLET PO SCH (20:44)
[2019-07-03] MEDS: LamoTRIgine 25 MG TABLET PO SCH (20:44)
[2019-07-04 00:23] VITALS: BP 129/78
[2019-07-04 08:01] VITALS: BP 125/86
[2019-07-04] MEDS: MULTIVITAMINS WITH MINERALS, THERAPEUTIC TABLET PO SCH (08:06)
[2019-07-04] MEDS: FOLIC ACID 1 MG TABLET PO SCH (08:06)
[2019-07-04] MEDS: LORazepam 0.5 MG TABLET PO PRN ×2 (08:07→12:27)
[2019-07-04] MEDS: THIAMINE HCL 100 MG TABLET PO SCH ×2 (08:07→16:36)
[2019-07-04] MEDS: NICOTINE 14 MG/24 HOUR PATCH TD SCH (08:08)
[2019-07-04 16:02] VITALS: BP_SYST 128; BP_SYST 129; BP_DIAS 82; BP_DIAS 84
[2019-07-04] MEDS ORDERED: LAMO25 PO (17:21)
[2019-07-04] MEDS ORDERED: QUET100T33 PO (17:21)
[2019-07-04] MEDS ORDERED: NALT50TA PO (17:21)
[2019-07-04] MEDS ORDERED: QUET100T PO (18:16)
== END 2019-07-04 18:55 | disposition home or self-care (01) | DRG 885 ==
LOC: B2X 16:30
PROVIDERS: ADMIT Psychiatry & Neurology Psychiatry; ATTEND Psychiatry & Neurology Psychiatry
DX: F31.5 Bipolar disorder, current episode depressed, severe, with psychotic features (principal); B18.2 Chronic viral hepatitis C; E46 Unspecified protein-calorie malnutrition; R45.851 Suicidal ideations; R64 Cachexia; D64.9 Anemia, unspecified; E11.9 Type 2 diabetes mellitus without complications; G47.00 Insomnia, unspecified; I10 Essential (primary) hypertension; J44.9 Chronic obstructive pulmonary disease, unspecified; N40.0 Benign prostatic hyperplasia without lower urinary tract symptoms; F17.200 Nicotine dependence, unspecified, uncomplicated; Z59.0 Homelessness; Z68.20 Body mass index [BMI] 20.0-20.9, adult; Z56.0 Unemployment, unspecified; Z88.8 Allergy status to other drugs, medicaments and biological substances
CPT/HCPCS: 80307; 83036; 84439; 84443; 87081

== ENCOUNTER 2019-07-06 16:05 | Inpatient (IN) | payer MEDICARE, MEDICAID ==
[~2019-07-06] VITALS: Ht 172.7 cm; Wt 58.0 kg
[~2019-07-06 16:05] MED LIST changes: +QUET100T PO; +QUET100T33 PO; -QUET25TA34 PO
[2019-07-06] MEDS ORDERED: LAMO25 PO (16:17)
[2019-07-06] MEDS ORDERED: NALT50TA6 PO (16:17)
[2019-07-06] MEDS ORDERED: QUET100T PO (16:17)
[2019-07-06] MEDS ORDERED: ACETAMINOPHEN 325 MG TABLET PO PRN (16:45)
[2019-07-06] MEDS ORDERED: LOPERAMIDE HCL 2 MG CAPSULE PO PRN (16:45)
[2019-07-06] MEDS ORDERED: CYANOCOBALAMIN 1,000 MCG/ML VIAL IM ONE (16:45)
[2019-07-06] MEDS ORDERED: GuaiFENesin/D-METHORPHAN [SUGAR-FREE] 200-20MG/10 ML SYRUP UDCUP PO PRN (16:45)
[2019-07-06] MEDS ORDERED: HydrOXYzine PAMOATE 50 MG CAPSULE PO PRN (16:45)
[2019-07-06] MEDS ORDERED: PROMETHAZINE HCL 25 MG TABLET PO PRN (16:45)
[2019-07-06] MEDS ORDERED: MAGNESIUM HYDROXIDE SUSPENSION 30 ML UDCUP PO PRN (16:45)
[2019-07-06] MEDS ORDERED: ZOLPIDEM TARTRATE 10 MG TABLET PO PRN (16:45)
[2019-07-06] MEDS ORDERED: MAG HYDROX/AL HYDROX/SIMETH ES 30 ML SUSPENSION UDCUP PO PRN (16:45)
[2019-07-06] MEDS ORDERED: QUEtiapine FUMARATE 25 MG TABLET PO PRN (16:45)
[2019-07-06] MEDS ORDERED: PNEUMOCOCCAL VACCINE POLYVALENT 0.5 ML VIAL [PPSV23] IM ONE (16:45)
[2019-07-06 16:59] VITALS: BP 120/68
[2019-07-06 17:20] VITALS: BP 110/78
[2019-07-06] MEDS: THIAMINE HCL 100 MG TABLET PO SCH (18:44)
[2019-07-06] MEDS: QUEtiapine FUMARATE 100 MG TABLET PO SCH (20:29)
[2019-07-07 05:50] VITALS: BP 116/73
[2019-07-07] MEDS: LORazepam 1 MG TABLET PO PRN ×3 (06:08→15:43)
[2019-07-07] MEDS: MULTIVITAMINS WITH MINERALS, THERAPEUTIC TABLET PO SCH (09:33)
[2019-07-07] MEDS: FOLIC ACID 1 MG TABLET PO SCH (09:33)
[2019-07-07] MEDS: LamoTRIgine 25 MG TABLET PO SCH (09:33)
[2019-07-07] MEDS: THIAMINE HCL 100 MG TABLET PO SCH ×2 (09:34→16:38)
[2019-07-07 09:39] VITALS: BP 110/79
[2019-07-07 09:40] LABS: BASOPHILS % (AUTO) 1.2 % (0.0-2.0); EOSINOPHILS % (AUTO) 7.1 % (1.0-6.0); HEMATOCRIT 35.7 % (41-53); HEMOGLOBIN 11.5 g/dL (13.5-17.5); LYMPHOCYTES # (AUTO) 1.5 K/uL (1.0-4.8); LYMPHOCYTES % (AUTO) 25.1 % (22.0-44.0); MEAN CORPUSCULAR HEMOGLOBIN 29.9 pg (26.0-34.0); MEAN CORPUSCULAR HGB CONC 32.3 G/dL (31.0-37.0); MEAN CORPUSCULAR VOLUME 93 fL (80-100); MONOCYTES # (AUTO) 0.7 K/uL (0.1-1.0); MONOCYTES % (AUTO) 11.7 % (2.0-9.0); NEUTROPHILS # (AUTO) 3.3 K/uL (1.8-7.7); NEUTROPHILS % (AUTO) 54.9 % (40.0-70.0); PLATELET COUNT (AUTO) 311 K/uL (150-450); RED BLOOD CELL COUNT(AUTO) 3.85 MIL/uL (4.50-5.90); RED CELL DISTRIBUTION WIDTH 14.9 % (11.5-14.5)
[2019-07-07 10:12] LABS: ALANINE AMINOTRANSFERASE 43 U/L (12-78); ALKALINE PHOSPHATASE 87 U/L (46-116); ANION GAP 9 mmol/L (8-16); ASPARTATE AMINOTRANSFERASE 43 U/L (15-37); BILIRUBIN,TOTAL 0.5 mg/dL (0.1-1.0); CALCIUM, TOTAL 8.7 mg/dL (8.8-10.5); CARBON DIOXIDE 27 mmol/L (22-29); CHLORIDE 103 mmol/L (98-107); CREATININE 1.04 mg/dL (0.60-1.30); GLUCOSE,RANDOM 77 mg/dL (70-110); POTASSIUM 4.4 mmol/L (3.5-5.1); SODIUM SERUM 139 mmol/L (136-145); TOTAL PROTEIN, SERUM 7.4 g/dL (6.4-8.2); UREA NITROGEN, BLOOD 27 mg/dL (7-18)
[2019-07-07 10:15] LABS: GLOMERULAR FILTR. RATE CALC > 60 mL/min (>60)
[2019-07-07] MEDS: NICOTINE 21 MG/24 HOUR PATCH TD SCH (12:49)
[2019-07-07 16:06] VITALS: BP 118/69
[2019-07-07] MEDS: QUEtiapine FUMARATE 100 MG TABLET PO SCH (20:32)
[2019-07-08 00:20] VITALS: BP 130/70
[2019-07-08 08:05] VITALS: BP 109/72
[2019-07-08 08:15] LABS: AMPHET/METH SCREEN,URINE NEGATIVE (NEGATIVE); BARBITURATE SCREEN, URINE NEGATIVE (NEGATIVE); BENZODIAZEPINES SCREEN,URINE NEGATIVE (NEGATIVE); CANNABINOID SCREEN,URINE NEGATIVE (NEGATIVE); COCAINE SCREEN,URINE NEGATIVE (NEGATIVE); METHADONE SCREEN, URINE NEGATIVE (NEGATIVE); OPIATE SCREEN,URINE NEGATIVE (NEGATIVE)
[2019-07-08 08:16] LABS: PHENCYCLIDINE SCREEN,URINE NEGATIVE (NEGATIVE)
[2019-07-08] MEDS: LamoTRIgine 25 MG TABLET PO SCH (08:31)
[2019-07-08] MEDS: THIAMINE HCL 100 MG TABLET PO SCH ×2 (08:31→16:17)
[2019-07-08] MEDS: MULTIVITAMINS WITH MINERALS, THERAPEUTIC TABLET PO SCH (08:31)
[2019-07-08] MEDS: FOLIC ACID 1 MG TABLET PO SCH (08:31)
[2019-07-08] MEDS: LORazepam 1 MG TABLET PO PRN ×4 (08:31→19:22)
[2019-07-08] MEDS: NICOTINE 21 MG/24 HOUR PATCH TD SCH (08:32)
[2019-07-08 16:24] VITALS: BP 119/85
[2019-07-08] MEDS ORDERED: NICOTINE 21 MG/24 HOUR PATCH TD ONE (16:30)
[2019-07-08] MEDS: QUEtiapine FUMARATE 100 MG TABLET PO SCH (20:55)
[2019-07-09 02:45] VITALS: BP 124/79
[2019-07-09 08:33] VITALS: BP 122/78
[2019-07-09] MEDS: FOLIC ACID 1 MG TABLET PO SCH (08:36)
[2019-07-09] MEDS: LORazepam 1 MG TABLET PO PRN ×2 (08:36→17:40)
[2019-07-09] MEDS: THIAMINE HCL 100 MG TABLET PO SCH ×2 (08:36→17:46)
[2019-07-09] MEDS: LamoTRIgine 25 MG TABLET PO SCH (08:36)
[2019-07-09] MEDS: NICOTINE 21 MG/24 HOUR PATCH TD SCH (08:37)
[2019-07-09] MEDS: MULTIVITAMINS WITH MINERALS, THERAPEUTIC TABLET PO SCH (08:40)
[2019-07-09] MEDS ORDERED: DiphenhydrAMINE HCL 50 MG/ML VIAL ONE (12:29)
[2019-07-09] MEDS ORDERED: FluPHENAZine HCL 2.5 MG/ML INJ IM ONE ×2 (12:29→12:30)
[2019-07-09] MEDS ORDERED: DiphenhydrAMINE HCL 50 MG/ML VIAL IM ONE (12:30)
[2019-07-09 17:47] VITALS: BP 124/76
[2019-07-09] MEDS: QUEtiapine FUMARATE 100 MG TABLET PO SCH (20:26)
[2019-07-10 04:37] VITALS: BP 137/83
[2019-07-10] MEDS: LORazepam 1 MG TABLET PO PRN ×2 (08:14→12:52)
[2019-07-10 08:15] VITALS: BP 119/84
[2019-07-10] MEDS: MULTIVITAMINS WITH MINERALS, THERAPEUTIC TABLET PO SCH (08:50)
[2019-07-10] MEDS: FOLIC ACID 1 MG TABLET PO SCH (08:51)
[2019-07-10] MEDS: THIAMINE HCL 100 MG TABLET PO SCH ×2 (08:51→16:37)
[2019-07-10] MEDS: LamoTRIgine 25 MG TABLET PO SCH (08:51)
[2019-07-10] MEDS: NICOTINE 21 MG/24 HOUR PATCH TD SCH (08:52)
[2019-07-10 16:05] VITALS: BP 137/89
[2019-07-10] MEDS: QUEtiapine FUMARATE 300 MG TABLET PO SCH (21:02)
[2019-07-11 05:14] VITALS: BP 126/79
[2019-07-11] MEDS: LamoTRIgine 25 MG TABLET PO SCH (08:08)
[2019-07-11] MEDS: FOLIC ACID 1 MG TABLET PO SCH (08:08)
[2019-07-11] MEDS: MULTIVITAMINS WITH MINERALS, THERAPEUTIC TABLET PO SCH (08:08)
[2019-07-11] MEDS: THIAMINE HCL 100 MG TABLET PO SCH ×2 (08:08→16:36)
[2019-07-11] MEDS: NICOTINE 21 MG/24 HOUR PATCH TD SCH (08:10)
[2019-07-11] MEDS: LORazepam 1 MG TABLET PO PRN ×3 (08:10→17:34)
[2019-07-11 08:14] VITALS: BP 124/82
[2019-07-11 16:05] VITALS: BP 140/89
[2019-07-11] MEDS: QUEtiapine FUMARATE 300 MG TABLET PO SCH (20:28)
[2019-07-12 05:03] VITALS: BP 129/88
[2019-07-12 07:08] VITALS: BP 132/84
[2019-07-12] MEDS: NICOTINE 21 MG/24 HOUR PATCH TD SCH (08:29)
[2019-07-12] MEDS: FOLIC ACID 1 MG TABLET PO SCH (08:30)
[2019-07-12] MEDS: THIAMINE HCL 100 MG TABLET PO SCH (08:30)
[2019-07-12] MEDS: LamoTRIgine 25 MG TABLET PO SCH (08:30)
[2019-07-12] MEDS: MULTIVITAMINS WITH MINERALS, THERAPEUTIC TABLET PO SCH (08:30)
[2019-07-12] MEDS: LORazepam 1 MG TABLET PO PRN ×2 (08:30→12:36)
[2019-07-12 08:36] VITALS: BP 105/87
[2019-07-12] MEDS ORDERED: QUET300T18 PO (15:06)
[2019-07-12] MEDS ORDERED: LAMO25 PO ×2 (15:06→15:44)
[2019-07-12] MEDS ORDERED: THIA100T67 PO (15:44)
[2019-07-12] MEDS ORDERED: FOLI1 PO (15:44)
[2019-07-12] MEDS ORDERED: QUET300T2 PO (15:44)
[2019-07-12] MEDS ORDERED: MULT-1239 PO (15:44)
[2019-07-12 16:04] VITALS: BP 110/61
== END 2019-07-12 16:30 | disposition home or self-care (01) | DRG 885 ==
LOC: B2X 17:31
PROVIDERS: ADMIT Psychiatry & Neurology Psychiatry; ATTEND Psychiatry & Neurology Psychiatry
DX: F25.9 Schizoaffective disorder, unspecified (principal); B19.20 Unspecified viral hepatitis C without hepatic coma; R64 Cachexia; F15.90 Other stimulant use, unspecified, uncomplicated; N40.0 Benign prostatic hyperplasia without lower urinary tract symptoms; K21.9 Gastro-esophageal reflux disease without esophagitis; J44.9 Chronic obstructive pulmonary disease, unspecified; I10 Essential (primary) hypertension; R73.03 Prediabetes; F31.81 Bipolar II disorder; F17.210 Nicotine dependence, cigarettes, uncomplicated; D64.9 Anemia, unspecified; Z88.8 Allergy status to other drugs, medicaments and biological substances; Z59.0 Homelessness; Z91.19 Patient's noncompliance with other medical treatment and regimen; Z82.49 Family history of ischemic heart disease and other diseases of the circulatory system
CPT/HCPCS: 80307; 87081; 90732; J1200; J3420; J3490

== ENCOUNTER 2019-07-18 18:10 | Inpatient (IN) | payer MEDICARE, MEDICAID ==
[~2019-07-18] VITALS: Ht 172.7 cm; Wt 59.0 kg
[~2019-07-18 18:10] MED LIST changes: +FOLI1 PO; -LAMO25 PO; +LAMO25TA25 PO; +MULT-1239 PO; -NALT50TA PO; -QUET100T PO; -QUET100T33 PO; +QUET300T18 PO; +QUET300T2 PO; +THIA100T67 PO
[2019-07-18] MEDS ORDERED: MAGNESIUM HYDROXIDE SUSPENSION 30 ML UDCUP PO PRN (19:15)
[2019-07-18] MEDS ORDERED: ACETAMINOPHEN 325 MG TABLET PO PRN (19:15)
[2019-07-18] MEDS ORDERED: PALIPERIDONE PALMITATE 117 MG/0.75 ML SYRINGE IM ONE (19:15)
[2019-07-18] MEDS ORDERED: PROMETHAZINE HCL 25 MG TABLET PO PRN (19:15)
[2019-07-18] MEDS ORDERED: GuaiFENesin/D-METHORPHAN [SUGAR-FREE] 200-20MG/10 ML SYRUP UDCUP PO PRN (19:15)
[2019-07-18] MEDS ORDERED: HydrOXYzine PAMOATE 50 MG CAPSULE PO PRN (19:15)
[2019-07-18] MEDS ORDERED: LOPERAMIDE HCL 2 MG CAPSULE PO PRN (19:15)
[2019-07-18] MEDS ORDERED: OLANZapine 5 MG RAPDIS TABLET PO PRN (19:15)
[2019-07-18] MEDS ORDERED: PALIPERIDONE PALMITATE 78 MG/0.5 ML SYRINGE IM ONE (19:15)
[2019-07-18] MEDS ORDERED: MAG HYDROX/AL HYDROX/SIMETH ES 30 ML SUSPENSION UDCUP PO PRN (19:15)
[2019-07-18] MEDS: THIAMINE HCL 100 MG TABLET PO SCH (20:59)
[2019-07-18] MEDS ORDERED: INFLUENZA VIRUS VACCINE QVS 2019-20 (3YR+)/PF 60 MCG/0.5 ML SYRINGE IM ONE (21:15)
[2019-07-18 21:33] VITALS: BP 111/74
[2019-07-18] MEDS: PALIPERIDONE 1.5 MG ER TABLET PO SCH (22:52)
[2019-07-19 05:53] VITALS: BP 118/70
[2019-07-19] MEDS: LORazepam 1 MG TABLET PO PRN ×3 (05:56→17:01)
[2019-07-19 08:37] VITALS: BP 103/66
[2019-07-19] MEDS: NALTREXONE HCL 50 MG TABLET PO SCH (08:40)
[2019-07-19] MEDS: THIAMINE HCL 100 MG TABLET PO SCH ×2 (08:44→17:01)
[2019-07-19] MEDS: FOLIC ACID 1 MG TABLET PO SCH (08:44)
[2019-07-19] MEDS: MULTIVITAMINS WITH MINERALS, THERAPEUTIC TABLET PO SCH (08:44)
[2019-07-19] MEDS: LamoTRIgine 25 MG TABLET PO SCH (08:44)
[2019-07-19] MEDS: NICOTINE 14 MG/24 HOUR PATCH TD SCH (08:45)
[2019-07-19] MEDS ORDERED: PALIPERIDONE PALMITATE 117 MG/0.75 ML SYRINGE IM ONE (09:00)
[2019-07-19 16:14] VITALS: BP 109/69
[2019-07-19] MEDS: PALIPERIDONE 1.5 MG ER TABLET PO SCH (20:12)
[2019-07-20 05:01] VITALS: BP 110/68
[2019-07-20 07:55] LABS: BASOPHILS % (AUTO) 0.7 % (0.0-2.0); EOSINOPHILS % (AUTO) 8.1 % (1.0-6.0); HEMATOCRIT 34.2 % (41-53); HEMOGLOBIN 11.3 g/dL (13.5-17.5); LYMPHOCYTES # (AUTO) 0.7 K/uL (1.0-4.8); LYMPHOCYTES % (AUTO) 14.8 % (22.0-44.0); MEAN CORPUSCULAR HEMOGLOBIN 30.5 pg (26.0-34.0); MEAN CORPUSCULAR VOLUME 92 fL (80-100); MONOCYTES # (AUTO) 0.4 K/uL (0.1-1.0); MONOCYTES % (AUTO) 8.5 % (2.0-9.0); NEUTROPHILS % (AUTO) 67.9 % (40.0-70.0); PLATELET COUNT (AUTO) 258 K/uL (150-450); RED CELL DISTRIBUTION WIDTH 15.1 % (11.5-14.5)
[2019-07-20] MEDS: LamoTRIgine 25 MG TABLET PO SCH (08:11)
[2019-07-20 08:12] LABS: ALANINE AMINOTRANSFERASE 26 U/L (12-78); ALBUMIN 3.4 g/dL (3.4-5.0); ALKALINE PHOSPHATASE 78 U/L (46-116); ANION GAP 5 mmol/L (8-16); ASPARTATE AMINOTRANSFERASE 31 U/L (15-37); BILIRUBIN,TOTAL 0.3 mg/dL (0.1-1.0); CALCIUM, TOTAL 8.6 mg/dL (8.8-10.5); CARBON DIOXIDE 28 mmol/L (22-29); CHLORIDE 104 mmol/L (98-107); CREATININE 1.01 mg/dL (0.60-1.30); GLUCOSE,RANDOM 93 mg/dL (70-110); SODIUM SERUM 137 mmol/L (136-145); TOTAL PROTEIN, SERUM 6.8 g/dL (6.4-8.2); UREA NITROGEN, BLOOD 10 mg/dL (7-18)
[2019-07-20] MEDS: THIAMINE HCL 100 MG TABLET PO SCH ×2 (08:12→16:19)
[2019-07-20] MEDS: FOLIC ACID 1 MG TABLET PO SCH (08:12)
[2019-07-20] MEDS: NALTREXONE HCL 50 MG TABLET PO SCH (08:12)
[2019-07-20] MEDS: MULTIVITAMINS WITH MINERALS, THERAPEUTIC TABLET PO SCH (08:12)
[2019-07-20] MEDS: NICOTINE 14 MG/24 HOUR PATCH TD SCH (08:12)
[2019-07-20] MEDS: LORazepam 1 MG TABLET PO PRN ×4 (08:13→19:42)
[2019-07-20 08:16] LABS: GLOMERULAR FILTR. RATE CALC > 60 mL/min (>60)
[2019-07-20 08:30] VITALS: BP 123/80
[2019-07-20 16:21] VITALS: BP 119/78
[2019-07-20] MEDS: ZOLPIDEM TARTRATE 10 MG TABLET PO PRN (22:30)
[2019-07-21 06:07] VITALS: BP 125/90
[2019-07-21] MEDS: LORazepam 1 MG TABLET PO PRN ×3 (08:04→22:43)
[2019-07-21] MEDS: FOLIC ACID 1 MG TABLET PO SCH (08:05)
[2019-07-21] MEDS: MULTIVITAMINS WITH MINERALS, THERAPEUTIC TABLET PO SCH (08:05)
[2019-07-21] MEDS: THIAMINE HCL 100 MG TABLET PO SCH ×2 (08:05→16:28)
[2019-07-21] MEDS: LamoTRIgine 25 MG TABLET PO SCH (08:05)
[2019-07-21] MEDS: NICOTINE 14 MG/24 HOUR PATCH TD SCH (08:06)
[2019-07-21] MEDS: NALTREXONE HCL 50 MG TABLET PO SCH (08:06)
[2019-07-21 08:33] VITALS: BP 110/67
[2019-07-21 16:21] VITALS: BP 119/65
[2019-07-22 06:49] VITALS: BP 118/76
[2019-07-22] MEDS: THIAMINE HCL 100 MG TABLET PO SCH ×2 (08:12→16:37)
[2019-07-22] MEDS: LamoTRIgine 25 MG TABLET PO SCH (08:13)
[2019-07-22] MEDS: MULTIVITAMINS WITH MINERALS, THERAPEUTIC TABLET PO SCH (08:13)
[2019-07-22] MEDS: NICOTINE 14 MG/24 HOUR PATCH TD SCH (08:13)
[2019-07-22] MEDS: FOLIC ACID 1 MG TABLET PO SCH (08:13)
[2019-07-22] MEDS: NALTREXONE HCL 50 MG TABLET PO SCH (08:14)
[2019-07-22] MEDS: LORazepam 1 MG TABLET PO PRN ×3 (08:17→20:28)
[2019-07-22 08:31] VITALS: BP 109/66
[2019-07-22] MEDS ORDERED: PALIPERIDONE PALMITATE 156 MG/ML SYRINGE IM ONE (09:00)
[2019-07-22] MEDS ORDERED: ALBUTEROL SULFATE HFA 90 MCG/PUFF 8 GM INHALER IH PRN (11:00)
[2019-07-22 16:17] VITALS: BP 115/70
[2019-07-22] MEDS: ZOLPIDEM TARTRATE 10 MG TABLET PO PRN (21:32)
[2019-07-23 05:32] VITALS: BP 120/81
[2019-07-23 08:00] VITALS: BP 126/65
[2019-07-23] MEDS: FOLIC ACID 1 MG TABLET PO SCH (08:20)
[2019-07-23] MEDS: LamoTRIgine 25 MG TABLET PO SCH (08:20)
[2019-07-23] MEDS: NICOTINE 14 MG/24 HOUR PATCH TD SCH (08:20)
[2019-07-23] MEDS: NALTREXONE HCL 50 MG TABLET PO SCH (08:21)
[2019-07-23] MEDS: MULTIVITAMINS WITH MINERALS, THERAPEUTIC TABLET PO SCH (08:21)
[2019-07-23] MEDS: THIAMINE HCL 100 MG TABLET PO SCH ×2 (08:21→16:41)
[2019-07-23] MEDS: LORazepam 1 MG TABLET PO PRN ×2 (13:35→19:44)
[2019-07-23 16:25] VITALS: BP 120/76
[2019-07-23] MEDS: QUEtiapine FUMARATE 25 MG TABLET PO SCH (20:33)
[2019-07-24 03:03] VITALS: BP 122/92
[2019-07-24] MEDS: LORazepam 1 MG TABLET PO PRN ×4 (03:06→20:22)
[2019-07-24] MEDS: PALIPERIDONE 1.5 MG ER TABLET PO PRN ×2 (05:05→14:36)
[2019-07-24] MEDS: NICOTINE 14 MG/24 HOUR PATCH TD SCH (08:24)
[2019-07-24] MEDS: THIAMINE HCL 100 MG TABLET PO SCH ×2 (08:25→16:39)
[2019-07-24] MEDS: FOLIC ACID 1 MG TABLET PO SCH (08:25)
[2019-07-24] MEDS: MULTIVITAMINS WITH MINERALS, THERAPEUTIC TABLET PO SCH (08:25)
[2019-07-24] MEDS: NALTREXONE HCL 50 MG TABLET PO SCH (08:25)
[2019-07-24] MEDS: LamoTRIgine 25 MG TABLET PO SCH (08:25)
[2019-07-24 08:35] VITALS: BP 111/62
[2019-07-24 16:19] VITALS: BP 115/69
[2019-07-24 20:22] VITALS: BP 117/76
[2019-07-24] MEDS: QUEtiapine FUMARATE 25 MG TABLET PO SCH (21:02)
[2019-07-25 02:24] VITALS: BP 103/70
[2019-07-25] MEDS: QUEtiapine FUMARATE 25 MG TABLET PO PRN (02:24)
[2019-07-25 08:26] VITALS: BP 116/82
[2019-07-25] MEDS: NICOTINE 14 MG/24 HOUR PATCH TD SCH (08:30)
[2019-07-25] MEDS: NALTREXONE HCL 50 MG TABLET PO SCH (08:31)
[2019-07-25] MEDS: FOLIC ACID 1 MG TABLET PO SCH (08:31)
[2019-07-25] MEDS: LORazepam 1 MG TABLET PO PRN ×3 (08:31→17:59)
[2019-07-25] MEDS: MULTIVITAMINS WITH MINERALS, THERAPEUTIC TABLET PO SCH (08:31)
[2019-07-25] MEDS: THIAMINE HCL 100 MG TABLET PO SCH ×2 (08:31→16:40)
[2019-07-25] MEDS: LamoTRIgine 25 MG TABLET PO SCH (08:31)
[2019-07-25 18:15] VITALS: BP 116/88
[2019-07-25] MEDS: QUEtiapine FUMARATE 25 MG TABLET PO SCH (20:30)
[2019-07-26 00:14] VITALS: BP 120/81
[2019-07-26] MEDS: QUEtiapine FUMARATE 25 MG TABLET PO PRN (00:19)
[2019-07-26] MEDS: LORazepam 1 MG TABLET PO PRN (08:16)
[2019-07-26] MEDS: LamoTRIgine 25 MG TABLET PO SCH (08:33)
[2019-07-26] MEDS: NICOTINE 14 MG/24 HOUR PATCH TD SCH (08:33)
[2019-07-26] MEDS: THIAMINE HCL 100 MG TABLET PO SCH (08:33)
[2019-07-26] MEDS: NALTREXONE HCL 50 MG TABLET PO SCH (08:33)
[2019-07-26 08:34] VITALS: BP 114/76
[2019-07-26] MEDS: FOLIC ACID 1 MG TABLET PO SCH (08:34)
[2019-07-26] MEDS: MULTIVITAMINS WITH MINERALS, THERAPEUTIC TABLET PO SCH (08:34)
[2019-07-26] MEDS ORDERED: NUT.237L33 PO (09:34)
[2019-07-26] MEDS ORDERED: QUET25TA PO (09:34)
[2019-07-26] MEDS ORDERED: ALBU8HFA IH (09:34)
[2019-07-26] MEDS ORDERED: NALT50TA6 PO (09:41)
[2019-08-03] MEDS ORDERED: LAMO25TA25 PO (23:16)
[2019-08-15] MEDS ORDERED: PALIPERIDONE PALMITATE 117 MG/0.75 ML SYRINGE IM SCH (09:00)
[2019-08-15] MEDS ORDERED: LAMO25TA25 PO (14:43)
== END 2019-07-26 13:26 | disposition home or self-care (01) | DRG 885 ==
LOC: B2X 20:27
PROVIDERS: ADMIT Psychiatry & Neurology Psychiatry; ATTEND Psychiatry & Neurology Psychiatry
PROC: 3E0234Z Introduction of Serum, Toxoid and Vaccine into Muscle, Percutaneous Approach (ICD-10-PCS; principal; 2019-07-19)
DX: F25.9 Schizoaffective disorder, unspecified (principal); B19.20 Unspecified viral hepatitis C without hepatic coma; R64 Cachexia; Z68.1 Body mass index [BMI] 19.9 or less, adult; D64.9 Anemia, unspecified; F17.210 Nicotine dependence, cigarettes, uncomplicated; I10 Essential (primary) hypertension; J44.9 Chronic obstructive pulmonary disease, unspecified; K21.9 Gastro-esophageal reflux disease without esophagitis; N40.0 Benign prostatic hyperplasia without lower urinary tract symptoms; Z79.899 Other long term (current) drug therapy; Z82.49 Family history of ischemic heart disease and other diseases of the circulatory system; Z91.19 Patient's noncompliance with other medical treatment and regimen; Z88.8 Allergy status to other drugs, medicaments and biological substances; F31.81 Bipolar II disorder; R73.03 Prediabetes; E66.9 Obesity, unspecified; Z23 Encounter for immunization
CPT/HCPCS: 87081; 90686

== ENCOUNTER 2019-08-01 12:50 | Emergency (ER) | payer MEDICARE, MEDICAID ==
[~2019-08-01] VITALS: Ht 165.1 cm; Wt 54.5 kg
[~2019-08-01 12:50] MED LIST changes: +ALBU8HFA IH; +LAMO25 PO; -LAMO25TA25 PO; +NALT50TA6 PO; +NUT.237L33 PO; +QUET25TA PO; -QUET300T18 PO; -QUET300T2 PO
[2019-08-01] MEDS ORDERED: ZIPR80CA2 PO (14:46)
[2019-08-01 14:48] LABS: EOSINOPHILS % (AUTO) 4.6 % (1.0-6.0); HEMATOCRIT 29.5 % (41-53); HEMOGLOBIN 9.9 g/dL (13.5-17.5); LYMPHOCYTES # (AUTO) 1.2 K/uL (1.0-4.8); LYMPHOCYTES % (AUTO) 24.5 % (22.0-44.0); MEAN CORPUSCULAR HEMOGLOBIN 30.5 pg (26.0-34.0); MEAN CORPUSCULAR HGB CONC 33.5 G/dL (31.0-37.0); MEAN CORPUSCULAR VOLUME 91 fL (80-100); MONOCYTES # (AUTO) 0.5 K/uL (0.1-1.0); MONOCYTES % (AUTO) 10.8 % (2.0-9.0); NEUTROPHILS # (AUTO) 2.8 K/uL (1.8-7.7); NEUTROPHILS % (AUTO) 59.1 % (40.0-70.0); PLATELET COUNT (AUTO) 256 K/uL (150-450); RED BLOOD CELL COUNT(AUTO) 3.24 MIL/uL (4.50-5.90); RED CELL DISTRIBUTION WIDTH 14.4 % (11.5-14.5)
[2019-08-01 14:58] LABS: ANION GAP 5 mmol/L (8-16); CALCIUM, TOTAL 8.3 mg/dL (8.8-10.5); CARBON DIOXIDE 28 mmol/L (22-29); CHLORIDE 103 mmol/L (98-107); CREATININE 0.95 mg/dL (0.60-1.30); GLUCOSE,RANDOM 98 mg/dL (70-110); POTASSIUM 4.3 mmol/L (3.5-5.1); SODIUM SERUM 136 mmol/L (136-145); UREA NITROGEN, BLOOD 18 mg/dL (7-18)
[2019-08-01 15:01] LABS: GLOMERULAR FILTR. RATE CALC > 60 mL/min (>60)
[2019-08-01 15:03] LABS: ALANINE AMINOTRANSFERASE 38 U/L (12-78); ALBUMIN 3.4 g/dL (3.4-5.0); ALKALINE PHOSPHATASE 87 U/L (46-116); ASPARTATE AMINOTRANSFERASE 45 U/L (15-37); BILIRUBIN,TOTAL 0.3 mg/dL (0.1-1.0); TOTAL PROTEIN, SERUM 6.8 g/dL (6.4-8.2)
[2019-08-01 16:10] LABS: AMPHET/METH SCREEN,URINE NEGATIVE (NEGATIVE); BARBITURATE SCREEN, URINE NEGATIVE (NEGATIVE); BENZODIAZEPINES SCREEN,URINE NEGATIVE (NEGATIVE); CANNABINOID SCREEN,URINE NEGATIVE (NEGATIVE); COCAINE SCREEN,URINE NEGATIVE (NEGATIVE); METHADONE SCREEN, URINE NEGATIVE (NEGATIVE); OPIATE SCREEN,URINE NEGATIVE (NEGATIVE); PHENCYCLIDINE SCREEN,URINE NEGATIVE (NEGATIVE)
[2019-08-01 17:21] VITALS: BP 99/62
== END 2019-08-01 18:35 | disposition left against medical advice (07) ==
LOC: EMS 12:53
DX: F41.9 Anxiety disorder, unspecified (principal); F20.9 Schizophrenia, unspecified; J44.9 Chronic obstructive pulmonary disease, unspecified; F17.210 Nicotine dependence, cigarettes, uncomplicated; F12.90 Cannabis use, unspecified, uncomplicated; F15.90 Other stimulant use, unspecified, uncomplicated; Z59.0 Homelessness; Z86.19 Personal history of other infectious and parasitic diseases; Z79.899 Other long term (current) drug therapy
CPT/HCPCS: 36415; 80053; 80307; 85025; 99284; G0480

== ENCOUNTER 2019-08-03 22:50 | Inpatient (IN) | payer MEDICARE, MEDICAID ==
[~2019-08-03] VITALS: Ht 172.7 cm; Wt 61.7 kg
[~2019-08-03 22:50] MED LIST changes: -ALBU8HFA IH; -FOLI1 PO; -LAMO25 PO; -MULT-1239 PO; -NALT50TA6 PO; -NUT.237L33 PO; -THIA100T67 PO; +ZIPR80CA2 PO
[2019-08-03] MEDS ORDERED: QUEtiapine FUMARATE 100 MG TABLET PO PRN (23:15)
[2019-08-03] MEDS ORDERED: LORazepam 1 MG TABLET PO PRN (23:15)
[2019-08-03] MEDS ORDERED: ZOLPIDEM TARTRATE 10 MG TABLET PO PRN (23:15)
[2019-08-03] MEDS ORDERED: LAMO25 PO (23:16)
[2019-08-03] MEDS ORDERED: NALT50TA6 PO (23:16)
[2019-08-04 00:49] VITALS: BP 118/70
[2019-08-04] MEDS ORDERED: -PHARMACY VACCINE NOTE- MISC ONE (05:15)
[2019-08-04 08:15] VITALS: BP 105/66
[2019-08-04 08:20] LABS: BASOPHILS % (AUTO) 1.1 % (0.0-2.0); EOSINOPHILS % (AUTO) 6.6 % (1.0-6.0); HEMATOCRIT 33.4 % (41-53); HEMOGLOBIN 10.9 g/dL (13.5-17.5); LYMPHOCYTES # (AUTO) 1.5 K/uL (1.0-4.8); LYMPHOCYTES % (AUTO) 29.2 % (22.0-44.0); MEAN CORPUSCULAR HGB CONC 32.7 G/dL (31.0-37.0); MEAN CORPUSCULAR VOLUME 92 fL (80-100); MONOCYTES # (AUTO) 0.6 K/uL (0.1-1.0); MONOCYTES % (AUTO) 11.7 % (2.0-9.0); NEUTROPHILS # (AUTO) 2.6 K/uL (1.8-7.7); NEUTROPHILS % (AUTO) 51.4 % (40.0-70.0); PLATELET COUNT (AUTO) 295 K/uL (150-450); RED BLOOD CELL COUNT(AUTO) 3.64 MIL/uL (4.50-5.90)
[2019-08-04] MEDS: LamoTRIgine 25 MG TABLET PO SCH (08:45)
[2019-08-04] MEDS: NALTREXONE HCL 50 MG TABLET PO SCH (08:45)
[2019-08-04 08:52] LABS: HEMOGLOBIN A1C 6.6 % (4.5-6.2)
[2019-08-04 09:08] LABS: ALANINE AMINOTRANSFERASE 39 U/L (12-78); ALBUMIN 3.7 g/dL (3.4-5.0); ALKALINE PHOSPHATASE 90 U/L (46-116); ANION GAP 8 mmol/L (8-16); ASPARTATE AMINOTRANSFERASE 45 U/L (15-37); BILIRUBIN,TOTAL 0.5 mg/dL (0.1-1.0); CARBON DIOXIDE 27 mmol/L (22-29); CHLORIDE 105 mmol/L (98-107); CHOL/HDL RATIO 1.9 (4.2-7.3); CHOLESTEROL 128 mg/dL (131-200); FREE T4 (FREE THYROXINE) 1.04 ng/dL (0.76-1.46); GLUCOSE,RANDOM 122 mg/dL (70-110); HDL CHOLESTEROL 66 mg/dL (40-60); LDL CHOL (CALC.) 55 mg/dL (0-130); POTASSIUM 3.9 mmol/L (3.5-5.1); SODIUM SERUM 140 mmol/L (136-145); THYROID STIMULATING HORMONE 1.81 uIU/mL (0.36-3.74); TOTAL PROTEIN, SERUM 7.5 g/dL (6.4-8.2); TRIGLYCERIDES 33 mg/dL (15-150); UREA NITROGEN, BLOOD 16 mg/dL (7-18)
[2019-08-04 09:12] LABS: GLOMERULAR FILTR. RATE CALC > 60 mL/min (>60)
[2019-08-04] MEDS ORDERED: LOPERAMIDE HCL 2 MG CAPSULE PO PRN (12:00)
[2019-08-04] MEDS ORDERED: GuaiFENesin/D-METHORPHAN [SUGAR-FREE] 200-20MG/10 ML SYRUP UDCUP PO PRN (12:00)
[2019-08-04] MEDS ORDERED: MAG HYDROX/AL HYDROX/SIMETH ES 30 ML SUSPENSION UDCUP PO PRN (12:00)
[2019-08-04] MEDS ORDERED: ACETAMINOPHEN 325 MG TABLET PO PRN (12:00)
[2019-08-04] MEDS ORDERED: HydrOXYzine PAMOATE 50 MG CAPSULE PO PRN (12:00)
[2019-08-04] MEDS ORDERED: ZOLPIDEM TARTRATE 10 MG TABLET PO PRN (12:00)
[2019-08-04] MEDS ORDERED: PROMETHAZINE HCL 25 MG TABLET PO PRN (12:00)
[2019-08-04] MEDS ORDERED: MAGNESIUM HYDROXIDE SUSPENSION 30 ML UDCUP PO PRN (12:00)
[2019-08-04] MEDS: LORazepam 0.5 MG TABLET PO PRN ×2 (12:53→18:11)
[2019-08-04] MEDS ORDERED: QUEtiapine FUMARATE 100 MG TABLET PO PRN (15:15)
[2019-08-04 16:34] VITALS: BP 137/83
[2019-08-04] MEDS: THIAMINE HCL 100 MG TABLET PO SCH (16:44)
[2019-08-04] MEDS ORDERED: QUEtiapine FUMARATE 25 MG TABLET PO SCH (21:00)
[2019-08-05 08:41] VITALS: BP 107/66
[2019-08-05] MEDS: MULTIVITAMINS WITH MINERALS, THERAPEUTIC TABLET PO SCH (10:09)
[2019-08-05] MEDS: THIAMINE HCL 100 MG TABLET PO SCH ×2 (10:09→17:15)
[2019-08-05] MEDS: NALTREXONE HCL 50 MG TABLET PO SCH (10:09)
[2019-08-05] MEDS: LORazepam 0.5 MG TABLET PO PRN ×4 (10:10→21:42)
[2019-08-05] MEDS: LamoTRIgine 25 MG TABLET PO SCH (10:10)
[2019-08-05] MEDS: FOLIC ACID 1 MG TABLET PO SCH (10:10)
[2019-08-05] MEDS ORDERED: QUEtiapine FUMARATE 25 MG TABLET PO PRN (17:00)
[2019-08-05 19:24] VITALS: BP 118/74
[2019-08-05] MEDS: QUEtiapine FUMARATE 25 MG TABLET PO SCH (21:43)
[2019-08-06 06:01] VITALS: BP 116/78
[2019-08-06] MEDS: LamoTRIgine 25 MG TABLET PO SCH (08:24)
[2019-08-06] MEDS: THIAMINE HCL 100 MG TABLET PO SCH ×2 (08:24→16:34)
[2019-08-06] MEDS: NALTREXONE HCL 50 MG TABLET PO SCH (08:26)
[2019-08-06] MEDS: MULTIVITAMINS WITH MINERALS, THERAPEUTIC TABLET PO SCH (08:26)
[2019-08-06] MEDS: FOLIC ACID 1 MG TABLET PO SCH (08:26)
[2019-08-06] MEDS: LORazepam 0.5 MG TABLET PO PRN ×3 (08:27→16:59)
[2019-08-06 08:35] VITALS: BP 114/72
[2019-08-06 16:36] VITALS: BP 114/77
[2019-08-06] MEDS: QUEtiapine FUMARATE 25 MG TABLET PO SCH (20:29)
[2019-08-07 01:12] VITALS: BP 105/63
[2019-08-07] MEDS: FOLIC ACID 1 MG TABLET PO SCH (08:04)
[2019-08-07] MEDS: MULTIVITAMINS WITH MINERALS, THERAPEUTIC TABLET PO SCH (08:05)
[2019-08-07] MEDS: LamoTRIgine 25 MG TABLET PO SCH (08:05)
[2019-08-07] MEDS: THIAMINE HCL 100 MG TABLET PO SCH ×2 (08:05→16:38)
[2019-08-07] MEDS: NALTREXONE HCL 50 MG TABLET PO SCH (08:05)
[2019-08-07] MEDS: NICOTINE 21 MG/24 HOUR PATCH TD SCH (08:05)
[2019-08-07] MEDS: LORazepam 0.5 MG TABLET PO PRN ×3 (08:20→15:49)
[2019-08-07 08:59] VITALS: BP 119/72
[2019-08-07 18:18] VITALS: BP 123/72
[2019-08-07] MEDS: QUEtiapine FUMARATE 25 MG TABLET PO SCH (20:33)
[2019-08-08 00:18] VITALS: BP 110/66
[2019-08-08] MEDS: NALTREXONE HCL 50 MG TABLET PO SCH (08:10)
[2019-08-08] MEDS: MULTIVITAMINS WITH MINERALS, THERAPEUTIC TABLET PO SCH (08:10)
[2019-08-08] MEDS: FOLIC ACID 1 MG TABLET PO SCH (08:10)
[2019-08-08] MEDS: THIAMINE HCL 100 MG TABLET PO SCH ×2 (08:10→16:14)
[2019-08-08] MEDS: LamoTRIgine 25 MG TABLET PO SCH (08:11)
[2019-08-08] MEDS: NICOTINE 21 MG/24 HOUR PATCH TD SCH (08:11)
[2019-08-08] MEDS: LORazepam 0.5 MG TABLET PO PRN ×3 (08:37→17:28)
[2019-08-08 08:50] VITALS: BP 111/73
[2019-08-08 16:18] VITALS: BP 114/72
[2019-08-08] MEDS: QUEtiapine FUMARATE 25 MG TABLET PO SCH (20:31)
[2019-08-09 02:29] VITALS: BP 118/78
[2019-08-09] MEDS: LORazepam 0.5 MG TABLET PO PRN ×3 (07:58→19:29)
[2019-08-09] MEDS: NICOTINE 21 MG/24 HOUR PATCH TD SCH (08:37)
[2019-08-09] MEDS: THIAMINE HCL 100 MG TABLET PO SCH ×2 (08:38→16:39)
[2019-08-09] MEDS: LamoTRIgine 25 MG TABLET PO SCH (08:38)
[2019-08-09] MEDS: NALTREXONE HCL 50 MG TABLET PO SCH (08:38)
[2019-08-09] MEDS: FOLIC ACID 1 MG TABLET PO SCH (08:38)
[2019-08-09] MEDS: MULTIVITAMINS WITH MINERALS, THERAPEUTIC TABLET PO SCH (08:38)
[2019-08-09 08:45] VITALS: BP 121/73
[2019-08-09 16:19] VITALS: BP 122/75
[2019-08-09] MEDS: QUEtiapine FUMARATE 25 MG TABLET PO SCH (20:39)
[2019-08-10 00:27] VITALS: BP 112/77
[2019-08-10 08:13] VITALS: BP 116/82
[2019-08-10] MEDS: NICOTINE 21 MG/24 HOUR PATCH TD SCH (08:40)
[2019-08-10] MEDS: NALTREXONE HCL 50 MG TABLET PO SCH (08:40)
[2019-08-10] MEDS: FOLIC ACID 1 MG TABLET PO SCH (08:41)
[2019-08-10] MEDS: THIAMINE HCL 100 MG TABLET PO SCH ×2 (08:41→16:25)
[2019-08-10] MEDS: LamoTRIgine 25 MG TABLET PO SCH (08:41)
[2019-08-10] MEDS: MULTIVITAMINS WITH MINERALS, THERAPEUTIC TABLET PO SCH (08:41)
[2019-08-10] MEDS: LORazepam 0.5 MG TABLET PO PRN ×4 (09:04→21:33)
[2019-08-10 16:25] VITALS: BP 116/76
[2019-08-10] MEDS: QUEtiapine FUMARATE 100 MG TABLET PO SCH (20:29)
[2019-08-11 06:43] VITALS: BP 117/72
[2019-08-11 08:33] VITALS: BP 118/79
[2019-08-11] MEDS: THIAMINE HCL 100 MG TABLET PO SCH ×2 (08:48→16:34)
[2019-08-11] MEDS: NICOTINE 21 MG/24 HOUR PATCH TD SCH (08:48)
[2019-08-11] MEDS: LamoTRIgine 25 MG TABLET PO SCH (08:49)
[2019-08-11] MEDS: NALTREXONE HCL 50 MG TABLET PO SCH (08:49)
[2019-08-11] MEDS: FOLIC ACID 1 MG TABLET PO SCH (08:49)
[2019-08-11] MEDS: MULTIVITAMINS WITH MINERALS, THERAPEUTIC TABLET PO SCH (08:52)
[2019-08-11] MEDS: LORazepam 0.5 MG TABLET PO PRN ×3 (08:52→18:39)
[2019-08-11 16:40] VITALS: BP 109/62
[2019-08-11] MEDS: QUEtiapine FUMARATE 100 MG TABLET PO SCH (20:43)
[2019-08-12 01:45] VITALS: BP 110/76
[2019-08-12] MEDS: FOLIC ACID 1 MG TABLET PO SCH (08:16)
[2019-08-12] MEDS: MULTIVITAMINS WITH MINERALS, THERAPEUTIC TABLET PO SCH (08:16)
[2019-08-12] MEDS: NALTREXONE HCL 50 MG TABLET PO SCH (08:16)
[2019-08-12] MEDS: NICOTINE 21 MG/24 HOUR PATCH TD SCH (08:16)
[2019-08-12] MEDS: LamoTRIgine 25 MG TABLET PO SCH (08:17)
[2019-08-12] MEDS: THIAMINE HCL 100 MG TABLET PO SCH ×2 (08:17→16:08)
[2019-08-12 08:37] VITALS: BP 122/76
[2019-08-12] MEDS: LORazepam 0.5 MG TABLET PO PRN ×2 (09:09→17:42)
[2019-08-12 16:21] VITALS: BP 122/84
[2019-08-12] MEDS: QUEtiapine FUMARATE 25 MG TABLET PO SCH (20:41)
[2019-08-13 01:00] VITALS: BP 112/75
[2019-08-13 08:31] VITALS: BP 115/74
[2019-08-13] MEDS: THIAMINE HCL 100 MG TABLET PO SCH ×2 (08:53→16:23)
[2019-08-13] MEDS: LamoTRIgine 25 MG TABLET PO SCH (08:53)
[2019-08-13] MEDS: MULTIVITAMINS WITH MINERALS, THERAPEUTIC TABLET PO SCH (08:53)
[2019-08-13] MEDS: NALTREXONE HCL 50 MG TABLET PO SCH (08:54)
[2019-08-13] MEDS: FOLIC ACID 1 MG TABLET PO SCH (08:54)
[2019-08-13] MEDS: NICOTINE 21 MG/24 HOUR PATCH TD SCH (08:55)
[2019-08-13 16:27] VITALS: BP 118/78
[2019-08-13] MEDS: LORazepam 0.5 MG TABLET PO PRN (16:52)
[2019-08-13] MEDS: QUEtiapine FUMARATE 25 MG TABLET PO SCH (20:15)
[2019-08-14 04:01] VITALS: BP 112/68
[2019-08-14] MEDS: LORazepam 0.5 MG TABLET PO PRN ×3 (04:09→17:01)
[2019-08-14 08:41] VITALS: BP 115/73
[2019-08-14] MEDS: MULTIVITAMINS WITH MINERALS, THERAPEUTIC TABLET PO SCH (08:43)
[2019-08-14] MEDS: FOLIC ACID 1 MG TABLET PO SCH (08:43)
[2019-08-14] MEDS: THIAMINE HCL 100 MG TABLET PO SCH (08:43)
[2019-08-14] MEDS: NALTREXONE HCL 50 MG TABLET PO SCH (08:43)
[2019-08-14] MEDS: NICOTINE 21 MG/24 HOUR PATCH TD SCH (08:57)
[2019-08-14] MEDS: LamoTRIgine 25 MG TABLET PO SCH (09:27)
[2019-08-14 16:25] VITALS: BP 117/73
[2019-08-14] MEDS: QUEtiapine FUMARATE 25 MG TABLET PO SCH (20:20)
[2019-08-15 04:28] VITALS: BP 108/68
[2019-08-15 08:28] VITALS: BP 122/79
[2019-08-15] MEDS: LamoTRIgine 25 MG TABLET PO SCH (08:43)
[2019-08-15] MEDS: MULTIVITAMINS WITH MINERALS, THERAPEUTIC TABLET PO SCH (08:43)
[2019-08-15] MEDS: NALTREXONE HCL 50 MG TABLET PO SCH (08:43)
[2019-08-15] MEDS: NICOTINE 21 MG/24 HOUR PATCH TD SCH (08:44)
[2019-08-15] MEDS: LORazepam 0.5 MG TABLET PO PRN ×3 (08:47→16:30)
[2019-08-15] MEDS ORDERED: NALT50TA PO (14:43)
[2019-08-15] MEDS ORDERED: LAMO25 PO (14:43)
[2019-08-15] MEDS ORDERED: QUET25TA34 PO (14:43)
[2019-08-15 17:28] VITALS: BP 123/71
[2019-08-15] MEDS: QUEtiapine FUMARATE 25 MG TABLET PO SCH (20:04)
[2019-08-15 23:30] VITALS: BP 103/62
[2019-08-15 23:45] VITALS: BP 96/66
[2019-08-16] VITALS: BP 112/74
[2019-08-16 01:00] VITALS: BP 103/60
[2019-08-16 01:33] VITALS: BP 103/62
[2019-08-16 04:58] VITALS: BP 114/72
[2019-08-16] MEDS: LORazepam 0.5 MG TABLET PO PRN (06:55)
[2019-08-16 08:18] VITALS: BP 117/78
[2019-08-16] MEDS ORDERED: QUET25TA PO (08:29)
[2019-08-16] MEDS: NALTREXONE HCL 50 MG TABLET PO SCH (09:15)
[2019-08-16] MEDS: NICOTINE 21 MG/24 HOUR PATCH TD SCH (09:16)
[2019-08-16] MEDS: LamoTRIgine 25 MG TABLET PO SCH (09:16)
[2019-08-16] MEDS: MULTIVITAMINS WITH MINERALS, THERAPEUTIC TABLET PO SCH (09:16)
== END 2019-08-16 11:57 | disposition home or self-care (01) | DRG 885 ==
LOC: B2X 23:21
PROVIDERS: ADMIT Psychiatry & Neurology Psychiatry; ATTEND Psychiatry & Neurology Psychiatry
DX: F31.5 Bipolar disorder, current episode depressed, severe, with psychotic features (principal); E46 Unspecified protein-calorie malnutrition; R45.851 Suicidal ideations; R64 Cachexia; B19.20 Unspecified viral hepatitis C without hepatic coma; D64.9 Anemia, unspecified; E11.9 Type 2 diabetes mellitus without complications; F12.90 Cannabis use, unspecified, uncomplicated; F17.210 Nicotine dependence, cigarettes, uncomplicated; I10 Essential (primary) hypertension; J44.9 Chronic obstructive pulmonary disease, unspecified; K21.9 Gastro-esophageal reflux disease without esophagitis; N40.0 Benign prostatic hyperplasia without lower urinary tract symptoms; Z59.0 Homelessness; Z65.3 Problems related to other legal circumstances; Z79.899 Other long term (current) drug therapy; Z91.19 Patient's noncompliance with other medical treatment and regimen; Z68.20 Body mass index [BMI] 20.0-20.9, adult
CPT/HCPCS: 83036; 84439; 84443; 87081

== ENCOUNTER 2019-08-16 01:29 | Emergency (ER) | payer MEDICARE, MEDICAID ==
[~2019-08-16] VITALS: Ht 172.7 cm; Wt 63.6 kg
[~2019-08-16 01:29] MED LIST changes: +LAMO25 PO; +NALT50TA PO; +NALT50TA6 PO; +QUET25TA34 PO
[2019-08-16 01:48] VITALS: BP 113/75
[2019-08-16 01:59] LABS: GLUCOSE,POINT OF CARE 93 MG/DL (70-110)
[2019-08-16] MEDS ORDERED: QUET25TA PO (08:29)
== END 2019-08-16 05:19 | disposition home or self-care (01) ==
LOC: EMS 01:31
DX: S09.90XA Unspecified injury of head, initial encounter (principal); J44.9 Chronic obstructive pulmonary disease, unspecified; F31.9 Bipolar disorder, unspecified; F20.9 Schizophrenia, unspecified; F17.210 Nicotine dependence, cigarettes, uncomplicated; F15.90 Other stimulant use, unspecified, uncomplicated; F12.90 Cannabis use, unspecified, uncomplicated; Z59.0 Homelessness; Z98.890 Other specified postprocedural states; Z79.899 Other long term (current) drug therapy; Z86.19 Personal history of other infectious and parasitic diseases; W01.198A Fall on same level from slipping, tripping and stumbling with subsequent striking against other object, initial encounter; Y93.89 Activity, other specified; Y92.89 Other specified places as the place of occurrence of the external cause; Y99.8 Other external cause status

== ENCOUNTER 2019-08-21 12:00 | Inpatient (IN) | payer MEDICARE, MEDICAID ==
[~2019-08-21] VITALS: Ht 172.7 cm; Wt 61.7 kg
[~2019-08-21 12:00] MED LIST changes: -LAMO25 PO; +LAMO25TA25 PO; -ZIPR80CA2 PO
[2019-08-21] MEDS ORDERED: QUEtiapine FUMARATE 25 MG TABLET PO PRN (13:00)
[2019-08-21] MEDS ORDERED: ZOLPIDEM TARTRATE 5 MG TABLET PO PRN (13:00)
[2019-08-21] MEDS ORDERED: LORazepam 1 MG TABLET PO PRN ×2 (13:00→17:45)
[2019-08-21 13:40] VITALS: BP 111/76
[2019-08-21 13:42] VITALS: BP 111/76
[2019-08-21] MEDS ORDERED: -PHARMACY VACCINE NOTE- MISC ONE (14:00)
[2019-08-21 16:32] VITALS: BP 114/80
[2019-08-21] MEDS: QUEtiapine FUMARATE 25 MG TABLET PO SCH (20:35)
[2019-08-21] MEDS: LORazepam 0.5 MG TABLET PO PRN (20:49)
[2019-08-22 04:52] VITALS: BP 122/75
[2019-08-22] MEDS: LORazepam 0.5 MG TABLET PO PRN ×4 (05:37→20:45)
[2019-08-22 08:00] LABS: BASOPHILS % (AUTO) 0.9 % (0.0-2.0); EOSINOPHILS % (AUTO) 6.7 % (1.0-6.0); HEMATOCRIT 28.9 % (41-53); HEMOGLOBIN 9.6 g/dL (13.5-17.5); LYMPHOCYTES # (AUTO) 0.9 K/uL (1.0-4.8); LYMPHOCYTES % (AUTO) 15.1 % (22.0-44.0); MEAN CORPUSCULAR HEMOGLOBIN 29.9 pg (26.0-34.0); MEAN CORPUSCULAR HGB CONC 33.1 G/dL (31.0-37.0); MEAN CORPUSCULAR VOLUME 90 fL (80-100); MONOCYTES # (AUTO) 0.7 K/uL (0.1-1.0); MONOCYTES % (AUTO) 11.3 % (2.0-9.0); NEUTROPHILS # (AUTO) 3.8 K/uL (1.8-7.7); PLATELET COUNT (AUTO) 254 K/uL (150-450); RED BLOOD CELL COUNT(AUTO) 3.19 MIL/uL (4.50-5.90); RED CELL DISTRIBUTION WIDTH 14.6 % (11.5-14.5)
[2019-08-22 08:07] LABS: HEMOGLOBIN A1C 5.8 % (4.5-6.2)
[2019-08-22 08:27] LABS: ALANINE AMINOTRANSFERASE 36 U/L (12-78); ALBUMIN 2.9 g/dL (3.4-5.0); ALKALINE PHOSPHATASE 79 U/L (46-116); ANION GAP 6 mmol/L (8-16); ASPARTATE AMINOTRANSFERASE 26 U/L (15-37); BILIRUBIN,TOTAL 0.2 mg/dL (0.1-1.0); CALCIUM, TOTAL 7.9 mg/dL (8.8-10.5); CARBON DIOXIDE 28 mmol/L (22-29); CHLORIDE 107 mmol/L (98-107); CHOL/HDL RATIO 1.8 (4.2-7.3); CHOLESTEROL 99 mg/dL (131-200); CREATININE 0.93 mg/dL (0.60-1.30); FREE T4 (FREE THYROXINE) 1.01 ng/dL (0.76-1.46); GLUCOSE,RANDOM 90 mg/dL (70-110); HDL CHOLESTEROL 56 mg/dL (40-60); LDL CHOL (CALC.) 37 mg/dL (0-130); POTASSIUM 3.8 mmol/L (3.5-5.1); SODIUM SERUM 141 mmol/L (136-145); THYROID STIMULATING HORMONE 1.28 uIU/mL (0.36-3.74); TOTAL PROTEIN, SERUM 6.2 g/dL (6.4-8.2); TRIGLYCERIDES 30 mg/dL (15-150); UREA NITROGEN, BLOOD 15 mg/dL (7-18)
[2019-08-22 08:31] LABS: GLOMERULAR FILTR. RATE CALC > 60 mL/min (>60)
[2019-08-22 08:50] VITALS: BP 122/78
[2019-08-22] MEDS: NALTREXONE HCL 50 MG TABLET PO SCH ×2 (09:00→09:55)
[2019-08-22] MEDS: LamoTRIgine 25 MG TABLET PO SCH ×2 (09:00→09:55)
[2019-08-22] MEDS ORDERED: ACETAMINOPHEN 325 MG TABLET PO PRN (15:30)
[2019-08-22] MEDS ORDERED: MAGNESIUM HYDROXIDE SUSPENSION 30 ML UDCUP PO PRN (15:30)
[2019-08-22] MEDS ORDERED: LOPERAMIDE HCL 2 MG CAPSULE PO PRN (15:30)
[2019-08-22] MEDS ORDERED: MAG HYDROX/AL HYDROX/SIMETH ES 30 ML SUSPENSION UDCUP PO PRN (15:30)
[2019-08-22] MEDS ORDERED: GuaiFENesin/D-METHORPHAN [SUGAR-FREE] 200-20MG/10 ML SYRUP UDCUP PO PRN (15:30)
[2019-08-22] MEDS ORDERED: PROMETHAZINE HCL 25 MG TABLET PO PRN (15:30)
[2019-08-22] MEDS ORDERED: HydrOXYzine PAMOATE 50 MG CAPSULE PO PRN (15:30)
[2019-08-22 16:40] VITALS: BP 116/78
[2019-08-22] MEDS: THIAMINE HCL 100 MG TABLET PO SCH (17:24)
[2019-08-22] MEDS: QUEtiapine FUMARATE 25 MG TABLET PO SCH (20:45)
[2019-08-23 00:58] VITALS: BP 120/81
[2019-08-23] MEDS: LORazepam 0.5 MG TABLET PO PRN ×4 (03:47→19:16)
[2019-08-23 08:24] VITALS: BP 124/74
[2019-08-23] MEDS: FOLIC ACID 1 MG TABLET PO SCH (09:34)
[2019-08-23] MEDS: THIAMINE HCL 100 MG TABLET PO SCH ×2 (09:34→16:36)
[2019-08-23] MEDS: NALTREXONE HCL 50 MG TABLET PO SCH (09:35)
[2019-08-23] MEDS: MULTIVITAMINS WITH MINERALS, THERAPEUTIC TABLET PO SCH (09:35)
[2019-08-23] MEDS: LamoTRIgine 25 MG TABLET PO SCH (09:35)
[2019-08-23 16:09] VITALS: BP 127/76
[2019-08-23] MEDS: QUEtiapine FUMARATE 25 MG TABLET PO SCH (20:48)
[2019-08-24 04:00] VITALS: BP 118/77
[2019-08-24] MEDS: LORazepam 0.5 MG TABLET PO PRN ×2 (08:12→16:38)
[2019-08-24] MEDS: NALTREXONE HCL 50 MG TABLET PO SCH (08:12)
[2019-08-24] MEDS: NICOTINE 21 MG/24 HOUR PATCH TD SCH (08:13)
[2019-08-24] MEDS: FOLIC ACID 1 MG TABLET PO SCH (08:14)
[2019-08-24] MEDS: THIAMINE HCL 100 MG TABLET PO SCH ×2 (08:14→16:39)
[2019-08-24] MEDS: MULTIVITAMINS WITH MINERALS, THERAPEUTIC TABLET PO SCH (08:14)
[2019-08-24] MEDS: LamoTRIgine 25 MG TABLET PO SCH (08:17)
[2019-08-24 08:19] VITALS: BP 124/81
[2019-08-24 16:42] VITALS: BP 123/79
[2019-08-24] MEDS: QUEtiapine FUMARATE 25 MG TABLET PO SCH (20:31)
[2019-08-25 05:24] VITALS: BP 125/71
[2019-08-25] MEDS: THIAMINE HCL 100 MG TABLET PO SCH ×2 (08:22→16:36)
[2019-08-25] MEDS: FOLIC ACID 1 MG TABLET PO SCH (08:22)
[2019-08-25] MEDS: NICOTINE 21 MG/24 HOUR PATCH TD SCH (08:23)
[2019-08-25] MEDS: LORazepam 0.5 MG TABLET PO PRN ×3 (08:23→18:12)
[2019-08-25] MEDS: LamoTRIgine 25 MG TABLET PO SCH (08:23)
[2019-08-25] MEDS: NALTREXONE HCL 50 MG TABLET PO SCH (08:23)
[2019-08-25] MEDS: MULTIVITAMINS WITH MINERALS, THERAPEUTIC TABLET PO SCH (08:28)
[2019-08-25 08:37] VITALS: BP 113/73
[2019-08-25 16:24] VITALS: BP 125/86
[2019-08-25] MEDS: QUEtiapine FUMARATE 25 MG TABLET PO SCH (20:36)
[2019-08-26 04:28] VITALS: BP 105/69
[2019-08-26] MEDS: LORazepam 0.5 MG TABLET PO PRN ×3 (06:40→18:12)
[2019-08-26 08:48] VITALS: BP 122/89
[2019-08-26] MEDS: NALTREXONE HCL 50 MG TABLET PO SCH (09:14)
[2019-08-26] MEDS: NICOTINE 21 MG/24 HOUR PATCH TD SCH (09:14)
[2019-08-26] MEDS: LamoTRIgine 25 MG TABLET PO SCH (09:14)
[2019-08-26] MEDS: THIAMINE HCL 100 MG TABLET PO SCH ×2 (09:14→16:30)
[2019-08-26] MEDS: MULTIVITAMINS WITH MINERALS, THERAPEUTIC TABLET PO SCH (09:14)
[2019-08-26] MEDS: FOLIC ACID 1 MG TABLET PO SCH (09:14)
[2019-08-26 16:19] VITALS: BP 117/78
[2019-08-26] MEDS: QUEtiapine FUMARATE 25 MG TABLET PO SCH (20:43)
[2019-08-27] MEDS: LORazepam 0.5 MG TABLET PO PRN ×3 (05:43→17:02)
[2019-08-27 05:46] VITALS: BP 121/73
[2019-08-27 08:45] VITALS: BP 118/72
[2019-08-27] MEDS: LamoTRIgine 25 MG TABLET PO SCH (10:02)
[2019-08-27] MEDS: FOLIC ACID 1 MG TABLET PO SCH (10:02)
[2019-08-27] MEDS: MULTIVITAMINS WITH MINERALS, THERAPEUTIC TABLET PO SCH (10:02)
[2019-08-27] MEDS: THIAMINE HCL 100 MG TABLET PO SCH ×2 (10:02→17:03)
[2019-08-27] MEDS: NALTREXONE HCL 50 MG TABLET PO SCH (10:02)
[2019-08-27] MEDS: NICOTINE 21 MG/24 HOUR PATCH TD SCH (10:06)
[2019-08-27 16:12] VITALS: BP 110/69
[2019-08-27] MEDS: QUEtiapine FUMARATE 25 MG TABLET PO SCH (20:09)
[2019-08-28 04:31] VITALS: BP 117/78
[2019-08-28 08:25] VITALS: BP 116/77
[2019-08-28] MEDS: LamoTRIgine 25 MG TABLET PO SCH (08:40)
[2019-08-28] MEDS: NALTREXONE HCL 50 MG TABLET PO SCH (08:40)
[2019-08-28] MEDS: THIAMINE HCL 100 MG TABLET PO SCH ×2 (08:40→16:26)
[2019-08-28] MEDS: MULTIVITAMINS WITH MINERALS, THERAPEUTIC TABLET PO SCH (08:40)
[2019-08-28] MEDS: FOLIC ACID 1 MG TABLET PO SCH (08:40)
[2019-08-28] MEDS: NICOTINE 21 MG/24 HOUR PATCH TD SCH (08:41)
[2019-08-28] MEDS: LORazepam 0.5 MG TABLET PO PRN ×3 (10:22→21:18)
[2019-08-28 16:14] VITALS: BP 113/66
[2019-08-28] MEDS: QUEtiapine FUMARATE 25 MG TABLET PO SCH (20:56)
[2019-08-29 05:09] VITALS: BP 103/71
[2019-08-29] MEDS: THIAMINE HCL 100 MG TABLET PO SCH ×2 (08:09→16:43)
[2019-08-29] MEDS: LamoTRIgine 25 MG TABLET PO SCH (08:09)
[2019-08-29] MEDS: MULTIVITAMINS WITH MINERALS, THERAPEUTIC TABLET PO SCH (08:09)
[2019-08-29] MEDS: NALTREXONE HCL 50 MG TABLET PO SCH (08:10)
[2019-08-29] MEDS: FOLIC ACID 1 MG TABLET PO SCH (08:10)
[2019-08-29] MEDS: NICOTINE 21 MG/24 HOUR PATCH TD SCH (08:10)
[2019-08-29] MEDS: LORazepam 0.5 MG TABLET PO PRN ×4 (08:15→18:01)
[2019-08-29 08:50] VITALS: BP 106/71
[2019-08-29 18:12] VITALS: BP 140/73
[2019-08-29] MEDS: QUEtiapine FUMARATE 200 MG TABLET PO SCH (20:30)
[2019-08-30 08:15] VITALS: BP 110/62
[2019-08-30] MEDS: MULTIVITAMINS WITH MINERALS, THERAPEUTIC TABLET PO SCH ×2 (08:29→08:30)
[2019-08-30] MEDS: FOLIC ACID 1 MG TABLET PO SCH (08:30)
[2019-08-30] MEDS: NALTREXONE HCL 50 MG TABLET PO SCH (08:31)
[2019-08-30] MEDS: LamoTRIgine 25 MG TABLET PO SCH (08:31)
[2019-08-30] MEDS: LORazepam 0.5 MG TABLET PO PRN ×3 (08:31→18:19)
[2019-08-30] MEDS: THIAMINE HCL 100 MG TABLET PO SCH ×2 (08:31→17:01)
[2019-08-30] MEDS: NICOTINE 21 MG/24 HOUR PATCH TD SCH (08:32)
[2019-08-30 08:35] LABS: BASOPHILS % (AUTO) 1.2 % (0.0-2.0); EOSINOPHILS % (AUTO) 8.6 % (1.0-6.0); HEMATOCRIT 34.8 % (41-53); HEMOGLOBIN 11.2 g/dL (13.5-17.5); LYMPHOCYTES # (AUTO) 1.4 K/uL (1.0-4.8); LYMPHOCYTES % (AUTO) 23.3 % (22.0-44.0); MEAN CORPUSCULAR HEMOGLOBIN 29.3 pg (26.0-34.0); MEAN CORPUSCULAR HGB CONC 32.3 G/dL (31.0-37.0); MEAN CORPUSCULAR VOLUME 91 fL (80-100); MONOCYTES # (AUTO) 0.5 K/uL (0.1-1.0); MONOCYTES % (AUTO) 9.2 % (2.0-9.0); NEUTROPHILS # (AUTO) 3.4 K/uL (1.8-7.7); NEUTROPHILS % (AUTO) 57.7 % (40.0-70.0); PLATELET COUNT (AUTO) 374 K/uL (150-450); RED BLOOD CELL COUNT(AUTO) 3.83 MIL/uL (4.50-5.90); RED CELL DISTRIBUTION WIDTH 14.4 % (11.5-14.5)
[2019-08-30 16:31] VITALS: BP 118/83
[2019-08-30] MEDS: QUEtiapine FUMARATE 200 MG TABLET PO SCH (20:32)
[2019-08-31] MEDS: NICOTINE 21 MG/24 HOUR PATCH TD SCH (08:12)
[2019-08-31] MEDS: LamoTRIgine 25 MG TABLET PO SCH (08:12)
[2019-08-31] MEDS: LORazepam 0.5 MG TABLET PO PRN ×3 (08:12→17:13)
[2019-08-31] MEDS: FOLIC ACID 1 MG TABLET PO SCH (08:12)
[2019-08-31] MEDS: MULTIVITAMINS WITH MINERALS, THERAPEUTIC TABLET PO SCH (08:13)
[2019-08-31] MEDS: NALTREXONE HCL 50 MG TABLET PO SCH (08:13)
[2019-08-31] MEDS: THIAMINE HCL 100 MG TABLET PO SCH ×2 (08:16→16:08)
[2019-08-31 08:22] VITALS: BP 116/75
[2019-08-31 16:24] VITALS: BP 108/73
[2019-08-31] MEDS: QUEtiapine FUMARATE 200 MG TABLET PO SCH (20:50)
[2019-09-01] MEDS: LORazepam 0.5 MG TABLET PO PRN ×4 (06:08→18:47)
[2019-09-01 06:10] VITALS: BP 112/63
[2019-09-01] MEDS: NALTREXONE HCL 50 MG TABLET PO SCH (10:34)
[2019-09-01] MEDS: FOLIC ACID 1 MG TABLET PO SCH (10:34)
[2019-09-01] MEDS: NICOTINE 21 MG/24 HOUR PATCH TD SCH (10:34)
[2019-09-01] MEDS: THIAMINE HCL 100 MG TABLET PO SCH (10:34)
[2019-09-01] MEDS: LamoTRIgine 25 MG TABLET PO SCH (10:35)
[2019-09-01] MEDS: MULTIVITAMINS WITH MINERALS, THERAPEUTIC TABLET PO SCH (10:36)
[2019-09-01 16:10] VITALS: BP 116/81
[2019-09-01] MEDS: QUEtiapine FUMARATE 200 MG TABLET PO SCH (20:32)
[2019-09-02] MEDS: LORazepam 0.5 MG TABLET PO PRN ×3 (06:00→16:59)
[2019-09-02 06:37] VITALS: BP 117/77
[2019-09-02 08:24] VITALS: BP 120/76
[2019-09-02] MEDS: LamoTRIgine 25 MG TABLET PO SCH (09:27)
[2019-09-02] MEDS: NALTREXONE HCL 50 MG TABLET PO SCH (09:27)
[2019-09-02] MEDS: MULTIVITAMINS WITH MINERALS, THERAPEUTIC TABLET PO SCH (09:27)
[2019-09-02] MEDS: NICOTINE 21 MG/24 HOUR PATCH TD SCH (09:28)
[2019-09-02] MEDS ORDERED: QUET200T PO (16:05)
[2019-09-02 16:12] VITALS: BP 118/75
== END 2019-09-02 19:05 | DRG 885 ==
LOC: B2X 13:36
PROVIDERS: ADMIT Psychiatry & Neurology Psychiatry; ATTEND Psychiatry & Neurology Psychiatry
DX: F31.5 Bipolar disorder, current episode depressed, severe, with psychotic features (principal); R45.851 Suicidal ideations; K92.2 Gastrointestinal hemorrhage, unspecified; E46 Unspecified protein-calorie malnutrition; I10 Essential (primary) hypertension; J44.9 Chronic obstructive pulmonary disease, unspecified; D64.9 Anemia, unspecified; B19.20 Unspecified viral hepatitis C without hepatic coma; N40.0 Benign prostatic hyperplasia without lower urinary tract symptoms; R73.03 Prediabetes; Z59.0 Homelessness; Z91.14 Patient's other noncompliance with medication regimen; Z68.20 Body mass index [BMI] 20.0-20.9, adult
CPT/HCPCS: 83036; 84439; 84443; 87081

== ENCOUNTER 2019-10-01 15:11 | Emergency (ER) | payer MEDICARE, MEDICAID ==
[~2019-10-01] VITALS: Ht 172.7 cm; Wt 70.5 kg
[~2019-10-01 15:11] MED LIST changes: -NALT50TA6 PO; +QUET200T PO; -QUET25TA PO; -QUET25TA34 PO
[2019-10-01 18:00] VITALS: BP 117/75
== END 2019-10-01 18:27 | disposition home or self-care (01) ==
LOC: EMS 15:13
DX: F41.9 Anxiety disorder, unspecified (principal); J45.909 Unspecified asthma, uncomplicated; F31.9 Bipolar disorder, unspecified; F20.9 Schizophrenia, unspecified; F17.210 Nicotine dependence, cigarettes, uncomplicated; F12.90 Cannabis use, unspecified, uncomplicated; F19.90 Other psychoactive substance use, unspecified, uncomplicated; Z59.0 Homelessness

== ENCOUNTER 2019-11-21 23:16 | Emergency (ER) | payer MEDICARE, MEDICAID ==
[~2019-11-21] VITALS: Ht 175.3 cm; Wt 59.1 kg
[2019-11-21] MEDS ORDERED: LORA-999 PO (23:32)
[2019-11-21 23:54] LABS: EOSINOPHILS % (AUTO) 6.9 % (1.0-6.0); HEMATOCRIT 34.1 % (41-53); HEMOGLOBIN 11.3 g/dL (13.5-17.5); LYMPHOCYTES # (AUTO) 1.7 K/uL (1.0-4.8); LYMPHOCYTES % (AUTO) 28.7 % (22.0-44.0); MEAN CORPUSCULAR HEMOGLOBIN 28.6 pg (26.0-34.0); MEAN CORPUSCULAR HGB CONC 33.2 G/dL (31.0-37.0); MEAN CORPUSCULAR VOLUME 86 fL (80-100); MONOCYTES # (AUTO) 0.7 K/uL (0.1-1.0); NEUTROPHILS # (AUTO) 3.1 K/uL (1.8-7.7); NEUTROPHILS % (AUTO) 52.4 % (40.0-70.0); PLATELET COUNT (AUTO) 280 K/uL (150-450); RED BLOOD CELL COUNT(AUTO) 3.95 MIL/uL (4.50-5.90); RED CELL DISTRIBUTION WIDTH 15.3 % (11.5-14.5)
[2019-11-22 00:19] LABS: ANION GAP 4 mmol/L (8-16); CALCIUM, TOTAL 8.6 mg/dL (8.8-10.5); CARBON DIOXIDE 30 mmol/L (22-29); CHLORIDE 104 mmol/L (98-107); CREATININE 1.07 mg/dL (0.60-1.30); GLOMERULAR FILTR. RATE CALC > 60 mL/min (>60); GLUCOSE,RANDOM 102 mg/dL (70-110); POTASSIUM 4.4 mmol/L (3.5-5.1); SODIUM SERUM 138 mmol/L (136-145); UREA NITROGEN, BLOOD 11 mg/dL (7-18)
[2019-11-22 00:25] LABS: ALANINE AMINOTRANSFERASE 28 U/L (12-78); ALBUMIN 3.8 g/dL (3.4-5.0); ALKALINE PHOSPHATASE 124 U/L (46-116); ASPARTATE AMINOTRANSFERASE 32 U/L (15-37); BILIRUBIN,TOTAL 0.2 mg/dL (0.1-1.0); TOTAL PROTEIN, SERUM 7.8 g/dL (6.4-8.2)
[2019-11-22 03:02] VITALS: BP 126/97
== END 2019-11-22 03:19 | disposition home or self-care (01) ==
LOC: EMS 23:16
DX: F41.9 Anxiety disorder, unspecified (principal); F31.9 Bipolar disorder, unspecified; J44.9 Chronic obstructive pulmonary disease, unspecified; F20.9 Schizophrenia, unspecified; F17.210 Nicotine dependence, cigarettes, uncomplicated; F12.90 Cannabis use, unspecified, uncomplicated; F15.90 Other stimulant use, unspecified, uncomplicated; Z59.0 Homelessness; Z79.899 Other long term (current) drug therapy; Z98.890 Other specified postprocedural states; Z86.19 Personal history of other infectious and parasitic diseases
CPT/HCPCS: 36415; 80053; 84484; 85025; 99283; 99406; G0480

== ENCOUNTER 2019-12-24 10:40 | Inpatient (IN) | payer MEDICARE, MEDICAID ==
[~2019-12-24] VITALS: Ht 177.8 cm; Wt 58.5 kg
[~2019-12-24 10:40] MED LIST changes: -LAMO25TA25 PO; +LORA-999 PO; -NALT50TA PO
[2019-12-24] MEDS ORDERED: SODIUM CHLORIDE 0.9% 1,000 ML IV ONE ×4 (11:00→14:15)
[2019-12-24 11:56] LABS: BASOPHILS % (AUTO) 0.1 % (0.0-2.0); EOSINOPHILS % (AUTO) 0.3 % (1.0-6.0); HEMATOCRIT 31.3 % (41-53); HEMOGLOBIN 10.2 g/dL (13.5-17.5); LYMPHOCYTES # (AUTO) 0.4 K/uL (1.0-4.8); LYMPHOCYTES % (AUTO) 7.1 % (22.0-44.0); MEAN CORPUSCULAR HEMOGLOBIN 28.9 pg (26.0-34.0); MEAN CORPUSCULAR HGB CONC 32.7 G/dL (31.0-37.0); MEAN CORPUSCULAR VOLUME 88 fL (80-100); MONOCYTES # (AUTO) 0.5 K/uL (0.1-1.0); MONOCYTES % (AUTO) 8.6 % (2.0-9.0); NEUTROPHILS # (AUTO) 5.1 K/uL (1.8-7.7); NEUTROPHILS % (AUTO) 83.9 % (40.0-70.0); PLATELET COUNT (AUTO) 144 K/uL (150-450); RED BLOOD CELL COUNT(AUTO) 3.54 MIL/uL (4.50-5.90)
[2019-12-24 12:10] LABS: CALCIUM, TOTAL 7.5 mg/dL (8.8-10.5); CREATININE 2.05 mg/dL (0.60-1.30); POTASSIUM 4.4 mmol/L (3.5-5.1)
[2019-12-24] MEDS ORDERED: ACETAMINOPHEN 325 MG TABLET PO PRN ×2 (13:15→14:15)
[2019-12-24] MEDS ORDERED: ONDANSETRON HCL 4 MG/2 ML VIAL IVP PRN ×2 (13:15→14:15)
[2019-12-24] MEDS ORDERED: POTASSIUM CHLORIDE 20 MEQ ER TABLET PO PRN (14:15)
[2019-12-24] MEDS ORDERED: DIPHENOXYLATE/ATROP 2.5-0.025 MG/5 ML ORAL.SYG LIQUID PO PRN (14:15)
[2019-12-24] MEDS ORDERED: MAGNESIUM SULFATE 2 GM/WATER 50 ML IV PRN (14:15)
[2019-12-24] MEDS ORDERED: MAGNESIUM SULFATE 4 GM/WATER 100 ML IV PRN (14:15)
[2019-12-24] MEDS ORDERED: POTASSIUM CHL 10 MEQ/WATER 50 ML IV PRN (14:15)
[2019-12-24] MEDS ORDERED: ZOLPIDEM TARTRATE 5 MG TABLET PO PRN (14:15)
[2019-12-24] MEDS ORDERED: 0.9% SODIUM CHLORIDE 10 ML SYRINGE IVP PRN (14:15)
[2019-12-24] MEDS ORDERED: MAGNESIUM OXIDE 400 MG TABLET PO PRN (14:15)
[2019-12-24] MEDS: PANTOPRAZOLE SODIUM 40 MG DR TABLET PO SCH (14:31)
[2019-12-24 16:34] LABS: ALBUMIN 2.8 g/dL (3.4-5.0)
[2019-12-24] MEDS ORDERED: ALBUMIN HUMAN 25%-25GM/100ML 100 ML IV SCH (17:00)
[2019-12-24] MEDS ORDERED: ALBUMIN HUMAN 25%-25GM/100ML 100 ML IV PRN (17:00)
[2019-12-24 17:11] VITALS: BP 87/58
[2019-12-24 17:44] VITALS: BP 96/62
[2019-12-24 20:08] VITALS: BP 88/55
[2019-12-24] MEDS: QUEtiapine FUMARATE 200 MG TABLET PO SCH (21:31)
[2019-12-24 23:37] VITALS: BP 92/59
[2019-12-25 05:18] VITALS: BP 92/66
[2019-12-25] MEDS: PANTOPRAZOLE SODIUM 40 MG DR TABLET PO SCH (09:04)
[2019-12-25] MEDS: LORazepam 0.5 MG TABLET PO PRN (09:04)
[2019-12-25 11:56] VITALS: BP 96/58
[2019-12-25 19:59] VITALS: BP 133/74
[2019-12-25] MEDS: QUEtiapine FUMARATE 200 MG TABLET PO SCH (20:19)
[2019-12-25 23:42] VITALS: BP 138/87
[2019-12-26 01:49] LABS: APPEARANCE,URINE CLEAR (CLEAR); BILIRUBIN,URINE NEGATIVE (NEGATIVE); GLUCOSE, URINE (UA) NEGATIVE (NEGATIVE); KETONES,URINE NEGATIVE (NEGATIVE); LEUKOCYTE ESTERASE ,URINE NEGATIVE (NEGATIVE); NITRATE,URINE NEGATIVE (NEGATIVE); OCCULT BLOOD,URINE NEGATIVE (NEGATIVE); PH,URINE 5.5 (5.0-8.0); PROTEIN,URINE NEGATIVE (NEGATIVE); UROBILINOGEN,URINE 0.2 mg/dL (<=1.0)
[2019-12-26 02:03] LABS: BACTERIA,URINE None Seen /HPF (None Seen); RBC,URINE None Seen /HPF (0-2); SQUAMOUS EPITHELIAL CELL,UR Rare /LPF (None Seen); WBC,URINE None Seen /HPF (0-5)
[2019-12-26 04:43] VITALS: BP 107/73
[2019-12-26] MEDS: LORazepam 0.5 MG TABLET PO PRN ×3 (04:54→22:21)
[2019-12-26 07:12] LABS: ALBUMIN 2.9 g/dL (3.4-5.0); BILIRUBIN,TOTAL 0.4 mg/dL (0.1-1.0); CALCIUM, TOTAL 8.5 mg/dL (8.8-10.5); CREATININE 1.47 mg/dL (0.60-1.30); POTASSIUM 4.3 mmol/L (3.5-5.1); TOTAL PROTEIN, SERUM 6.2 g/dL (6.4-8.2)
[2019-12-26 07:13] LABS: HEMOGLOBIN A1C 6.2 % (3.8-5.6)
[2019-12-26 07:15] VITALS: BP 102/66
[2019-12-26] MEDS: PANTOPRAZOLE SODIUM 40 MG DR TABLET PO SCH (08:58)
[2019-12-26 11:45] VITALS: BP 112/62
[2019-12-26] MEDS: SODIUM CHLORIDE 0.9% 1,000 ML IV SCH (14:30)
[2019-12-26 16:05] VITALS: BP 101/66
[2019-12-26 20:04] VITALS: BP 103/56
[2019-12-26] MEDS: QUEtiapine FUMARATE 200 MG TABLET PO SCH (21:55)
[2019-12-27 00:30] VITALS: BP 93/56
[2019-12-27 05:22] VITALS: BP 106/74
[2019-12-27] MEDS: SODIUM CHLORIDE 0.9% 1,000 ML IV SCH (07:00)
[2019-12-27] MEDS: LORazepam 0.5 MG TABLET PO PRN ×2 (07:02→16:00)
[2019-12-27 07:22] LABS: BASOPHILS % (AUTO) 0.2 % (0.0-2.0); HEMATOCRIT 32.1 % (41-53); HEMOGLOBIN 10.7 g/dL (13.5-17.5); LYMPHOCYTES # (AUTO) 1.2 K/uL (1.0-4.8); LYMPHOCYTES % (AUTO) 21.4 % (22.0-44.0); MEAN CORPUSCULAR HEMOGLOBIN 29.2 pg (26.0-34.0); MEAN CORPUSCULAR HGB CONC 33.3 G/dL (31.0-37.0); MEAN CORPUSCULAR VOLUME 88 fL (80-100); MONOCYTES # (AUTO) 0.5 K/uL (0.1-1.0); MONOCYTES % (AUTO) 9.6 % (2.0-9.0); NEUTROPHILS # (AUTO) 3.8 K/uL (1.8-7.7); NEUTROPHILS % (AUTO) 65.8 % (40.0-70.0); PLATELET COUNT (AUTO) 187 K/uL (150-450); RED BLOOD CELL COUNT(AUTO) 3.65 MIL/uL (4.50-5.90); RED CELL DISTRIBUTION WIDTH 19.7 % (11.5-14.5)
[2019-12-27 07:46] LABS: CALCIUM, TOTAL 8.3 mg/dL (8.8-10.5); CREATININE 1.4 mg/dL (0.60-1.30); MAGNESIUM 1.7 mg/dL (1.80-2.40); POTASSIUM 4.3 mmol/L (3.5-5.1)
[2019-12-27 07:51] VITALS: BP 98/70
[2019-12-27] MEDS: PANTOPRAZOLE SODIUM 40 MG DR TABLET PO SCH (09:00)
[2019-12-27 11:33] VITALS: BP 112/62
[2019-12-27 15:09] VITALS: BP 102/66
== END 2019-12-27 18:10 | disposition home or self-care (01) | DRG 391 ==
LOC: EMS 10:42 → 5S 14:21
PROVIDERS: ADMIT Internal Medicine; ATTEND Internal Medicine
DX: K52.9 Noninfective gastroenteritis and colitis, unspecified (principal); J12.9 Viral pneumonia, unspecified; E44.1 Mild protein-calorie malnutrition; Z68.1 Body mass index [BMI] 19.9 or less, adult; I95.9 Hypotension, unspecified; J44.9 Chronic obstructive pulmonary disease, unspecified; F31.9 Bipolar disorder, unspecified; F17.210 Nicotine dependence, cigarettes, uncomplicated; R55 Syncope and collapse; D64.9 Anemia, unspecified; E86.0 Dehydration; N28.9 Disorder of kidney and ureter, unspecified; Z72.89 Other problems related to lifestyle; Z59.0 Homelessness
CPT/HCPCS: 83036; 83735; 87045; 93005; J7030; P9046

== ENCOUNTER 2019-12-30 17:25 | Inpatient (IN) | payer MEDICARE, MEDICAID ==
[~2019-12-30] VITALS: Ht 172.7 cm; Wt 57.7 kg
[~2019-12-30 17:25] MED LIST changes: -LORA-999 PO
[2019-12-30] MEDS ORDERED: BUSP7.5T6 PO (19:08)
[2019-12-30] MEDS ORDERED: DULO40CA2 PO (19:09)
[2019-12-30] MEDS ORDERED: PRED5 PO (19:13)
[2019-12-30] MEDS ORDERED: LORA2ORA5 PO (19:13)
[2019-12-30] MEDS ORDERED: LAMO25TA25 PO (19:13)
[2019-12-30 19:53] LABS: BASOPHILS % (AUTO) 0.2 % (0.0-2.0); HEMATOCRIT 30.3 % (41-53); LYMPHOCYTES # (AUTO) 1.5 K/uL (1.0-4.8); LYMPHOCYTES % (AUTO) 24.2 % (22.0-44.0); MEAN CORPUSCULAR HEMOGLOBIN 29.1 pg (26.0-34.0); MEAN CORPUSCULAR HGB CONC 33.1 G/dL (31.0-37.0); MEAN CORPUSCULAR VOLUME 88 fL (80-100); MONOCYTES # (AUTO) 0.4 K/uL (0.1-1.0); MONOCYTES % (AUTO) 7.3 % (2.0-9.0); NEUTROPHILS % (AUTO) 66.3 % (40.0-70.0); PLATELET COUNT (AUTO) 264 K/uL (150-450); RED BLOOD CELL COUNT(AUTO) 3.45 MIL/uL (4.50-5.90); RED CELL DISTRIBUTION WIDTH 20.1 % (11.5-14.5)
[2019-12-30 20:25] LABS: ANION GAP 8 mmol/L (8-16); CALCIUM, TOTAL 8.3 mg/dL (8.8-10.5); CARBON DIOXIDE 27 mmol/L (22-29); CHLORIDE 105 mmol/L (98-107); CREATININE 1.71 mg/dL (0.60-1.30); GLOMERULAR FILTR. RATE CALC 39 mL/min (>60); GLUCOSE,RANDOM 124 mg/dL (70-110); POTASSIUM 3.9 mmol/L (3.5-5.1); SODIUM SERUM 140 mmol/L (136-145); UREA NITROGEN, BLOOD 23 mg/dL (7-18)
[2019-12-30 20:27] LABS: ALANINE AMINOTRANSFERASE 27 U/L (12-78); ALBUMIN 3.1 g/dL (3.4-5.0); ALKALINE PHOSPHATASE 57 U/L (46-116); ASPARTATE AMINOTRANSFERASE 15 U/L (15-37); BILIRUBIN,TOTAL 0.4 mg/dL (0.1-1.0); TOTAL PROTEIN, SERUM 6.3 g/dL (6.4-8.2)
[2019-12-30] MEDS ORDERED: ZOLPIDEM TARTRATE 10 MG TABLET PO PRN (22:15)
[2019-12-30] MEDS ORDERED: OLANZapine 5 MG RAPDIS TABLET PO PRN (22:15)
[2019-12-30] MEDS ORDERED: LORazepam 2 MG TABLET PO PRN (22:15)
[2019-12-30 22:33] LABS: AMPHET/METH SCREEN,URINE NEGATIVE (NEGATIVE); BARBITURATE SCREEN, URINE NEGATIVE (NEGATIVE); BENZODIAZEPINES SCREEN,URINE NEGATIVE (NEGATIVE); CANNABINOID SCREEN,URINE NEGATIVE (NEGATIVE); COCAINE SCREEN,URINE NEGATIVE (NEGATIVE); METHADONE SCREEN, URINE NEGATIVE (NEGATIVE); OPIATE SCREEN,URINE NEGATIVE (NEGATIVE); PHENCYCLIDINE SCREEN,URINE NEGATIVE (NEGATIVE)
[2019-12-31 01:45] VITALS: BP 123/80
[2019-12-31 07:07] LABS: CHOL/HDL RATIO 2.1 (4.2-7.3)
[2019-12-31 08:47] VITALS: BP 89/56
[2019-12-31] MEDS: PredniSONE 20 MG TABLET PO SCH (08:56)
[2019-12-31] MEDS ORDERED: NICOTINE 14 MG/24 HOUR PATCH TD PRN (12:00)
[2019-12-31] MEDS ORDERED: ALBUTEROL SULFATE HFA 90 MCG/PUFF 8 GM INHALER IH PRN (12:00)
[2019-12-31] MEDS ORDERED: PETROLATUM,WHITE 28 GM JELLY TP PRN (12:00)
[2019-12-31] MEDS ORDERED: ONDANSETRON HCL 4 MG TABLET PO PRN (12:00)
[2019-12-31] MEDS ORDERED: MAGNESIUM HYDROXIDE SUSPENSION 30 ML UDCUP PO PRN (12:00)
[2019-12-31] MEDS ORDERED: IBUPROFEN 400 MG TABLET PO PRN (12:00)
[2019-12-31] MEDS ORDERED: GuaiFENesin/D-METHORPHAN [SUGAR-FREE] 200-20MG/10 ML SYRUP UDCUP PO PRN (12:00)
[2019-12-31] MEDS ORDERED: CloNIDine HCL 0.1 MG TABLET PO PRN (12:00)
[2019-12-31] MEDS ORDERED: MAG HYDROX/AL HYDROX/SIMETH ES 30 ML SUSPENSION UDCUP PO PRN (12:00)
[2019-12-31] MEDS ORDERED: ACETAMINOPHEN 325 MG TABLET PO PRN (12:00)
[2019-12-31] MEDS ORDERED: LOPERAMIDE HCL 2 MG CAPSULE PO PRN (12:00)
[2019-12-31] MEDS ORDERED: DOCUSATE SODIUM 100 MG CAPSULE PO PRN (12:00)
[2019-12-31] MEDS: NICOTINE 21 MG/24 HOUR PATCH TD SCH (12:28)
[2019-12-31] MEDS ORDERED: DULO20CA30 PO (12:33)
[2019-12-31] MEDS ORDERED: BUSP15 PO (12:33)
[2019-12-31 16:10] VITALS: BP 115/76
[2019-12-31] MEDS: BusPIRone HCL 15 MG TABLET PO SCH (17:18)
[2019-12-31] MEDS: QUEtiapine FUMARATE 200 MG TABLET PO SCH (20:29)
[2020-01-01] MEDS: LamoTRIgine 25 MG TABLET PO SCH (08:04)
[2020-01-01] MEDS: PredniSONE 20 MG TABLET PO SCH (08:04)
[2020-01-01] MEDS: BusPIRone HCL 15 MG TABLET PO SCH ×2 (08:04→16:54)
[2020-01-01] MEDS: NICOTINE 21 MG/24 HOUR PATCH TD SCH (08:04)
[2020-01-01] MEDS: DULoxetine HCL 20 MG CAPSULE PO SCH (08:04)
[2020-01-01 08:50] VITALS: BP 138/84
[2020-01-01 16:00] VITALS: BP 114/88
[2020-01-01] MEDS: QUEtiapine FUMARATE 200 MG TABLET PO SCH (20:18)
[2020-01-02 01:00] VITALS: BP 122/76
[2020-01-02] MEDS: LamoTRIgine 25 MG TABLET PO SCH (08:58)
[2020-01-02] MEDS: PredniSONE 20 MG TABLET PO SCH (08:58)
[2020-01-02] MEDS: BusPIRone HCL 15 MG TABLET PO SCH ×2 (08:58→18:38)
[2020-01-02] MEDS: DULoxetine HCL 20 MG CAPSULE PO SCH (08:58)
[2020-01-02] MEDS: NICOTINE 21 MG/24 HOUR PATCH TD SCH (09:02)
[2020-01-02 09:13] VITALS: BP 131/72
[2020-01-02 19:44] VITALS: BP 132/98
[2020-01-02] MEDS: QUEtiapine FUMARATE 200 MG TABLET PO SCH (20:50)
[2020-01-03 05:04] VITALS: BP 141/104
[2020-01-03 06:29] VITALS: BP 103/70
[2020-01-03 08:17] VITALS: BP 116/81
[2020-01-03] MEDS: LamoTRIgine 25 MG TABLET PO SCH (08:30)
[2020-01-03] MEDS: PredniSONE 20 MG TABLET PO SCH (08:30)
[2020-01-03] MEDS: DULoxetine HCL 20 MG CAPSULE PO SCH (08:37)
[2020-01-03] MEDS: NICOTINE 21 MG/24 HOUR PATCH TD SCH (08:41)
[2020-01-03] MEDS: BusPIRone HCL 15 MG TABLET PO SCH ×2 (09:15→16:18)
[2020-01-03] MEDS ORDERED: LORA-1000 PO (11:07)
[2020-01-03] MEDS ORDERED: PRED20 PO (11:07)
[2020-01-03 16:05] VITALS: BP 127/87
[2020-01-03] MEDS: QUEtiapine FUMARATE 200 MG TABLET PO SCH (20:03)
[2020-01-04 00:21] VITALS: BP 128/76
[2020-01-04] MEDS: PredniSONE 20 MG TABLET PO SCH (08:24)
[2020-01-04 08:25] VITALS: BP 96/80
[2020-01-04] MEDS: LamoTRIgine 25 MG TABLET PO SCH (08:25)
[2020-01-04] MEDS: BusPIRone HCL 15 MG TABLET PO SCH ×2 (08:25→17:18)
[2020-01-04] MEDS: DULoxetine HCL 20 MG CAPSULE PO SCH (08:25)
[2020-01-04] MEDS: NICOTINE 21 MG/24 HOUR PATCH TD SCH (08:29)
[2020-01-04 17:30] VITALS: BP 122/80
[2020-01-04] MEDS: QUEtiapine FUMARATE 200 MG TABLET PO SCH (20:05)
[2020-01-05 04:04] VITALS: BP 120/82
[2020-01-05] MEDS: BusPIRone HCL 15 MG TABLET PO SCH ×2 (08:12→16:30)
[2020-01-05] MEDS: PredniSONE 20 MG TABLET PO SCH (08:12)
[2020-01-05] MEDS: DULoxetine HCL 20 MG CAPSULE PO SCH (08:12)
[2020-01-05] MEDS: LamoTRIgine 25 MG TABLET PO SCH (08:13)
[2020-01-05] MEDS: NICOTINE 21 MG/24 HOUR PATCH TD SCH (08:13)
[2020-01-05 08:37] VITALS: BP 126/84
[2020-01-05 16:27] VITALS: BP 131/90
[2020-01-05] MEDS: QUEtiapine FUMARATE 200 MG TABLET PO SCH (20:29)
[2020-01-06 06:31] VITALS: BP 125/79
[2020-01-06 08:14] VITALS: BP 117/75
[2020-01-06] MEDS: LamoTRIgine 25 MG TABLET PO SCH (08:17)
[2020-01-06] MEDS: PredniSONE 20 MG TABLET PO SCH (08:17)
[2020-01-06] MEDS: DULoxetine HCL 20 MG CAPSULE PO SCH (08:17)
[2020-01-06] MEDS: BusPIRone HCL 15 MG TABLET PO SCH ×2 (08:17→16:42)
[2020-01-06] MEDS: NICOTINE 21 MG/24 HOUR PATCH TD SCH (08:18)
[2020-01-06 17:19] VITALS: BP 138/88
[2020-01-06] MEDS: QUEtiapine FUMARATE 200 MG TABLET PO SCH (20:21)
[2020-01-07 04:06] VITALS: BP 119/68
[2020-01-07 08:24] VITALS: BP 128/77
[2020-01-07] MEDS: LamoTRIgine 25 MG TABLET PO SCH (08:57)
[2020-01-07] MEDS: NICOTINE 21 MG/24 HOUR PATCH TD SCH (08:57)
[2020-01-07] MEDS: BusPIRone HCL 15 MG TABLET PO SCH ×2 (08:57→16:31)
[2020-01-07] MEDS: PredniSONE 20 MG TABLET PO SCH (08:57)
[2020-01-07] MEDS: DULoxetine HCL 20 MG CAPSULE PO SCH (08:57)
[2020-01-07 16:21] VITALS: BP 116/78
[2020-01-07] MEDS: FERROUS SULFATE 325 MG EC TABLET PO SCH (16:31)
[2020-01-07] MEDS: QUEtiapine FUMARATE 200 MG TABLET PO SCH (20:31)
[2020-01-08 03:21] VITALS: BP 97/72
[2020-01-08 04:18] VITALS: BP 122/83
[2020-01-08] MEDS: FERROUS SULFATE 325 MG EC TABLET PO SCH ×2 (06:55→16:33)
[2020-01-08 08:10] VITALS: BP 141/94
[2020-01-08] MEDS: PredniSONE 20 MG TABLET PO SCH (09:04)
[2020-01-08] MEDS: BusPIRone HCL 15 MG TABLET PO SCH ×2 (09:05→16:33)
[2020-01-08] MEDS: DULoxetine HCL 20 MG CAPSULE PO SCH (09:05)
[2020-01-08] MEDS: LamoTRIgine 25 MG TABLET PO SCH (09:05)
[2020-01-08] MEDS: NICOTINE 21 MG/24 HOUR PATCH TD SCH (09:05)
[2020-01-08] MEDS ORDERED: ALBUTEROL SULFATE 2.5 MG/0.5 ML NEB SOLUTION NEB PRN (12:30)
[2020-01-08 16:23] VITALS: BP 139/83
[2020-01-08] MEDS: QUEtiapine FUMARATE 200 MG TABLET PO SCH (20:32)
[2020-01-09 03:06] VITALS: BP 107/83
[2020-01-09] MEDS: FERROUS SULFATE 325 MG EC TABLET PO SCH ×2 (06:38→16:35)
[2020-01-09 08:03] VITALS: BP 120/70
[2020-01-09] MEDS: LamoTRIgine 25 MG TABLET PO SCH (08:22)
[2020-01-09] MEDS: PredniSONE 20 MG TABLET PO SCH (08:22)
[2020-01-09] MEDS: DULoxetine HCL 20 MG CAPSULE PO SCH (08:22)
[2020-01-09] MEDS: BusPIRone HCL 15 MG TABLET PO SCH ×2 (08:22→16:35)
[2020-01-09] MEDS: NICOTINE 21 MG/24 HOUR PATCH TD SCH (08:54)
[2020-01-09 16:04] VITALS: BP 127/76
[2020-01-09] MEDS: QUEtiapine FUMARATE 200 MG TABLET PO SCH (20:34)
[2020-01-10] MEDS: FERROUS SULFATE 325 MG EC TABLET PO SCH ×2 (06:39→16:29)
[2020-01-10 08:06] VITALS: BP 101/63
[2020-01-10] MEDS: NICOTINE 21 MG/24 HOUR PATCH TD SCH (08:17)
[2020-01-10] MEDS: PredniSONE 20 MG TABLET PO SCH (08:17)
[2020-01-10] MEDS: BusPIRone HCL 15 MG TABLET PO SCH ×2 (08:17→16:28)
[2020-01-10] MEDS: DULoxetine HCL 20 MG CAPSULE PO SCH (08:25)
[2020-01-10] MEDS: LamoTRIgine 25 MG TABLET PO SCH (09:09)
[2020-01-10 16:13] VITALS: BP 107/71
[2020-01-10] MEDS: QUEtiapine FUMARATE 200 MG TABLET PO SCH (20:48)
[2020-01-11] MEDS: FERROUS SULFATE 325 MG EC TABLET PO SCH ×2 (06:38→16:27)
[2020-01-11] MEDS: LamoTRIgine 25 MG TABLET PO SCH (08:10)
[2020-01-11] MEDS: BusPIRone HCL 15 MG TABLET PO SCH ×2 (08:10→16:27)
[2020-01-11] MEDS: PredniSONE 20 MG TABLET PO SCH (08:10)
[2020-01-11] MEDS: DULoxetine HCL 20 MG CAPSULE PO SCH (08:10)
[2020-01-11] MEDS: NICOTINE 21 MG/24 HOUR PATCH TD SCH (08:16)
[2020-01-11 08:36] VITALS: BP 105/84
[2020-01-11 16:07] VITALS: BP 141/74
[2020-01-11] MEDS: QUEtiapine FUMARATE 200 MG TABLET PO SCH (20:23)
[2020-01-12 06:14] VITALS: BP 101/59
[2020-01-12] MEDS: FERROUS SULFATE 325 MG EC TABLET PO SCH ×2 (06:45→16:07)
[2020-01-12] MEDS: LamoTRIgine 25 MG TABLET PO SCH (08:06)
[2020-01-12] MEDS: DULoxetine HCL 20 MG CAPSULE PO SCH (08:06)
[2020-01-12] MEDS: PredniSONE 20 MG TABLET PO SCH (08:06)
[2020-01-12] MEDS: BusPIRone HCL 15 MG TABLET PO SCH ×2 (08:06→16:07)
[2020-01-12] MEDS: NICOTINE 21 MG/24 HOUR PATCH TD SCH (08:11)
[2020-01-12 08:14] VITALS: BP 113/70
[2020-01-12 08:19] LABS: ALANINE AMINOTRANSFERASE 26 U/L (12-78); ALBUMIN 3.4 g/dL (3.4-5.0); ALKALINE PHOSPHATASE 66 U/L (46-116); ANION GAP 5 mmol/L (8-16); ASPARTATE AMINOTRANSFERASE 14 U/L (15-37); BILIRUBIN,TOTAL 0.2 mg/dL (0.1-1.0); CALCIUM, TOTAL 8.5 mg/dL (8.8-10.5); CARBON DIOXIDE 31 mmol/L (22-29); CHLORIDE 103 mmol/L (98-107); CHOLESTEROL 123 mg/dL (131-200); CREATININE 1.04 mg/dL (0.60-1.30); GLUCOSE,RANDOM 87 mg/dL (70-110); HDL CHOLESTEROL 61 mg/dL (40-60); LDL CHOL (CALC.) 53 mg/dL (0-130); POTASSIUM 4.3 mmol/L (3.5-5.1); SODIUM SERUM 139 mmol/L (136-145); TOTAL PROTEIN, SERUM 5.9 g/dL (6.4-8.2); TRIGLYCERIDES 47 mg/dL (15-150); UREA NITROGEN, BLOOD 24 mg/dL (7-18)
[2020-01-12 08:20] LABS: GLOMERULAR FILTR. RATE CALC > 60 mL/min (>60)
[2020-01-12 16:14] VITALS: BP 116/84
[2020-01-12] MEDS: QUEtiapine FUMARATE 200 MG TABLET PO SCH ×2 (19:58→20:00)
[2020-01-13 04:11] VITALS: BP 110/81
[2020-01-13] MEDS: FERROUS SULFATE 325 MG EC TABLET PO SCH ×2 (06:51→16:03)
[2020-01-13] MEDS: LamoTRIgine 25 MG TABLET PO SCH (08:08)
[2020-01-13] MEDS: PredniSONE 20 MG TABLET PO SCH (08:08)
[2020-01-13] MEDS: BusPIRone HCL 15 MG TABLET PO SCH ×2 (08:09→16:03)
[2020-01-13] MEDS: NICOTINE 21 MG/24 HOUR PATCH TD SCH (08:22)
[2020-01-13] MEDS: DULoxetine HCL 20 MG CAPSULE PO SCH (09:10)
[2020-01-13] MEDS ORDERED: FERR-89 PO (12:34)
[2020-01-13 16:39] VITALS: BP 135/79
== END 2020-01-13 16:40 | DRG 885 ==
LOC: EMS 17:27 → 3EX 23:30 → B2X 01-02 22:35
PROVIDERS: ADMIT Psychiatry & Neurology Psychiatry; ATTEND Psychiatry & Neurology Psychiatry
DX: F25.1 Schizoaffective disorder, depressive type (principal); N18.9 Chronic kidney disease, unspecified; R45.851 Suicidal ideations; D64.9 Anemia, unspecified; I12.9 Hypertensive chronic kidney disease with stage 1 through stage 4 chronic kidney disease, or unspecified chronic kidney disease; J44.9 Chronic obstructive pulmonary disease, unspecified; K21.9 Gastro-esophageal reflux disease without esophagitis; Z59.0 Homelessness; Z91.14 Patient's other noncompliance with medication regimen; Z87.891 Personal history of nicotine dependence; Z87.11 Personal history of peptic ulcer disease; Z79.899 Other long term (current) drug therapy
CPT/HCPCS: 87081; 87086; G0378; G0480

== ENCOUNTER 2020-04-05 15:55 | Inpatient (IN) | payer MEDICARE, MEDICAID ==
[~2020-04-05] VITALS: Ht 172.7 cm; Wt 57.3 kg
[~2020-04-05 15:55] MED LIST changes: +BUSP15 PO; +DULO20CA30 PO; +FERR-89 PO; +LAMO25TA25 PO; +PRED20 PO
[2020-04-05] MEDS ORDERED: LORazepam 2 MG TABLET PO PRN (21:30)
[2020-04-05] MEDS ORDERED: HALOPERIDOL 5 MG TABLET PO PRN (21:30)
[2020-04-05] MEDS ORDERED: ZOLPIDEM TARTRATE 10 MG TABLET PO PRN ×2 (21:30→22:15)
[2020-04-05] MEDS ORDERED: TUBERCULIN, PURIFIED PROTEIN DERIVATIVE 5 TU/0.1 ML SYRINGE ID ONE (22:15)
[2020-04-05] MEDS ORDERED: MAGNESIUM HYDROXIDE SUSPENSION 30 ML UDCUP PO PRN ×2 (22:15)
[2020-04-05] MEDS ORDERED: MAG HYDROX/AL HYDROX/SIMETH ES 30 ML SUSPENSION UDCUP PO PRN ×2 (22:15)
[2020-04-05] MEDS ORDERED: PROMETHAZINE HCL 25 MG TABLET PO PRN (22:15)
[2020-04-05] MEDS ORDERED: ACETAMINOPHEN 325 MG TABLET PO PRN ×2 (22:15)
[2020-04-05] MEDS ORDERED: PNEUMOCOCCAL VACCINE POLYVALENT 0.5 ML VIAL [PPSV23] IM ONE (22:15)
[2020-04-05] MEDS ORDERED: LOPERAMIDE HCL 2 MG CAPSULE PO PRN ×2 (22:15)
[2020-04-05] MEDS ORDERED: LORazepam 1 MG TABLET PO PRN (22:15)
[2020-04-05] MEDS ORDERED: GuaiFENesin/D-METHORPHAN [SUGAR-FREE] 200-20MG/10 ML SYRUP UDCUP PO PRN (22:15)
[2020-04-05] MEDS ORDERED: HydrOXYzine PAMOATE 50 MG CAPSULE PO PRN (22:15)
[2020-04-05] MEDS ORDERED: ZOLPIDEM TARTRATE 5 MG TABLET PO PRN (22:30)
[2020-04-05 22:39] VITALS: BP 124/81
[2020-04-06] MEDS ORDERED: PETROLATUM,WHITE 28 GM JELLY TP PRN (07:30)
[2020-04-06] MEDS ORDERED: GuaiFENesin/D-METHORPHAN [SUGAR-FREE] 200-20MG/10 ML SYRUP UDCUP PO PRN (07:30)
[2020-04-06] MEDS ORDERED: DOCUSATE SODIUM 100 MG CAPSULE PO PRN (07:30)
[2020-04-06] MEDS ORDERED: NICOTINE 14 MG/24 HOUR PATCH TD PRN (07:30)
[2020-04-06] MEDS ORDERED: MAGNESIUM HYDROXIDE SUSPENSION 30 ML UDCUP PO PRN (07:30)
[2020-04-06] MEDS ORDERED: ACETAMINOPHEN 325 MG TABLET PO PRN (07:30)
[2020-04-06] MEDS ORDERED: CloNIDine HCL 0.1 MG TABLET PO PRN (07:30)
[2020-04-06] MEDS ORDERED: LOPERAMIDE HCL 2 MG CAPSULE PO PRN (07:30)
[2020-04-06] MEDS ORDERED: ALBUTEROL SULFATE HFA 90 MCG/PUFF 8 GM INHALER IH PRN (07:30)
[2020-04-06] MEDS ORDERED: MAG HYDROX/AL HYDROX/SIMETH ES 30 ML SUSPENSION UDCUP PO PRN (07:30)
[2020-04-06] MEDS ORDERED: IBUPROFEN 400 MG TABLET PO PRN (07:30)
[2020-04-06] MEDS ORDERED: ONDANSETRON HCL 4 MG TABLET PO PRN (07:30)
[2020-04-06] MEDS: MULTIVITAMINS WITH MINERALS, THERAPEUTIC TABLET PO SCH (08:23)
[2020-04-06] MEDS: NALTREXONE HCL 50 MG TABLET PO SCH (08:23)
[2020-04-06] MEDS: PredniSONE 20 MG TABLET PO SCH (08:23)
[2020-04-06] MEDS: LamoTRIgine 25 MG TABLET PO SCH (08:23)
[2020-04-06] MEDS: FOLIC ACID 1 MG TABLET PO SCH (08:23)
[2020-04-06] MEDS: THIAMINE 100 MG TABLET PO SCH ×2 (08:24→17:18)
[2020-04-06 08:34] LABS: BASOPHILS % (AUTO) 2.2 % (0.0-2.0); EOSINOPHILS % (AUTO) 6.6 % (1.0-6.0); HEMATOCRIT 34.6 % (41-53); HEMOGLOBIN 11.6 g/dL (13.5-17.5); LYMPHOCYTES # (AUTO) 1.7 K/uL (1.0-4.8); LYMPHOCYTES % (AUTO) 28.6 % (22.0-44.0); MEAN CORPUSCULAR HEMOGLOBIN 30.6 pg (26.0-34.0); MEAN CORPUSCULAR HGB CONC 33.7 G/dL (31.0-37.0); MEAN CORPUSCULAR VOLUME 91 fL (80-100); MONOCYTES # (AUTO) 0.5 K/uL (0.1-1.0); MONOCYTES % (AUTO) 8.6 % (2.0-9.0); NEUTROPHILS # (AUTO) 3.3 K/uL (1.8-7.7); PLATELET COUNT (AUTO) 339 K/uL (150-450); RED CELL DISTRIBUTION WIDTH 13.7 % (11.5-14.5)
[2020-04-06 08:53] LABS: HEMOGLOBIN A1C 6.1 % (3.8-5.6)
[2020-04-06 08:55] LABS: ALANINE AMINOTRANSFERASE 34 U/L (12-78); ALBUMIN 3.3 g/dL (3.4-5.0); ALKALINE PHOSPHATASE 81 U/L (46-116); ANION GAP 7 mmol/L (8-16); ASPARTATE AMINOTRANSFERASE 34 U/L (15-37); BILIRUBIN,TOTAL 0.3 mg/dL (0.1-1.0); CALCIUM, TOTAL 8.4 mg/dL (8.8-10.5); CARBON DIOXIDE 27 mmol/L (22-29); CHLORIDE 101 mmol/L (98-107); CHOL/HDL RATIO 2.5 (4.2-7.3); CHOLESTEROL 150 mg/dL (131-200); CREATININE 0.98 mg/dL (0.60-1.30); FREE T4 (FREE THYROXINE) 0.83 ng/dL (0.76-1.46); GLUCOSE,RANDOM 109 mg/dL (70-110); HDL CHOLESTEROL 61 mg/dL (40-60); LDL CHOL (CALC.) 78 mg/dL (0-130); POTASSIUM 4.4 mmol/L (3.5-5.1); SODIUM SERUM 135 mmol/L (136-145); THYROID STIMULATING HORMONE 2.35 uIU/mL (0.36-3.74); TOTAL PROTEIN, SERUM 6.7 g/dL (6.4-8.2); TRIGLYCERIDES 54 mg/dL (15-150); UREA NITROGEN, BLOOD 15 mg/dL (7-18)
[2020-04-06 08:58] LABS: GLOMERULAR FILTR. RATE CALC > 60 mL/min (>60)
[2020-04-06 16:11] VITALS: BP 133/74
[2020-04-06] MEDS: FERROUS SULFATE 325 MG EC TABLET PO SCH (17:16)
[2020-04-06] MEDS: LORazepam 0.5 MG TABLET PO PRN (17:17)
[2020-04-06] MEDS: QUEtiapine FUMARATE 100 MG TABLET PO SCH (20:47)
[2020-04-07 00:48] VITALS: BP 118/73
[2020-04-07] MEDS: FERROUS SULFATE 325 MG EC TABLET PO SCH ×3 (06:06→16:43)
[2020-04-07] MEDS: PredniSONE 20 MG TABLET PO SCH (08:13)
[2020-04-07] MEDS: THIAMINE 100 MG TABLET PO SCH ×2 (08:18→16:13)
[2020-04-07] MEDS: NALTREXONE HCL 50 MG TABLET PO SCH (08:19)
[2020-04-07] MEDS: MULTIVITAMINS WITH MINERALS, THERAPEUTIC TABLET PO SCH (08:20)
[2020-04-07] MEDS: LamoTRIgine 25 MG TABLET PO SCH (08:20)
[2020-04-07] MEDS: FOLIC ACID 1 MG TABLET PO SCH (08:22)
[2020-04-07 08:36] VITALS: BP 116/72
[2020-04-07 17:10] VITALS: BP 118/65
[2020-04-07] MEDS: QUEtiapine FUMARATE 100 MG TABLET PO SCH (20:12)
[2020-04-07] MEDS: LORazepam 0.5 MG TABLET PO PRN (20:12)
[2020-04-08] MEDS: LORazepam 0.5 MG TABLET PO PRN ×2 (03:42→16:14)
[2020-04-08] MEDS: QUEtiapine FUMARATE 100 MG TABLET PO PRN (03:42)
[2020-04-08 03:43] VITALS: BP 124/87
[2020-04-08] MEDS: FERROUS SULFATE 325 MG EC TABLET PO SCH ×2 (06:13→16:14)
[2020-04-08] MEDS: PredniSONE 20 MG TABLET PO SCH (08:08)
[2020-04-08] MEDS: NALTREXONE HCL 50 MG TABLET PO SCH (08:09)
[2020-04-08] MEDS: FOLIC ACID 1 MG TABLET PO SCH (08:09)
[2020-04-08] MEDS: THIAMINE 100 MG TABLET PO SCH ×2 (08:09→16:14)
[2020-04-08] MEDS: LamoTRIgine 25 MG TABLET PO SCH (08:10)
[2020-04-08] MEDS: MULTIVITAMINS WITH MINERALS, THERAPEUTIC TABLET PO SCH (08:11)
[2020-04-08 08:12] VITALS: BP 132/76
[2020-04-08] MEDS: QUEtiapine FUMARATE 100 MG TABLET PO SCH (20:29)
[2020-04-09 03:58] VITALS: BP 120/80
[2020-04-09] MEDS: FERROUS SULFATE 325 MG EC TABLET PO SCH ×2 (06:30→16:23)
[2020-04-09 08:12] VITALS: BP 118/72
[2020-04-09] MEDS: THIAMINE 100 MG TABLET PO SCH ×2 (09:25→16:23)
[2020-04-09] MEDS: PredniSONE 20 MG TABLET PO SCH (09:25)
[2020-04-09] MEDS: MULTIVITAMINS WITH MINERALS, THERAPEUTIC TABLET PO SCH (09:25)
[2020-04-09] MEDS: NALTREXONE HCL 50 MG TABLET PO SCH (09:26)
[2020-04-09] MEDS: FOLIC ACID 1 MG TABLET PO SCH (09:26)
[2020-04-09] MEDS: LamoTRIgine 25 MG TABLET PO SCH (09:26)
[2020-04-09 16:17] VITALS: BP 128/80
[2020-04-09] MEDS: LORazepam 0.5 MG TABLET PO PRN (16:23)
[2020-04-09] MEDS: QUEtiapine FUMARATE 100 MG TABLET PO SCH (20:32)
[2020-04-10] MEDS: FERROUS SULFATE 325 MG EC TABLET PO SCH ×2 (06:09→19:48)
[2020-04-10 06:39] VITALS: BP 123/78
[2020-04-10 08:08] LABS: AMPHET/METH SCREEN,URINE NEGATIVE (NEGATIVE); BARBITURATE SCREEN, URINE NEGATIVE (NEGATIVE); BENZODIAZEPINES SCREEN,URINE NEGATIVE (NEGATIVE); CANNABINOID SCREEN,URINE NEGATIVE (NEGATIVE); COCAINE SCREEN,URINE NEGATIVE (NEGATIVE); METHADONE SCREEN, URINE NEGATIVE (NEGATIVE); OPIATE SCREEN,URINE NEGATIVE (NEGATIVE)
[2020-04-10 08:14] LABS: APPEARANCE,URINE CLEAR (CLEAR); BILIRUBIN,URINE NEGATIVE (NEGATIVE); GLUCOSE, URINE (UA) NEGATIVE (NEGATIVE); KETONES,URINE NEGATIVE (NEGATIVE); LEUKOCYTE ESTERASE ,URINE NEGATIVE (NEGATIVE); NITRATE,URINE NEGATIVE (NEGATIVE); OCCULT BLOOD,URINE NEGATIVE (NEGATIVE); PROTEIN,URINE NEGATIVE (NEGATIVE); UROBILINOGEN,URINE 0.2 mg/dL (<=1.0)
[2020-04-10 08:17] LABS: PHENCYCLIDINE SCREEN,URINE NEGATIVE (NEGATIVE)
[2020-04-10 08:21] VITALS: BP 114/81
[2020-04-10] MEDS: THIAMINE 100 MG TABLET PO SCH ×2 (08:44→19:48)
[2020-04-10] MEDS: FOLIC ACID 1 MG TABLET PO SCH (08:44)
[2020-04-10] MEDS: NALTREXONE HCL 50 MG TABLET PO SCH (08:44)
[2020-04-10] MEDS: LamoTRIgine 25 MG TABLET PO SCH (08:44)
[2020-04-10] MEDS: MULTIVITAMINS WITH MINERALS, THERAPEUTIC TABLET PO SCH (08:45)
[2020-04-10] MEDS: PredniSONE 20 MG TABLET PO SCH (08:45)
[2020-04-10] MEDS: LORazepam 0.5 MG TABLET PO PRN (09:48)
[2020-04-10 16:17] VITALS: BP 111/79
[2020-04-10] MEDS: QUEtiapine FUMARATE 100 MG TABLET PO SCH (20:59)
[2020-04-10] MEDS: QUEtiapine FUMARATE 100 MG TABLET PO PRN (21:49)
[2020-04-11 05:54] VITALS: BP 135/89
[2020-04-11] MEDS: FERROUS SULFATE 325 MG EC TABLET PO SCH ×2 (06:02→16:16)
[2020-04-11] MEDS: NALTREXONE HCL 50 MG TABLET PO SCH (09:00)
[2020-04-11] MEDS: THIAMINE 100 MG TABLET PO SCH ×2 (09:00→16:16)
[2020-04-11] MEDS: LamoTRIgine 25 MG TABLET PO SCH (09:00)
[2020-04-11] MEDS: MULTIVITAMINS WITH MINERALS, THERAPEUTIC TABLET PO SCH (09:00)
[2020-04-11] MEDS: PredniSONE 20 MG TABLET PO SCH (09:00)
[2020-04-11] MEDS: FOLIC ACID 1 MG TABLET PO SCH (09:00)
[2020-04-11 16:09] VITALS: BP 109/74
[2020-04-11] MEDS: LORazepam 0.5 MG TABLET PO PRN (16:16)
[2020-04-11] MEDS: QUEtiapine FUMARATE 100 MG TABLET PO SCH (20:28)
[2020-04-12 05:40] VITALS: BP 112/62
[2020-04-12] MEDS: FERROUS SULFATE 325 MG EC TABLET PO SCH ×2 (06:32→16:30)
[2020-04-12] MEDS: FOLIC ACID 1 MG TABLET PO SCH (08:52)
[2020-04-12] MEDS: NALTREXONE HCL 50 MG TABLET PO SCH (08:52)
[2020-04-12] MEDS: PredniSONE 20 MG TABLET PO SCH (08:52)
[2020-04-12] MEDS: LamoTRIgine 25 MG TABLET PO SCH (08:52)
[2020-04-12] MEDS: MULTIVITAMINS WITH MINERALS, THERAPEUTIC TABLET PO SCH (08:52)
[2020-04-12] MEDS: THIAMINE 100 MG TABLET PO SCH ×2 (08:53→16:30)
[2020-04-12 16:09] VITALS: BP 120/87
[2020-04-12] MEDS: LORazepam 0.5 MG TABLET PO PRN (16:30)
[2020-04-12] MEDS ORDERED: QUEtiapine FUMARATE 200 MG TABLET PO SCH (21:00)
[2020-04-13 05:21] VITALS: BP 118/69
[2020-04-13] MEDS: FERROUS SULFATE 325 MG EC TABLET PO SCH ×2 (06:01→16:34)
[2020-04-13 08:10] VITALS: BP 98/72
[2020-04-13] MEDS: MULTIVITAMINS WITH MINERALS, THERAPEUTIC TABLET PO SCH (09:01)
[2020-04-13] MEDS: LamoTRIgine 25 MG TABLET PO SCH (09:01)
[2020-04-13] MEDS: FOLIC ACID 1 MG TABLET PO SCH (09:02)
[2020-04-13] MEDS: NALTREXONE HCL 50 MG TABLET PO SCH (09:02)
[2020-04-13] MEDS: THIAMINE 100 MG TABLET PO SCH ×2 (09:02→16:34)
[2020-04-13] MEDS: PredniSONE 20 MG TABLET PO SCH (09:03)
[2020-04-13] MEDS: LORazepam 0.5 MG TABLET PO PRN (16:34)
[2020-04-13] MEDS: QUEtiapine FUMARATE 300 MG TABLET PO SCH (20:38)
[2020-04-14 05:28] VITALS: BP 109/71
[2020-04-14] MEDS: FERROUS SULFATE 325 MG EC TABLET PO SCH ×2 (06:06→16:29)
[2020-04-14 08:26] VITALS: BP 100/61
[2020-04-14] MEDS: FOLIC ACID 1 MG TABLET PO SCH (09:00)
[2020-04-14] MEDS: PredniSONE 20 MG TABLET PO SCH (09:00)
[2020-04-14] MEDS: MULTIVITAMINS WITH MINERALS, THERAPEUTIC TABLET PO SCH (09:00)
[2020-04-14] MEDS: NALTREXONE HCL 50 MG TABLET PO SCH (09:00)
[2020-04-14] MEDS: THIAMINE 100 MG TABLET PO SCH ×2 (09:00→16:29)
[2020-04-14] MEDS: LamoTRIgine 25 MG TABLET PO SCH (09:00)
[2020-04-14 16:12] VITALS: BP 110/77
[2020-04-14] MEDS: LORazepam 0.5 MG TABLET PO PRN (16:30)
[2020-04-14] MEDS: QUEtiapine FUMARATE 300 MG TABLET PO SCH (20:58)
[2020-04-15 00:32] VITALS: BP 115/67
[2020-04-15] MEDS: FERROUS SULFATE 325 MG EC TABLET PO SCH ×2 (06:22→17:34)
[2020-04-15] MEDS: LamoTRIgine 25 MG TABLET PO SCH (08:22)
[2020-04-15] MEDS: FOLIC ACID 1 MG TABLET PO SCH (08:23)
[2020-04-15] MEDS: MULTIVITAMINS WITH MINERALS, THERAPEUTIC TABLET PO SCH (08:23)
[2020-04-15] MEDS: PredniSONE 20 MG TABLET PO SCH (08:23)
[2020-04-15] MEDS: THIAMINE 100 MG TABLET PO SCH ×2 (08:23→17:34)
[2020-04-15] MEDS: NALTREXONE HCL 50 MG TABLET PO SCH (08:23)
[2020-04-15 08:49] VITALS: BP 121/76
[2020-04-15 16:07] VITALS: BP 115/76
[2020-04-15] MEDS: QUEtiapine FUMARATE 300 MG TABLET PO SCH (20:31)
[2020-04-15] MEDS: LORazepam 0.5 MG TABLET PO PRN (20:31)
[2020-04-16 05:17] VITALS: BP 118/64
[2020-04-16] MEDS: FERROUS SULFATE 325 MG EC TABLET PO SCH ×2 (06:04→16:28)
[2020-04-16 08:18] VITALS: BP 99/62
[2020-04-16] MEDS: MULTIVITAMINS WITH MINERALS, THERAPEUTIC TABLET PO SCH (08:29)
[2020-04-16] MEDS: LamoTRIgine 25 MG TABLET PO SCH (08:30)
[2020-04-16] MEDS: NALTREXONE HCL 50 MG TABLET PO SCH (08:30)
[2020-04-16] MEDS: PredniSONE 20 MG TABLET PO SCH (08:33)
[2020-04-16 16:13] VITALS: BP 126/82
[2020-04-16] MEDS: LORazepam 0.5 MG TABLET PO PRN (16:28)
[2020-04-16] MEDS: QUEtiapine FUMARATE 300 MG TABLET PO SCH (20:05)
[2020-04-17] MEDS: FERROUS SULFATE 325 MG EC TABLET PO SCH ×2 (06:17→16:40)
[2020-04-17 06:22] VITALS: BP 106/71
[2020-04-17 08:16] VITALS: BP 128/77
[2020-04-17 08:58] LABS: ANION GAP 9 mmol/L (8-16); CALCIUM, TOTAL 8.7 mg/dL (8.8-10.5); CARBON DIOXIDE 26 mmol/L (22-29); CHLORIDE 101 mmol/L (98-107); CREATININE 0.98 mg/dL (0.60-1.30); GLUCOSE,RANDOM 179 mg/dL (70-110); POTASSIUM 3.4 mmol/L (3.5-5.1); SODIUM SERUM 136 mmol/L (136-145); UREA NITROGEN, BLOOD 20 mg/dL (7-18)
[2020-04-17] MEDS: MULTIVITAMINS WITH MINERALS, THERAPEUTIC TABLET PO SCH (09:01)
[2020-04-17] MEDS: LamoTRIgine 25 MG TABLET PO SCH (09:02)
[2020-04-17] MEDS: PredniSONE 20 MG TABLET PO SCH (09:02)
[2020-04-17] MEDS: NALTREXONE HCL 50 MG TABLET PO SCH (09:03)
[2020-04-17] MEDS: LORazepam 0.5 MG TABLET PO PRN (09:04)
[2020-04-17 09:11] LABS: GLOMERULAR FILTR. RATE CALC > 60 mL/min (>60)
[2020-04-17 09:40] LABS: BASOPHILS % (AUTO) 0.6 % (0.0-2.0); EOSINOPHILS % (AUTO) 3.8 % (1.0-6.0); HEMATOCRIT 36.1 % (41-53); HEMOGLOBIN 11.6 g/dL (13.5-17.5); LYMPHOCYTES # (AUTO) 2.7 K/uL (1.0-4.8); LYMPHOCYTES % (AUTO) 32.8 % (22.0-44.0); MEAN CORPUSCULAR VOLUME 94 fL (80-100); MONOCYTES # (AUTO) 0.5 K/uL (0.1-1.0); MONOCYTES % (AUTO) 6.2 % (2.0-9.0); NEUTROPHILS # (AUTO) 4.7 K/uL (1.8-7.7); NEUTROPHILS % (AUTO) 56.6 % (40.0-70.0); PLATELET COUNT (AUTO) 286 K/uL (150-450); RED BLOOD CELL COUNT(AUTO) 3.85 MIL/uL (4.50-5.90); RED CELL DISTRIBUTION WIDTH 14.2 % (11.5-14.5)
[2020-04-17] MEDS ORDERED: NALT50TA PO (15:51)
[2020-04-17] MEDS ORDERED: LAMO25TA66 PO (15:51)
[2020-04-17] MEDS ORDERED: QUET300T18 PO (15:51)
[2020-04-17 16:08] VITALS: BP 115/72
[2020-04-17] MEDS ORDERED: POTASSIUM CHLORIDE 20 MEQ ER TABLET PO ONE (16:45)
[2020-04-17] MEDS: QUEtiapine FUMARATE 300 MG TABLET PO SCH (20:14)
[2020-04-18 06:35] VITALS: BP 106/67
[2020-04-18] MEDS: FERROUS SULFATE 325 MG EC TABLET PO SCH ×2 (06:44→16:44)
[2020-04-18 08:37] VITALS: BP 96/64
[2020-04-18] MEDS: MULTIVITAMINS WITH MINERALS, THERAPEUTIC TABLET PO SCH (08:47)
[2020-04-18] MEDS: PredniSONE 20 MG TABLET PO SCH (08:47)
[2020-04-18] MEDS: LamoTRIgine 25 MG TABLET PO SCH (08:48)
[2020-04-18] MEDS: NALTREXONE HCL 50 MG TABLET PO SCH (08:48)
[2020-04-18 16:07] VITALS: BP 137/77
[2020-04-18] MEDS: LORazepam 0.5 MG TABLET PO PRN (16:45)
[2020-04-18] MEDS: QUEtiapine FUMARATE 300 MG TABLET PO SCH (20:38)
[2020-04-19 06:27] VITALS: BP 104/73
[2020-04-19] MEDS: FERROUS SULFATE 325 MG EC TABLET PO SCH ×2 (06:39→16:34)
[2020-04-19 08:17] VITALS: BP 106/70
[2020-04-19] MEDS: MULTIVITAMINS WITH MINERALS, THERAPEUTIC TABLET PO SCH (08:42)
[2020-04-19] MEDS: LamoTRIgine 25 MG TABLET PO SCH (08:42)
[2020-04-19] MEDS: PredniSONE 20 MG TABLET PO SCH (08:42)
[2020-04-19] MEDS: NALTREXONE HCL 50 MG TABLET PO SCH (08:43)
[2020-04-19] MEDS: LORazepam 0.5 MG TABLET PO PRN (12:22)
[2020-04-19] MEDS: QUEtiapine FUMARATE 300 MG TABLET PO SCH (20:31)
[2020-04-20 06:02] VITALS: BP 121/67
[2020-04-20] MEDS: FERROUS SULFATE 325 MG EC TABLET PO SCH ×2 (06:47→16:59)
[2020-04-20 08:29] VITALS: BP 103/73
[2020-04-20] MEDS: LACTULOSE 20 GM/30 ML SOLUTION UDCUP PO SCH (09:38)
[2020-04-20] MEDS: LamoTRIgine 25 MG TABLET PO SCH (09:39)
[2020-04-20] MEDS: MULTIVITAMINS WITH MINERALS, THERAPEUTIC TABLET PO SCH (09:39)
[2020-04-20] MEDS: PredniSONE 20 MG TABLET PO SCH (09:39)
[2020-04-20] MEDS: NALTREXONE HCL 50 MG TABLET PO SCH (09:39)
[2020-04-20 14:18] VITALS: BP 112/80
[2020-04-20 15:45] VITALS: BP 112/80
[2020-04-20 16:30] VITALS: BP 112/80
[2020-04-20] MEDS: QUEtiapine FUMARATE 300 MG TABLET PO SCH (20:26)
[2020-04-21 03:49] VITALS: BP 115/77
[2020-04-21] MEDS: FERROUS SULFATE 325 MG EC TABLET PO SCH ×2 (06:59→16:18)
[2020-04-21] MEDS: NALTREXONE HCL 50 MG TABLET PO SCH (08:05)
[2020-04-21] MEDS: LACTULOSE 20 GM/30 ML SOLUTION UDCUP PO SCH (08:05)
[2020-04-21] MEDS: PredniSONE 20 MG TABLET PO SCH (08:05)
[2020-04-21] MEDS: LamoTRIgine 25 MG TABLET PO SCH (08:05)
[2020-04-21] MEDS: MULTIVITAMINS WITH MINERALS, THERAPEUTIC TABLET PO SCH (08:05)
[2020-04-21 09:08] VITALS: BP 100/70
[2020-04-21 10:05] VITALS: BP 110/78
[2020-04-21] MEDS: LORazepam 0.5 MG TABLET PO PRN ×2 (10:08→17:18)
[2020-04-21 16:19] VITALS: BP 102/71
[2020-04-21 17:18] VITALS: BP 116/74
[2020-04-21] MEDS: QUEtiapine FUMARATE 300 MG TABLET PO SCH (20:22)
[2020-04-22 05:55] VITALS: BP 112/70
[2020-04-22] MEDS: FERROUS SULFATE 325 MG EC TABLET PO SCH ×2 (06:42→16:52)
[2020-04-22] MEDS: LACTULOSE 20 GM/30 ML SOLUTION UDCUP PO SCH (08:32)
[2020-04-22] MEDS: MULTIVITAMINS WITH MINERALS, THERAPEUTIC TABLET PO SCH (08:32)
[2020-04-22] MEDS: PredniSONE 20 MG TABLET PO SCH (08:32)
[2020-04-22] MEDS: NALTREXONE HCL 50 MG TABLET PO SCH (08:32)
[2020-04-22] MEDS: LamoTRIgine 25 MG TABLET PO SCH (08:32)
[2020-04-22 08:59] VITALS: BP 111/64
[2020-04-22 16:20] VITALS: BP 112/80
[2020-04-22] MEDS: LORazepam 0.5 MG TABLET PO PRN (17:41)
[2020-04-22] MEDS: QUEtiapine FUMARATE 300 MG TABLET PO SCH (20:08)
[2020-04-23] MEDS: FERROUS SULFATE 325 MG EC TABLET PO SCH ×3 (06:32→16:50)
[2020-04-23 06:38] VITALS: BP 106/61
[2020-04-23 08:50] VITALS: BP 104/63
[2020-04-23] MEDS: LACTULOSE 20 GM/30 ML SOLUTION UDCUP PO SCH (09:16)
[2020-04-23] MEDS: LamoTRIgine 25 MG TABLET PO SCH (09:17)
[2020-04-23] MEDS: PredniSONE 20 MG TABLET PO SCH (09:17)
[2020-04-23] MEDS: NALTREXONE HCL 50 MG TABLET PO SCH (09:17)
[2020-04-23] MEDS: MULTIVITAMINS WITH MINERALS, THERAPEUTIC TABLET PO SCH (09:17)
[2020-04-23 16:07] VITALS: BP 112/67
[2020-04-23] MEDS: LORazepam 0.5 MG TABLET PO PRN (16:55)
[2020-04-23] MEDS: QUEtiapine FUMARATE 300 MG TABLET PO SCH (21:16)
[2020-04-24 05:23] VITALS: BP 115/68
[2020-04-24] MEDS: FERROUS SULFATE 325 MG EC TABLET PO SCH (07:00)
[2020-04-24] MEDS: PredniSONE 20 MG TABLET PO SCH (08:30)
[2020-04-24] MEDS: LACTULOSE 20 GM/30 ML SOLUTION UDCUP PO SCH (08:30)
[2020-04-24] MEDS: LamoTRIgine 25 MG TABLET PO SCH (08:32)
[2020-04-24] MEDS: NALTREXONE HCL 50 MG TABLET PO SCH (08:33)
[2020-04-24] MEDS: MULTIVITAMINS WITH MINERALS, THERAPEUTIC TABLET PO SCH (08:34)
[2020-04-24] MEDS ORDERED: LACT30L PO (12:59)
== END 2020-04-24 14:57 | disposition home or self-care (01) | DRG 885 ==
LOC: B3A 21:26 → B2S 04-18 21:14
PROVIDERS: ADMIT Psychiatry & Neurology Child & Adolescent Psychiatry; ATTEND Psychiatry & Neurology Psychiatry
DX: F25.9 Schizoaffective disorder, unspecified (principal); E87.1 Hypo-osmolality and hyponatremia; G93.40 Encephalopathy, unspecified; Z59.0 Homelessness; K58.0 Irritable bowel syndrome with diarrhea; K21.9 Gastro-esophageal reflux disease without esophagitis; J44.9 Chronic obstructive pulmonary disease, unspecified; I10 Essential (primary) hypertension; F17.210 Nicotine dependence, cigarettes, uncomplicated; F15.90 Other stimulant use, unspecified, uncomplicated; F10.10 Alcohol abuse, uncomplicated; E87.6 Hypokalemia; D64.9 Anemia, unspecified; Z79.899 Other long term (current) drug therapy; Z82.49 Family history of ischemic heart disease and other diseases of the circulatory system; Z87.11 Personal history of peptic ulcer disease; Z91.19 Patient's noncompliance with other medical treatment and regimen
CPT/HCPCS: 80307; 83036; 84132; 84439; 84443; 87081; 90732

== ENCOUNTER 2020-05-12 19:36 | Emergency (ER) | payer MEDICARE, MEDICAID ==
[~2020-05-12] VITALS: Ht 175.3 cm; Wt 59.1 kg
[~2020-05-12 19:36] MED LIST changes: -BUSP15 PO; -DULO20CA30 PO; +LACT30L PO; -LAMO25TA25 PO; +LAMO25TA66 PO; +NALT50TA PO; -QUET200T PO; +QUET300T18 PO
[2020-05-12 19:54] VITALS: BP 156/82
[2020-05-12 20:09] LABS: BASOPHILS % (AUTO) 0.5 % (0.0-2.0); EOSINOPHILS % (AUTO) 4.6 % (1.0-6.0); HEMATOCRIT 35.3 % (41-53); HEMOGLOBIN 11.9 g/dL (13.5-17.5); LYMPHOCYTES % (AUTO) 30.8 % (22.0-44.0); MEAN CORPUSCULAR HEMOGLOBIN 30.9 pg (26.0-34.0); MEAN CORPUSCULAR HGB CONC 33.7 G/dL (31.0-37.0); MEAN CORPUSCULAR VOLUME 92 fL (80-100); MONOCYTES # (AUTO) 0.5 K/uL (0.1-1.0); MONOCYTES % (AUTO) 17.1 % (2.0-9.0); NEUTROPHILS # (AUTO) 1.5 K/uL (1.8-7.7); PLATELET COUNT (AUTO) 248 K/uL (150-450); RED BLOOD CELL COUNT(AUTO) 3.85 MIL/uL (4.50-5.90); RED CELL DISTRIBUTION WIDTH 14.6 % (11.5-14.5)
[2020-05-12 20:18] LABS: ANION GAP 3 mmol/L (8-16); CALCIUM, TOTAL 8.6 mg/dL (8.8-10.5); CARBON DIOXIDE 31 mmol/L (22-29); CHLORIDE 105 mmol/L (98-107); CREATININE 1.17 mg/dL (0.60-1.30); GLUCOSE,RANDOM 88 mg/dL (70-110); POTASSIUM 3.7 mmol/L (3.5-5.1); SODIUM SERUM 139 mmol/L (136-145); UREA NITROGEN, BLOOD 11 mg/dL (7-18)
[2020-05-12 20:19] LABS: GLOMERULAR FILTR. RATE CALC > 60 mL/min (>60)
[2020-05-12 20:23] LABS: ALANINE AMINOTRANSFERASE 49 U/L (12-78); ALBUMIN 3.5 g/dL (3.4-5.0); ALKALINE PHOSPHATASE 75 U/L (46-116); ASPARTATE AMINOTRANSFERASE 40 U/L (15-37); BILIRUBIN,TOTAL 0.3 mg/dL (0.1-1.0); TOTAL PROTEIN, SERUM 7.2 g/dL (6.4-8.2)
== END 2020-05-12 22:03 | disposition home or self-care (01) ==
LOC: EMS 19:44
DX: F25.9 Schizoaffective disorder, unspecified (principal); F69 Unspecified disorder of adult personality and behavior; F17.210 Nicotine dependence, cigarettes, uncomplicated; J44.9 Chronic obstructive pulmonary disease, unspecified; F31.9 Bipolar disorder, unspecified; Z59.0 Homelessness
CPT/HCPCS: 36415; 80053; 84484; 85025; 99284; 99406; G0480

== ENCOUNTER 2020-05-15 19:52 | Inpatient (IN) | payer MEDICARE, MEDICAID ==
[~2020-05-15] VITALS: Ht 172.7 cm; Wt 56.5 kg
[2020-05-15] MEDS ORDERED: QUET300T2 PO (20:02)
[2020-05-15] MEDS ORDERED: NALT50TA6 PO (20:02)
[2020-05-15] MEDS ORDERED: LAMO25TA25 PO (20:02)
[2020-05-15] MEDS ORDERED: MAG HYDROX/AL HYDROX/SIMETH ES 30 ML SUSPENSION UDCUP PO PRN (20:30)
[2020-05-15] MEDS ORDERED: ZOLPIDEM TARTRATE 10 MG TABLET PO PRN (20:30)
[2020-05-15] MEDS ORDERED: LOPERAMIDE HCL 2 MG CAPSULE PO PRN (20:30)
[2020-05-15] MEDS ORDERED: MAGNESIUM HYDROXIDE SUSPENSION 30 ML UDCUP PO PRN (20:30)
[2020-05-15] MEDS ORDERED: GuaiFENesin/D-METHORPHAN [SUGAR-FREE] 200-20MG/10 ML SYRUP UDCUP PO PRN (20:30)
[2020-05-15] MEDS ORDERED: -PHARMACY VACCINE NOTE- MISC ONE (20:30)
[2020-05-15] MEDS ORDERED: ACETAMINOPHEN 325 MG TABLET PO PRN (20:30)
[2020-05-15] MEDS ORDERED: PROMETHAZINE HCL 25 MG TABLET PO PRN (20:30)
[2020-05-15] MEDS ORDERED: QUEtiapine FUMARATE 100 MG TABLET PO PRN (20:30)
[2020-05-15] MEDS ORDERED: HydrOXYzine PAMOATE 50 MG CAPSULE PO PRN (20:30)
[2020-05-15 20:33] VITALS: BP 110/80
[2020-05-15] MEDS ORDERED: QUEtiapine FUMARATE 100 MG TABLET PO SCH (21:00)
[2020-05-15 21:08] VITALS: BP 105/78
[2020-05-16 03:15] VITALS: BP 116/70
[2020-05-16] MEDS: FERROUS SULFATE 325 MG EC TABLET PO SCH ×2 (06:00→16:36)
[2020-05-16 07:38] LABS: BASOPHILS % (AUTO) 1.3 % (0.0-2.0); HEMOGLOBIN 11.5 g/dL (13.5-17.5); LYMPHOCYTES # (AUTO) 1.7 K/uL (1.0-4.8); MEAN CORPUSCULAR HEMOGLOBIN 30.7 pg (26.0-34.0); MEAN CORPUSCULAR HGB CONC 33.7 G/dL (31.0-37.0); MEAN CORPUSCULAR VOLUME 91 fL (80-100); MONOCYTES # (AUTO) 0.5 K/uL (0.1-1.0); MONOCYTES % (AUTO) 12.1 % (2.0-9.0); NEUTROPHILS # (AUTO) 1.8 K/uL (1.8-7.7); NEUTROPHILS % (AUTO) 41.6 % (40.0-70.0); PLATELET COUNT (AUTO) 245 K/uL (150-450); RED BLOOD CELL COUNT(AUTO) 3.74 MIL/uL (4.50-5.90); RED CELL DISTRIBUTION WIDTH 14.7 % (11.5-14.5)
[2020-05-16 07:52] LABS: HEMOGLOBIN A1C 5.2 % (3.8-5.6)
[2020-05-16 08:05] LABS: ALANINE AMINOTRANSFERASE 44 U/L (12-78); ALBUMIN 3.2 g/dL (3.4-5.0); ALKALINE PHOSPHATASE 70 U/L (46-116); ANION GAP 5 mmol/L (8-16); ASPARTATE AMINOTRANSFERASE 37 U/L (15-37); BILIRUBIN,TOTAL 0.4 mg/dL (0.1-1.0); CALCIUM, TOTAL 8.2 mg/dL (8.8-10.5); CARBON DIOXIDE 30 mmol/L (22-29); CHLORIDE 103 mmol/L (98-107); CHOL/HDL RATIO 2.5 (4.2-7.3); CHOLESTEROL 145 mg/dL (131-200); CREATININE 1.06 mg/dL (0.60-1.30); FREE T4 (FREE THYROXINE) 1.18 ng/dL (0.76-1.46); GLUCOSE,RANDOM 79 mg/dL (70-110); HDL CHOLESTEROL 59 mg/dL (40-60); LDL CHOL (CALC.) 76 mg/dL (0-130); POTASSIUM 3.5 mmol/L (3.5-5.1); SODIUM SERUM 138 mmol/L (136-145); THYROID STIMULATING HORMONE 1.49 uIU/mL (0.36-3.74); TOTAL PROTEIN, SERUM 6.7 g/dL (6.4-8.2); TRIGLYCERIDES 52 mg/dL (15-150); UREA NITROGEN, BLOOD 15 mg/dL (7-18)
[2020-05-16 08:09] LABS: GLOMERULAR FILTR. RATE CALC > 60 mL/min (>60)
[2020-05-16 08:20] VITALS: BP 94/56
[2020-05-16] MEDS: FOLIC ACID 1 MG TABLET PO SCH (08:31)
[2020-05-16] MEDS: MULTIVITAMINS WITH MINERALS, THERAPEUTIC TABLET PO SCH (08:31)
[2020-05-16] MEDS: NALTREXONE HCL 50 MG TABLET PO SCH (08:31)
[2020-05-16] MEDS: LamoTRIgine 25 MG TABLET PO SCH (08:31)
[2020-05-16] MEDS: THIAMINE 100 MG TABLET PO SCH ×2 (08:31→16:36)
[2020-05-16 16:27] VITALS: BP 101/68
[2020-05-16] MEDS: LORazepam 1 MG TABLET PO PRN (16:41)
[2020-05-16] MEDS: QUEtiapine FUMARATE 100 MG TABLET PO SCH (20:21)
[2020-05-17 04:33] VITALS: BP 103/67
[2020-05-17] MEDS: FERROUS SULFATE 325 MG EC TABLET PO SCH ×2 (06:56→16:10)
[2020-05-17] MEDS: THIAMINE 100 MG TABLET PO SCH ×2 (08:47→16:10)
[2020-05-17] MEDS: FOLIC ACID 1 MG TABLET PO SCH (08:47)
[2020-05-17] MEDS: NALTREXONE HCL 50 MG TABLET PO SCH (08:48)
[2020-05-17] MEDS: LamoTRIgine 25 MG TABLET PO SCH (08:48)
[2020-05-17] MEDS: MULTIVITAMINS WITH MINERALS, THERAPEUTIC TABLET PO SCH (08:48)
[2020-05-17 16:12] VITALS: BP 117/78
[2020-05-17] MEDS: LORazepam 1 MG TABLET PO PRN ×2 (16:12→21:13)
[2020-05-17] MEDS: QUEtiapine FUMARATE 100 MG TABLET PO SCH (20:11)
[2020-05-18 00:53] VITALS: BP 124/85
[2020-05-18] MEDS: LORazepam 1 MG TABLET PO PRN ×4 (04:56→22:25)
[2020-05-18] MEDS: FERROUS SULFATE 325 MG EC TABLET PO SCH ×2 (06:25→16:09)
[2020-05-18] MEDS: LamoTRIgine 25 MG TABLET PO SCH (09:09)
[2020-05-18] MEDS: MULTIVITAMINS WITH MINERALS, THERAPEUTIC TABLET PO SCH (09:09)
[2020-05-18] MEDS: NALTREXONE HCL 50 MG TABLET PO SCH (09:09)
[2020-05-18] MEDS: THIAMINE 100 MG TABLET PO SCH ×2 (09:09→16:09)
[2020-05-18] MEDS: FOLIC ACID 1 MG TABLET PO SCH (09:09)
[2020-05-18 09:10] VITALS: BP 132/88
[2020-05-18 16:42] VITALS: BP 119/83
[2020-05-18] MEDS: QUEtiapine FUMARATE 100 MG TABLET PO SCH (20:05)
[2020-05-19 01:09] VITALS: BP 129/83
[2020-05-19] MEDS: LORazepam 1 MG TABLET PO PRN ×3 (06:33→17:59)
[2020-05-19] MEDS: FERROUS SULFATE 325 MG EC TABLET PO SCH ×2 (07:14→17:06)
[2020-05-19] MEDS: MULTIVITAMINS WITH MINERALS, THERAPEUTIC TABLET PO SCH (09:07)
[2020-05-19] MEDS: THIAMINE 100 MG TABLET PO SCH ×2 (09:07→17:06)
[2020-05-19] MEDS: FOLIC ACID 1 MG TABLET PO SCH (09:07)
[2020-05-19] MEDS: NALTREXONE HCL 50 MG TABLET PO SCH (09:07)
[2020-05-19] MEDS: LamoTRIgine 25 MG TABLET PO SCH (09:10)
[2020-05-19] MEDS: NICOTINE 21 MG/24 HOUR PATCH TD SCH (09:10)
[2020-05-19 12:50] VITALS: BP 125/81
[2020-05-19 16:18] VITALS: BP 115/77
[2020-05-19] MEDS: QUEtiapine FUMARATE 100 MG TABLET PO SCH (20:02)
[2020-05-20 01:26] VITALS: BP 106/64
[2020-05-20] MEDS: FERROUS SULFATE 325 MG EC TABLET PO SCH ×2 (07:13→16:31)
[2020-05-20 08:29] VITALS: BP 101/69
[2020-05-20 09:13] VITALS: BP 116/82
[2020-05-20] MEDS: FOLIC ACID 1 MG TABLET PO SCH (09:13)
[2020-05-20] MEDS: MULTIVITAMINS WITH MINERALS, THERAPEUTIC TABLET PO SCH (09:13)
[2020-05-20] MEDS: THIAMINE 100 MG TABLET PO SCH ×2 (09:13→16:31)
[2020-05-20] MEDS: NICOTINE 21 MG/24 HOUR PATCH TD SCH (09:13)
[2020-05-20] MEDS: LORazepam 1 MG TABLET PO PRN ×3 (09:13→18:44)
[2020-05-20] MEDS: LamoTRIgine 25 MG TABLET PO SCH (09:17)
[2020-05-20] MEDS: NALTREXONE HCL 50 MG TABLET PO SCH (09:17)
[2020-05-20 16:14] VITALS: BP 116/78
[2020-05-20] MEDS: QUEtiapine FUMARATE 100 MG TABLET PO SCH (20:08)
[2020-05-21 04:17] VITALS: BP 118/70
[2020-05-21] MEDS: FERROUS SULFATE 325 MG EC TABLET PO SCH ×2 (06:06→17:00)
[2020-05-21 06:12] VITALS: BP 126/90
[2020-05-21] MEDS: LORazepam 1 MG TABLET PO PRN ×2 (06:15→10:50)
[2020-05-21] MEDS: THIAMINE 100 MG TABLET PO SCH ×2 (08:54→17:00)
[2020-05-21] MEDS: NICOTINE 21 MG/24 HOUR PATCH TD SCH (08:54)
[2020-05-21] MEDS: NALTREXONE HCL 50 MG TABLET PO SCH (08:54)
[2020-05-21] MEDS: MULTIVITAMINS WITH MINERALS, THERAPEUTIC TABLET PO SCH (08:55)
[2020-05-21] MEDS: LamoTRIgine 25 MG TABLET PO SCH (08:55)
[2020-05-21] MEDS: FOLIC ACID 1 MG TABLET PO SCH (08:55)
[2020-05-21 08:59] VITALS: BP 107/74
[2020-05-21] MEDS ORDERED: LAMO25TA66 PO (13:28)
[2020-05-21] MEDS ORDERED: NALT50TA PO (13:28)
[2020-05-21] MEDS ORDERED: QUET100T33 PO (13:28)
[2020-05-21] MEDS ORDERED: THIA100T80 PO (16:41)
[2020-05-21] MEDS ORDERED: FOLI0.4T92 PO (16:42)
[2020-05-21] MEDS ORDERED: MULT-1239 PO (16:42)
[2020-05-21 17:09] VITALS: BP 118/79
== END 2020-05-21 17:20 | disposition home or self-care (01) | DRG 885 ==
LOC: B2S 20:31
PROVIDERS: ADMIT Psychiatry & Neurology Psychiatry; ATTEND Psychiatry & Neurology Psychiatry
DX: F25.9 Schizoaffective disorder, unspecified (principal); B19.20 Unspecified viral hepatitis C without hepatic coma; E46 Unspecified protein-calorie malnutrition; Z68.1 Body mass index [BMI] 19.9 or less, adult; D64.9 Anemia, unspecified; F15.90 Other stimulant use, unspecified, uncomplicated; D72.819 Decreased white blood cell count, unspecified; F17.210 Nicotine dependence, cigarettes, uncomplicated; I10 Essential (primary) hypertension; J44.9 Chronic obstructive pulmonary disease, unspecified; K21.9 Gastro-esophageal reflux disease without esophagitis; N40.0 Benign prostatic hyperplasia without lower urinary tract symptoms; Z59.0 Homelessness; Z82.49 Family history of ischemic heart disease and other diseases of the circulatory system; Z91.5 Personal history of self-harm
CPT/HCPCS: 83036; 84439; 84443; 86592; 87081

== ENCOUNTER 2020-05-27 16:43 | Emergency (ER) | payer MEDICARE, MEDICAID ==
[~2020-05-27] VITALS: Ht 175.3 cm; Wt 59.1 kg
[~2020-05-27 16:43] MED LIST changes: +FOLI0.4T92 PO; -LACT30L PO; +LAMO25TA25 PO; +MULT-1239 PO; +NALT50TA6 PO; -PRED20 PO; +QUET100T33 PO; -QUET300T18 PO; +THIA100T80 PO
[2020-05-27 18:46] LABS: BASOPHILS % (AUTO) 1.1 % (0.0-2.0); EOSINOPHILS % (AUTO) 5.2 % (1.0-6.0); HEMATOCRIT 30.3 % (41-53); HEMOGLOBIN 10.1 g/dL (13.5-17.5); LYMPHOCYTES # (AUTO) 1.1 K/uL (1.0-4.8); LYMPHOCYTES % (AUTO) 28.6 % (22.0-44.0); MEAN CORPUSCULAR HEMOGLOBIN 30.9 pg (26.0-34.0); MEAN CORPUSCULAR HGB CONC 33.5 G/dL (31.0-37.0); MEAN CORPUSCULAR VOLUME 92 fL (80-100); MONOCYTES # (AUTO) 0.4 K/uL (0.1-1.0); MONOCYTES % (AUTO) 11.2 % (2.0-9.0); NEUTROPHILS # (AUTO) 2.2 K/uL (1.8-7.7); NEUTROPHILS % (AUTO) 53.9 % (40.0-70.0); PLATELET COUNT (AUTO) 181 K/uL (150-450); RED BLOOD CELL COUNT(AUTO) 3.29 MIL/uL (4.50-5.90); RED CELL DISTRIBUTION WIDTH 15.5 % (11.5-14.5)
[2020-05-27 19:02] LABS: ANION GAP 9 mmol/L (8-16); CALCIUM, TOTAL 8.2 mg/dL (8.8-10.5); CARBON DIOXIDE 27 mmol/L (22-29); CHLORIDE 106 mmol/L (98-107); CREATININE 0.98 mg/dL (0.60-1.30); GLUCOSE,RANDOM 98 mg/dL (70-110); POTASSIUM 3.6 mmol/L (3.5-5.1); SODIUM SERUM 142 mmol/L (136-145); UREA NITROGEN, BLOOD 21 mg/dL (7-18)
[2020-05-27 19:05] LABS: GLOMERULAR FILTR. RATE CALC > 60 mL/min (>60)
[2020-05-27 19:06] LABS: ALANINE AMINOTRANSFERASE 43 U/L (12-78); ALBUMIN 3.3 g/dL (3.4-5.0); ALKALINE PHOSPHATASE 61 U/L (46-116); ASPARTATE AMINOTRANSFERASE 34 U/L (15-37); BILIRUBIN,TOTAL 0.4 mg/dL (0.1-1.0); TOTAL PROTEIN, SERUM 6.4 g/dL (6.4-8.2)
[2020-05-27] MEDS ORDERED: QUEtiapine FUMARATE 100 MG TABLET PO ONE (19:30)
[2020-05-27 19:46] VITALS: BP 102/60
== END 2020-05-27 19:46 | disposition home or self-care (01) ==
LOC: EMS 16:46
DX: F25.9 Schizoaffective disorder, unspecified (principal); J44.9 Chronic obstructive pulmonary disease, unspecified; F17.210 Nicotine dependence, cigarettes, uncomplicated; Z59.0 Homelessness
CPT/HCPCS: 80053; 85025; 99284; G0480

== ENCOUNTER 2020-07-15 19:33 | Emergency (ER) | payer MEDICARE, MEDICAID ==
[~2020-07-15] VITALS: Ht 175.3 cm; Wt 59.1 kg
[~2020-07-15 19:33] MED LIST changes: -FERR-89 PO; -FOLI0.4T92 PO; -LAMO25TA25 PO; -MULT-1239 PO; -NALT50TA6 PO; -QUET100T33 PO; +QUET25TA34 PO; -THIA100T80 PO
[2020-07-15 20:46] LABS: COVID AG,FIA SOURCE NASOPHARYNGEAL
[2020-07-15 22:02] VITALS: BP 117/73
== END 2020-07-15 22:10 | disposition home or self-care (01) ==
LOC: EMS 19:34
DX: R19.7 Diarrhea, unspecified (principal); R45.851 Suicidal ideations; J44.9 Chronic obstructive pulmonary disease, unspecified; I10 Essential (primary) hypertension; F17.210 Nicotine dependence, cigarettes, uncomplicated; Z20.828 Contact with and (suspected) exposure to other viral communicable diseases; Z59.0 Homelessness; Z88.8 Allergy status to other drugs, medicaments and biological substances
CPT/HCPCS: 87426

== ENCOUNTER 2020-10-17 20:48 | Emergency (ER) | payer MEDICARE, MEDICAID ==
[~2020-10-17] VITALS: Ht 175.3 cm; Wt 59.1 kg
[2020-10-17 21:49] VITALS: BP 110/80
[2020-10-17 22:09] LABS: COVID AG,FIA SOURCE NASOPHARYNGEAL
== END 2020-10-18 00:08 | disposition home or self-care (01) ==
LOC: EMS 20:48
DX: Z20.822 Contact with and (suspected) exposure to COVID-19 (principal); F31.9 Bipolar disorder, unspecified; J44.9 Chronic obstructive pulmonary disease, unspecified; K21.9 Gastro-esophageal reflux disease without esophagitis; I10 Essential (primary) hypertension; F17.210 Nicotine dependence, cigarettes, uncomplicated; Z59.0 Homelessness; Z88.5 Allergy status to narcotic agent
CPT/HCPCS: 87426

== ENCOUNTER 2020-10-20 13:08 | Emergency (ER) | payer MEDICARE, MEDICAID ==
[2020-10-20 15:31] LABS: COVID AG,FIA SOURCE NASOPHARYNGEAL
[2020-10-20] MEDS ORDERED: 0.9% SODIUM CHLORIDE 10 ML SYRINGE IVP PRN ×2 (18:45)
[2020-10-20] MEDS ORDERED: ACETAMINOPHEN 325 MG TABLET PO ONE (18:45)
[2020-10-20] MEDS ORDERED: ONDANSETRON HCL 4 MG/2 ML VIAL IVP PRN ×3 (18:45→22:45)
[2020-10-20] MEDS ORDERED: ACETAMINOPHEN 325 MG TABLET PO PRN ×3 (18:45→22:45)
[2020-10-20 20:26] LABS: INFLUENZA TYPE A NEGATIVE FOR TYPE A (NEGATIVE); INFLUENZA TYPE B NEGATIVE FOR TYPE B (NEGATIVE)
[2020-10-20 20:34] LABS: BASOPHILS % (AUTO) 0.2 % (0.0-2.0); EOSINOPHILS % (AUTO) 0.6 % (1.0-6.0); HEMATOCRIT 32.6 % (41-53); HEMOGLOBIN 10.3 g/dL (13.5-17.5); LYMPHOCYTES % (AUTO) 9.9 % (22.0-44.0); MEAN CORPUSCULAR HGB CONC 31.8 G/dL (31.0-37.0); MEAN CORPUSCULAR VOLUME 88 fL (80-100); MONOCYTES # (AUTO) 0.6 K/uL (0.1-1.0); MONOCYTES % (AUTO) 6.2 % (2.0-9.0); NEUTROPHILS # (AUTO) 8.1 K/uL (1.8-7.7); NEUTROPHILS % (AUTO) 83.1 % (40.0-70.0); PLATELET COUNT (AUTO) 223 K/uL (150-450); RED CELL DISTRIBUTION WIDTH 16.6 % (11.5-14.5)
[2020-10-20 20:51] LABS: ALANINE AMINOTRANSFERASE 32 U/L (12-78); ALBUMIN 2.9 g/dL (3.4-5.0); ALKALINE PHOSPHATASE 66 U/L (46-116); ANION GAP 5 mmol/L (8-16); ASPARTATE AMINOTRANSFERASE 27 U/L (15-37); BILIRUBIN,TOTAL 0.6 mg/dL (0.1-1.0); CALCIUM, TOTAL 8.1 mg/dL (8.8-10.5); CARBON DIOXIDE 26 mmol/L (22-29); CHLORIDE 102 mmol/L (98-107); CREATININE 1.14 mg/dL (0.60-1.30); GLOMERULAR FILTR. RATE CALC > 60 mL/min (>60); SODIUM SERUM 133 mmol/L (136-145); TOTAL PROTEIN, SERUM 6.2 g/dL (6.4-8.2); UREA NITROGEN, BLOOD 29 mg/dL (7-18)
[2020-10-20 20:56] LABS: GLUCOSE,RANDOM 133 mg/dL (70-110)
[2020-10-20 22:00] VITALS: BP 141/83
[2020-10-20] MEDS ORDERED: MAGNESIUM HYDROXIDE SUSPENSION 30 ML UDCUP PO PRN (22:45)
[2020-10-20] MEDS ORDERED: BISACODYL 10 MG RECTAL RECTAL SUPPOSITORY PR PRN (22:45)
[2020-10-20] MEDS ORDERED: ALBUTEROL SULFATE HFA 90 MCG/PUFF 8 GM INHALER IH PRN (22:45)
[2020-10-20] MEDS ORDERED: ZOLPIDEM TARTRATE 5 MG TABLET PO PRN (22:45)
[2020-10-20] MEDS ORDERED: AZITHROMYCIN 500 MG/NS 250 ML IV SCH (23:00)
[2020-10-21] MEDS ORDERED: CefTRIAXone 1 GM/DEXTROSE 50 ML IV SCH
[2020-10-21] MEDS ORDERED: HEPARIN SODIUM,PORCINE 5,000 UNITS/ML VIAL SQ SCH
[2020-10-21] MEDS ORDERED: NALTREXONE HCL 50 MG TABLET PO SCH ×2 (09:00)
[2020-10-21] MEDS ORDERED: LamoTRIgine 25 MG TABLET PO SCH ×2 (21:00)
[2020-10-21] MEDS ORDERED: QUEtiapine FUMARATE 25 MG TABLET PO SCH (21:00)
== END 2020-10-21 07:11 | disposition home or self-care (01) ==
LOC: EMS 13:17
DX: R50.9 Fever, unspecified (principal); R05 Cough; M79.10 Myalgia, unspecified site; F31.9 Bipolar disorder, unspecified; J44.9 Chronic obstructive pulmonary disease, unspecified; K21.9 Gastro-esophageal reflux disease without esophagitis; I10 Essential (primary) hypertension; F17.210 Nicotine dependence, cigarettes, uncomplicated; Z20.828 Contact with and (suspected) exposure to other viral communicable diseases; Z59.0 Homelessness; Z88.8 Allergy status to other drugs, medicaments and biological substances
CPT/HCPCS: 71045; 80053; 84484; 85025; 87426; 87804; 93005; 99285; J0456; J0696; J1644; U0003

== ENCOUNTER 2020-10-22 16:16 | Inpatient (IN) | payer MEDICARE, MEDICAID ==
[~2020-10-22] VITALS: Ht 175.3 cm; Wt 59.0 kg
[2020-10-22] MEDS ORDERED: LORazepam 2 MG TABLET PO PRN (17:15)
[2020-10-22] MEDS ORDERED: HALOPERIDOL 5 MG TABLET PO PRN (17:15)
[2020-10-22] MEDS ORDERED: ZOLPIDEM TARTRATE 10 MG TABLET PO PRN (17:15)
[2020-10-22 19:26] LABS: COVID AG,FIA SOURCE NASAL SWAB
[2020-10-22 21:54] VITALS: BP 112/70
[2020-10-22] MEDS ORDERED: LOPERAMIDE HCL 2 MG CAPSULE PO PRN (22:30)
[2020-10-22] MEDS ORDERED: IBUPROFEN 600 MG TABLET PO PRN (22:30)
[2020-10-22] MEDS ORDERED: ACETAMINOPHEN 325 MG TABLET PO PRN (22:30)
[2020-10-22] MEDS ORDERED: DOCUSATE SODIUM 100 MG CAPSULE PO PRN (22:30)
[2020-10-22] MEDS ORDERED: OMEPRAZOLE 20 MG CAPSULE PO PRN (22:30)
[2020-10-22] MEDS ORDERED: CloNIDine HCL 0.1 MG TABLET PO PRN (22:30)
[2020-10-22] MEDS ORDERED: BACITRACIN 28 GM OINTMENT TP PRN (22:30)
[2020-10-22] MEDS ORDERED: ALBUTEROL SULFATE HFA 90 MCG/PUFF 8 GM INHALER IH PRN (22:30)
[2020-10-22] MEDS ORDERED: PETROLATUM,WHITE 28 GM JELLY TP PRN (22:30)
[2020-10-22] MEDS ORDERED: MAG HYDROX/AL HYDROX/SIMETH ES 30 ML SUSPENSION UDCUP PO PRN (22:30)
[2020-10-22] MEDS ORDERED: MAGNESIUM HYDROXIDE SUSPENSION 30 ML UDCUP PO PRN (22:30)
[2020-10-22] MEDS ORDERED: BENZOCAINE/MENTHOL LOZENGE PO PRN (22:30)
[2020-10-22] MEDS ORDERED: ONDANSETRON HCL 4 MG TABLET PO PRN (22:30)
[2020-10-23 05:14] VITALS: BP 125/88
[2020-10-23 07:35] LABS: BASOPHILS % (AUTO) 0.2 % (0.0-2.0); EOSINOPHILS % (AUTO) 3.9 % (1.0-6.0); HEMATOCRIT 31.3 % (41-53); HEMOGLOBIN 10.3 g/dL (13.5-17.5); LYMPHOCYTES # (AUTO) 0.9 K/uL (1.0-4.8); LYMPHOCYTES % (AUTO) 21.2 % (22.0-44.0); MEAN CORPUSCULAR HEMOGLOBIN 28.4 pg (26.0-34.0); MEAN CORPUSCULAR HGB CONC 32.8 G/dL (31.0-37.0); MEAN CORPUSCULAR VOLUME 87 fL (80-100); MONOCYTES # (AUTO) 0.4 K/uL (0.1-1.0); MONOCYTES % (AUTO) 10.5 % (2.0-9.0); NEUTROPHILS # (AUTO) 2.7 K/uL (1.8-7.7); NEUTROPHILS % (AUTO) 64.2 % (40.0-70.0); PLATELET COUNT (AUTO) 263 K/uL (150-450); RED BLOOD CELL COUNT(AUTO) 3.61 MIL/uL (4.50-5.90); RED CELL DISTRIBUTION WIDTH 16.4 % (11.5-14.5)
[2020-10-23 07:37] LABS: HEMOGLOBIN A1C 6.1 % (3.8-5.6)
[2020-10-23 07:52] LABS: ALBUMIN 3.2 g/dL (3.4-5.0); BILIRUBIN,TOTAL 0.5 mg/dL (0.1-1.0); CALCIUM, TOTAL 8.4 mg/dL (8.8-10.5); CREATININE 1.2 mg/dL (0.60-1.30); FREE T4 (FREE THYROXINE) 1.32 ng/dL (0.76-1.46); POTASSIUM 3.8 mmol/L (3.5-5.1); THYROID STIMULATING HORMONE 1.51 uIU/mL (0.36-3.74); TOTAL PROTEIN, SERUM 7.1 g/dL (6.4-8.2)
[2020-10-23] MEDS: NICOTINE 21 MG/24 HOUR PATCH TD SCH (08:16)
[2020-10-23 08:42] VITALS: BP 106/63
[2020-10-23 16:15] VITALS: BP 108/65
[2020-10-24 00:14] VITALS: BP 152/94
[2020-10-24 08:06] LABS: AMPHET/METH SCREEN,URINE NEGATIVE (NEGATIVE); BARBITURATE SCREEN, URINE NEGATIVE (NEGATIVE); BENZODIAZEPINES SCREEN,URINE NEGATIVE (NEGATIVE); CANNABINOID SCREEN,URINE NEGATIVE (NEGATIVE); COCAINE SCREEN,URINE NEGATIVE (NEGATIVE); METHADONE SCREEN, URINE NEGATIVE (NEGATIVE); OPIATE SCREEN,URINE NEGATIVE (NEGATIVE)
[2020-10-24 08:09] LABS: APPEARANCE,URINE CLEAR (CLEAR); BILIRUBIN,URINE NEGATIVE (NEGATIVE); GLUCOSE, URINE (UA) NEGATIVE (NEGATIVE); KETONES,URINE NEGATIVE (NEGATIVE); LEUKOCYTE ESTERASE ,URINE NEGATIVE (NEGATIVE); NITRATE,URINE NEGATIVE (NEGATIVE); OCCULT BLOOD,URINE NEGATIVE (NEGATIVE); PH,URINE 5.5 (5.0-8.0); PROTEIN,URINE POS 1+ (NEGATIVE); UROBILINOGEN,URINE 0.2 mg/dL (<=1.0)
[2020-10-24 08:11] LABS: PHENCYCLIDINE SCREEN,URINE NEGATIVE (NEGATIVE)
[2020-10-24 08:16] VITALS: BP 139/78
[2020-10-24] MEDS: NICOTINE 21 MG/24 HOUR PATCH TD SCH (09:07)
[2020-10-24 10:00] LABS: BACTERIA,URINE None Seen /HPF (None Seen); RBC,URINE None Seen /HPF (0-2); WBC,URINE None Seen /HPF (0-5)
== END 2020-10-24 15:00 | disposition home or self-care (01) | DRG 885 ==
LOC: B2S 22:36
PROVIDERS: ADMIT Psychiatry & Neurology Psychiatry; ATTEND Psychiatry & Neurology Psychiatry
DX: F25.9 Schizoaffective disorder, unspecified (principal); B19.20 Unspecified viral hepatitis C without hepatic coma; D64.9 Anemia, unspecified; I10 Essential (primary) hypertension; J44.9 Chronic obstructive pulmonary disease, unspecified; N40.0 Benign prostatic hyperplasia without lower urinary tract symptoms; E11.9 Type 2 diabetes mellitus without complications; F15.90 Other stimulant use, unspecified, uncomplicated; F14.90 Cocaine use, unspecified, uncomplicated; Z59.0 Homelessness; Z20.822 Contact with and (suspected) exposure to COVID-19
CPT/HCPCS: 80307; 83036; 84439; 84443; 87081; 87426

== ENCOUNTER 2020-10-31 15:36 | Emergency (ER) | payer MEDICARE, MEDICAID ==
[~2020-10-31] VITALS: Ht 175.3 cm; Wt 59.1 kg
[2020-10-31 16:47] VITALS: BP 109/68
== END 2020-10-31 17:34 | disposition home or self-care (01) ==
LOC: EMS 15:36
DX: S50.11XA Contusion of right forearm, initial encounter (principal); L03.115 Cellulitis of right lower limb; F31.9 Bipolar disorder, unspecified; J44.9 Chronic obstructive pulmonary disease, unspecified; K21.9 Gastro-esophageal reflux disease without esophagitis; I10 Essential (primary) hypertension; F17.210 Nicotine dependence, cigarettes, uncomplicated; Z59.0 Homelessness; Z88.5 Allergy status to narcotic agent; W19.XXXA Unspecified fall, initial encounter; Y93.89 Activity, other specified; Y92.89 Other specified places as the place of occurrence of the external cause; Y99.8 Other external cause status

== ENCOUNTER 2020-11-13 20:21 | Emergency (ER) | payer MEDICARE, MEDICAID ==
[~2020-11-13] VITALS: Ht 175.3 cm; Wt 59.1 kg
[~2020-11-13 20:21] MED LIST changes: -LAMO25TA66 PO; -NALT50TA PO; +QUET100T PO; -QUET25TA34 PO
[2020-11-13 22:20] LABS: BASOPHILS % (AUTO) 0.9 % (0.0-2.0); EOSINOPHILS % (AUTO) 2.3 % (1.0-6.0); HEMATOCRIT 30.9 % (41-53); HEMOGLOBIN 9.7 g/dL (13.5-17.5); LYMPHOCYTES # (AUTO) 1.1 K/uL (1.0-4.8); LYMPHOCYTES % (AUTO) 14.2 % (22.0-44.0); MEAN CORPUSCULAR HGB CONC 31.5 G/dL (31.0-37.0); MEAN CORPUSCULAR VOLUME 89 fL (80-100); MONOCYTES # (AUTO) 0.7 K/uL (0.1-1.0); MONOCYTES % (AUTO) 9.5 % (2.0-9.0); NEUTROPHILS # (AUTO) 5.6 K/uL (1.8-7.7); NEUTROPHILS % (AUTO) 73.1 % (40.0-70.0); PLATELET COUNT (AUTO) 284 K/uL (150-450); RED BLOOD CELL COUNT(AUTO) 3.47 MIL/uL (4.50-5.90); RED CELL DISTRIBUTION WIDTH 18.2 % (11.5-14.5)
[2020-11-13 22:30] LABS: ANION GAP 8 mmol/L (8-16); CALCIUM, TOTAL 8.6 mg/dL (8.8-10.5); CARBON DIOXIDE 26 mmol/L (22-29); CHLORIDE 103 mmol/L (98-107); CREATININE 1.13 mg/dL (0.60-1.30); GLUCOSE,RANDOM 93 mg/dL (70-110); POTASSIUM 4.3 mmol/L (3.5-5.1); SODIUM SERUM 137 mmol/L (136-145); UREA NITROGEN, BLOOD 23 mg/dL (7-18)
[2020-11-13 22:31] LABS: GLOMERULAR FILTR. RATE CALC > 60 mL/min (>60)
[2020-11-13 22:35] LABS: ALANINE AMINOTRANSFERASE 37 U/L (12-78); ALBUMIN 3.7 g/dL (3.4-5.0); ALKALINE PHOSPHATASE 91 U/L (46-116); ASPARTATE AMINOTRANSFERASE 33 U/L (15-37); BILIRUBIN,TOTAL 0.3 mg/dL (0.1-1.0); TOTAL PROTEIN, SERUM 7.2 g/dL (6.4-8.2)
[2020-11-14 00:52] VITALS: BP 137/94
== END 2020-11-14 01:28 | disposition home or self-care (01) ==
LOC: EMS 20:23
DX: F20.9 Schizophrenia, unspecified (principal); J44.9 Chronic obstructive pulmonary disease, unspecified; K21.9 Gastro-esophageal reflux disease without esophagitis; I10 Essential (primary) hypertension; F17.210 Nicotine dependence, cigarettes, uncomplicated; Z86.2 Personal history of diseases of the blood and blood-forming organs and certain disorders involving the immune mechanism; Z88.8 Allergy status to other drugs, medicaments and biological substances
CPT/HCPCS: 80053; 85025; 99283; G0480

== ENCOUNTER 2020-12-19 07:54 | Emergency (ER) | payer MEDICARE, MEDICAID ==
[~2020-12-19] VITALS: Ht 175.3 cm; Wt 59.0 kg
[~2020-12-19 07:54] MED LIST changes: +MULT-1239 PO; +QUET25TA PO
[2020-12-19 08:31] VITALS: BP 151/99
[2020-12-19 08:40] LABS: COVID AG,FIA SOURCE NASOPHARYNGEAL
== END 2020-12-19 11:02 | disposition home or self-care (01) ==
LOC: EMS 08:09
DX: F25.9 Schizoaffective disorder, unspecified (principal); R19.7 Diarrhea, unspecified; J45.909 Unspecified asthma, uncomplicated; F31.9 Bipolar disorder, unspecified; K21.9 Gastro-esophageal reflux disease without esophagitis; I10 Essential (primary) hypertension; F17.210 Nicotine dependence, cigarettes, uncomplicated; Z20.822 Contact with and (suspected) exposure to COVID-19; Z59.0 Homelessness; Z88.5 Allergy status to narcotic agent
CPT/HCPCS: 87426; 99283

== ENCOUNTER 2020-12-23 10:53 | Emergency (ER) | payer MEDICARE, MEDICAID ==
[~2020-12-23] VITALS: Ht 175.3 cm; Wt 65.3 kg
[2020-12-23] MEDS ORDERED: ACETAMINOPHEN 500 MG TABLET PO ONE (14:15)
[2020-12-23 16:43] VITALS: BP 138/76
== END 2020-12-23 14:40 | disposition home or self-care (01) ==
LOC: EMS 10:53
DX: S20.212A Contusion of left front wall of thorax, initial encounter (principal); S09.90XA Unspecified injury of head, initial encounter; J45.909 Unspecified asthma, uncomplicated; F31.9 Bipolar disorder, unspecified; K21.9 Gastro-esophageal reflux disease without esophagitis; I10 Essential (primary) hypertension; F20.9 Schizophrenia, unspecified; F17.210 Nicotine dependence, cigarettes, uncomplicated; Z59.0 Homelessness; Z88.5 Allergy status to narcotic agent; W19.XXXA Unspecified fall, initial encounter; Y93.89 Activity, other specified; Y92.89 Other specified places as the place of occurrence of the external cause; Y99.8 Other external cause status
CPT/HCPCS: 70450; 99284; 71045-TC

== ENCOUNTER 2021-01-01 23:09 | Emergency (ER) | payer MEDICARE, MEDICAID ==
[~2021-01-01] VITALS: Ht 175.3 cm; Wt 59.1 kg
[~2021-01-01 23:09] MED LIST changes: +FURO20 PO; +POTA8TAB71 PO
[2021-01-02] MEDS ORDERED: KETOROLAC TROMETHAMINE 30 MG/ML VIAL IM ONE (00:45)
[2021-01-02 01:42] LABS: COVID AG,FIA SOURCE NASOPHARYNGEAL
[2021-01-02 03:08] LABS: EOSINOPHILS % (AUTO) 3.4 % (1.0-6.0); HEMOGLOBIN 7.8 g/dL (13.5-17.5); LYMPHOCYTES # (AUTO) 1.5 K/uL (1.0-4.8); LYMPHOCYTES % (AUTO) 27.1 % (22.0-44.0); MEAN CORPUSCULAR HEMOGLOBIN 26.9 pg (26.0-34.0); MEAN CORPUSCULAR HGB CONC 32.6 G/dL (31.0-37.0); MEAN CORPUSCULAR VOLUME 83 fL (80-100); MONOCYTES # (AUTO) 0.4 K/uL (0.1-1.0); MONOCYTES % (AUTO) 8.2 % (2.0-9.0); NEUTROPHILS # (AUTO) 3.3 K/uL (1.8-7.7); NEUTROPHILS % (AUTO) 60.3 % (40.0-70.0); PLATELET COUNT (AUTO) 382 K/uL (150-450); RED BLOOD CELL COUNT(AUTO) 2.91 MIL/uL (4.50-5.90); RED CELL DISTRIBUTION WIDTH 17.2 % (11.5-14.5)
[2021-01-02 03:15] LABS: ANION GAP 9 mmol/L (8-16); CARBON DIOXIDE 25 mmol/L (22-29); CHLORIDE 101 mmol/L (98-107); GLOMERULAR FILTR. RATE CALC 59 mL/min (>60); GLUCOSE,RANDOM 184 mg/dL (70-110); POTASSIUM 3.9 mmol/L (3.5-5.1); SODIUM SERUM 135 mmol/L (136-145); UREA NITROGEN, BLOOD 13 mg/dL (7-18)
[2021-01-02 03:21] LABS: ALANINE AMINOTRANSFERASE 27 U/L (12-78); ALBUMIN 3.2 g/dL (3.4-5.0); ALKALINE PHOSPHATASE 106 U/L (46-116); ASPARTATE AMINOTRANSFERASE 25 U/L (15-37); BILIRUBIN,TOTAL 0.2 mg/dL (0.1-1.0); TOTAL PROTEIN, SERUM 6.6 g/dL (6.4-8.2)
[2021-01-02 03:24] VITALS: BP 128/68
== END 2021-01-02 05:23 | disposition home or self-care (01) ==
LOC: EMS 23:12
DX: S22.42XA Multiple fractures of ribs, left side, initial encounter for closed fracture (principal); R91.1 Solitary pulmonary nodule; J45.909 Unspecified asthma, uncomplicated; F31.9 Bipolar disorder, unspecified; K21.9 Gastro-esophageal reflux disease without esophagitis; I10 Essential (primary) hypertension; F20.9 Schizophrenia, unspecified; F17.210 Nicotine dependence, cigarettes, uncomplicated; Z20.822 Contact with and (suspected) exposure to COVID-19; Z59.0 Homelessness; Z88.6 Allergy status to analgesic agent; V82.6XXA Occupant of streetcar injured by fall from streetcar, initial encounter; Y93.89 Activity, other specified; Y92.89 Other specified places as the place of occurrence of the external cause; Y99.8 Other external cause status
CPT/HCPCS: 36415; 71250; 80053; 85025; 87426; 96372; 99284; G0480; J1885; 99283

== ENCOUNTER 2021-01-07 19:02 | Emergency (ER) | payer MEDICARE, MEDICAID ==
[~2021-01-07] VITALS: Ht 175.3 cm; Wt 59.1 kg
[2021-01-07 19:31] VITALS: BP 125/78
== END 2021-01-07 20:06 | disposition home or self-care (01) ==
LOC: EMS 19:02
DX: R45.851 Suicidal ideations (principal); R06.02 Shortness of breath; J45.909 Unspecified asthma, uncomplicated; F31.9 Bipolar disorder, unspecified; K21.9 Gastro-esophageal reflux disease without esophagitis; I10 Essential (primary) hypertension; F20.9 Schizophrenia, unspecified; F17.210 Nicotine dependence, cigarettes, uncomplicated; Z59.0 Homelessness; Z88.1 Allergy status to other antibiotic agents; Z79.899 Other long term (current) drug therapy
CPT/HCPCS: 99284; Z7502

== ENCOUNTER 2021-01-09 00:35 | Inpatient (IN) | payer MEDICARE, MEDICAID ==
[~2021-01-09] VITALS: Ht 165.1 cm; Wt 58.0 kg
[2021-01-09] MEDS ORDERED: FERROUS SULFATE 325 MG EC TABLET PO ONE (01:00)
[2021-01-09] MEDS ORDERED: MULTIVITAMINS WITH MINERALS, THERAPEUTIC TABLET PO ONE (01:00)
[2021-01-09] MEDS ORDERED: QUEtiapine FUMARATE 100 MG TABLET PO ONE (01:15)
[2021-01-09 01:32] LABS: COVID AG,FIA SOURCE NASOPHARYNGEAL
[2021-01-09 01:49] LABS: BASOPHILS % (AUTO) 0.5 % (0.0-2.0); EOSINOPHILS % (AUTO) 3.2 % (1.0-6.0); HEMATOCRIT 24.2 % (41-53); HEMOGLOBIN 7.9 g/dL (13.5-17.5); LYMPHOCYTES # (AUTO) 1.2 K/uL (1.0-4.8); LYMPHOCYTES % (AUTO) 16.9 % (22.0-44.0); MEAN CORPUSCULAR HEMOGLOBIN 26.6 pg (26.0-34.0); MEAN CORPUSCULAR HGB CONC 32.4 G/dL (31.0-37.0); MEAN CORPUSCULAR VOLUME 82 fL (80-100); MONOCYTES # (AUTO) 0.6 K/uL (0.1-1.0); NEUTROPHILS # (AUTO) 4.9 K/uL (1.8-7.7); NEUTROPHILS % (AUTO) 70.4 % (40.0-70.0); PLATELET COUNT (AUTO) 361 K/uL (150-450); RED BLOOD CELL COUNT(AUTO) 2.96 MIL/uL (4.50-5.90)
[2021-01-09 01:55] LABS: AMPHET/METH SCREEN,URINE NEGATIVE (NEGATIVE); BARBITURATE SCREEN, URINE NEGATIVE (NEGATIVE); BENZODIAZEPINES SCREEN,URINE NEGATIVE (NEGATIVE); CANNABINOID SCREEN,URINE NEGATIVE (NEGATIVE); COCAINE SCREEN,URINE NEGATIVE (NEGATIVE); METHADONE SCREEN, URINE NEGATIVE (NEGATIVE); OPIATE SCREEN,URINE NEGATIVE (NEGATIVE)
[2021-01-09 01:55] LABS: ANION GAP 6 mmol/L (8-16); CALCIUM, TOTAL 8.3 mg/dL (8.8-10.5); CARBON DIOXIDE 29 mmol/L (22-29); CHLORIDE 101 mmol/L (98-107); GLUCOSE,RANDOM 99 mg/dL (70-110); POTASSIUM 4.5 mmol/L (3.5-5.1); SODIUM SERUM 136 mmol/L (136-145); UREA NITROGEN, BLOOD 17 mg/dL (7-18)
[2021-01-09 01:57] LABS: PHENCYCLIDINE SCREEN,URINE NEGATIVE (NEGATIVE)
[2021-01-09 01:57] LABS: GLOMERULAR FILTR. RATE CALC > 60 mL/min (>60)
[2021-01-09 02:01] LABS: ALANINE AMINOTRANSFERASE 31 U/L (12-78); ALBUMIN 3.3 g/dL (3.4-5.0); ALKALINE PHOSPHATASE 116 U/L (46-116); ASPARTATE AMINOTRANSFERASE 37 U/L (15-37); BILIRUBIN,TOTAL 0.3 mg/dL (0.1-1.0); TOTAL PROTEIN, SERUM 7.2 g/dL (6.4-8.2)
[2021-01-09] MEDS ORDERED: LORazepam 1 MG TABLET PO PRN (10:30)
[2021-01-09] MEDS ORDERED: ZOLPIDEM TARTRATE 10 MG TABLET PO PRN (10:30)
[2021-01-09 11:44] VITALS: BP 134/66
[2021-01-09] MEDS ORDERED: INFLUENZA VIRUS VACCINE QVS 2020-21 (6MO+)/PF 60 MCG/0.5 ML SYRINGE IM ONE (11:45)
[2021-01-09 16:43] VITALS: BP 118/72
[2021-01-09] MEDS: ClonazePAM 0.5 MG TABLET PO PRN (16:48)
[2021-01-09] MEDS ORDERED: ALBUTEROL SULFATE HFA 90 MCG/PUFF 8 GM INHALER IH PRN (17:30)
[2021-01-09] MEDS ORDERED: LOPERAMIDE HCL 2 MG CAPSULE PO PRN (17:30)
[2021-01-09] MEDS ORDERED: MAG HYDROX/AL HYDROX/SIMETH ES 30 ML SUSPENSION UDCUP PO PRN (17:30)
[2021-01-09] MEDS ORDERED: ACETAMINOPHEN 325 MG TABLET PO PRN (17:30)
[2021-01-09] MEDS ORDERED: ONDANSETRON HCL 4 MG TABLET PO PRN (17:30)
[2021-01-09] MEDS ORDERED: CloNIDine HCL 0.1 MG TABLET PO PRN (17:30)
[2021-01-09] MEDS ORDERED: DOCUSATE SODIUM 100 MG CAPSULE PO PRN (17:30)
[2021-01-09] MEDS ORDERED: PETROLATUM,WHITE 28 GM JELLY TP PRN (17:30)
[2021-01-09] MEDS ORDERED: GuaiFENesin/D-METHORPHAN [SUGAR-FREE] 200-20MG/10 ML SYRUP UDCUP PO PRN (17:30)
[2021-01-09] MEDS ORDERED: MAGNESIUM HYDROXIDE SUSPENSION 30 ML UDCUP PO PRN (17:30)
[2021-01-09] MEDS ORDERED: NICOTINE 14 MG/24 HOUR PATCH TD PRN (17:30)
[2021-01-09] MEDS ORDERED: IBUPROFEN 400 MG TABLET PO PRN (17:30)
[2021-01-09] MEDS: QUEtiapine FUMARATE 100 MG TABLET PO SCH (19:56)
[2021-01-10] MEDS ORDERED: POTASSIUM CHLORIDE 8 MEQ ER TABLET PO SCH (09:00)
[2021-01-10] MEDS ORDERED: FUROSEMIDE 20 MG TABLET PO SCH (09:00)
[2021-01-10] MEDS: FUROSEMIDE 20 MG TABLET PO SCH (09:00)
[2021-01-10] MEDS: MULTIVITAMINS WITH MINERALS, THERAPEUTIC TABLET PO SCH (09:42)
[2021-01-10] MEDS: MULTIVITAMINS WITH IRON TABLET PO SCH (09:42)
[2021-01-10] MEDS: HALOPERIDOL 5 MG TABLET PO PRN ×2 (09:42→17:58)
[2021-01-10] MEDS: POTASSIUM CHLORIDE 8 MEQ ER TABLET PO SCH (09:44)
[2021-01-10] MEDS: QUEtiapine FUMARATE 25 MG TABLET PO SCH (09:47)
[2021-01-10] MEDS: ClonazePAM 0.5 MG TABLET PO PRN (17:50)
[2021-01-10] MEDS: QUEtiapine FUMARATE 100 MG TABLET PO SCH (20:32)
[2021-01-11 01:51] VITALS: BP 112/70
[2021-01-11] MEDS: POTASSIUM CHLORIDE 8 MEQ ER TABLET PO SCH (09:35)
[2021-01-11] MEDS: QUEtiapine FUMARATE 25 MG TABLET PO SCH (09:35)
[2021-01-11] MEDS: MULTIVITAMINS WITH IRON TABLET PO SCH (09:35)
[2021-01-11] MEDS: MULTIVITAMINS WITH MINERALS, THERAPEUTIC TABLET PO SCH (09:36)
[2021-01-11] MEDS: FUROSEMIDE 20 MG TABLET PO SCH (09:36)
[2021-01-11 11:09] VITALS: BP 126/81
[2021-01-11] MEDS: ClonazePAM 0.5 MG TABLET PO PRN (12:56)
[2021-01-11] MEDS: HALOPERIDOL 5 MG TABLET PO PRN (16:08)
[2021-01-11 16:32] VITALS: BP 129/77
[2021-01-11] MEDS: QUEtiapine FUMARATE 100 MG TABLET PO SCH (21:00)
[2021-01-12 03:01] VITALS: BP 116/74
[2021-01-12] MEDS: MULTIVITAMINS WITH IRON TABLET PO SCH (08:01)
[2021-01-12] MEDS: ClonazePAM 0.5 MG TABLET PO PRN (08:02)
[2021-01-12] MEDS: POTASSIUM CHLORIDE 8 MEQ ER TABLET PO SCH (08:02)
[2021-01-12] MEDS: FUROSEMIDE 20 MG TABLET PO SCH (08:02)
[2021-01-12] MEDS: QUEtiapine FUMARATE 25 MG TABLET PO SCH (08:02)
[2021-01-12 08:34] VITALS: BP 130/82
[2021-01-12] MEDS ORDERED: QUET100T33 PO (10:47)
[2021-01-12] MEDS ORDERED: QUET25TA34 PO (10:47)
== END 2021-01-12 15:51 | disposition home or self-care (01) | DRG 885 ==
LOC: EMS 00:38 → B2S 08:25
DX: F25.0 Schizoaffective disorder, bipolar type (principal); I11.0 Hypertensive heart disease with heart failure; B19.20 Unspecified viral hepatitis C without hepatic coma; E44.0 Moderate protein-calorie malnutrition; R45.851 Suicidal ideations; D64.9 Anemia, unspecified; Z20.822 Contact with and (suspected) exposure to COVID-19; K21.9 Gastro-esophageal reflux disease without esophagitis; F17.210 Nicotine dependence, cigarettes, uncomplicated; I50.9 Heart failure, unspecified; J44.9 Chronic obstructive pulmonary disease, unspecified; N40.0 Benign prostatic hyperplasia without lower urinary tract symptoms; Z59.0 Homelessness; Z68.21 Body mass index [BMI] 21.0-21.9, adult; Z79.899 Other long term (current) drug therapy; Z91.5 Personal history of self-harm; Z28.21 Immunization not carried out because of patient refusal; Z88.8 Allergy status to other drugs, medicaments and biological substances; Z71.6 Tobacco abuse counseling
CPT/HCPCS: 87426; 99285; G0480

== ENCOUNTER 2021-06-11 16:50 | Inpatient (IN) | payer MEDICARE, MEDICAID ==
[~2021-06-11] VITALS: Ht 175.3 cm; Wt 61.0 kg
[~2021-06-11 16:50] MED LIST changes: -MULT-1239 PO; +OLAN10TA74 PO; -QUET100T PO; -QUET25TA PO
[2021-06-11] MEDS ORDERED: ZOLPIDEM TARTRATE 10 MG TABLET PO PRN (18:45)
[2021-06-11] MEDS ORDERED: ACETAMINOPHEN 325 MG TABLET PO PRN (18:45)
[2021-06-11] MEDS ORDERED: GuaiFENesin/D-METHORPHAN [SUGAR-FREE] 200-20MG/10 ML SYRUP UDCUP PO PRN (18:45)
[2021-06-11] MEDS ORDERED: PROMETHAZINE HCL 25 MG TABLET PO PRN (18:45)
[2021-06-11] MEDS ORDERED: LOPERAMIDE HCL 2 MG CAPSULE PO PRN (18:45)
[2021-06-11] MEDS ORDERED: TUBERCULIN, PURIFIED PROTEIN DERIVATIVE 5 TU/0.1 ML SYRINGE ID ONE (18:45)
[2021-06-11] MEDS ORDERED: MAGNESIUM HYDROXIDE SUSPENSION 30 ML UDCUP PO PRN (18:45)
[2021-06-11] MEDS ORDERED: HydrOXYzine PAMOATE 50 MG CAPSULE PO PRN (18:45)
[2021-06-11] MEDS ORDERED: MAG HYDROX/AL HYDROX/SIMETH ES 30 ML SUSPENSION UDCUP PO PRN (18:45)
[2021-06-11 18:58] LABS: GLUCOMETER DEV NAME(LOC) POC.BV
[2021-06-11 20:20] VITALS: BP 142/89
[2021-06-11] MEDS: QUEtiapine FUMARATE 100 MG TABLET PO SCH (20:49)
[2021-06-11] MEDS: THIAMINE 100 MG TABLET PO SCH (20:49)
[2021-06-11] MEDS: MELATONIN 5 MG TABLET PO SCH (20:50)
[2021-06-11] MEDS ORDERED: PALIPERIDONE PALMITATE 156 MG/ML SYRINGE IM ONE (21:00)
[2021-06-12 08:30] VITALS: BP 106/62
[2021-06-12] MEDS: MULTIVITAMINS WITH MINERALS, THERAPEUTIC TABLET PO SCH (09:24)
[2021-06-12] MEDS: THIAMINE 100 MG TABLET PO SCH ×2 (09:24→17:00)
[2021-06-12] MEDS: NALTREXONE HCL 50 MG TABLET PO SCH (09:24)
[2021-06-12] MEDS: OMEGA-3/DHA/EPA/FISH OIL 1,000 MG CAPSULE PO SCH (09:24)
[2021-06-12] MEDS: FOLIC ACID 1 MG TABLET PO SCH (09:25)
[2021-06-12] MEDS: NICOTINE 21 MG/24 HOUR PATCH TD SCH (09:25)
[2021-06-12] MEDS ORDERED: PALIPERIDONE PALMITATE 156 MG/ML SYRINGE IM ONE (11:00)
[2021-06-12] MEDS ORDERED: MULTIVITAMINS WITH MINERALS, THERAPEUTIC TABLET PO SCH (11:00)
[2021-06-12 16:10] VITALS: BP 148/76
[2021-06-12] MEDS: LORazepam 1 MG TABLET PO PRN (16:23)
[2021-06-12] MEDS: QUEtiapine FUMARATE 25 MG TABLET PO PRN (16:23)
[2021-06-12] MEDS: MELATONIN 5 MG TABLET PO SCH (20:32)
[2021-06-12] MEDS: QUEtiapine FUMARATE 100 MG TABLET PO SCH (20:32)
[2021-06-13 02:33] VITALS: BP 140/73
[2021-06-13 07:45] LABS: BASOPHILS % (AUTO) 1.5 % (0.0-2.0); EOSINOPHILS % (AUTO) 7.4 % (1.0-6.0); HEMATOCRIT 25.9 % (41-53); HEMOGLOBIN 8.1 g/dL (13.5-17.5); LYMPHOCYTES % (AUTO) 24.6 % (22.0-44.0); MEAN CORPUSCULAR HEMOGLOBIN 22.9 pg (26.0-34.0); MEAN CORPUSCULAR HGB CONC 31.3 G/dL (31.0-37.0); MEAN CORPUSCULAR VOLUME 73 fL (80-100); MONOCYTES # (AUTO) 0.5 K/uL (0.1-1.0); MONOCYTES % (AUTO) 11.2 % (2.0-9.0); NEUTROPHILS # (AUTO) 2.3 K/uL (1.8-7.7); NEUTROPHILS % (AUTO) 55.3 % (40.0-70.0); PLATELET COUNT (AUTO) 304 K/uL (150-450); RED BLOOD CELL COUNT(AUTO) 3.55 MIL/uL (4.50-5.90); RED CELL DISTRIBUTION WIDTH 22.6 % (11.5-14.5)
[2021-06-13 07:52] LABS: HEMOGLOBIN A1C 5.9 % (3.8-5.6)
[2021-06-13 08:17] LABS: ALANINE AMINOTRANSFERASE 40 U/L (12-78); ALBUMIN 2.9 g/dL (3.4-5.0); ALKALINE PHOSPHATASE 92 U/L (46-116); ANION GAP 3 mmol/L (8-16); ASPARTATE AMINOTRANSFERASE 35 U/L (15-37); BILIRUBIN,TOTAL 0.2 mg/dL (0.1-1.0); CALCIUM, TOTAL 7.8 mg/dL (8.8-10.5); CARBON DIOXIDE 26 mmol/L (22-29); CHLORIDE 103 mmol/L (98-107); CHOLESTEROL 111 mg/dL (131-200); CREATININE 0.87 mg/dL (0.60-1.30); FREE T4 (FREE THYROXINE) 0.87 ng/dL (0.76-1.46); GLUCOSE,RANDOM 103 mg/dL (70-110); HDL CHOLESTEROL 55 mg/dL (40-60); LDL CHOL (CALC.) 44 mg/dL (0-130); SODIUM SERUM 132 mmol/L (136-145); THYROID STIMULATING HORMONE 0.51 uIU/mL (0.36-3.74); TOTAL PROTEIN, SERUM 6.5 g/dL (6.4-8.2); TRIGLYCERIDES 62 mg/dL (15-150); UREA NITROGEN, BLOOD 12 mg/dL (7-18)
[2021-06-13 08:18] LABS: GLOMERULAR FILTR. RATE CALC > 60 mL/min (>60)
[2021-06-13 08:29] VITALS: BP 119/69
[2021-06-13] MEDS: OMEGA-3/DHA/EPA/FISH OIL 1,000 MG CAPSULE PO SCH (09:50)
[2021-06-13] MEDS: NALTREXONE HCL 50 MG TABLET PO SCH (09:50)
[2021-06-13] MEDS: FOLIC ACID 1 MG TABLET PO SCH (09:50)
[2021-06-13] MEDS: THIAMINE 100 MG TABLET PO SCH ×2 (09:50→17:17)
[2021-06-13] MEDS: NICOTINE 21 MG/24 HOUR PATCH TD SCH (09:51)
[2021-06-13] MEDS: MULTIVITAMINS WITH MINERALS, THERAPEUTIC TABLET PO SCH (09:51)
[2021-06-13] MEDS: LORazepam 1 MG TABLET PO PRN ×2 (09:54→14:34)
[2021-06-13 16:35] VITALS: BP 140/83
[2021-06-13] MEDS ORDERED: QUEtiapine FUMARATE 25 MG TABLET PO SCH (21:00)
[2021-06-13] MEDS: MELATONIN 5 MG TABLET PO SCH (21:02)
[2021-06-14 00:57] VITALS: BP 110/75
[2021-06-14 08:19] VITALS: BP 107/62
[2021-06-14] MEDS: LORazepam 1 MG TABLET PO PRN ×3 (08:30→16:49)
[2021-06-14] MEDS: OMEGA-3/DHA/EPA/FISH OIL 1,000 MG CAPSULE PO SCH (09:19)
[2021-06-14] MEDS: MULTIVITAMINS WITH MINERALS, THERAPEUTIC TABLET PO SCH (09:19)
[2021-06-14] MEDS: THIAMINE 100 MG TABLET PO SCH ×2 (09:19→16:44)
[2021-06-14] MEDS: NALTREXONE HCL 50 MG TABLET PO SCH (09:19)
[2021-06-14] MEDS: FOLIC ACID 1 MG TABLET PO SCH (09:19)
[2021-06-14] MEDS: NICOTINE 21 MG/24 HOUR PATCH TD SCH (09:20)
[2021-06-14 17:43] VITALS: BP 128/85
[2021-06-14] MEDS: QUEtiapine FUMARATE 25 MG TABLET PO SCH (20:39)
[2021-06-14] MEDS: MELATONIN 5 MG TABLET PO SCH (20:39)
[2021-06-15 08:25] VITALS: BP 103/65
[2021-06-15] MEDS: THIAMINE 100 MG TABLET PO SCH ×2 (08:32→16:03)
[2021-06-15] MEDS: NALTREXONE HCL 50 MG TABLET PO SCH (08:32)
[2021-06-15] MEDS: OMEGA-3/DHA/EPA/FISH OIL 1,000 MG CAPSULE PO SCH (08:32)
[2021-06-15] MEDS: FOLIC ACID 1 MG TABLET PO SCH (08:33)
[2021-06-15] MEDS: MULTIVITAMINS WITH MINERALS, THERAPEUTIC TABLET PO SCH (08:33)
[2021-06-15] MEDS: NICOTINE 21 MG/24 HOUR PATCH TD SCH (08:33)
[2021-06-15] MEDS: LORazepam 1 MG TABLET PO PRN ×2 (08:38→16:03)
[2021-06-15] MEDS ORDERED: PALIPERIDONE PALMITATE 117 MG/0.75 ML SYRINGE IM ONE (09:00)
[2021-06-15 16:35] VITALS: BP 102/71
[2021-06-15] MEDS: MELATONIN 5 MG TABLET PO SCH (20:18)
[2021-06-15] MEDS: QUEtiapine FUMARATE 25 MG TABLET PO SCH (20:18)
[2021-06-16 01:54] VITALS: BP 102/72
[2021-06-16 08:30] VITALS: BP 105/66
[2021-06-16 08:41] LABS: COVID AG,FIA SOURCE NASOPHARYNGEAL
[2021-06-16] MEDS: OMEGA-3/DHA/EPA/FISH OIL 1,000 MG CAPSULE PO SCH (09:06)
[2021-06-16] MEDS: MULTIVITAMINS WITH MINERALS, THERAPEUTIC TABLET PO SCH (09:06)
[2021-06-16] MEDS: NICOTINE 21 MG/24 HOUR PATCH TD SCH (09:06)
[2021-06-16] MEDS: FOLIC ACID 1 MG TABLET PO SCH (09:06)
[2021-06-16] MEDS: NALTREXONE HCL 50 MG TABLET PO SCH (09:06)
[2021-06-16] MEDS: THIAMINE 100 MG TABLET PO SCH ×2 (09:07→16:44)
[2021-06-16] MEDS: LORazepam 1 MG TABLET PO PRN (13:23)
[2021-06-16] MEDS: QUEtiapine FUMARATE 25 MG TABLET PO PRN (17:28)
[2021-06-16] MEDS: QUEtiapine FUMARATE 25 MG TABLET PO SCH (20:33)
[2021-06-16] MEDS: MELATONIN 5 MG TABLET PO SCH (20:34)
[2021-06-17 00:59] VITALS: BP 107/69
[2021-06-17 08:03] LABS: ANION GAP 6 mmol/L (8-16); CALCIUM, TOTAL 8.1 mg/dL (8.8-10.5); CARBON DIOXIDE 28 mmol/L (22-29); CHLORIDE 103 mmol/L (98-107); CREATININE 0.91 mg/dL (0.60-1.30); GLUCOSE,RANDOM 97 mg/dL (70-110); POTASSIUM 4.8 mmol/L (3.5-5.1); SODIUM SERUM 137 mmol/L (136-145); UREA NITROGEN, BLOOD 17 mg/dL (7-18)
[2021-06-17 08:04] LABS: GLOMERULAR FILTR. RATE CALC > 60 mL/min (>60)
[2021-06-17] MEDS: MULTIVITAMINS WITH MINERALS, THERAPEUTIC TABLET PO SCH (08:06)
[2021-06-17] MEDS: OMEGA-3/DHA/EPA/FISH OIL 1,000 MG CAPSULE PO SCH (08:06)
[2021-06-17] MEDS: THIAMINE 100 MG TABLET PO SCH ×2 (08:06→16:40)
[2021-06-17] MEDS: NALTREXONE HCL 50 MG TABLET PO SCH (08:06)
[2021-06-17] MEDS: FOLIC ACID 1 MG TABLET PO SCH (08:07)
[2021-06-17] MEDS: NICOTINE 21 MG/24 HOUR PATCH TD SCH (08:07)
[2021-06-17 10:25] VITALS: BP 100/59
[2021-06-17] MEDS: LORazepam 1 MG TABLET PO PRN ×2 (13:35→18:18)
[2021-06-17 16:25] VITALS: BP 107/75
[2021-06-17] MEDS: MELATONIN 5 MG TABLET PO SCH (21:32)
[2021-06-17] MEDS: QUEtiapine FUMARATE 25 MG TABLET PO PRN (21:33)
[2021-06-18 06:36] VITALS: BP 120/81
[2021-06-18 08:24] VITALS: BP 106/71
[2021-06-18] MEDS: FOLIC ACID 1 MG TABLET PO SCH (08:41)
[2021-06-18] MEDS: NICOTINE 21 MG/24 HOUR PATCH TD SCH (08:41)
[2021-06-18] MEDS: OMEGA-3/DHA/EPA/FISH OIL 1,000 MG CAPSULE PO SCH (08:42)
[2021-06-18] MEDS: MULTIVITAMINS WITH MINERALS, THERAPEUTIC TABLET PO SCH (08:42)
[2021-06-18] MEDS: NALTREXONE HCL 50 MG TABLET PO SCH (08:42)
[2021-06-18] MEDS: THIAMINE 100 MG TABLET PO SCH ×2 (08:42→16:34)
[2021-06-18] MEDS: LORazepam 1 MG TABLET PO PRN ×2 (08:43→15:30)
[2021-06-18] MEDS ORDERED: PALIPERIDONE PALMITATE 117 MG/0.75 ML SYRINGE IM ONE (09:00)
[2021-06-18 16:20] VITALS: BP 109/72
[2021-06-18] MEDS: QUEtiapine FUMARATE 25 MG TABLET PO SCH (20:31)
[2021-06-18] MEDS: MELATONIN 5 MG TABLET PO SCH (20:31)
[2021-06-19 01:28] VITALS: BP 111/70
[2021-06-19 03:18] VITALS: BP 125/77
[2021-06-19] MEDS: QUEtiapine FUMARATE 25 MG TABLET PO PRN (03:21)
[2021-06-19] MEDS: LORazepam 1 MG TABLET PO PRN ×2 (08:15→15:41)
[2021-06-19 08:18] VITALS: BP 108/67
[2021-06-19] MEDS: MULTIVITAMINS WITH MINERALS, THERAPEUTIC TABLET PO SCH (08:37)
[2021-06-19] MEDS: THIAMINE 100 MG TABLET PO SCH ×2 (08:37→16:45)
[2021-06-19] MEDS: OMEGA-3/DHA/EPA/FISH OIL 1,000 MG CAPSULE PO SCH (08:37)
[2021-06-19] MEDS: FOLIC ACID 1 MG TABLET PO SCH (08:37)
[2021-06-19] MEDS: NALTREXONE HCL 50 MG TABLET PO SCH (08:37)
[2021-06-19] MEDS: NICOTINE 21 MG/24 HOUR PATCH TD SCH (08:37)
[2021-06-19 16:15] VITALS: BP 104/67
[2021-06-19] MEDS: MELATONIN 5 MG TABLET PO SCH (20:54)
[2021-06-19] MEDS: QUEtiapine FUMARATE 25 MG TABLET PO SCH (20:55)
[2021-06-20] MEDS: QUEtiapine FUMARATE 25 MG TABLET PO PRN ×3 (00:31→22:50)
[2021-06-20 01:00] VITALS: BP 108/70
[2021-06-20 08:08] LABS: AMYLASE 47 U/L (25-115); LIPASE 25 U/L (73-393)
[2021-06-20 08:19] VITALS: BP 101/61
[2021-06-20] MEDS: MULTIVITAMINS WITH MINERALS, THERAPEUTIC TABLET PO SCH (08:48)
[2021-06-20] MEDS: NALTREXONE HCL 50 MG TABLET PO SCH (08:48)
[2021-06-20] MEDS: FOLIC ACID 1 MG TABLET PO SCH (08:48)
[2021-06-20] MEDS: NICOTINE 21 MG/24 HOUR PATCH TD SCH (08:49)
[2021-06-20] MEDS: OMEGA-3/DHA/EPA/FISH OIL 1,000 MG CAPSULE PO SCH (08:49)
[2021-06-20] MEDS: THIAMINE 100 MG TABLET PO SCH ×2 (08:49→16:25)
[2021-06-20] MEDS: LORazepam 1 MG TABLET PO PRN (11:15)
[2021-06-20 16:18] VITALS: BP 110/74
[2021-06-20] MEDS: MELATONIN 5 MG TABLET PO SCH (20:13)
[2021-06-20] MEDS: QUEtiapine FUMARATE 25 MG TABLET PO SCH (20:14)
[2021-06-21 08:23] VITALS: BP 101/62
[2021-06-21] MEDS: LORazepam 1 MG TABLET PO PRN ×3 (08:35→16:05)
[2021-06-21] MEDS: FOLIC ACID 1 MG TABLET PO SCH (08:47)
[2021-06-21] MEDS: OMEGA-3/DHA/EPA/FISH OIL 1,000 MG CAPSULE PO SCH (08:47)
[2021-06-21] MEDS: NICOTINE 21 MG/24 HOUR PATCH TD SCH (08:48)
[2021-06-21] MEDS: NALTREXONE HCL 50 MG TABLET PO SCH (08:48)
[2021-06-21] MEDS: MULTIVITAMINS WITH MINERALS, THERAPEUTIC TABLET PO SCH (08:48)
[2021-06-21 17:08] VITALS: BP 103/64
[2021-06-21] MEDS: QUEtiapine FUMARATE 25 MG TABLET PO SCH (20:05)
[2021-06-21] MEDS: MELATONIN 5 MG TABLET PO SCH (20:05)
[2021-06-22 00:10] VITALS: BP 126/73
[2021-06-22 08:20] VITALS: BP 108/64
[2021-06-22] MEDS: MULTIVITAMINS WITH MINERALS, THERAPEUTIC TABLET PO SCH (09:08)
[2021-06-22] MEDS: LORazepam 1 MG TABLET PO PRN (09:09)
[2021-06-22] MEDS: NALTREXONE HCL 50 MG TABLET PO SCH (09:09)
[2021-06-22] MEDS: NICOTINE 21 MG/24 HOUR PATCH TD SCH (09:09)
[2021-06-22] MEDS: OMEGA-3/DHA/EPA/FISH OIL 1,000 MG CAPSULE PO SCH (09:09)
[2021-06-22] MEDS: QUEtiapine FUMARATE 25 MG TABLET PO PRN (12:51)
[2021-06-22 18:24] VITALS: BP 99/60
[2021-06-22] MEDS: QUEtiapine FUMARATE 25 MG TABLET PO SCH (20:23)
[2021-06-22] MEDS: MELATONIN 5 MG TABLET PO SCH (20:23)
[2021-06-23] MEDS: LORazepam 1 MG TABLET PO PRN ×4 (04:41→18:08)
[2021-06-23 05:11] VITALS: BP 102/66
[2021-06-23 07:12] LABS: COVID AG,FIA SOURCE NASOPHARYNGEAL
[2021-06-23] MEDS: OMEGA-3/DHA/EPA/FISH OIL 1,000 MG CAPSULE PO SCH (09:04)
[2021-06-23] MEDS: NICOTINE 21 MG/24 HOUR PATCH TD SCH (09:04)
[2021-06-23] MEDS: MULTIVITAMINS WITH MINERALS, THERAPEUTIC TABLET PO SCH (09:04)
[2021-06-23] MEDS: NALTREXONE HCL 50 MG TABLET PO SCH (09:04)
[2021-06-23] MEDS: QUEtiapine FUMARATE 25 MG TABLET PO PRN (14:40)
[2021-06-23 16:24] VITALS: BP 101/61
[2021-06-23 18:05] VITALS: BP 105/63
[2021-06-23] MEDS: MELATONIN 5 MG TABLET PO SCH (20:44)
[2021-06-23] MEDS: QUEtiapine FUMARATE 25 MG TABLET PO SCH (20:44)
[2021-06-24 08:05] VITALS: BP 91/56
[2021-06-24] MEDS: OMEGA-3/DHA/EPA/FISH OIL 1,000 MG CAPSULE PO SCH (09:04)
[2021-06-24] MEDS: MULTIVITAMINS WITH IRON TABLET PO SCH (09:04)
[2021-06-24] MEDS: NICOTINE 21 MG/24 HOUR PATCH TD SCH (09:05)
[2021-06-24] MEDS: NALTREXONE HCL 50 MG TABLET PO SCH (09:29)
[2021-06-24] MEDS: LORazepam 1 MG TABLET PO PRN (12:46)
[2021-06-24 16:23] VITALS: BP 101/61
[2021-06-24] MEDS: MELATONIN 5 MG TABLET PO SCH (20:16)
[2021-06-24] MEDS: QUEtiapine FUMARATE 25 MG TABLET PO SCH (20:17)
[2021-06-25 00:20] VITALS: BP 103/62
[2021-06-25] MEDS: LORazepam 1 MG TABLET PO PRN ×3 (05:58→22:47)
[2021-06-25 08:24] VITALS: BP 114/77
[2021-06-25] MEDS: MULTIVITAMINS WITH IRON TABLET PO SCH (09:50)
[2021-06-25] MEDS: NICOTINE 21 MG/24 HOUR PATCH TD SCH (09:50)
[2021-06-25] MEDS: CHOLECALCIFEROL (VIT D3) 1,000 UNITS [25 MCG] TABLET PO SCH (09:51)
[2021-06-25] MEDS: NALTREXONE HCL 50 MG TABLET PO SCH (09:51)
[2021-06-25] MEDS: OMEGA-3/DHA/EPA/FISH OIL 1,000 MG CAPSULE PO SCH (09:51)
[2021-06-25] MEDS: QUEtiapine FUMARATE 25 MG TABLET PO PRN (15:50)
[2021-06-25 16:43] VITALS: BP 122/76
[2021-06-25] MEDS: QUEtiapine FUMARATE 25 MG TABLET PO SCH (20:41)
[2021-06-25] MEDS: MELATONIN 5 MG TABLET PO SCH (20:41)
[2021-06-26] VITALS: BP 102/65
[2021-06-26 07:10] LABS: BASOPHILS % (AUTO) 0.6 % (0.0-2.0); EOSINOPHILS % (AUTO) 5.5 % (1.0-6.0); HEMATOCRIT 26.9 % (41-53); HEMOGLOBIN 8.5 g/dL (13.5-17.5); LYMPHOCYTES # (AUTO) 1.3 K/uL (1.0-4.8); LYMPHOCYTES % (AUTO) 23.9 % (22.0-44.0); MEAN CORPUSCULAR HGB CONC 31.4 G/dL (31.0-37.0); MEAN CORPUSCULAR VOLUME 73 fL (80-100); MONOCYTES # (AUTO) 0.6 K/uL (0.1-1.0); MONOCYTES % (AUTO) 11.1 % (2.0-9.0); NEUTROPHILS # (AUTO) 3.1 K/uL (1.8-7.7); NEUTROPHILS % (AUTO) 58.9 % (40.0-70.0); PLATELET COUNT (AUTO) 344 K/uL (150-450); RED BLOOD CELL COUNT(AUTO) 3.68 MIL/uL (4.50-5.90); RED CELL DISTRIBUTION WIDTH 22.3 % (11.5-14.5)
[2021-06-26 08:35] VITALS: BP 130/63
[2021-06-26] MEDS: CHOLECALCIFEROL (VIT D3) 1,000 UNITS [25 MCG] TABLET PO SCH (08:45)
[2021-06-26] MEDS: MULTIVITAMINS WITH IRON TABLET PO SCH (08:45)
[2021-06-26] MEDS: OMEGA-3/DHA/EPA/FISH OIL 1,000 MG CAPSULE PO SCH (08:45)
[2021-06-26] MEDS: LORazepam 1 MG TABLET PO PRN ×2 (08:46→14:57)
[2021-06-26] MEDS: NICOTINE 21 MG/24 HOUR PATCH TD SCH (08:46)
[2021-06-26] MEDS: NALTREXONE HCL 50 MG TABLET PO SCH (08:48)
[2021-06-26] MEDS ORDERED: EPOETIN ALFA 10,000 UNITS/ML VIAL SQ SCH (09:00)
[2021-06-26 16:21] VITALS: BP 124/74
[2021-06-26] MEDS: MELATONIN 5 MG TABLET PO SCH (20:04)
[2021-06-26] MEDS: QUEtiapine FUMARATE 25 MG TABLET PO SCH (20:04)
[2021-06-27 01:24] VITALS: BP 119/71
[2021-06-27 03:28] VITALS: BP 112/72
[2021-06-27] MEDS: QUEtiapine FUMARATE 25 MG TABLET PO PRN ×2 (04:19→17:33)
[2021-06-27] MEDS: MULTIVITAMINS WITH IRON TABLET PO SCH (08:12)
[2021-06-27] MEDS: NALTREXONE HCL 50 MG TABLET PO SCH (08:12)
[2021-06-27] MEDS: OMEGA-3/DHA/EPA/FISH OIL 1,000 MG CAPSULE PO SCH (08:13)
[2021-06-27] MEDS: CHOLECALCIFEROL (VIT D3) 1,000 UNITS [25 MCG] TABLET PO SCH (08:13)
[2021-06-27] MEDS: LORazepam 1 MG TABLET PO PRN ×2 (08:13→15:56)
[2021-06-27] MEDS: NICOTINE 21 MG/24 HOUR PATCH TD SCH (08:14)
[2021-06-27 08:38] VITALS: BP 141/70
[2021-06-27] MEDS ORDERED: OMEG-135 PO (14:57)
[2021-06-27] MEDS ORDERED: QUET25TA36 PO (14:57)
[2021-06-27] MEDS ORDERED: NALT50TA PO (14:57)
[2021-06-27] MEDS ORDERED: MELA5TAB40 PO (14:57)
[2021-06-27 16:31] VITALS: BP 122/72
[2021-06-27] MEDS: QUEtiapine FUMARATE 25 MG TABLET PO SCH ×2 (20:38→20:54)
[2021-06-27] MEDS: MELATONIN 5 MG TABLET PO SCH (20:41)
[2021-06-28 06:58] VITALS: BP 124/86
== END 2021-06-28 09:54 | disposition home or self-care (01) | DRG 885 ==
LOC: B2S 18:42
PROVIDERS: ADMIT Psychiatry & Neurology Psychiatry; ATTEND Psychiatry & Neurology Psychiatry
DX: F25.9 Schizoaffective disorder, unspecified (principal); B19.20 Unspecified viral hepatitis C without hepatic coma; K86.1 Other chronic pancreatitis; E87.1 Hypo-osmolality and hyponatremia; F30.9 Manic episode, unspecified; D64.9 Anemia, unspecified; F12.20 Cannabis dependence, uncomplicated; F14.90 Cocaine use, unspecified, uncomplicated; R91.1 Solitary pulmonary nodule; F41.9 Anxiety disorder, unspecified; I10 Essential (primary) hypertension; J44.9 Chronic obstructive pulmonary disease, unspecified; K44.9 Diaphragmatic hernia without obstruction or gangrene; N40.0 Benign prostatic hyperplasia without lower urinary tract symptoms; Z55.9 Problems related to education and literacy, unspecified; Z59.9 Problem related to housing and economic circumstances, unspecified; Z65.3 Problems related to other legal circumstances; Z87.891 Personal history of nicotine dependence; Z91.14 Patient's other noncompliance with medication regimen; Z91.19 Patient's noncompliance with other medical treatment and regimen; Z91.5 Personal history of self-harm; Z99.3 Dependence on wheelchair; Z59.0 Homelessness; Z88.8 Allergy status to other drugs, medicaments and biological substances; Z79.899 Other long term (current) drug therapy; Z20.822 Contact with and (suspected) exposure to COVID-19
CPT/HCPCS: 80048; 80053; 80061; 82150; 82306; 83036; 83690; 84439; 84443; 85025; 86592; 87081; J0885; Q9967

== ENCOUNTER 2021-06-29 13:24 | Emergency (ER) | payer MEDICARE, MEDICAID ==
[~2021-06-29] VITALS: Ht 167.6 cm; Wt 74.5 kg
[~2021-06-29 13:24] MED LIST changes: -FURO20 PO; +MELA5TAB40 PO; +NALT50TA PO; -OLAN10TA74 PO; +OMEG-135 PO; -POTA8TAB71 PO; +QUET25TA36 PO
[2021-06-29 13:26] VITALS: BP 112/60
== END 2021-06-29 14:53 | disposition home or self-care (01) ==
LOC: EMS 13:49
DX: F10.239 Alcohol dependence with withdrawal, unspecified (principal); J45.909 Unspecified asthma, uncomplicated; F31.9 Bipolar disorder, unspecified; J44.9 Chronic obstructive pulmonary disease, unspecified; K21.9 Gastro-esophageal reflux disease without esophagitis; F20.9 Schizophrenia, unspecified; F17.210 Nicotine dependence, cigarettes, uncomplicated; Z59.0 Homelessness; Z88.6 Allergy status to analgesic agent
CPT/HCPCS: 99283

== ENCOUNTER 2021-07-01 14:04 | Emergency (ER) | payer MEDICARE, MEDICAID ==
[~2021-07-01] VITALS: Ht 175.3 cm; Wt 59.1 kg
[2021-07-01 15:38] LABS: COVID AG,FIA SOURCE NASOPHARYNGEAL
[2021-07-01 15:40] LABS: BASOPHILS % (AUTO) 0.9 % (0.0-2.0); EOSINOPHILS % (AUTO) 4.7 % (1.0-6.0); HEMATOCRIT 25.4 % (41-53); HEMOGLOBIN 7.9 g/dL (13.5-17.5); LYMPHOCYTES # (AUTO) 1.2 K/uL (1.0-4.8); LYMPHOCYTES % (AUTO) 26.6 % (22.0-44.0); MEAN CORPUSCULAR HEMOGLOBIN 23.2 pg (26.0-34.0); MEAN CORPUSCULAR HGB CONC 31.3 G/dL (31.0-37.0); MEAN CORPUSCULAR VOLUME 74 fL (80-100); MONOCYTES # (AUTO) 0.7 K/uL (0.1-1.0); MONOCYTES % (AUTO) 15.3 % (2.0-9.0); NEUTROPHILS # (AUTO) 2.4 K/uL (1.8-7.7); NEUTROPHILS % (AUTO) 52.5 % (40.0-70.0); PLATELET COUNT (AUTO) 307 K/uL (150-450); RED BLOOD CELL COUNT(AUTO) 3.42 MIL/uL (4.50-5.90); RED CELL DISTRIBUTION WIDTH 23.1 % (11.5-14.5)
[2021-07-01 15:52] LABS: ANION GAP 6 mmol/L (8-16); CARBON DIOXIDE 29 mmol/L (22-29); CHLORIDE 103 mmol/L (98-107); CREATININE 0.86 mg/dL (0.60-1.30); GLUCOSE,RANDOM 108 mg/dL (70-110); POTASSIUM 4.6 mmol/L (3.5-5.1); SODIUM SERUM 138 mmol/L (136-145); UREA NITROGEN, BLOOD 16 mg/dL (7-18)
[2021-07-01 15:55] LABS: GLOMERULAR FILTR. RATE CALC > 60 mL/min (>60)
[2021-07-01 15:58] LABS: ALANINE AMINOTRANSFERASE 45 U/L (12-78); ALBUMIN 3.4 g/dL (3.4-5.0); ALKALINE PHOSPHATASE 97 U/L (46-116); ASPARTATE AMINOTRANSFERASE 36 U/L (15-37); BILIRUBIN,TOTAL 0.2 mg/dL (0.1-1.0); TOTAL PROTEIN, SERUM 7.1 g/dL (6.4-8.2)
[2021-07-01 16:33] LABS: APPEARANCE,URINE CLEAR (CLEAR); BILIRUBIN,URINE NEGATIVE (NEGATIVE); GLUCOSE, URINE (UA) NEGATIVE (NEGATIVE); KETONES,URINE NEGATIVE (NEGATIVE); LEUKOCYTE ESTERASE ,URINE NEGATIVE (NEGATIVE); NITRATE,URINE NEGATIVE (NEGATIVE); OCCULT BLOOD,URINE NEGATIVE (NEGATIVE); PH,URINE 5.5 (5.0-8.0); PROTEIN,URINE POS 1+ (NEGATIVE); UROBILINOGEN,URINE 0.2 mg/dL (<=1.0)
[2021-07-01 16:39] LABS: AMPHET/METH SCREEN,URINE NEGATIVE (NEGATIVE); BARBITURATE SCREEN, URINE NEGATIVE (NEGATIVE); BENZODIAZEPINES SCREEN,URINE NEGATIVE (NEGATIVE); CANNABINOID SCREEN,URINE NEGATIVE (NEGATIVE); COCAINE SCREEN,URINE NEGATIVE (NEGATIVE); METHADONE SCREEN, URINE NEGATIVE (NEGATIVE); OPIATE SCREEN,URINE NEGATIVE (NEGATIVE); PHENCYCLIDINE SCREEN,URINE NEGATIVE (NEGATIVE)
[2021-07-01 17:25] VITALS: BP 122/68
== END 2021-07-01 17:26 | disposition home or self-care (01) ==
LOC: EMS 14:04
DX: F31.9 Bipolar disorder, unspecified (principal); J45.909 Unspecified asthma, uncomplicated; I10 Essential (primary) hypertension; F20.9 Schizophrenia, unspecified; F17.210 Nicotine dependence, cigarettes, uncomplicated; Z59.0 Homelessness; Z20.822 Contact with and (suspected) exposure to COVID-19
CPT/HCPCS: 36415; 80053; 80307; 85025; 87426; 99284; G0480

== ENCOUNTER 2021-07-03 06:36 | Emergency (ER) | payer MEDICARE, MEDICAID ==
[~2021-07-03] VITALS: Ht 175.3 cm; Wt 130.0 kg
[2021-07-03 07:30] LABS: BASOPHILS % (AUTO) 1.3 % (0.0-2.0); EOSINOPHILS % (AUTO) 1.1 % (1.0-6.0); HEMATOCRIT 26.4 % (41-53); HEMOGLOBIN 8.2 g/dL (13.5-17.5); LYMPHOCYTES # (AUTO) 0.9 K/uL (1.0-4.8); MEAN CORPUSCULAR HEMOGLOBIN 23.1 pg (26.0-34.0); MEAN CORPUSCULAR HGB CONC 31.2 G/dL (31.0-37.0); MEAN CORPUSCULAR VOLUME 74 fL (80-100); MONOCYTES # (AUTO) 0.5 K/uL (0.1-1.0); MONOCYTES % (AUTO) 9.6 % (2.0-9.0); NEUTROPHILS # (AUTO) 3.8 K/uL (1.8-7.7); PLATELET COUNT (AUTO) 307 K/uL (150-450); RED BLOOD CELL COUNT(AUTO) 3.56 MIL/uL (4.50-5.90); RED CELL DISTRIBUTION WIDTH 23.2 % (11.5-14.5)
[2021-07-03 08:05] LABS: COVID AG,FIA SOURCE NASAL SWAB
[2021-07-03 08:17] LABS: ANION GAP 8 mmol/L (8-16); CALCIUM, TOTAL 7.9 mg/dL (8.8-10.5); CARBON DIOXIDE 27 mmol/L (22-29); CHLORIDE 103 mmol/L (98-107); CREATININE 1.32 mg/dL (0.60-1.30); GLOMERULAR FILTR. RATE CALC 53 mL/min (>60); GLUCOSE,RANDOM 91 mg/dL (70-110); POTASSIUM 4.1 mmol/L (3.5-5.1); SODIUM SERUM 138 mmol/L (136-145); UREA NITROGEN, BLOOD 26 mg/dL (7-18)
[2021-07-03 08:27] LABS: ALANINE AMINOTRANSFERASE 42 U/L (12-78); ALBUMIN 3.5 g/dL (3.4-5.0); ALKALINE PHOSPHATASE 97 U/L (46-116); ASPARTATE AMINOTRANSFERASE 31 U/L (15-37); BILIRUBIN,TOTAL 0.4 mg/dL (0.1-1.0); TOTAL PROTEIN, SERUM 7.6 g/dL (6.4-8.2)
[2021-07-03 09:52] VITALS: BP 123/90
== END 2021-07-03 11:26 | disposition home or self-care (01) ==
LOC: EMS 06:37
DX: R45.851 Suicidal ideations (principal); F10.10 Alcohol abuse, uncomplicated; J45.909 Unspecified asthma, uncomplicated; F31.9 Bipolar disorder, unspecified; K21.9 Gastro-esophageal reflux disease without esophagitis; I10 Essential (primary) hypertension; F20.9 Schizophrenia, unspecified; F17.210 Nicotine dependence, cigarettes, uncomplicated; Z20.822 Contact with and (suspected) exposure to COVID-19; Z59.0 Homelessness; Z88.5 Allergy status to narcotic agent; Y90.0 Blood alcohol level of less than 20 mg/100 ml
CPT/HCPCS: 36415; 70450; 72125; 80053; 85025; 87426; 99285; G0480

== ENCOUNTER 2021-07-30 19:04 | Inpatient (IN) | payer MEDICARE, MEDICAID ==
[~2021-07-30] VITALS: Ht 175.3 cm; Wt 62.6 kg
[2021-07-30 21:09] LABS: BASOPHILS % (AUTO) 0.6 % (0.0-2.0); EOSINOPHILS % (AUTO) 5.5 % (1.0-6.0); HEMATOCRIT 25.8 % (41-53); HEMOGLOBIN 8.3 g/dL (13.5-17.5); LYMPHOCYTES # (AUTO) 1.4 K/uL (1.0-4.8); LYMPHOCYTES % (AUTO) 27.9 % (22.0-44.0); MEAN CORPUSCULAR HEMOGLOBIN 24.9 pg (26.0-34.0); MEAN CORPUSCULAR HGB CONC 32.2 G/dL (31.0-37.0); MEAN CORPUSCULAR VOLUME 77 fL (80-100); MONOCYTES # (AUTO) 0.5 K/uL (0.1-1.0); MONOCYTES % (AUTO) 10.9 % (2.0-9.0); NEUTROPHILS # (AUTO) 2.7 K/uL (1.8-7.7); NEUTROPHILS % (AUTO) 55.1 % (40.0-70.0); PLATELET COUNT (AUTO) 348 K/uL (150-450); RED BLOOD CELL COUNT(AUTO) 3.33 MIL/uL (4.50-5.90)
[2021-07-30 21:17] LABS: CHLORIDE 100 mmol/L (98-107); POTASSIUM 4.5 mmol/L (3.5-5.1); SODIUM SERUM 136 mmol/L (136-145)
[2021-07-30 21:18] LABS: ANION GAP 7 mmol/L (8-16); CALCIUM, TOTAL 8.2 mg/dL (8.8-10.5); CARBON DIOXIDE 29 mmol/L (22-29); CREATININE 1.13 mg/dL (0.60-1.30); GLOMERULAR FILTR. RATE CALC > 60 mL/min (>60); GLUCOSE,RANDOM 102 mg/dL (70-110); UREA NITROGEN, BLOOD 20 mg/dL (7-18)
[2021-07-30 21:23] LABS: ALANINE AMINOTRANSFERASE 42 U/L (12-78); ALBUMIN 3.4 g/dL (3.4-5.0); ALKALINE PHOSPHATASE 105 U/L (46-116); ASPARTATE AMINOTRANSFERASE 51 U/L (15-37); BILIRUBIN,TOTAL 0.3 mg/dL (0.1-1.0)
[2021-07-30] MEDS ORDERED: ZOLPIDEM TARTRATE 10 MG TABLET PO PRN (22:30)
[2021-07-30] MEDS ORDERED: LORazepam 2 MG TABLET PO PRN (22:30)
[2021-07-30] MEDS ORDERED: OLANZapine 5 MG RAPDIS TABLET PO PRN (22:30)
[2021-07-30 23:13] LABS: COVID AG,FIA SOURCE NASOPHARYNGEAL
[2021-07-30 23:29] LABS: AMPHET/METH SCREEN,URINE NEGATIVE (NEGATIVE); BARBITURATE SCREEN, URINE NEGATIVE (NEGATIVE); BENZODIAZEPINES SCREEN,URINE NEGATIVE (NEGATIVE); CANNABINOID SCREEN,URINE NEGATIVE (NEGATIVE); COCAINE SCREEN,URINE NEGATIVE (NEGATIVE); METHADONE SCREEN, URINE NEGATIVE (NEGATIVE); OPIATE SCREEN,URINE NEGATIVE (NEGATIVE)
[2021-07-30 23:34] LABS: PHENCYCLIDINE SCREEN,URINE NEGATIVE (NEGATIVE)
[2021-07-31 02:06] LABS: CHOL/HDL RATIO 1.8 (4.2-7.3); CHOLESTEROL 133 mg/dL (131-200); HDL CHOLESTEROL 75 mg/dL (40-60); LDL CHOL (CALC.) 51 mg/dL (0-130); TRIGLYCERIDES 34 mg/dL (15-150)
[2021-07-31 03:22] VITALS: BP 137/74
[2021-07-31] MEDS ORDERED: GuaiFENesin/D-METHORPHAN [SUGAR-FREE] 200-20MG/10 ML SYRUP UDCUP PO PRN (19:00)
[2021-07-31] MEDS ORDERED: MAG HYDROX/AL HYDROX/SIMETH ES 30 ML SUSPENSION UDCUP PO PRN (19:00)
[2021-07-31] MEDS ORDERED: PROMETHAZINE HCL 25 MG TABLET PO PRN (19:00)
[2021-07-31] MEDS ORDERED: LOPERAMIDE HCL 2 MG CAPSULE PO PRN (19:00)
[2021-07-31] MEDS ORDERED: ZOLPIDEM TARTRATE 10 MG TABLET PO PRN (19:00)
[2021-07-31] MEDS ORDERED: MAGNESIUM HYDROXIDE SUSPENSION 30 ML UDCUP PO PRN (19:00)
[2021-07-31] MEDS ORDERED: ACETAMINOPHEN 325 MG TABLET PO PRN (19:00)
[2021-07-31] MEDS ORDERED: HydrOXYzine PAMOATE 50 MG CAPSULE PO PRN (19:00)
[2021-07-31] MEDS: QUEtiapine FUMARATE 25 MG TABLET PO SCH (20:55)
[2021-07-31] MEDS: MELATONIN 3 MG TABLET PO SCH (21:00)
[2021-07-31] MEDS ORDERED: LORazepam 2 MG TABLET PO PRN (22:30)
[2021-08-01] MEDS: MULTIVITAMINS WITH MINERALS, THERAPEUTIC TABLET PO SCH (13:39)
[2021-08-01] MEDS: THIAMINE 100 MG TABLET PO SCH ×2 (13:40→16:05)
[2021-08-01] MEDS: OMEGA-3/DHA/EPA/FISH OIL 1,000 MG CAPSULE PO SCH (13:40)
[2021-08-01] MEDS: NALTREXONE HCL 50 MG TABLET PO SCH (13:40)
[2021-08-01] MEDS: MULTIVITAMINS WITH IRON TABLET PO SCH (13:41)
[2021-08-01] MEDS: FOLIC ACID 1 MG TABLET PO SCH (13:42)
[2021-08-01] MEDS: QUEtiapine FUMARATE 25 MG TABLET PO SCH (20:07)
[2021-08-01] MEDS: MELATONIN 3 MG TABLET PO SCH (21:00)
[2021-08-02] MEDS: NALTREXONE HCL 50 MG TABLET PO SCH (08:20)
[2021-08-02] MEDS: MULTIVITAMINS WITH MINERALS, THERAPEUTIC TABLET PO SCH (08:20)
[2021-08-02] MEDS: THIAMINE 100 MG TABLET PO SCH ×2 (08:21→17:07)
[2021-08-02] MEDS: FOLIC ACID 1 MG TABLET PO SCH (08:21)
[2021-08-02] MEDS: OMEGA-3/DHA/EPA/FISH OIL 1,000 MG CAPSULE PO SCH (08:22)
[2021-08-02] MEDS: MULTIVITAMINS WITH IRON TABLET PO SCH (08:25)
[2021-08-02] MEDS: LORazepam 0.5 MG TABLET PO PRN ×2 (09:48→16:56)
[2021-08-02 10:29] VITALS: BP 126/74
[2021-08-02] MEDS: QUEtiapine FUMARATE 100 MG TABLET PO PRN (18:45)
[2021-08-02] MEDS: MELATONIN 3 MG TABLET PO SCH (20:39)
[2021-08-02] MEDS: QUEtiapine FUMARATE 25 MG TABLET PO SCH (20:40)
[2021-08-03 04:00] VITALS: BP 117/82
[2021-08-03] MEDS: LORazepam 0.5 MG TABLET PO PRN ×3 (04:17→16:54)
[2021-08-03] MEDS: OMEGA-3/DHA/EPA/FISH OIL 1,000 MG CAPSULE PO SCH (08:24)
[2021-08-03] MEDS: MULTIVITAMINS WITH IRON TABLET PO SCH (08:25)
[2021-08-03] MEDS: FOLIC ACID 1 MG TABLET PO SCH (08:25)
[2021-08-03] MEDS: NALTREXONE HCL 50 MG TABLET PO SCH (08:26)
[2021-08-03] MEDS: THIAMINE 100 MG TABLET PO SCH ×2 (08:26→16:54)
[2021-08-03] MEDS: MULTIVITAMINS WITH MINERALS, THERAPEUTIC TABLET PO SCH (08:26)
[2021-08-03] MEDS: QUEtiapine FUMARATE 100 MG TABLET PO PRN (19:14)
[2021-08-03] MEDS: MELATONIN 3 MG TABLET PO SCH (20:55)
[2021-08-03] MEDS: QUEtiapine FUMARATE 25 MG TABLET PO SCH (20:56)
[2021-08-04] MEDS: MULTIVITAMINS WITH MINERALS, THERAPEUTIC TABLET PO SCH (08:25)
[2021-08-04] MEDS: THIAMINE 100 MG TABLET PO SCH ×2 (08:25→16:33)
[2021-08-04] MEDS: FOLIC ACID 1 MG TABLET PO SCH (08:25)
[2021-08-04] MEDS: OMEGA-3/DHA/EPA/FISH OIL 1,000 MG CAPSULE PO SCH (08:25)
[2021-08-04] MEDS: MULTIVITAMINS WITH IRON TABLET PO SCH (08:25)
[2021-08-04] MEDS: NALTREXONE HCL 50 MG TABLET PO SCH (08:26)
[2021-08-04] MEDS: LORazepam 0.5 MG TABLET PO PRN ×2 (08:31→16:33)
[2021-08-04 08:33] VITALS: BP 109/69
[2021-08-04 16:09] VITALS: BP 123/86
[2021-08-04] MEDS: NICOTINE 21 MG/24 HOUR PATCH TD PRN (16:36)
[2021-08-04] MEDS: QUEtiapine FUMARATE 100 MG TABLET PO PRN (18:30)
[2021-08-04] MEDS: QUEtiapine FUMARATE 25 MG TABLET PO SCH (20:36)
[2021-08-04] MEDS: MELATONIN 3 MG TABLET PO SCH (20:37)
[2021-08-05 00:30] VITALS: BP 121/84
[2021-08-05] MEDS: LORazepam 0.5 MG TABLET PO PRN ×2 (00:39→16:03)
[2021-08-05 04:10] VITALS: BP 116/78
[2021-08-05] MEDS: QUEtiapine FUMARATE 100 MG TABLET PO PRN (04:17)
[2021-08-05 08:38] VITALS: BP 122/78
[2021-08-05] MEDS: MULTIVITAMINS WITH IRON TABLET PO SCH (09:12)
[2021-08-05] MEDS: OMEGA-3/DHA/EPA/FISH OIL 1,000 MG CAPSULE PO SCH (09:12)
[2021-08-05] MEDS: MULTIVITAMINS WITH MINERALS, THERAPEUTIC TABLET PO SCH (09:12)
[2021-08-05] MEDS: FOLIC ACID 1 MG TABLET PO SCH (09:13)
[2021-08-05] MEDS: THIAMINE 100 MG TABLET PO SCH ×2 (09:13→16:02)
[2021-08-05] MEDS: NALTREXONE HCL 50 MG TABLET PO SCH (09:13)
[2021-08-05 09:33] LABS: COVID AG,FIA SOURCE NASAL SWAB
[2021-08-05] MEDS: NICOTINE 21 MG/24 HOUR PATCH TD PRN (10:41)
[2021-08-05 16:22] VITALS: BP 122/78
[2021-08-05] MEDS ORDERED: NALT50TA PO (19:11)
[2021-08-05] MEDS ORDERED: QUET25TA36 PO (19:11)
[2021-08-05] MEDS ORDERED: OMEG-135 PO (19:11)
[2021-08-05] MEDS ORDERED: MELA3TAB89 PO (19:11)
[2021-08-05] MEDS: QUEtiapine FUMARATE 25 MG TABLET PO SCH (20:09)
[2021-08-05] MEDS: MELATONIN 3 MG TABLET PO SCH (20:09)
[2021-08-06 00:30] VITALS: BP 133/84
[2021-08-06 09:25] VITALS: BP 124/76
[2021-08-06] MEDS: NALTREXONE HCL 50 MG TABLET PO SCH (09:49)
[2021-08-06] MEDS: MULTIVITAMINS WITH MINERALS, THERAPEUTIC TABLET PO SCH (09:50)
[2021-08-06] MEDS: OMEGA-3/DHA/EPA/FISH OIL 1,000 MG CAPSULE PO SCH (09:50)
[2021-08-06] MEDS: MULTIVITAMINS WITH IRON TABLET PO SCH (09:50)
[2021-08-06] MEDS: THIAMINE 100 MG TABLET PO SCH (09:50)
[2021-08-06] MEDS: FOLIC ACID 1 MG TABLET PO SCH (09:50)
[2021-08-06] MEDS: LORazepam 0.5 MG TABLET PO PRN (10:23)
[2021-08-06] MEDS ORDERED: MVITFE PO (11:34)
== END 2021-08-06 13:35 | disposition home or self-care (01) | DRG 885 ==
LOC: EMS 19:15 → 3EI 07-31 01:00
PROVIDERS: ADMIT Psychiatry & Neurology Psychiatry; ATTEND Psychiatry & Neurology Psychiatry
DX: F31.9 Bipolar disorder, unspecified (principal); N18.9 Chronic kidney disease, unspecified; B19.20 Unspecified viral hepatitis C without hepatic coma; R45.851 Suicidal ideations; F41.0 Panic disorder [episodic paroxysmal anxiety]; F41.1 Generalized anxiety disorder; I12.9 Hypertensive chronic kidney disease with stage 1 through stage 4 chronic kidney disease, or unspecified chronic kidney disease; J44.9 Chronic obstructive pulmonary disease, unspecified; K62.89 Other specified diseases of anus and rectum; D64.9 Anemia, unspecified; F14.90 Cocaine use, unspecified, uncomplicated; F12.90 Cannabis use, unspecified, uncomplicated; K21.9 Gastro-esophageal reflux disease without esophagitis; N40.0 Benign prostatic hyperplasia without lower urinary tract symptoms; Z55.9 Problems related to education and literacy, unspecified; Z59.9 Problem related to housing and economic circumstances, unspecified; Z65.3 Problems related to other legal circumstances; Z87.891 Personal history of nicotine dependence; Z91.14 Patient's other noncompliance with medication regimen; Z91.19 Patient's noncompliance with other medical treatment and regimen; Z59.00 Homelessness unspecified; Z88.8 Allergy status to other drugs, medicaments and biological substances; Z79.899 Other long term (current) drug therapy
CPT/HCPCS: 80053; 80061; 83036; 85025; 86592; 87081; 99285; G0480

== ENCOUNTER 2021-11-12 10:23 | Emergency (ER) | payer MEDICARE, MEDICAID ==
[~2021-11-12] VITALS: Ht 175.3 cm; Wt 59.1 kg
[~2021-11-12 10:23] MED LIST changes: +MELA3TAB89 PO; -MELA5TAB40 PO; +MVITFE PO
[2021-11-12 12:16] LABS: BASOPHILS % (AUTO) 0.9 % (0.0-2.0); EOSINOPHILS % (AUTO) 1.6 % (1.0-6.0); HEMATOCRIT 30.1 % (41-53); HEMOGLOBIN 9.8 g/dL (13.5-17.5); LYMPHOCYTES % (AUTO) 22.4 % (22.0-44.0); MEAN CORPUSCULAR HEMOGLOBIN 24.7 pg (26.0-34.0); MEAN CORPUSCULAR HGB CONC 32.5 G/dL (31.0-37.0); MEAN CORPUSCULAR VOLUME 76 fL (80-100); MONOCYTES # (AUTO) 0.4 K/uL (0.1-1.0); MONOCYTES % (AUTO) 8.1 % (2.0-9.0); PLATELET COUNT (AUTO) 298 K/uL (150-450); RED BLOOD CELL COUNT(AUTO) 3.96 MIL/uL (4.50-5.90); RED CELL DISTRIBUTION WIDTH 18.6 % (11.5-14.5)
[2021-11-12 12:20] LABS: ANION GAP 11 mmol/L (8-16); CALCIUM, TOTAL 8.2 mg/dL (8.8-10.5); CARBON DIOXIDE 24 mmol/L (22-29); CHLORIDE 102 mmol/L (98-107); CREATININE 1.12 mg/dL (0.60-1.30); GLUCOSE,RANDOM 90 mg/dL (70-110); POTASSIUM 3.7 mmol/L (3.5-5.1); SODIUM SERUM 137 mmol/L (136-145); UREA NITROGEN, BLOOD 26 mg/dL (7-18)
[2021-11-12 12:22] LABS: GLOMERULAR FILTR. RATE CALC > 60 mL/min (>60)
[2021-11-12 12:26] LABS: ALANINE AMINOTRANSFERASE 31 U/L (12-78); ALBUMIN 3.4 g/dL (3.4-5.0); ALKALINE PHOSPHATASE 100 U/L (46-116); ASPARTATE AMINOTRANSFERASE 36 U/L (15-37); BILIRUBIN,TOTAL 0.3 mg/dL (0.1-1.0); TOTAL PROTEIN, SERUM 7.2 g/dL (6.4-8.2)
[2021-11-12 12:39] LABS: PROTHROMBIN TIME 10.8 SEC (9.4-11.6)
[2021-11-12] MEDS ORDERED: PANTOPRAZOLE SODIUM 40 MG/VIAL IVP ONE (13:45)
[2021-11-12 14:00] VITALS: BP 130/66
[2021-11-12 14:43] LABS: APPEARANCE,URINE CLEAR (CLEAR); BILIRUBIN,URINE NEGATIVE (NEGATIVE); GLUCOSE, URINE (UA) NEGATIVE (NEGATIVE); KETONES,URINE 15 mg/dL (NEGATIVE); LEUKOCYTE ESTERASE ,URINE NEGATIVE (NEGATIVE); NITRATE,URINE NEGATIVE (NEGATIVE); OCCULT BLOOD,URINE NEGATIVE (NEGATIVE); PH,URINE 5.5 (5.0-8.0); PROTEIN,URINE POS 1+ (NEGATIVE); UROBILINOGEN,URINE 0.2 mg/dL (<=1.0)
[2021-11-12 14:46] LABS: BACTERIA,URINE None Seen /HPF (None Seen); RBC,URINE None Seen /HPF (0-2); WBC,URINE None Seen /HPF (0-5)
== END 2021-11-12 15:30 | disposition home or self-care (01) ==
LOC: EMS 10:30
DX: F25.9 Schizoaffective disorder, unspecified (principal); F31.9 Bipolar disorder, unspecified; K62.5 Hemorrhage of anus and rectum; J45.909 Unspecified asthma, uncomplicated; K21.9 Gastro-esophageal reflux disease without esophagitis; I10 Essential (primary) hypertension; F17.210 Nicotine dependence, cigarettes, uncomplicated; Z59.00 Homelessness unspecified; Z88.8 Allergy status to other drugs, medicaments and biological substances
CPT/HCPCS: 36415; 80053; 81001; 85025; 85610; 85730; 86850; 86900; 86901; 93005; 96374; 99285; C9113

== ENCOUNTER 2021-11-23 19:11 | Emergency (ER) | payer MEDICARE, MEDICAID ==
[~2021-11-23] VITALS: Ht 175.3 cm; Wt 75.0 kg
[2021-11-23 20:31] LABS: BASOPHILS % (AUTO) 0.5 % (0.0-2.0); EOSINOPHILS % (AUTO) 4.2 % (1.0-6.0); HEMATOCRIT 27.3 % (41-53); HEMOGLOBIN 8.7 g/dL (13.5-17.5); LYMPHOCYTES # (AUTO) 1.6 K/uL (1.0-4.8); LYMPHOCYTES % (AUTO) 32.6 % (22.0-44.0); MEAN CORPUSCULAR HEMOGLOBIN 24.7 pg (26.0-34.0); MEAN CORPUSCULAR HGB CONC 31.9 G/dL (31.0-37.0); MEAN CORPUSCULAR VOLUME 78 fL (80-100); MONOCYTES # (AUTO) 0.5 K/uL (0.1-1.0); MONOCYTES % (AUTO) 11.1 % (2.0-9.0); NEUTROPHILS # (AUTO) 2.5 K/uL (1.8-7.7); NEUTROPHILS % (AUTO) 51.6 % (40.0-70.0); PLATELET COUNT (AUTO) 336 K/uL (150-450); RED BLOOD CELL COUNT(AUTO) 3.51 MIL/uL (4.50-5.90)
[2021-11-23 20:42] LABS: ANION GAP 10 mmol/L (8-16); CALCIUM, TOTAL 8.3 mg/dL (8.8-10.5); CARBON DIOXIDE 26 mmol/L (22-29); CHLORIDE 102 mmol/L (98-107); CREATININE 1.25 mg/dL (0.60-1.30); GLOMERULAR FILTR. RATE CALC 56 mL/min (>60); GLUCOSE,RANDOM 130 mg/dL (70-110); POTASSIUM 4.1 mmol/L (3.5-5.1); SODIUM SERUM 138 mmol/L (136-145); UREA NITROGEN, BLOOD 11 mg/dL (7-18)
[2021-11-23 20:47] LABS: ALANINE AMINOTRANSFERASE 23 U/L (12-78); ALBUMIN 3.3 g/dL (3.4-5.0); ALKALINE PHOSPHATASE 100 U/L (46-116); ASPARTATE AMINOTRANSFERASE 18 U/L (15-37); BILIRUBIN,TOTAL 0.2 mg/dL (0.1-1.0); TOTAL PROTEIN, SERUM 6.9 g/dL (6.4-8.2)
[2021-11-23 22:31] VITALS: BP 123/82
== END 2021-11-23 21:30 | disposition left against medical advice (07) ==
LOC: EMS 19:15
DX: F25.0 Schizoaffective disorder, bipolar type (principal); I10 Essential (primary) hypertension; K21.9 Gastro-esophageal reflux disease without esophagitis; J44.9 Chronic obstructive pulmonary disease, unspecified; F17.210 Nicotine dependence, cigarettes, uncomplicated; Z88.5 Allergy status to narcotic agent; Z79.899 Other long term (current) drug therapy
CPT/HCPCS: 80053; 85025; 99283; G0480

== ENCOUNTER 2021-12-20 13:00 | Inpatient (IN) | payer MEDICARE, MEDICAID ==
[~2021-12-20] VITALS: Ht 170.2 cm; Wt 58.8 kg
[~2021-12-20 13:00] MED LIST changes: +OMEG-108 PO; -OMEG-135 PO
[2021-12-20 14:34] LABS: BASOPHILS % (AUTO) 0.8 % (0.0-2.0); EOSINOPHILS % (AUTO) 1.6 % (1.0-6.0); HEMATOCRIT 24.5 % (41-53); HEMOGLOBIN 7.9 g/dL (13.5-17.5); LYMPHOCYTES # (AUTO) 1.1 K/uL (1.0-4.8); LYMPHOCYTES % (AUTO) 20.4 % (22.0-44.0); MEAN CORPUSCULAR HEMOGLOBIN 24.7 pg (26.0-34.0); MEAN CORPUSCULAR HGB CONC 32.1 G/dL (31.0-37.0); MEAN CORPUSCULAR VOLUME 77 fL (80-100); MONOCYTES # (AUTO) 0.4 K/uL (0.1-1.0); MONOCYTES % (AUTO) 7.2 % (2.0-9.0); NEUTROPHILS # (AUTO) 3.9 K/uL (1.8-7.7); PLATELET COUNT (AUTO) 357 K/uL (150-450); RED BLOOD CELL COUNT(AUTO) 3.19 MIL/uL (4.50-5.90); RED CELL DISTRIBUTION WIDTH 18.9 % (11.5-14.5)
[2021-12-20 14:44] LABS: ANION GAP 16 mmol/L (8-16); CALCIUM, TOTAL 7.9 mg/dL (8.8-10.5); CARBON DIOXIDE 24 mmol/L (22-29); CHLORIDE 102 mmol/L (98-107); CREATININE 1.18 mg/dL (0.60-1.30); GLOMERULAR FILTR. RATE CALC 60 mL/min (>60); GLUCOSE,RANDOM 99 mg/dL (70-110); POTASSIUM 3.7 mmol/L (3.5-5.1); SODIUM SERUM 142 mmol/L (136-145); UREA NITROGEN, BLOOD 17 mg/dL (7-18)
[2021-12-20 14:52] LABS: ALANINE AMINOTRANSFERASE 20 U/L (12-78); ALKALINE PHOSPHATASE 104 U/L (46-116); ASPARTATE AMINOTRANSFERASE 22 U/L (15-37); BILIRUBIN,TOTAL 0.3 mg/dL (0.1-1.0); TOTAL PROTEIN, SERUM 6.4 g/dL (6.4-8.2)
[2021-12-20 15:24] LABS: AMPHET/METH SCREEN,URINE NEGATIVE (NEGATIVE); BARBITURATE SCREEN, URINE NEGATIVE (NEGATIVE); BENZODIAZEPINES SCREEN,URINE NEGATIVE (NEGATIVE); CANNABINOID SCREEN,URINE POSITIVE (NEGATIVE); COCAINE SCREEN,URINE NEGATIVE (NEGATIVE); METHADONE SCREEN, URINE NEGATIVE (NEGATIVE); OPIATE SCREEN,URINE NEGATIVE (NEGATIVE)
[2021-12-20 15:26] LABS: PHENCYCLIDINE SCREEN,URINE NEGATIVE (NEGATIVE)
[2021-12-20] MEDS ORDERED: LORazepam 1 MG TABLET PO ONE (16:00)
[2021-12-20 16:05] LABS: COVID AG,FIA SOURCE NASAL SWAB
[2021-12-20] MEDS ORDERED: HALOPERIDOL 5 MG TABLET PO PRN (16:30)
[2021-12-20] MEDS ORDERED: ZOLPIDEM TARTRATE 10 MG TABLET PO PRN (16:30)
[2021-12-20] MEDS ORDERED: LORazepam 2 MG TABLET PO PRN (16:30)
[2021-12-20 20:13] VITALS: BP 147/81
[2021-12-21] MEDS ORDERED: MAG HYDROX/AL HYDROX/SIMETH ES 30 ML SUSPENSION UDCUP PO PRN (09:00)
[2021-12-21] MEDS ORDERED: MAGNESIUM HYDROXIDE SUSPENSION 30 ML UDCUP PO PRN (09:00)
[2021-12-21] MEDS ORDERED: IBUPROFEN 400 MG TABLET PO PRN (09:00)
[2021-12-21] MEDS ORDERED: PETROLATUM,WHITE 28 GM JELLY TP PRN (09:00)
[2021-12-21] MEDS ORDERED: CloNIDine HCL 0.1 MG TABLET PO PRN (09:00)
[2021-12-21] MEDS: MULTIVITAMINS WITH IRON TABLET PO SCH (09:00)
[2021-12-21] MEDS ORDERED: GuaiFENesin/D-METHORPHAN [SUGAR-FREE] 200-20MG/10 ML SYRUP UDCUP PO PRN (09:00)
[2021-12-21] MEDS ORDERED: ALBUTEROL SULFATE HFA 90 MCG/PUFF 8 GM INHALER IH PRN (09:00)
[2021-12-21] MEDS ORDERED: LOPERAMIDE HCL 2 MG CAPSULE PO PRN (09:00)
[2021-12-21] MEDS ORDERED: ONDANSETRON HCL 4 MG TABLET PO PRN (09:00)
[2021-12-21] MEDS ORDERED: DOCUSATE SODIUM 100 MG CAPSULE PO PRN (09:00)
[2021-12-21] MEDS ORDERED: ACETAMINOPHEN 325 MG TABLET PO PRN (09:00)
[2021-12-21] MEDS: FERROUS SULFATE 325 MG EC TABLET PO SCH ×2 (12:00→16:20)
[2021-12-21 17:02] VITALS: BP 139/83
[2021-12-21] MEDS: QUEtiapine FUMARATE 25 MG TABLET PO SCH (21:26)
[2021-12-21] MEDS: MELATONIN 3 MG TABLET PO SCH (21:26)
[2021-12-22] MEDS: FERROUS SULFATE 325 MG EC TABLET PO SCH ×5 (06:38→16:26)
[2021-12-22] MEDS: MULTIVITAMINS WITH IRON TABLET PO SCH (08:31)
[2021-12-22] MEDS: LORazepam 0.5 MG TABLET PO PRN ×3 (08:55→19:26)
[2021-12-22 09:25] VITALS: BP 140/83
[2021-12-22] MEDS: NICOTINE 14 MG/24 HOUR PATCH TD PRN (17:20)
[2021-12-22 19:27] VITALS: BP 145/92
[2021-12-22] MEDS: QUEtiapine FUMARATE 25 MG TABLET PO SCH (20:03)
[2021-12-22] MEDS: MELATONIN 3 MG TABLET PO SCH (20:03)
[2021-12-23] MEDS: FERROUS SULFATE 325 MG EC TABLET PO SCH ×3 (06:53→16:22)
[2021-12-23] MEDS: MULTIVITAMINS WITH IRON TABLET PO SCH (08:27)
[2021-12-23] MEDS: LORazepam 0.5 MG TABLET PO PRN ×3 (09:56→18:00)
[2021-12-23] MEDS: NICOTINE 14 MG/24 HOUR PATCH TD PRN (10:00)
[2021-12-23] MEDS: QUEtiapine FUMARATE 25 MG TABLET PO SCH (20:13)
[2021-12-23] MEDS: MELATONIN 3 MG TABLET PO SCH (20:13)
[2021-12-23] MEDS ORDERED: OMEG-108 PO (20:55)
[2021-12-23] MEDS ORDERED: MELA3TAB89 PO (20:55)
[2021-12-23] MEDS ORDERED: QUET25TA36 PO (20:55)
[2021-12-23] MEDS ORDERED: NALT50TA PO (20:55)
[2021-12-23] MEDS ORDERED: QUEtiapine FUMARATE 25 MG TABLET PO ONE (21:00)
[2021-12-24] MEDS: FERROUS SULFATE 325 MG EC TABLET PO SCH (06:45)
[2021-12-24] MEDS: MULTIVITAMINS WITH IRON TABLET PO SCH (08:23)
[2021-12-24] MEDS: LORazepam 0.5 MG TABLET PO PRN (08:24)
[2021-12-24] MEDS ORDERED: OMEGA-3/DHA/EPA/FISH OIL 1,000 MG CAPSULE PO SCH (09:00)
[2021-12-24] MEDS ORDERED: NALTREXONE HCL 50 MG TABLET PO SCH (09:00)
[2021-12-24] MEDS ORDERED: FERR-89 PO (09:15)
[2021-12-24] MEDS ORDERED: QUEtiapine FUMARATE 100 MG TABLET PO SCH (21:00)
== END 2021-12-24 10:05 | disposition home or self-care (01) | DRG 885 ==
LOC: EMS 13:06 → 3EI 17:24
PROVIDERS: ADMIT Psychiatry & Neurology Child & Adolescent Psychiatry; ATTEND Psychiatry & Neurology Psychiatry
DX: F25.9 Schizoaffective disorder, unspecified (principal); B18.2 Chronic viral hepatitis C; R45.851 Suicidal ideations; F31.81 Bipolar II disorder; D64.9 Anemia, unspecified; F12.90 Cannabis use, unspecified, uncomplicated; F41.9 Anxiety disorder, unspecified; I10 Essential (primary) hypertension; J44.9 Chronic obstructive pulmonary disease, unspecified; K21.9 Gastro-esophageal reflux disease without esophagitis; Z20.822 Contact with and (suspected) exposure to COVID-19; G47.00 Insomnia, unspecified; Z88.8 Allergy status to other drugs, medicaments and biological substances; Z91.14 Patient's other noncompliance with medication regimen; Z87.891 Personal history of nicotine dependence; Z91.19 Patient's noncompliance with other medical treatment and regimen; Z59.00 Homelessness unspecified
CPT/HCPCS: 80053; 85025; 99285; G0480

== ENCOUNTER 2022-02-01 21:14 | Emergency (ER) | payer MEDICARE, MEDICAID ==
[~2022-02-01] VITALS: Ht 175.3 cm; Wt 59.1 kg
[~2022-02-01 21:14] MED LIST changes: +FERR325T27 PO
[2022-02-01 22:28] LABS: BASOPHILS % (AUTO) 1.2 % (0.0-2.0); EOSINOPHILS % (AUTO) 5.7 % (1.0-6.0); HEMATOCRIT 27.7 % (41-53); HEMOGLOBIN 8.8 g/dL (13.5-17.5); LYMPHOCYTES # (AUTO) 1.6 K/uL (1.0-4.8); LYMPHOCYTES % (AUTO) 31.2 % (22.0-44.0); MEAN CORPUSCULAR HEMOGLOBIN 24.7 pg (26.0-34.0); MEAN CORPUSCULAR HGB CONC 31.8 G/dL (31.0-37.0); MEAN CORPUSCULAR VOLUME 78 fL (80-100); MONOCYTES # (AUTO) 0.6 K/uL (0.1-1.0); MONOCYTES % (AUTO) 11.1 % (2.0-9.0); NEUTROPHILS # (AUTO) 2.7 K/uL (1.8-7.7); NEUTROPHILS % (AUTO) 50.8 % (40.0-70.0); PLATELET COUNT (AUTO) 259 K/uL (150-450); RED BLOOD CELL COUNT(AUTO) 3.57 MIL/uL (4.50-5.90); RED CELL DISTRIBUTION WIDTH 18.9 % (11.5-14.5)
[2022-02-01 22:32] LABS: ANION GAP 3 mmol/L (8-16); CARBON DIOXIDE 32 mmol/L (22-29); CHLORIDE 101 mmol/L (98-107); CREATININE 1.11 mg/dL (0.60-1.30); GLUCOSE,RANDOM 98 mg/dL (70-110); SODIUM SERUM 136 mmol/L (136-145); UREA NITROGEN, BLOOD 12 mg/dL (7-18)
[2022-02-01 22:33] LABS: GLOMERULAR FILTR. RATE CALC > 60 mL/min (>60)
[2022-02-01 22:38] LABS: ALANINE AMINOTRANSFERASE 26 U/L (12-78); ALBUMIN 3.3 g/dL (3.4-5.0); ALKALINE PHOSPHATASE 89 U/L (46-116); ASPARTATE AMINOTRANSFERASE 24 U/L (15-37); BILIRUBIN,TOTAL 0.3 mg/dL (0.1-1.0); TOTAL PROTEIN, SERUM 6.7 g/dL (6.4-8.2)
[2022-02-02 00:53] VITALS: BP 135/71
== END 2022-02-02 00:59 | disposition home or self-care (01) ==
LOC: EMS 21:19
DX: F25.9 Schizoaffective disorder, unspecified (principal); F31.9 Bipolar disorder, unspecified; D64.9 Anemia, unspecified; R19.7 Diarrhea, unspecified; J45.909 Unspecified asthma, uncomplicated; J44.9 Chronic obstructive pulmonary disease, unspecified; K21.9 Gastro-esophageal reflux disease without esophagitis; I10 Essential (primary) hypertension; F17.210 Nicotine dependence, cigarettes, uncomplicated; F12.90 Cannabis use, unspecified, uncomplicated; Z59.00 Homelessness unspecified; Z88.8 Allergy status to other drugs, medicaments and biological substances
CPT/HCPCS: 36415; 80053; 85025; 99283; G0480

== ENCOUNTER 2024-06-11 13:15 | Emergency (ER) | payer MEDICARE, MEDICAID ==
[~2024-06-11] VITALS: Ht 162.6 cm; Wt 55.0 kg
[~2024-06-11 13:15] MED LIST changes: -NALT50TA PO; +NALT50TA6 PO; -OMEG-108 PO; +OMEG-135 PO
[2024-06-11 13:21] VITALS: BP 137/83; PULSE 78; RESP 16; TEMP 97.8; O2SAT 98
[2024-06-11 13:38] LABS: ANION GAP 7 mmol/L (8-16); CALCIUM, TOTAL 8.3 mg/dL (8.8-10.5); CARBON DIOXIDE 29 mmol/L (22-29); CHLORIDE 97 mmol/L (98-107); CREATININE 1.37 mg/dL (0.60-1.30); GLOMERULAR FILTR. RATE CALC 50 mL/min (>60); GLUCOSE,RANDOM 106 mg/dL (70-110); POTASSIUM 3.7 mmol/L (3.5-5.1); SODIUM SERUM 133 mmol/L (136-145); UREA NITROGEN, BLOOD 30 mg/dL (7-18)
[2024-06-11 13:39] LABS: ALCOHOL, BLOOD (SERUM) < 3 mg/dL (0-10)
[2024-06-11 13:40] LABS: BASOPHILS % (AUTO) 0.1 % (0.0-2.0); EOSINOPHILS % (AUTO) 0 % (1.0-6.0); HEMATOCRIT 32.7 % (41-53); LYMPHOCYTES # (AUTO) 0.4 K/uL (1.0-4.8); LYMPHOCYTES % (AUTO) 8.7 % (22.0-44.0); MEAN CORPUSCULAR HEMOGLOBIN 32.3 pg (26.0-34.0); MEAN CORPUSCULAR HGB CONC 33.7 G/dL (31.0-37.0); MEAN CORPUSCULAR VOLUME 96 fL (80-100); MONOCYTES # (AUTO) 0.2 K/uL (0.1-1.0); MONOCYTES % (AUTO) 4.6 % (2.0-9.0); NEUTROPHILS # (AUTO) 4.3 K/uL (1.8-7.7); RED BLOOD CELL COUNT(AUTO) 3.41 MIL/uL (4.50-5.90); WHITE BLOOD COUNT (AUTO) 4.9 K/uL (4.5-11.0)
[2024-06-11 13:41] LABS: NEUTROPHILS % (AUTO) 86.6 % (40.0-70.0)
[2024-06-11 13:44] LABS: ALANINE AMINOTRANSFERASE 20 U/L (12-78); ALBUMIN 2.8 g/dL (3.4-5.0); ALKALINE PHOSPHATASE 48 U/L (46-116); ASPARTATE AMINOTRANSFERASE 24 U/L (15-37); BILIRUBIN,TOTAL 0.4 mg/dL (0.1-1.0); TOTAL PROTEIN, SERUM 7.2 g/dL (6.4-8.2)
[2024-06-11 13:57] LABS: PLATELET COUNT (AUTO) 89 K/uL (150-450); RBC MORPHOLOGY COMMENT NORMAL RBC MORPH
[2024-06-11 14:14] LABS: APPEARANCE,URINE CLEAR (CLEAR); BILIRUBIN,URINE NEGATIVE (NEGATIVE); COLOR,URINE YELLOW (YELLOW); GLUCOSE, URINE (UA) NEGATIVE (NEGATIVE); KETONES,URINE NEGATIVE (NEGATIVE); LEUKOCYTE ESTERASE ,URINE NEGATIVE (NEGATIVE); NITRATE,URINE NEGATIVE (NEGATIVE); OCCULT BLOOD,URINE NEGATIVE (NEGATIVE); PH,URINE 6.5 (5.0-8.0); PROTEIN,URINE TRACE mg/dL (NEGATIVE); SPECIFIC GRAVITIY, URINE 1.022 (1.003-1.030); UROBILINOGEN,URINE <=1.0 mg/dL (<=1.0)
[2024-06-11 14:17] LABS: BACTERIA,URINE None Seen /HPF (None Seen); RBC,URINE None Seen /HPF (0-2); WBC,URINE None Seen /HPF (0-5)
[2024-06-11] MEDS ORDERED: PANT-31 PO (14:18)
[2024-06-11] MEDS ORDERED: DEUT24TA PO (14:18)
[2024-06-11] MEDS ORDERED: MIDO2.5T19 PO (14:18)
[2024-06-11] MEDS ORDERED: LEVO-72 PO (14:18)
[2024-06-11] MEDS ORDERED: FLUV50 PO (14:18)
[2024-06-11] MEDS ORDERED: ASPI-1450 PO (14:18)
[2024-06-11] MEDS ORDERED: DIVA125C2 PO (14:18)
[2024-06-11] MEDS ORDERED: ATOR40TA28 PO (14:18)
[2024-06-11] MEDS ORDERED: TAMS0.4C94 PO (14:18)
[2024-06-11] MEDS ORDERED: HYDR-4808 PO (14:18)
[2024-06-11] MEDS ORDERED: PRED-554 PO (14:18)
[2024-06-11 14:21] LABS: ALCOHOL, URINE DRUG SCREEN NEGATIVE (NEGATIVE); AMPHET/METH SCREEN,URINE NEGATIVE (NEGATIVE); BENZODIAZEPINES SCREEN,URINE NEGATIVE (NEGATIVE); CANNABINOID SCREEN,URINE NEGATIVE (NEGATIVE); COCAINE SCREEN,URINE NEGATIVE (NEGATIVE); METHADONE SCREEN, URINE NEGATIVE (NEGATIVE); OPIATE SCREEN,URINE POSITIVE (NEGATIVE); PHENCYCLIDINE SCREEN,URINE NEGATIVE (NEGATIVE)
[2024-06-11] MEDS: LORazepam 2 MG/ML VIAL IM ONE (14:25)
[2024-06-11] MEDS: DiphenhydrAMINE HCL 50 MG/ML VIAL IM ONE (14:25)
[2024-06-11] MEDS: HALOPERIDOL LACTATE 5 MG/ML VIAL IM ONE (14:26)
[2024-06-11 14:29] LABS: PH,URINE DRUG SCREEN 6.5 (5.0-8.0)
[2024-06-11 14:30] LABS: BARBITURATE SCREEN, URINE NEGATIVE (NEGATIVE)
[2024-06-11 15:56] LABS: COVID AG,FIA SOURCE NASAL SWAB
[2024-06-11 16:21] LABS: SARS-COV2 (COVID) ANTIGEN,FIA Negative (Negative)
== END 2024-06-11 17:20 | disposition admitted as inpatient to this hospital (09) ==
LOC: EMS 13:20
DX: F20.9 Schizophrenia, unspecified (principal); E78.00 Pure hypercholesterolemia, unspecified; I10 Essential (primary) hypertension; J45.909 Unspecified asthma, uncomplicated; J44.9 Chronic obstructive pulmonary disease, unspecified; F31.9 Bipolar disorder, unspecified; K21.9 Gastro-esophageal reflux disease without esophagitis; F17.210 Nicotine dependence, cigarettes, uncomplicated; Z59.00 Homelessness unspecified; Z20.822 Contact with and (suspected) exposure to COVID-19
CPT/HCPCS: 99285; 71046; 87426; 80048; 80076; 85025; 36415; 93005; 96372; 80307; 81001; G0480; J1200; J1630; J2060